=== PATIENT | female | born 1950 | race Caucasian/White ===

== ENCOUNTER → 2019-12-12 11:13 | Outpatient (CLI) | payer MEDICARE, SELFPAY ==
--- NOTE | ~2019-12-12 | MM_ITS ---
EXAMINATION: MM screening jak RT w mihir HISTORY: Screening right mammogram, history of left mastectomy TECHNIQUE: Craniocaudal and mediolateral oblique 3-D tomosynthesis images were obtained and synthetic 2-D images were generated. CAD analysis was submitted and interpreted. COMPARISON: 12/08/2018, 10/23/2017, 07/23/2013 BREAST PARENCHYMAL COMPOSITION: There are scattered areas of fibroglandular density. FINDINGS: Scattered benign-appearing calcifications are present. There is no evidence of suspicious m ass, calcification, or architectural distortion to suggest malignancy. There has been no suspicious i nterval change. IMPRESSION: 1. No mammographic evidence of malignancy. 2. Recommend routine screening mammography in one year. BI-RADS Category 2: Benign finding(s). Reviewed, dictated and finalized at location A. 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
== END ==
PROVIDERS: PCP Internal Medicine; Visit Provider Internal Medicine Hematology & Oncology
DX: Z12.31 Encounter for screening mammogram for malignant neoplasm of breast (principal)
CPT/HCPCS: 77063; 77067

== ENCOUNTER 2020-05-09 13:38 | Outpatient (CLI) | payer MEDICARE, SELFPAY ==
[2020-05-09 13:52] LABS: Basophils Absolute Auto 0.1 K/mm3 (0.0-0.1); Basophils Percent Auto 0.7 % (0.2-1.2); Eosinophils Absolute Auto 0.2 K/mm3 (0-0.3); Eosinophils Percent Auto 2.6 % (0-4.4); Hematocrit 35.2 % (37.0-47.0); Hemoglobin 11.7 g/dL (12.0-15.0); Immature Granulocyte Absolute 0.02 K/mm3 (0.00-0.031); Immature Granulocyte Percent A 0.3 % (0-0.5); Lymphocytes Absolute Auto 2.21 K/mm3 (0.9-3.2); Lymphocytes Percent Auto 29.8 % (18.3-44.2); Mean Corpuscular HGB Conc 33.2 g/dl (32-36); Mean Corpuscular Hemoglobin 30.7 pg (26-34); Mean Corpuscular Volume 92.4 fl (80-100); Mean Platelet Volume 9.2 fl (7.4-10.4); Monocytes Absolute Auto 0.7 K/mm3 (0.1-0.6); Monocytes Percent Auto 9.8 % (2.6-8.5); Neutrophils Absolute Auto 4.2 K/mm3 (1.3-6.7); Neutrophils Percent Auto 56.8 % (45.5-73.1); Platelet Count Result 225 k/mm3 (150-375); Red Blood Count 3.81 M/mm3 (4.2-5.4); Red Cell Distribution Width 13.2 % (11.5-14.5); White Blood Count 7.4 K/mm3 (4.5-10.0)
[2020-05-09 15:04] LABS: Cholesterol 217 mg/dL (0-200); HDL Direct 58 mg/dL; Triglycerides 265 mg/dL (<150)
[2020-05-09 15:07] LABS: Alanine Aminotransferase 16 U/L (4-35); Albumin Level 4.3 g/dL (3.5-5.1); Alkaline Phosphatase 70 U/L (38-126); Aspartate Amino Transferase 25 U/L (14-36); Bilirubin,Total 0.2 mg/dL (0.2-1.3); Blood Urea Nitrogen 18 mg/dL (7-17); Carbon Dioxide 28 mmol/L (22-30); Chloride 101 mmol/L (98-107); Estimated Glomerular Filt Rate > 60; Glucose 101 mg/dL (65-105); Sodium 137 mmol/L (137-145)
[2020-05-09 15:22] LABS: LDL Cholesterol Direct 121 mg/dL
[2020-05-09 16:10] LABS: Folic Acid > 20.0 ng/mL (2.76->20)
[2020-05-12 04:15] LABS: CA 27.29 13 U/mL (<38)
== END 2020-05-09 13:39 | disposition home or self-care (01) ==
LOC: ANHLAB 13:40
PROVIDERS: PCP Internal Medicine; Visit Provider Internal Medicine Hematology & Oncology
DX: E78.5 Hyperlipidemia, unspecified (principal); R53.83 Other fatigue; C50.412 Malignant neoplasm of upper-outer quadrant of left female breast; Z17.0 Estrogen receptor positive status [ER+]
CPT/HCPCS: 36415; 80053; 80061; 82607; 82746; 84443; 85025; 86300

== ENCOUNTER → 2021-02-22 11:01 | Outpatient (CLI) | payer MEDICARE, SELFPAY ==
--- NOTE | ~2021-02-22 | MM_ITS ---
EXAMINATION: MM screening jak RT w mihir HISTORY: Screening TECHNIQUE: Craniocaudal and mediolateral oblique 3-D tomosynthesis images were obtained and synthetic 2-D images were generated. CAD analysis was submitted and interpreted. COMPARISON: Comparison to multiple prior studies sequentially, with oldest reviewed study dated 10/09. BREAST PARENCHYMAL COMPOSITION: There are scattered areas of fibroglandular density. FINDINGS: There is no evidence of suspicious mass, calcification, or architectural distortion to sugg est malignancy in the right breast. There has been no suspicious interval change. IMPRESSION: 1. No mammographic evidence of malignancy. 2. Recommend routine screening mammography in one year. BI-RADS Category 1: Negative Reviewed, dictated and finalized at location A.
--- NOTE | ~2021-02-22 | DEXA_ITS ---
Bone Density Report Name: Salud Hanley Age: 70 Sex: Female Ethnicity: White Date of : 1950 Indication: osteopenia; monitoring treatment; height loss; prior fracture; cancer; postmenopausal Referring Provider: Samir Brito Study: Bone densitometry was performed. Exam Date: February 22, 2021 Accession number: [id number] Bone Density: Region BMD T-score Z-score Classification AP Spine (L1, L3) 1.065 0.5 2.7 Normal Femoral Neck (Left) 0.644 -1.8 0.1 Osteopenia Total Hip (Left) 0.937 0.0 1.6 Normal Femoral Neck (Right) 0.674 -1.6 0.4 Osteopenia Total Hip (Right) 0.855 -0.7 0.9 Normal Total Hip Mean 0.896 -0.4 1.3 Normal World Health Organization criteria for BMD impression classify patients as: Normal (T-score at or above -1.0), Osteopenia (T-score between -1.0 and -2.5), or Osteoporosis (T-score at or below -2.5). 10-year Fracture Risk: FRAX not reported because: Prior hip or vertebral fracture Treated for osteoporosis Previous Exams: Region Exam Age BMD T-score BMD Change BMD Change Date g/cm2 vs Baseline vs Previous AP Spine(L1, L3) 02/22/2021 70 1.065 0.5 0.227* 0.112* 10/23/2017 67 0.954 -0.5 0.116* -0.020 07/23/2016 66 0.973 -0.4 0.136* 0.136* 01/13/2006 55 0.838 -1.6 Total Hip(Left) 02/22/2021 70 0.937 0.0 0.028* 0.053* 10/23/2017 67 0.884 -0.5 -0.025 -0.011 07/23/2016 66 0.895 -0.4 -0.014 -0.014 01/13/2006 55 0.909 -0.3 Total Hip(Right) 02/22/2021 70 0.855 -0.7 0.012 0.065* 10/23/2017 67 0.790 -1.2 -0.053* -0.032* 07/23/2016 66 0.822 -1.0 -0.021 -0.021 01/13/2006 55 0.843 -0.8 *Denotes significance at 95% confidence level, LSC for AP Spine = 0.022 g/cm2, LSC for Total Hip = 0.027 g/cm2 Clinical Information Provided by Patient: Have had a previous hip or vertebral fracture Has had a low trauma fracture Is being treated for osteoporosis Has used the following medications: HRT (i.e. estrogen/hormone therapy), Prolia (i.e. denosumab), Vitamin D, Calcium, MTV Has the following medical conditions: Cancer Patient maximum height was 64.75 Menopause Age: 51 No regular weight bearing exercise Drinks caffeinated beverages Onset of menses at age 12 Number of children 2 Impression: The patient has low bone mass, based on the Lef
== END ==
PROVIDERS: PCP Internal Medicine; Visit Provider Internal Medicine Hematology & Oncology
DX: Z78.0 Asymptomatic menopausal state (principal); Z12.31 Encounter for screening mammogram for malignant neoplasm of breast; M85.852 Other specified disorders of bone density and structure, left thigh; M85.851 Other specified disorders of bone density and structure, right thigh
CPT/HCPCS: 77063; 77067; 77080

== ENCOUNTER → 2021-09-24 02:26 | Outpatient (CLI) | payer MEDICARE, SELFPAY ==
[2021-09-24 19:35] LABS: SARS-CoV-2 RNA PCR Negative
== END ==
PROVIDERS: PCP Internal Medicine; Visit Provider Internal Medicine
DX: R05.9 Cough, unspecified (principal); Z20.822 Contact with and (suspected) exposure to COVID-19
CPT/HCPCS: C9803; U0003; U0005

== ENCOUNTER → 2021-09-26 09:57 | Outpatient (CLI) | payer MEDICARE, SELFPAY ==
--- NOTE | ~2021-09-26 | XR_ITS ---
EXAMINATION: XR chest 2V EXAM DATE: 09/26/2021 10:21 INDICATION: R05.9 - Cough, unspecified. TECHNIQUE: Frontal and lateral projections of the chest obtained and reviewed. Comparison is made to prior examination from 09/01/2016. FINDINGS: There are left axillary surgical clips. Small amount of biapical postinfectious residua. S ome chronic hyperinflation. No confluent consolidation, pneumothorax or pleural effusion suspected. C ardiomediastinal silhouette is normal. Benign circumscribed density projecting over left humeral head unchanged. IMPRESSION: No acute cardiac pulmonary findings. Mild hyperinflation. Reviewed, dictated and finalized at location B. ING HAND
== END ==
PROVIDERS: PCP Internal Medicine; Visit Provider Physician Assistant
DX: R05.9 Cough, unspecified (principal); R91.8 Other nonspecific abnormal finding of lung field
CPT/HCPCS: 71046

== ENCOUNTER → 2021-11-21 09:43 | Outpatient (CLI) | payer MEDICARE, SELFPAY ==
[2021-11-21 20:40] LABS: SARS-CoV-2 RNA PCR Positive
== END ==
PROVIDERS: PCP Internal Medicine; Visit Provider Physician Assistant
DX: U07.1 COVID-19 (principal)
CPT/HCPCS: C9803; U0003; U0005

== ENCOUNTER → 2022-02-24 14:37 | Outpatient (CLI) | payer MEDICARE, SELFPAY ==
--- NOTE | ~2022-02-24 | MM_ITS ---
EXAMINATION: MM screening jak RT w mihir HISTORY: Screening mammogram TECHNIQUE: Craniocaudal and mediolateral oblique 3-D tomosynthesis images were obtained and synthetic 2-D images were generated. CAD analysis was submitted and interpreted. COMPARISON: , 12/12/2019, 12/08/2018 right screening mammogram examinations BREAST PARENCHYMAL COMPOSITION: The breasts are heterogeneously dense, which may obscure small masses . FINDINGS: History of left mastectomy in January 2017 for breast cancer. Scattered benign calcifications . There is no evidence of suspicious mass, calcification, or architectural distortion to suggest amber gnancy in either breast. There has been no suspicious interval change. IMPRESSION: 1. Status post left mastectomy for breast cancer. No mammographic evidence of malignancy. 2. Recommend routine screening mammography in one year. BI-RADS Category 2: Benign finding(s). Reviewed, dictated and finalized at location A. IMPRESSION: 1. Status post left mastectomy for breast cancer. No mammographic evidence of m alignancy. 2. Recommend routine screening mammography in one year. BI-RADS Category 2: Benign finding(s).
== END ==
PROVIDERS: PCP Internal Medicine; Visit Provider Internal Medicine Hematology & Oncology
DX: Z12.31 Encounter for screening mammogram for malignant neoplasm of breast (principal)
CPT/HCPCS: 77063; 77067

== ENCOUNTER 2022-05-23 10:53 | Outpatient (CLI) | payer MEDICARE, SELFPAY ==
[2022-05-23 14:07] LABS: Cholesterol 215 mg/dL (0-200); HDL Direct 48 mg/dL; Triglycerides 271 mg/dL (<150)
[2022-05-23 14:18] LABS: LDL Cholesterol Direct 97 mg/dL
[2022-05-23 15:27] LABS: Folic Acid > 20.0 ng/mL (2.76->20)
== END 2022-05-23 10:54 | disposition home or self-care (01) ==
LOC: ANHLAB 10:54
PROVIDERS: PCP Internal Medicine; Visit Provider Internal Medicine
DX: R73.9 Hyperglycemia, unspecified (principal); E78.5 Hyperlipidemia, unspecified; R53.83 Other fatigue
CPT/HCPCS: 36415; 80061; 82607; 82746; 84443

== ENCOUNTER 2022-06-28 10:35 | Emergency (ER) | payer MEDICARE, SELFPAY ==
[2022-06-28 10:46] VITALS: BP 154/99; PULSE 76; RESP 16; TEMP 36.5; O2SAT 95
--- NOTE | 2022-06-28 10:58 | ED.FEMALEGU ---
HPI - Female Genitourinary General Chief complaint: Urogenital-Female Stated complaint: uti Source: patient and RN notes reviewed Mode of arrival: ambulatory Limitations: no limitations History of Present Illness MD elicited complaint: UTI Related Data Home Medications Medication Instructions Recorded Confirmed [id number] acid 0.4 1 tablet PO DAILY 09/01/19 06/02/22 mg-lycopene 300 mcg-lutein 250 mcg tablet (Centrum Silver) calcium carbonate 600 mg-vitamin 1 cap PO DAILY 07/23/21 06/02/22 D3 12.5 mcg (500 unit) capsule (Calcium 600 with Vitamin D3) denosumab 60 mg/mL subcutaneous 60 mg subcut [id number] 07/23/21 06/02/22 syringe (Prolia) fexofenadine 30 mg tablet 60 mg PO Q12H 06/02/22 06/02/22 Allergies Allergy/AdvReac Type Severity Reaction Status Date / Time monosodium glutamate AdvReac Unknown HEADACHES Verified 06/02/22 11:37 Review of Systems Review of Systems: CONSTITUTIONAL: Denies malaise, chills, sweats, or fever. CARDIOVASCULAR: Denies chest pain, palpitations, or edema. RESPIRATORY: Denies cough or dyspnea. GASTROINTESTINAL: Denies abdominal pain, nausea, vomiting, diarrhea GENITOURINARY: Reports dysuria, frequency, urgency, suprapubic pressure. Denies flank pain or hematuria. SKIN: Denies rash or itching. MUSCULOSKELETAL: Denies back pain or myalgia. All systems reviewed & are unremarkable except as noted in HPI and below PMFSH Social History Social History Smoking packs per day: 0.5 Smoking cigarettes per day: 10.0 Years smoked: 30 Smoking pack-years: 15.00 Smoking status: Former smoker Tobacco type: cigarettes Second hand tobacco smoke exposure: No Smoking end date: 11/09/89 Alcohol intake: current Drinks per week: 6 Substance use: never Comments At time of signature, agree with nursing past medical, surgical, social and family history. There is no relevant family history pertinent to the presenting complaint Exam Narrative: GENERAL: Well-appearing, well-nourished, and in no acute distress. HEAD: Normocephalic. EYES: PERRLA, conjunctivae clear. NECK: Supple. No lymphadenopathy CHEST: Clear to auscultation. No respiratory distress. HEART: Regular rate and rhythm. ABDOMEN: Soft, nontender upon palpation, nondistended, normal active bowel sounds, no palpable or pulsatile masses, no guarding. No CVA tenderness SKIN: Warm, dry, no rash. NEURO: Alert and oriented x3. PSYCH: Normal mood and affect Course Course Emergency Course: Patient is aware of diagnosis, understands and agrees to treatment plan. Anticipatory guidance given. Patient agrees to follow-up as directed and is aware of reasons to seek care at the emergency department. Portions of this record may have been created with voice recognition software Level of Care: Express Care Visit Vital Signs Vital signs: Vital Signs Temperature 97.7 F 06/28/22 10:46 Pulse Rate 76 06/28/22 10:46 Respiratory Rate 16 06/28/22 10:46 Blood Pressure 154/99 H 06/28/22 10:46 Pulse Oximetry 95 06/28/22 10:46 Temperature 97.7 F 06/28/22 10:46 Pulse Rate 76 06/28/22 10:46 Respiratory Rate 16 06/28/22 10:46 Blood Pressure 154/99 H 06/28/22 10:46 Pulse Oximetry 95 06/28/22 10:46 Reviewed. MDM - Female Genitourinary MDM Narrative Medical decision making narrative: Exam findings and UA show no acute concerns or changes; patient is non-toxic appearing and is in no distress. Patient is appropriate for outpatient treatment and follow-up. Differential Diagnosis Differential diagnosis: Likely urinary tract infection and cystitis Lab Data Labs: Urine Glucose Negative Reference Range: Negative Urine Bilirubin Negative Reference Range: Negative Urine Ketone Negative
== END 2022-06-28 11:10 | disposition home or self-care (01) ==
PROVIDERS: Emergency Provider Nurse Practitioner; PCP Internal Medicine
DX: N39.0 Urinary tract infection, site not specified (principal); Z87.891 Personal history of nicotine dependence
CPT/HCPCS: 81003; 87077; 87086; 87186; 99213; G0463

== ENCOUNTER 2022-11-26 11:24 | Outpatient (CLI) | payer MEDICARE, SELFPAY ==
[2022-11-26 13:45] LABS: Cholesterol 205 mg/dL (0-200); HDL Direct 55 mg/dL; Triglycerides 160 mg/dL (<150)
[2022-11-26 13:46] LABS: Iron 32 ug/dL (37-170)
[2022-11-26 13:56] LABS: LDL Cholesterol Direct 96 mg/dL
[2022-11-26 13:59] LABS: Percent Iron Saturation 9 % (20-50)
[2022-11-26 14:16] LABS: Thyroid Stimulating Hormone 0.995 uIU/mL (0.465-4.680)
[2022-11-26 15:04] LABS: Folic Acid > 20.0 ng/mL (2.76->20)
== END 2022-11-26 11:25 | disposition home or self-care (01) ==
LOC: ANHLAB 11:25
PROVIDERS: PCP Internal Medicine; Visit Provider Internal Medicine
DX: R73.9 Hyperglycemia, unspecified (principal); E78.5 Hyperlipidemia, unspecified; D64.9 Anemia, unspecified
CPT/HCPCS: 36415; 80061; 82607; 82746; 83540; 83550; 84443

== ENCOUNTER → 2023-02-25 10:14 | Outpatient (CLI) | payer MEDICARE, SELFPAY ==
--- NOTE | ~2023-02-25 | MM_ITS ---
EXAMINATION: MM screening jak RT w mihir HISTORY: Screening right mammogram, history of left mastectomy TECHNIQUE: Craniocaudal and mediolateral oblique 3-D tomosynthesis images were obtained and synthetic 2-D images were generated. CAD analysis was submitted and interpreted. COMPARISON: 12/08/2018, 10/23/2017, 07/23/2016 BREAST PARENCHYMAL COMPOSITION: The breasts are heterogeneously dense, which may obscure small masses . FINDINGS: No suspicious mass, calcification, or architectural distortion are identified in either osiel ast to suggest malignancy. There has been no suspicious interval change. IMPRESSION: 1. No mammographic evidence of malignancy. 2. Recommend routine screening mammography in one year. BI-RADS Category 1: Negative Reviewed, dictated and finalized at location A.
--- NOTE | ~2023-02-25 | DEXA_ITS ---
Bone Density Report Name: JALEN LUEVANO Age: 72 Sex: Female Ethnicity: White Date of : 1950 Indication: monitoring treatment; height loss; prior fracture; postmenopausal Referring Provider: Samir Brito Study: Bone densitometry was performed. Exam Date: February 25, 2023 Accession number: [id number] Bone Density: Region BMD T-score Z-score Classification AP Spine (L1, L3) 1.106 0.8 3.2 Normal Femoral Neck (Left) 0.675 -1.6 0.5 Osteopenia Total Hip (Left) 0.938 0.0 1.7 Normal Femoral Neck (Right) 0.700 -1.3 0.7 Osteopenia Total Hip (Right) 0.870 -0.6 1.2 Normal Total Hip Mean 0.904 -0.3 1.5 Normal World Health Organization criteria for BMD impression classify patients as: Normal (T-score at or above -1.0), Osteopenia (T-score between -1.0 and -2.5), or Osteoporosis (T-score at or below -2.5). 10-year Fracture Risk: FRAX not reported because: Prior hip or vertebral fracture Treated for osteoporosis Previous Exams: Region Exam Age BMD T-score BMD Change BMD Change Date g/cm2 vs Baseline vs Previous AP Spine(L1, L3) 02/25/2023 72 1.106 0.8 0.269* 0.041* 02/22/2021 70 1.065 0.5 0.227* 0.112* 10/23/2017 67 0.954 -0.5 0.116* -0.020 07/23/2016 66 0.973 -0.4 0.136* 0.136* 01/13/2006 55 0.838 -1.6 Total Hip(Left) 02/25/2023 72 0.938 0.0 0.029* 0.001 02/22/2021 70 0.937 0.0 0.028* 0.053* 10/23/2017 67 0.884 -0.5 -0.025 -0.011 07/23/2016 66 0.895 -0.4 -0.014 -0.014 01/13/2006 55 0.909 -0.3 Total Hip(Right) 02/25/2023 72 0.870 -0.6 0.027 0.015 02/22/2021 70 0.855 -0.7 0.012 0.065* 10/23/2017 67 0.790 -1.2 -0.053* -0.032* 07/23/2016 66 0.822 -1.0 -0.021 -0.021 01/13/2006 55 0.843 -0.8 *Denotes significance at 95% confidence level, LSC for AP Spine = 0.022 g/cm2, LSC for Total Hip = 0.027 g/cm2 Clinical Information Provided by Patient: Have had a previous hip or vertebral fracture Has had a low trauma fracture Is being treated for osteoporosis Has used the following medications: Prolia (i.e. denosumab), Vitamin D, Calcium, MTV Patient maximum height was 64.75 Menopause Age: 51 Drinks caffeinated beverages Onset of menses at age 12 Number of children 2
== END ==
PROVIDERS: PCP Internal Medicine; Visit Provider Internal Medicine Hematology & Oncology
DX: Z12.31 Encounter for screening mammogram for malignant neoplasm of breast (principal); M81.0 Age-related osteoporosis without current pathological fracture; M85.852 Other specified disorders of bone density and structure, left thigh; M85.851 Other specified disorders of bone density and structure, right thigh
CPT/HCPCS: 77063; 77067; 77080

== ENCOUNTER 2023-04-01 11:06 | Outpatient (CLI) | payer MEDICARE, SELFPAY ==
[2023-04-01 11:30] LABS: Basophils Percent Auto 0.6 % (0.2-1.2); Eosinophils Absolute Auto 0.2 K/mm3 (0-0.3); Eosinophils Percent Auto 2.5 % (0-4.4); Hematocrit 36.7 % (37.0-47.0); Immature Granulocyte Absolute 0.02 K/mm3 (0.00-0.031); Immature Granulocyte Percent A 0.3 % (0-0.5); Lymphocytes Absolute Auto 1.84 K/mm3 (0.9-3.2); Lymphocytes Percent Auto 28.3 % (18.3-44.2); Mean Corpuscular HGB Conc 32.7 g/dl (32-36); Mean Corpuscular Hemoglobin 29.9 pg (26-34); Mean Corpuscular Volume 91.3 fl (80-100); Mean Platelet Volume 9.3 fl (7.4-10.4); Monocytes Absolute Auto 0.7 K/mm3 (0.1-0.6); Monocytes Percent Auto 11.1 % (2.6-8.5); Neutrophils Absolute Auto 3.7 K/mm3 (1.3-6.7); Neutrophils Percent Auto 57.2 % (45.5-73.1); Platelet Count Result 247 k/mm3 (150-375); Red Blood Count 4.02 M/mm3 (4.2-5.4); Red Cell Distribution Width 13.1 % (11.5-14.5); White Blood Count 6.5 K/mm3 (4.5-10.0)
[2023-04-01 18:12] LABS: Cholesterol 215 mg/dL (0-200); HDL Direct 53 mg/dL; Triglycerides 221 mg/dL (<150)
[2023-04-01 18:17] LABS: Alanine Aminotransferase 20 U/L (6-35); Albumin Level 4.2 g/dL (3.5-5.1); Alkaline Phosphatase 58 U/L (38-126); Anion Gap 7 mmol/L (8-16); Aspartate Amino Transferase 28 U/L (14-36); Bilirubin,Total 0.3 mg/dL (0.2-1.3); Blood Urea Nitrogen 22 mg/dL (7-17); Carbon Dioxide 31 mmol/L (22-30); Chloride 102 mmol/L (98-107); Estimated Glomerular Filt Rate > 60; Glucose 75 mg/dL (65-110); Potassium 4.6 mmol/L (3.4-5.0); Sodium 140 mmol/L (137-145)
[2023-04-01 18:24] LABS: LDL Cholesterol Direct 104 mg/dL
[2023-04-05 21:34] LABS: CA 15-3 8 U/mL (<32)
== END 2023-04-01 11:07 | disposition home or self-care (01) ==
LOC: ANHLAB 11:07
PROVIDERS: PCP Internal Medicine; Visit Provider Internal Medicine Hematology & Oncology
DX: E78.5 Hyperlipidemia, unspecified (principal); R73.9 Hyperglycemia, unspecified; D64.9 Anemia, unspecified; C50.412 Malignant neoplasm of upper-outer quadrant of left female breast; Z17.0 Estrogen receptor positive status [ER+]
CPT/HCPCS: 36415; 80053; 80061; 85025; 86300

== ENCOUNTER 2024-04-01 11:04 | Outpatient (CLI) | payer MEDICARE, SELFPAY ==
--- NOTE | ~2024-04-01 | MM_ITS ---
EXAMINATION: MM screening jak RT w mihir HISTORY: Screening mammogram TECHNIQUE: Craniocaudal and mediolateral oblique 3-D tomosynthesis images were obtained and synthetic 2-D images were generated. CAD analysis was submitted and interpreted. COMPARISON: 02/25/2023, 02/24/2022 right screening mammogram examinations BREAST PARENCHYMAL COMPOSITION: The breast is heterogeneously dense, which may obscure small masses. FINDINGS: There is no evidence of suspicious mass, calcification, or architectural distortion to sugg est malignancy in either breast. There has been no suspicious interval change. IMPRESSION: 1. No mammographic evidence of malignancy. 2. Recommend routine screening mammography in one year. BI-RADS Category 1: Negative Reviewed, dictated and finalized at location B.
== END 2024-04-01 11:05 ==
LOC: MICIMG 11:06
PROVIDERS: PCP Internal Medicine; Visit Provider Internal Medicine Hematology & Oncology
DX: Z12.31 Encounter for screening mammogram for malignant neoplasm of breast (principal)
CPT/HCPCS: 77063; 77067

== ENCOUNTER 2024-12-09 11:14 | Outpatient (CLI) | payer MEDICARE, SELFPAY ==
--- OUTSIDE RECORDS SUMMARY | 2024-12-09 11:16 | XMS_ITS | Clinical Summary ---
Author Organization [facility] Address [address] [place] [address] Care Team Providers Care Inspector Outside Production Name Role Phone Kalyan Knutson DO Primary Care Provider [phone] Allergies Active Allergy Reactions Criticality Noted Date Comments Monosodium Glutamate Diarrhea Low 08/26/2016 Medications lisinopril (PRINIVIL) 10 mg tablet Take 10 mg by mouth daily. Active fexofenadine (CHRISTEN) 60 mg tablet Take 60 mg by mouth 2 times daily. Active calcium carbonate + vitamin D (CALTRATE+D) 600 mg(1,500mg) -400 unit Tablet Take 1 Tablet by mouth daily. Active multivitamin (DAILY-SANDRA) tablet Take 1 Tablet by mouth daily. Active sour rios extract (TART RIOS EXTRACT ORAL) Take by mouth. Active Active Problems Problem Noted Date Diagnosed Date History of invasive ductal carcinoma of breast 0 05/15/2020 Osteopenia 05/15/2020 Resolved Problems Problem Noted Date Diagnosed Date Resolved Date Malignant neoplasm of breast (female) 08/26/2016 05/16/2020 Cancer Staging:Clinical stage from 08/26/2016:Stage IIB(T3, N0, M0) - Unsigned Encounters Date Type Department Care Team Description 12/01/2024 External Device Data ST[facility] ABSTRACTION Provider, Abstract 11/30/2024 External Device Data [facility] ABSTRACTION Provider, Abstract 11/29/2024 External Device Data [facility] ABSTRACTION Provider, Abstract 11/22/2024 External Device Data [facility] ABSTRACTION Provider, Abstract from Last 3 Months Social History Tobacco Use Types Packs/Day Years Used Date Smoking Tobacco: Former Cigarettes Q uit: 04/08/1992 Tobacco Cessation:Counseling Given: Not Answered Alcohol Use Standard Drinks/Week Comments Yes 8 (1 standard drink = 0.6 oz pur e alcohol) Comments No Sex and Gender Information Value Date Recorded Sex Assigned at Not on file Legal Sex Female 10:27 AM CDT Gender Identity Not on file Sexual Orientation Not on file Last Filed Vital Signs Vital Sign Reading Time Taken Comments Blood Pressure 124/78 06/15/2024 1:10 PM CDT Pulse 55 06/15/2024 1:10 PM CDT Temperature 37 ??C (98.6 ??F) 06/15/2024 1:10 PM CDT Respiratory Rate 12 06/15/2024 1:10 PM CDT Oxygen Saturation 96% 06/15/2024 1:10 PM CDT Inhaled Oxygen Concentration - - Weight 61.9 kg (136 lb 6.4 oz) 06/15/2024 1:10 P M CDT Height 160 cm (5' 3 ) 07/07/2022 2:58 PM CDT Body Mass Index 24.16 07/07/2022 2:58 PM CDT Plan of Treatment Upcoming Encounters Date Type Department Care Team (Late st Contact Info) Description 12/19/2024 11:30 AM GOLD LAYER Office Visit [facility] Oncology and Hematology - [place] [address] [place] [address] [facility] [address] [place] [address] Samir Brito MD [address] [place] [address] Health Maintenance Due Date Last Done Comments DTAP/TDAP/TD VACCINES (1 - Tdap) 1967 PNEUMOCOCCAL VACCINE 65+ YEA RS (1 of 1 - PCV) 1998 ZOSTER VACCINE (1 of 2) 1998 RSV VACCINE (60+ or ) (1 - 1-dose 75+ series) 2023 INFLUENZA VACCINE (#1) 2024 Medicare [place]vantage ([place]) Prev entative Visit/Annual Wellness Visit 11/09/2024 OSTEOPOROSIS SCREENING Completed , 10/28/2017, 07/23/2016 Procedures Procedure Name Priority Date/Time Associated Diagnosis Comments XR DEXA BONE DENSITY AXIAL 1 OR MORE SITES Routine 02/22/2021 Postmenopausal from Last 3 Months or Most Recently Relevant to Health Maintenance Results * XR DEXA BONE DENSITY AXIAL 1 OR MORE SITES (02/22/2021) Anatomical Region Laterality Modality Other Samir Brito MD DIAGNOSTIC IMAGING ORDERABLES F inal Result from Last 3 Months or Most Recently Relevant to Health Maintenance [place] [address] [place] [id number] Care Teams Inspector Outside Production Relationship Specialty Start Date End Date Kalyan Knutson DO [address] [facility] [address] [place] [address] PCP - General Internal Medicine 08/26/16
--- OUTSIDE RECORDS SUMMARY | 2024-12-09 11:16 | XMS_ITS | Patient Health Summary ---
Author Organization [facility] Address [address] [facility] [place] [address] Care Team Providers Care Lanolin Plant Operator Name Role Phone Kalyan Knutson DO Primary Care Provider [phone] Sandor Emmanuel MD Unavailable [phone] Note from [facility],non-owned Affiliates and Associated Physician Practices is amultiple site organization consisting of ambulatory clinics and hospital sitesin [place], [place], [place] and [place]. This disclosure is being madepursuant to the Care Everywhere program and may not contain all information available regarding this patient. Last updated 18.[facility] Allergies No known active allergies Medications * Be aware that medications may not be up to date on this document. Alwaysverify current medications with the patient. * lisinopril (PRINIVIL; ZESTRIL) 10 MG tablet Take 10 mg by mouth once daily * fexofenadine (CHRISTEN ALLERGY) 180 MG tablet Take 180 mg by mouth once daily * fluticasone propionate (FLONASE) 50 MCG/ACT nasal spray [place] 2 Sprays into each nostril once daily * triamcinolone (NASACORT ALLERGY 24HR) 55 MCG/ACT nasal inhaler [place] 1 [place] into each nostril once daily * diclofenac sodium EC (VOLTAREN) 75 MG tablet(Started 07/06/2015) Take 1 Tab by mouth 2 times daily 5 refills left Active Problems Problem Noted Date Diagnosed Date Hypertension Social History Tobacco Use Types Packs/Day Years Used Date Smoking Tobacco: Unknown Alcohol Use Standard Drinks/Week Comments Not Asked 0 (1 standard drink = 0.6 oz pur e alcohol) Sex and Gender Information Value Date Recorded Sex Assigned at Not on file Gender Identity Not on file Sexual Orientation Not on file Last Filed Vital Signs Vital Sign Reading Time Taken Comments Blood Pressure - - Pulse - - Temperature - - Respiratory Rate - - Oxygen Saturation - - Inhaled Oxygen Concentration - - Weight 68 kg (150 lb) 07/06/2015 10:25 AM CDT Height 162.6 cm (5' 4 ) 07/06/2015 10:25 AM CDT Body Mass Index 25.75 07/06/2015 10:25 AM CDT Procedures * XR KNEE BILAT 3VW(Performed 07/06/2015) Performed for Knee pain, bilateral Results * XR KNEE BILAT 3 VIEWS (07/06/2015 10:45 AM CDT) Anatomical Region Laterality Modality Lower Extremity Radiographic Saida ging Narrative 07/06/2015 11:52 AM CDT Yaquelin Aponte, RT(R) ? 07/06/2015 11:52 AM See progress notes for results Sandor Emmanuel MD DIAGNOSTIC IMAGING O [facility] Care Teams Lanolin Plant Operator Relationship Specialty Start Date End Date Kalyan Knutson DO [address] [place] [address] PCP - General Internal Medicine 07/06/15 [place] [address] [place] [address] Orthopedic Surgery 07/06/15
--- OUTSIDE RECORDS SUMMARY | 2024-12-09 11:16 | XMS_ITS | Clinical Summary ---
Author Organization [facility] Address [address] [facility] [place] [address] Care Team Providers Care Metal Bonding Assembler Name Role Phone Kalyan Knutson DO Primary Care Provider [phone] Sandor Emmanuel MD Unavailable [phone] Source Comments [facility],non-owned Affiliates and Associated Physician Practices is amultiple site organization consisting of ambulatory clinics and hospital sitesin [place], [place], [place] and [place]. This disclosure is being madepursuant to the Care Everywhere program and may not contain all information available regarding this patient. Last updated 18.[facility] Allergies No known active allergies Medications * Be aware that medications may not be up to date on this document. Alwaysverify current medications with the patient. Medication Sig Dispensed Refills Start Date End Date Status lisinopril (PRINIVIL; ZESTRIL) 10 MG tablet Take 10 mg by mouth once daily Active fexofenadine (CHRISTEN ALLERGY) 180 MG tablet Take 180 mg by mouth once daily Active fluticasone propionate (FLONASE) 50 MCG/ACT nasal spray [place] 2 Sprays into each nostril once daily Active triamcinolone (NASACORT ALLERGY 24HR) 55 MCG/ACT nasal inhaler [place] 1 [place] into each nostril once daily Active diclofenac sodium EC (VOLTAREN) 75 MG tablet Take 1 Tab by mouth 2 times daily 60 Tab 5 07/06/2015 Active Active Problems Problem Noted Date Diagnosed [...] Mass Index 25.75 07/06/2015 10:25 AM CDT Plan of Treatment Health Maintenance Due Date Last Done Comments BONE DENSITY TESTING 1950 HEPATITIS C SCREENING 03/23/1966 DTAP/TDAP/TD VACCINES (1 - Tdap) 1967 PNEUMOCOCCAL VACCINE 50+ (1 of 1 - PCV) 1998 ZOSTER VACCINE (1 of 2) 1998 Respiratory Syncytial Virus (RSV) Vaccine Pt: or over 60 yrs (1 - 1-dose 75+ series) 2023 COVID-19 VACCINE ( - 2023-2 5 season) 2024 INFLUENZA VACCINE (#1) 2024 DEPRESSION SCREENING 11/09/2024 MEDICARE AWV ? CALENDAR YEAR 2024 HEPATITIS B VACCINE Aged Out No longe r eligible based on patient's age to complete this topic HIB VACCINE Aged Out No longer eligi ble based on patient's age to complete this topic HPV VACCINE Aged Out No longer eligi ble based on patient's age to complete this topic MENINGOCOCCAL (Group B) VACCINE Aged Out No longer eligible based on patient's age to complete this topic MENINGOCOCCAL VACCINE Aged Out No aroldo anastasiia eligible based on patient's age to complete this topic Care Teams Metal Bonding Assembler Relationship Specialty Start Date End Date Kalyan Knutson DO [address] [place] [address] PCP - General Internal Medicine 07/06/15 [place] [address] [place] [id number] Orthopedic Surgery 07/06/15
--- OUTSIDE RECORDS SUMMARY | 2024-12-09 11:16 | XMS_ITS | Encounter Summary ---
Author Organization [facility] Address [address] [place] [address] Care Team Providers Care Manager Pacu Name Role Phone Kalyan Knutson DO Primary Care Provider [phone] Encounter Details Date Type Department Care Team (Late Contact Info) Description 01/13/2017 Chart Note [facility] Radiation Therapy [address] [place] [address] [place] [address] [place] [address] Social History Tobacco Use Types Packs/Day Years Used Date Smoking Tobacco: Former Cigarettes Q uit: 04/08/1992 Alcohol Use Standard Drinks/Week Comments Yes 8 (1 standard drink = 0.6 oz pur e alcohol) Comments No Sex and Gender Information Value Date Recorded Sex Assigned at Not on file Legal Sex Female 10:27 AM CDT Gender Identity Not on file Sexual Orientation Not on file documented as of this encounter Plan of Treatment Upcoming Encounters Date Type Department Care Team (Late Contact Info) Description 12/19/2024 11:30 AM ACUPRESSURE THERAPIST Office Visit [facility] Oncology and Hematology - [place] [address] [facility] [address] [place] [address] Samir Brito MD [address] [facility] [address] [place] [address] documented as of this encounter Visit Diagnoses Not on filedocumented in this encounter Care Teams Manager Pacu Relationship Specialty Start Date End Date Kalyan Knutson DO [address] [facility] [address] [place] [address] PCP - General Internal Medicine 08/26/16 documented as of this encounter
--- OUTSIDE RECORDS SUMMARY | 2024-12-09 11:16 | XMS_ITS | Referral Summary ---
Author Organization [facility] Address [address] [place] [address] Care Team Providers Care Internet Marketing Specialist Name Role Phone Kalyan Knutson DO Primary Care Provider [phone] Sandor Emmanuel MD Unavailable [phone] Source Comments [facility],non-owned Affiliates and Associated Physician Practices is amultiple site organization consisting of ambulatory clinics and hospital sitesin [place], [place] and [place]. This disclosure is being madepursuant to the Care Everywhere program and may not contain all information available regarding this patient. Last updated 18.[facility] Allergies No known active allergies Medications * [...] fluticasone propionate (FLONASE) 50 MCG/ACT nasal spray [place] 2 Sprays into each nostril once daily Active triamcinolone (NASACORT ALLERGY 24HR) 55 MCG/ACT nasal inhaler [place] 1 [place] into each nostril once daily Active diclofenac [...] 07/06/2015 10:25 AM CDT Plan of Treatment Not on file Care Teams Internet Marketing Specialist Relationship Specialty Start Date End Date Kalyan Knutson DO [address] [facility] [address] [place] [address] PCP - General Internal Medicine 07/06/15 [place] [address] [address] [place] [address] Orthopedic Surgery 07/06/15
--- OUTSIDE RECORDS SUMMARY | 2024-12-09 11:16 | XMS_ITS | Continuity of Care Document ---
Author Organization [facility] Address [address] [place] [address] [address] [place] [address] Phone Care Team Providers Care Men'S Leather Dress Belt Maker Name Role Phone Jarred Alvarado Unavailable Unavailable Procedures Procedure Date Eye Exam & Treatment Refraction Progressive Lens, Hi Index Anti-reflective Coating Frames Deluxe Tax - Medical Eye Exam & Treatment Refraction Eye Exam & Treatment Refraction Advance Directives Directive Yes / No Effective Date File Name No Information Encounters Encounter Description Practice Location Reason(s) For Visit Diagnoses Date Provider Providers Copied on Encounter [facility], [address] [place] [address] [facility], [place], [place], [id number], [place] tel:[phone] SEC [facility] No Information 0-201 0 Jenny Stern. [address] [facility] , [address], [place], [address], [place]. tel:[phone] [facility], [address] [place] [address] Executive [facility], [place], [place], [address], [place] tel:[phone] SEC [facility] No Information Oct-0 3-200 8 [facility] . [address] [place] [address], [address], [place], [place], [address], [place]. tel:[phone] Referring Provider: Jarred Pizarro [address] [facility] [address], [place], [address]. tel:[phone] aceves Provider: Kelley Horvath, [address] [place], [place], [facility]. tel:[phone] [facility], [address], [place], [place], [address], tel:[phone] SEC [facility] No Information Oct-2 7-200 8 Doi Edtd. [address] [facility] , [address], [place], [place], [facility], . tel:[phone] [facility], [address], [place], [place], [address], tel:[phone] [facility] No Information Apr-2 0-200 7 Doikeshia Stern. [address] [facility] , [address], [place], [address], . tel:[phone] Family History Family Member Type Diagnosis Age At Onset No Information Payers Payer name Insurance type Covered libertarian ID Authoriza tion(s) No Information Social History Type Description Quantity Date Captured Comments Sex Female Smoking Status No Information Chief Complaint And Reason For Visit No Information Reason For Referral Reason For Referral No Information History Of Present Illness Encounter Date Complaint History Of Prese nt Illness No Information Functional Status Date Functional Assessmen t No Information Instructions Date Instruction Additional Infor mation No Information Assessments Type Assessment Date No Information Patient Care Teams Name Effective Dates (start - stop) Status Members No Information
[2024-12-09 11:37] LABS: Basophils Absolute Auto 0.1 K/mm3 (0.0-0.1); Basophils Percent Auto 0.8 % (0.2-1.2); Eosinophils Absolute Auto 0.2 K/mm3 (0-0.3); Hematocrit 35.1 % (37.0-47.0); Hemoglobin 11.6 g/dL (12.0-15.0); Immature Granulocyte Absolute 0.01 K/mm3 (0.00-0.031); Immature Granulocyte Percent A 0.1 % (0-0.5); Lymphocytes Percent Auto 29.6 % (18.3-44.2); Mean Corpuscular Hemoglobin 29.4 pg (26-34); Mean Corpuscular Volume 89.1 fl (80-100); Mean Platelet Volume 8.7 fl (7.4-10.4); Monocytes Absolute Auto 0.7 K/mm3 (0.1-0.6); Monocytes Percent Auto 9.3 % (2.6-8.5); Neutrophils Absolute Auto 4.3 K/mm3 (1.3-6.7); Neutrophils Percent Auto 58.2 % (45.5-73.1); Platelet Count Result 245 k/mm3 (150-375); Red Blood Count 3.94 M/mm3 (4.2-5.4); Red Cell Distribution Width 13.6 % (11.5-14.5); White Blood Count 7.4 K/mm3 (4.5-10.0)
[2024-12-09 12:39] LABS: Cholesterol 219 mg/dL (0-200); HDL Direct 56 mg/dL; Triglycerides 234 mg/dL (<150)
[2024-12-09 12:40] LABS: Hemoglobin A1C 5.7 % (<5.7)
[2024-12-09 12:41] LABS: Alanine Aminotransferase 18 U/L (6-35); Albumin Level 4.2 g/dL (3.5-5.1); Alkaline Phosphatase 65 U/L (38-126); Anion Gap 11 mmol/L (4-12); Aspartate Amino Transferase 29 U/L (14-36); Bilirubin,Total 0.5 mg/dL (0.2-1.3); Blood Urea Nitrogen 26 mg/dL (7-17); Calcium 9.7 mg/dL (8.4-10.2); Carbon Dioxide 29 mmol/L (22-30); Chloride 99 mmol/L (98-107); Estimated Glomerular Filt Rate > 60; Glucose 95 mg/dL (65-110); Potassium 4.2 mmol/L (3.4-5.0); Sodium 139 mmol/L (137-145)
[2024-12-09 12:49] LABS: LDL Cholesterol Direct 105 mg/dL
[2024-12-11 02:53] LABS: CA 15-3 6 U/mL (<32)
== END 2024-12-09 11:15 | disposition home or self-care (01) ==
LOC: ANHLAB 11:15
PROVIDERS: PCP Internal Medicine; Visit Provider Internal Medicine Hematology & Oncology
DX: E78.5 Hyperlipidemia, unspecified (principal); R73.9 Hyperglycemia, unspecified; C50.412 Malignant neoplasm of upper-outer quadrant of left female breast; Z17.0 Estrogen receptor positive status [ER+]
CPT/HCPCS: 36415; 80053; 80061; 83036; 85025; 86300

== ENCOUNTER 2025-03-22 10:31 | Outpatient (CLI) | payer MEDICARE, SELFPAY ==
--- NOTE | ~2025-03-22 | XR_ITS ---
Supine and upright views of the abdomen Clinical history: Abdominal pain Findings: Bowel gas pattern is nonspecific. No evidence for obstruction or free air. No abnormal mass lesion or calcification is seen. Osseous structures are intact. Impression: No significant abnormality is seen. Reviewed, dictated and finalized at [facility]. Impression: No significant abnormality is seen.
== END 2025-03-22 10:32 | disposition home or self-care (01) ==
PROVIDERS: PCP Internal Medicine; Visit Provider Internal Medicine
DX: R10.9 Unspecified abdominal pain (principal)
CPT/HCPCS: 74018

== ENCOUNTER 2025-03-29 08:00 | Outpatient (CLI) | payer MEDICARE, SELFPAY ==
--- OUTSIDE RECORDS SUMMARY | 2025-03-29 08:45 | XMS_ITS | Encounter Summary ---
Author Organization [facility] Address [address] [place] [address] Care Team Providers Care Molding Room Supervisor Name Role Phone Ricky Nevarez DO Primary Care Provider [phone] Encounter Details Date Type Department Care Team (Late Contact Info) Description 01/13/2017 Chart Note [facility] Radiation Therapy [address] [place] [address] [place] [address] [place] [address] Social History Tobacco Use Types [...] Care Team (Late st Contact Info) Description 06/22/2025 11:00 AM CDT Office Visit [facility] Oncology and Hematology - Nicholas [address] [facility] [address] [place] [address] Samir Brito MD 2227 [facility] [address] [place] [address] documented as of this encounter Visit Diagnoses Not on filedocumented in this encounter Care Teams Molding Room Supervisor Relationship Specialty Start Date End Date Ricyk Nevarez DO 68[address] [facility] 162 [facility] [address] [place] [address] PCP - General Internal Medicine 12/19/24 documented as of this encounter
--- OUTSIDE RECORDS SUMMARY | 2025-03-29 08:45 | XMS_ITS | Clinical Summary ---
Author Organization [facility] Address [address] [facility] [address] Care Team Providers Care Agricultural Aircraft Pilot Name Role Phone Kalyan Knutson DO Primary Care Provider [phone] Sandor Emmanuel MD Unavailable Source Comments [facility],non-owned Affiliates and Associated Physician Practices is amultiple site organization consisting of ambulatory clinics and hospital sitesin [place], [place], [place] and [place]. This disclosure is being madepursuant to the Care Everywhere program and may not contain all information available regarding this patient. Last updated 18.[facility] Allergies No known active allergies Medications * Be aware that medications may not be up to date on this document. Alwaysverify current medications with the patient. lisinopril (PRINIVIL; ZESTRIL) 10 MG tablet Take 10 mg by mouth once daily Active fexofenadine (CHRISTEN ALLERGY) 180 MG tablet Take 180 mg by mouth once daily Active fluticasone propionate (FLONASE) 50 MCG/ACT nasal spray [place] 2 Sprays into each nostril once daily Active triamcinolone (NASACORT ALLERGY 24HR) 55 MCG/ACT nasal inhaler [place] 1 [place] into each nostril once daily Active diclofenac [...] = 0.6 oz pur e alcohol) Comments Unknown Sex and Gender Information Value Date Recorded Sex Assigned at Not on file Legal Sex Female 3:23 PM CDT Gender Identity Not on file Sexual [...] VACCINE ( - 2023-2 5 season) 2024 DEPRESSION SCREENING 11/09/2024 INFLUENZA VACCINE (Season Ended) 2025 HEPATITIS B VACCINE Aged Out No longe r eligible based on patient's age to complete this topic HIB VACCINE Aged Out No longer eligi ble based on patient's age to complete this topic HPV VACCINE Aged Out No longer eligi ble based on patient's age to complete this topic MENINGOCOCCAL (Group B) VACC INE SHARED DECISION-MAKING Aged Out No longer eligibl e based on patient's age to complete this topic MENINGOCOCCAL GROUPS A/C/Y/W VACCINE Aged Out No longer eligible b ased on patient's age to complete this topic Insurance [facility] MANAGED MEDICARE ADV Care Teams Agricultural Aircraft Pilot Relationship Specialty Start Date End Date Kalyan Knutson DO [address] [facility] [address] [place], [place] [id number] PCP - General Internal Medicine 07/06/15 [place] [address] [address] Orthopedic Surgery 07/06/15
--- OUTSIDE RECORDS SUMMARY | 2025-03-29 08:45 | XMS_ITS | Clinical Summary ---
Author Organization [facility] Address [address] [facility] [place] [address] Care Team Providers Care Privacy Attorney Name Role Phone Ricky Nevarez DO Primary Care Provider Allergies Active Allergy Reactions Criticality Noted Date Comments Monosodium Glutamate Diarrhea Low 08/26/2016 Medications lisinopril (PRINIVIL) 10 mg tablet Take 10 mg by mouth daily. Active fexofenadine (CHRISTEN) 60 mg tablet Take 60 mg by mouth 2 times daily. Active calcium carbonate + vitamin D (CALTRATE+D) 600 mg(1,500mg) -400 unit Tablet Take 1 Tablet by mouth daily. Active multivitamin (DAILY-SADNRA) tablet Take 1 Tablet by mouth daily. [...] Encounters Date Type Department Care Team Description 03/28/2025 External Device Data STL ABSTRACTION Provider, Abstract 03/14/2025 External Device Data STL ABSTRACTION Provider, Abstract 03/14/2025 External Device Data STL ABSTRACTION Provider, Abstract 03/14/2025 External Device Data STL ABSTRACTION Provider, Abstract 01/25/2025 External Device Data STL ABSTRACTION Provider, Abstract 01/14/2025 External Device Data STL ABSTRACTION Provider, Abstract 01/13/2025 External Device Data STL ABSTRACTION Provider, Abstract 01/10/2025 External Device Data STL ABSTRACTION Provider, Abstract [...] Sign Reading Time Taken Comments Blood Pressure 133/77 12/19/2024 11:26 AM ADMINISTRATOR Pulse 66 12/19/2024 11:23 AM ADMINISTRATOR Temperature 36.1 C (96.9 F) 12/19/2024 11:23 AM ADMINISTRATOR Respiratory Rate 16 12/19/2024 11:23 AM ADMINISTRATOR Oxygen Saturation 96% 12/19/2024 11:23 AM ADMINISTRATOR Inhaled Oxygen Concentration - - Weight 60.6 kg (133 lb 9.6 oz) 12/19/2024 11:23 AM ADMINISTRATOR Height 160 cm (5' 3 ) 07/07/2022 2:58 PM CDT Body Mass Index 23.67 07/07/2022 2:58 PM CDT Plan of Treatment Upcoming Encounters Date Type Department Care Team (Late st Contact Info) Description 06/22/2025 11:00 AM CDT Office Visit [facility] Oncology and Hematology - Nicholas [address] [email or web address] [address] [place] [address] Samir Brito MD [address] [facility] [address] [place] [address] Health Maintenance Due Date Last Done Comments DTAP/TDAP/TD VACCINES (1 - Tdap) 1967 PNEUMOCOCCAL VACCINE 50+ YEA RS (1 of 1 - PCV) 1998 ZOSTER VACCINE (1 of 2) 1998 RSV VACCINE (60+ or ) (1 - 1-dose 75+ series) 2023 INFLUENZA VACCINE (#1) 2024 OSTEOPOROSIS SCREENING 02/22/2026 , 10/28/2017, 07/23/2016 Procedures Procedure Name Priority [...] Most Recently Relevant to Health Maintenance Insurance Care Teams Privacy Attorney Relationship Specialty Start Date End Date Ricky Nevarez DO [address]12 [facility] [address] [place] [address] PCP - General Internal Medicine 12/19/24
--- OUTSIDE RECORDS SUMMARY | 2025-03-29 08:45 | XMS_ITS | Encounter Summary ---
Author Organization [facility] Address [address] [place] [address] Care Team Providers Care Vice President Of Compliance Name Role Phone Ricky Nevarez DO Primary Care Provider Encounter Details Date Type Department Care Team (Late st Contact Info) Description 03/28/2025 External Device Data STL ABSTRACTION Provider, Abstract NO ADDRESS ON FILE Social History Tobacco Use Types Packs/Day Years [...] Description 06/22/2025 11:00 AM CDT Office Visit [facility] Oncology and Hematology - Nicholas [address] [facility] [address] [place] [address] Samir Brito MD [address] [facility] [place] [address] [place] [address] documented as of this encounter Visit Diagnoses Not on filedocumented in this encounter Care Teams Vice President Of Compliance Relationship Specialty Start Date End Date Ricky Nevarez DO [address] [place] [address] PCP - General Internal Medicine 12/19/24 documented as of this encounter
--- OUTSIDE RECORDS SUMMARY | 2025-03-29 08:46 | XMS_ITS | Continuity of Care Document ---
Author Organization [facility] Address [address] [place] [address] [address] [place] [address] Phone Care Team Providers Care Dragline Oiler Name Role Phone Jarred Alvarado Unavailable Unavailable Procedures Procedure Date Eye Exam & Treatment Refraction Progressive Lens, Hi Index Anti-reflective Coating Frames Deluxe Tax - Medical Eye Exam & Treatment Refraction Eye Exam & Treatment Refraction Advance Directives Directive Yes / No Effective Date File Name No Information Encounters Encounter Description Practice Location Reason(s) For Visit Diagnoses Date Provider Providers Copied on Encounter [facility], [address] [place] [address] [facility], [place], [place], [address], [place] tel:[phone] SEC [facility] No Information 0-201 0 Jenny Stern. [address] [facility] , [address], [place], [address], [place]. tel:[phone] [facility], [address] [place] [address] [address], [place], [place], [address], [place] tel:[phone] SEC [facility] No Information Oct-0 3-200 8 [facility] . [address] [place] [address], [address], [place], [place], [address], [place]. tel:[phone] Referring Provider: Jarred Pizarro [address] [facility] [address], [place], [address]. tel:[phone] aceves Provider: Kelley Horvath, [address] [place], [place], [facility]. tel:[phone] [facility], [address], [place], [place], [address], tel:[phone] SEC [facility] No Information Oct-2 7-200 8 Doi Edtd. [address] [facility] , [address], [place], [place], [facility], . tel:[phone] [facility], [address], [place], [place], [address], tel:[phone] SEC [facility] No Information Apr-2 0-200 7 Doikeshia Stern. [address] [facility] , [address], [place], [place], [facility], . tel:[phone] Family History Family Member Type Diagnosis Age At Onset No Information Payers Payer name Insurance type Covered democrat ID Authoriza tion(s) No Information Social History [...]
== END 2025-03-29 08:01 | disposition home or self-care (01) ==
LOC: ANHLAB 08:01
PROVIDERS: PCP Internal Medicine; Visit Provider Internal Medicine
DX: R19.7 Diarrhea, unspecified (principal)
CPT/HCPCS: 87045; 87427; 87449

== ENCOUNTER 2025-04-05 11:01 | Outpatient (CLI) | payer MEDICARE, SELFPAY ==
--- OUTSIDE RECORDS SUMMARY | 2025-04-05 11:04 | XMS_ITS | Clinical Summary ---
Author Organization [facility] Address [address] [place] [address] Care Team Providers Care Flight Information Expediter Name Role Phone Kalyan Knutson DO Primary Care Provider [phone] Sandor Emmanuel MD Unavailable [phone] Source Comments [facility],non-owned Affiliates and Associated Physician Practices is amultiple site organization consisting of ambulatory clinics and hospital sitesin [place], [place], [place] and [place]. This disclosure is being madepursuant to the Care Everywhere program and may not contain all information available regarding this patient. Last updated 18.[facility] Allergies No known active allergies Medications * Be aware that medications may not be up to date on this document. Alwaysverify current medications with the patient. lisinopril (PRINIVIL; ZESTRIL) 10 MG tablet Take 10 mg by mouth once daily Active fexofenadine (CHRISTEN ALLERGY) 180 MG tablet Take 180 mg by mouth once daily Active fluticasone propionate (FLONASE) 50 MCG/ACT nasal spray [place] 2 Sprays into each nostril once daily Active triamcinolone (NASACORT ALLERGY 24HR) 55 MCG/ACT nasal inhaler [place] 1 [place] into each nostril once daily Active diclofenac [...] 10:25 AM CDT Height 162.6 cm (5' 4) 07/06/2015 10:25 AM CDT Body Mass Index [...] patient's age to complete this topic Insurance [facility] MANAGED MEDICARE ADV Care Teams Flight Information Expediter Relationship Specialty Start Date End Date Kalyan Knutson DO [address] [facility] [address] [place], [place] [id number] PCP - General Internal Medicine 07/06/15 [place] [address] [address] Orthopedic Surgery 07/06/15
--- OUTSIDE RECORDS SUMMARY | 2025-04-05 11:04 | XMS_ITS | Clinical Summary ---
Author Organization [facility] Address [address] [facility] [place] [address] Care Team Providers Care Waiter/Waitress Economy Class Name Role Phone Ricky Nevarez DO Primary [...] Encounters Date Type Department Care Team Description 03/30/2025 External Device Data STL ABSTRACTION Provider, Abstract 03/28/2025 External Device Data STL ABSTRACTION Provider, [...] Comments Blood Pressure 133/77 12/19/2024 11:26 AM SOLE SPLITTER Pulse 66 12/19/2024 11:23 AM SOLE SPLITTER Temperature 36.1 C (96.9 F) 12/19/2024 11:23 AM SOLE SPLITTER Respiratory Rate 16 12/19/2024 11:23 AM SOLE SPLITTER Oxygen Saturation 96% 12/19/2024 11:23 AM SOLE SPLITTER Inhaled Oxygen Concentration - - Weight 60.6 kg (133 lb 9.6 oz) 12/19/2024 11:23 AM SOLE SPLITTER Height 160 cm (5' 3) 07/07/2022 2:58 PM CDT Body Mass Index 23.67 07/07/2022 2:58 PM CDT Plan of Treatment Upcoming Encounters Date Type Department Care Team (Late st Contact Info) Description 06/22/2025 11:00 AM CDT Office Visit [facility] Oncology and Hematology - Nicholas [address] [facility] [address] [place] [address] Samir Brito MD [address] [facility] [address] [place] [address] Health Maintenance Due Date Last [...] Relevant to Health Maintenance Insurance Care Teams Waiter/Waitress Economy Class Relationship Specialty Start Date End Date Ricky Nevarez DO [address] [facility] [address] [place] [address] PCP - General Internal Medicine 12/19/24
--- OUTSIDE RECORDS SUMMARY | 2025-04-05 11:04 | XMS_ITS | Continuity of Care Document ---
Author Organization [facility] Address [address] [place] [address] [address] [place] [address] Phone Care Team Providers Care Snaker Name Role Phone Jarred Alvarado Unavailable Unavailable Procedures Procedure Date Eye Exam & Treatment Refraction Progressive Lens, Hi Index Anti-reflective Coating Frames Deluxe Tax - Medical Eye Exam & Treatment Refraction Eye Exam & Treatment Refraction Advance Directives Directive Yes / No Effective Date File Name No Information Encounters Encounter Description Practice Location Reason(s) For Visit Diagnoses Date Provider Providers Copied on Encounter [facility], [address] [place] [address] [address] [facility] [address], [place], [place], [address], [place] tel:[phone] SEC [facility] No Information 0-201 0 Jenny Stern. [address] [facility] , [address], [place], [address], [place]. tel:[phone] [facility], [address] [place] [address] [address], [place], [place], [address], [place] tel:[phone] SEC [facility] No Information Oct-0 3-200 8 [facility] . [address] [place] [address], [address], [place], [place], [address], [place]. tel:[phone] Referring Provider: Jarred Pizarro [address] [facility] [address], [place], [address]. tel:[phone] aceves Provider: Kelley Horvath, [address] [place], [place], [facility]. tel:[phone] [facility], [address], [place], [place], [address], tel:[phone] [facility] No Information Oct-2 7-200 8 Doi Edtd. [address] [facility] , [address], [place], [place], [facility], . tel:[phone] [facility], [address], [place], [place], [address], tel:[phone] SEC [facility] No Information Apr-2 0-200 7 Doikeshia Stern. [address] [facility] , [address], [place], [place], [facility], . tel:[phone] Family History Family Member Type Diagnosis Age At Onset No Information Payers Payer name Insurance type Covered alliance party ID Authoriza tion(s) No Information Social History [...]
--- OUTSIDE RECORDS SUMMARY | 2025-04-05 11:04 | XMS_ITS | Encounter Summary ---
Author Organization [facility] Address [address] [place] [address] Care Team Providers Care Gear Generator Set Up Operator Name Role Phone Ricky Nevarez DO Primary Care Provider [phone] Encounter Details Date Type Department Care Team (Late Contact Info) Description 01/13/2017 Chart Note Morales Ta [facility] Radiation Therapy [address] [place] [address] [place] [address] [place] [address] Social History Tobacco Use Types [...] Description 06/22/2025 11:00 AM CDT Office Visit [facility] Oncology and Hematology - Nicholas [address] [facility] [address] [place] [address] Samir Brito MD 2227 [facility] [address] [place] [address] documented as of this encounter Visit Diagnoses Not on filedocumented in this encounter Care Teams Gear Generator Set Up Operator Relationship Specialty Start Date End Date Ricky Nevarez DO 6812 [facility] 162 [facility] 204 [place] [address] PCP - General Internal Medicine 12/19/24 documented as of this encounter
== END 2025-04-05 11:02 | disposition home or self-care (01) ==
LOC: ANHAUDIO 11:02
PROVIDERS: PCP Internal Medicine; Visit Provider Otolaryngology
DX: H61.23 Impacted cerumen, bilateral (principal); J30.2 Other seasonal allergic rhinitis; H90.41 Sensorineural hearing loss, unilateral, right ear, with unrestricted hearing on the contralateral side; H90.72 Mixed conductive and sensorineural hearing loss, unilateral, left ear, with unrestricted hearing on the contralateral side
CPT/HCPCS: 92557; 92567

== ENCOUNTER 2025-04-12 14:38 | Outpatient (CLI) | payer MEDICARE, SELFPAY ==
--- OUTSIDE RECORDS SUMMARY | 2025-04-12 14:50 | XMS_ITS | Continuity of Care Document ---
Author Organization [facility] Address [address] [place] [address] [address] [place] [address] Phone Care Team Providers Care Pyrotechnic Assembler Name Role Phone Jarred Alvarado Unavailable Unavailable Procedures Procedure Date Eye Exam & Treatment Refraction Progressive Lens, Hi Index Anti-reflective Coating Frames Deluxe Tax - Medical Eye Exam & Treatment Refraction Eye Exam & Treatment Refraction Advance Directives Directive Yes / No Effective Date File Name No Information Encounters Encounter Description Practice Location Reason(s) For Visit Diagnoses Date Provider Providers Copied on Encounter [facility], [address] [place] [address] [facility] [address], [place], [place], [id number], [place] tel:[phone] SEC [facility] No Information 0-201 0 Jenny Stern. [address] [facility] , [address], [place], [address], [place]. tel:[phone] [facility], [address] [place] [address] [facility] [address], [place], [place], [address], [place] tel:[phone] SEC [facility] No Information Oct-0 3-200 8 [facility] . [address] [place] [address], [address], [place], [place], [address], [place]. tel:[phone] Referring Provider: Jarred Pizarro [address] [facility] [address], [place], [address]. tel:[phone] aceves Provider: Kelley Horvath, [address] [place], [place], [facility]. tel:[phone] [facility], [address], [place], [place], [id number], tel:[phone] SEC [facility] No Information Oct-2 7-200 8 Doi Edtd. [address] [facility] , [address], [place], [facility], . tel:[phone] [facility], [address], [place], [place], [address], tel:[phone] SEC [facility] No Information Apr-2 0-200 7 Doikeshia Stern. [address] [facility] , [address], [place], [facility], . tel:[phone] Family History Family Member Type Diagnosis Age At Onset No Information Payers Payer name Insurance type Covered constitution party ID Authoriza tion(s) No Information Social [...]
--- OUTSIDE RECORDS SUMMARY | 2025-04-12 14:50 | XMS_ITS | Clinical Summary ---
Author Organization [facility] Address [address] [facility] [place] [address] Care Team Providers Care Citrus Picker Name Role Phone Ricky Nevarez DO Primary Care Provider [phone] Allergies Active Allergy Reactions Criticality Noted Date [...] Comments Blood Pressure 133/77 12/19/2024 11:26 AM FEED MIXER HELPER Pulse 66 12/19/2024 11:23 AM FEED MIXER HELPER Temperature 36.1 C (96.9 F) 12/19/2024 11:23 AM FEED MIXER HELPER Respiratory Rate 16 12/19/2024 11:23 AM FEED MIXER HELPER Oxygen Saturation 96% 12/19/2024 11:23 AM FEED MIXER HELPER Inhaled Oxygen Concentration - - Weight 60.6 kg (133 lb 9.6 oz) 12/19/2024 11:23 AM FEED MIXER HELPER Height 160 cm (5' 3) 07/07/2022 2:58 PM CDT Body Mass Index 23.67 07/07/2022 2:58 PM CDT Plan of Treatment Upcoming Encounters Date Type Department Care Team (Late st Contact Info) Description 06/22/2025 11:00 AM CDT Office Visit [facility] Oncology and Hematology - Nicholas [address] [facility] [address] [place] [address] Samir Brito MD 2227 [facility] [address] [place] [address] Health Maintenance Due Date Last [...] Relevant to Health Maintenance Insurance Care Teams Citrus Picker Relationship Specialty Start Date End Date Ricky Nevarez DO 6812 [facility] [address] [place] [address] PCP - General Internal Medicine 12/19/24
--- OUTSIDE RECORDS SUMMARY | 2025-04-12 14:50 | XMS_ITS | Encounter Summary ---
Author Organization [facility] Address [address] [place] [address] Care Team Providers Care Resident Assistant Cna Name Role Phone Ricky Nevarez DO Primary Care Provider Encounter Details Date Type Department Care Team (Late Contact Info) Description 01/13/2017 Chart Note Morales Ta [facility] Radiation Therapy [address] [place] [address] [place] [address] [place] [address] Social History Tobacco Use Types [...] Description 06/22/2025 11:00 AM CDT Office Visit [facility] Oncology and Hematology - Nicholas [address] [facility] 200 [place] [address] Samir Brito MD 2227 [facility] [address] [place] [address] documented as of this encounter Visit Diagnoses Not on filedocumented in this encounter Care Teams Resident Assistant Cna Relationship Specialty Start Date End Date Ricky Nevarez DO 6812 [facility] 162 [facility] 204 [place] [address] PCP - General Internal Medicine 12/19/24 documented as of this encounter
--- OUTSIDE RECORDS SUMMARY | 2025-04-12 14:50 | XMS_ITS | Clinical Summary ---
Author Organization [facility] Address [address] [place] [address] Care Team Providers Care Electrical Line Splicer Name Role Phone Kalyan Knutson DO Primary Care Provider [phone] Sandor Emmanuel MD Unavailable [phone] [facility],non-owned Affiliates and Associated Physician Practices is amultiple site organization consisting of ambulatory clinics and hospital sitesin [place], [place], [place] and [place]. This disclosure is being madepursuant to the Care Everywhere program and may not contain all information available regarding this patient. Last updated 18.[facility] Allergies No known active allergies Medications * Be aware that medications may not be up to date on this document. Alwaysverify current medications with the patient. lisinopril (PRINIVIL; ZESTRIL) 10 MG tablet Take 10 mg by mouth once daily Active fexofenadine (CHRISTEN ALLERGY) 180 MG tablet Take 180 mg by mouth once daily Active fluticasone propionate (FLONASE) 50 MCG/ACT nasal spray Coden 2 Sprays into each nostril once daily Active triamcinolone (NASACORT ALLERGY 24HR) 55 MCG/ACT nasal inhaler Coden 1 Coden into each nostril once daily Active diclofenac [...] to complete this topic Insurance [facility] MANAGED MEDICARE ADV Care Teams Electrical Line Splicer Relationship Specialty Start Date End Date Kalyan Knutson DO 68[address] [facility] [address] [place], [place] [id number] PCP - General Internal Medicine 07/06/15 [place] [address] [place] [address] [address] Orthopedic Surgery 07/06/15
[2025-04-12 19:24] LABS: Basophils Absolute Auto 0.1 K/mm3 (0.0-0.1); Basophils Percent Auto 0.5 % (0.2-1.2); Eosinophils Absolute Auto 0.1 K/mm3 (0-0.3); Eosinophils Percent Auto 0.4 % (0-4.4); Hemoglobin 8.8 g/dL (12.0-15.0); Immature Granulocyte Percent A 0.7 % (0-0.5); Lymphocytes Absolute Auto 1.54 K/mm3 (0.9-3.2); Lymphocytes Percent Auto 10.8 % (18.3-44.2); Mean Corpuscular HGB Conc 30.3 g/dl (32-36); Mean Corpuscular Hemoglobin 26.7 pg (26-34); Mean Corpuscular Volume 88.1 fl (80-100); Neutrophils Absolute Auto 11.5 K/mm3 (1.3-6.7); Neutrophils Percent Auto 80.6 % (45.5-73.1); Platelet Count Result 381 k/mm3 (150-375); Red Blood Count 3.29 M/mm3 (4.2-5.4); Red Cell Distribution Width 14.6 % (11.5-14.5); White Blood Count 14.3 K/mm3 (4.5-10.0)
[2025-04-12 21:14] LABS: Alanine Aminotransferase 25 U/L (6-35); Albumin Level 3.6 g/dL (3.5-5.1); Alkaline Phosphatase 78 U/L (38-126); Anion Gap 8 mmol/L (4-12); Aspartate Amino Transferase 34 U/L (14-36); Bilirubin,Total 0.2 mg/dL (0.2-1.3); Blood Urea Nitrogen 18 mg/dL (7-17); Calcium 9.4 mg/dL (8.4-10.2); Carbon Dioxide 29 mmol/L (22-30); Chloride 100 mmol/L (98-107); Estimated Glomerular Filt Rate > 60; Glucose 121 mg/dL (65-110); Lipase 30 U/L (23-300); Potassium 3.8 mmol/L (3.4-5.0); Sodium 137 mmol/L (137-145); Total Protein 7.3 g/dL (6.3-8.2)
[2025-04-12 21:21] LABS: Free T4 Free Thyroxine 1.48 ng/dL (0.78-2.19)
[2025-04-12 21:32] LABS: CRP 12.6 mg/dL (<1.0)
[2025-04-12 21:44] LABS: Thyroid Stimulating Hormone 0.772 uIU/mL (0.465-4.680)
[2025-04-12 22:25] LABS: Hemoglobin A1C 5.5 % (<5.7)
[2025-04-13 11:33] LABS: Folic Acid > 20.0 ng/mL (2.76->20)
[2025-04-14 07:01] LABS: Iron 28 ug/dL (37-170); Percent Iron Saturation 13 % (20-50)
== END 2025-04-12 14:39 | disposition home or self-care (01) ==
LOC: ANHGOSHLAB 14:39
PROVIDERS: PCP Internal Medicine; Visit Provider Internal Medicine
DX: R10.9 Unspecified abdominal pain (principal); E03.9 Hypothyroidism, unspecified; I10 Essential (primary) hypertension; R73.9 Hyperglycemia, unspecified; R61 Generalized hyperhidrosis; R53.83 Other fatigue
CPT/HCPCS: 36415; 80053; 82607; 82728; 82746; 83036; 83540; 83550; 83690; 84439; 84443; 85025; 86140

== ENCOUNTER 2025-04-14 13:35 | Outpatient (CLI) | payer MEDICARE, SELFPAY ==
--- NOTE | ~2025-04-14 | CT_ITS ---
EXAMINATION: CT abdomen pelvis w con DATE: 04/14/2025 14:14 INDICATION: Abdominal pain TECHNIQUE: Computed tomography (CT) of the abdomen and pelvis was performed with 100 cc Omnipaque 350 intravenous contrast. The dose-length product was 340.30 mGy-cm. Automated exposure control and iter ative reconstruction technique were employed. COMPARISON: CT dated 02/29/2012 FINDINGS: Lung bases unremarkable. No significant pleural or pericardial effusion. Small hiatal herni a. Gallbladder is present. There is a small liver cyst. The spleen, pancreas, adrenal glands are unre markable. There are bilateral renal cysts. Gallbladder is present. Nonobstructive bowel gas pattern. There is thickening of the sigmoid colon with surrounding phlegmonous change and fluid, consistent wi th diverticulitis. There is a small abscess just superior to the uterus measuring 5.2 x 2.0 x 3.5 cm. There is atherosclerosis of the aorta without aneurysm. There is an L2 burst fracture which is age-i ndeterminate 02/29/2012. There is retropulsion into the spinal canal causing central canal stenosis. T here is severe spondylosis of the mid and lower lumbar spine. There is grade 1 spondylolisthesis at L 3-4 and L5-S1. IMPRESSION: 1. Acute diverticulitis with peridiverticular abscess measuring 5.2 x 2 x 3.5 cm. 2: Age-indeterminate L2 burst fracture with retropulsion and central canal stenosis. Reviewed, dictated and finalized at location A. IMPRESSION: 1. Acute diverticulitis with peridiverticular abscess measuring 5.2 x 2 x 3.5 c m. 2: Age-indeterminate L2 burst fracture with retropulsion and central canal sten osis.
[2025-04-14 13:55] LABS: Estimated Glomerular Filt Rate > 60
== END 2025-04-14 13:36 | disposition home or self-care (01) ==
LOC: MICIMG 13:36
PROVIDERS: PCP Internal Medicine; Visit Provider Internal Medicine
DX: K52.89 Other specified noninfective gastroenteritis and colitis (principal)
CPT/HCPCS: 74177; Q9967

== ENCOUNTER 2025-04-14 15:39 | Inpatient (IN) | payer MEDICARE, SELFPAY ==
--- NOTE | ~2025-04-14 | CT_ITS ---
EXAMINATION: CT abdomen pelvis wo con DATE: 04/17/2025 11:20 INDICATION: diverticulitis with abscess TECHNIQUE: Computed tomography (CT) of the abdomen and pelvis was performed without intravenous contr ast. Automated exposure control and iterative reconstruction technique were employed. The dose-length product was 268.68 mGy-cm. COMPARISON: 04/14/2025. FINDINGS: Lower thorax: Mitral calcification. Liver: Normal. Simple right lobe cyst. Biliary/Gallbladder: Gallbladder is normal. No bile duct dilation. Pancreas: No mass or duct dilation. Spleen: Normal. Adrenals:No mass. Kidneys: No suspicious mass, obstructing stone, or hydronephrosis. Bilateral simple renal cysts. GI tract: No small or large bowel dilation. Normal appendix. Mesentery/Peritoneum: No ascites, mass, or free air. Retroperitoneum: No mass. Pelvis: Extensive inflammatory stranding throughout the pelvis. Mostly empty urinary bladder. Normal- appearing uterus, displaced by the pelvic abscess. Likely normal bilateral ovaries. Large volume of c olonic fecal material. Extensive soft tissue thickening throughout the sigmoid. Redemonstration of th e perisigmoid abscess in the rectouterine space, increased in size, now measuring 7.1 x 4.7 x 2.9 cm, with stable superior extension along the left lateral pelvic sidewall. Soft Tissues: Small uncomplicated appearing fat-containing umbilical and bilateral inguinal hernias. Bones: No acute osseous finding. Stable burst fracture at L2. Stable grade 1 anterolisthesis at L3-4 . IMPRESSION: Severe sigmoid colitis, possibly secondary to diverticulitis. Enlarging adjacent perisigmoid abscess, now measuring up to 7.1 cm Reviewed, dictated and finalized at location K.
--- NOTE | ~2025-04-14 | CT_ITS ---
EXAMINATION: CT abdomen pelvis w con DATE: 04/20/2025 06:54 INDICATION: Pelvic abscess post drainage catheter placement TECHNIQUE: Computed tomography (CT) of the abdomen and pelvis was performed with 100 mL Omnipaque-350 intravenous contrast. Automated exposure control and iterative reconstruction technique were employe d. The dose-length product was 344.00 mGy-cm. COMPARISON: CT dated 04/27/2025 FINDINGS: Lung bases are clear. Heart size is normal. No pericardial or pleural effusion. Couple hepatic cysts the larger measuring 2.0 cm. Gallbladder, spleen, pancreas and bilateral adrenal glands are normal. T here are bilateral renal cysts the largest on the left measuring 5.2 cm. Bladder, anteverted uterus a nd bilateral adnexa are unremarkable. Sigmoid predominant diverticulosis with persistent wall thicken ing and inflammatory stranding along the sigmoid colon consistent with previous noted perforated dive rticulitis. The previously seen gas and feculent material containing abscess cavity situated between the sigmoid colon and the uterus is completely decompressed post interval placement of a right transg luteal percutaneous abscess drainage catheter with distal loop positioned within the collapsed absces s cavity. No bowel obstruction. No pathologically enlarged abdominal or pelvic lymphadenopathy. Sever e lumbar spondylosis and chronic L3 burst fracture with 60% central vertebral body height loss and 5 mm retropulsion contributing to mild central canal stenosis at this level. There is also grade 1 ante rolisthesis L3 on L4 and L5 on S1. IMPRESSION: 1. Sigmoid diverticulitis with interval right transgluteal percutaneous drainage catheter placement w ith decompression of the prior pelvic abscess cavity. Reviewed, dictated and finalized at location A. IMPRESSION: 1. Sigmoid diverticulitis with interval right transgluteal percutaneous drainag e catheter placement with decompression of the prior pelvic abscess cavity.
--- NOTE | ~2025-04-14 | CT_ITS ---
EXAMINATION: CT guide absc cath placement DATE: 04/18/2025 15:04 INDICATION: Diverticulitis with abscess TECHNIQUE: The procedure including the risks and benefits was discussed with the patient. Risks discu ssed included bleeding and infection. The patient understood the risks and benefits and agreed to pro ceed. The patient was confirmed to be receiving appropriate antibiotic coverage. The skin overlying the right buttock was prepped and draped in usual sterile fashion. Anesthetic was administered with 1% lidocaine subcutaneously. Utilizing CT guidance an 18-gauge trochar needle was inserted into the pelvic fluid collection via right transgluteal approach. The inner stylette was removed and a J-wire advanced into the fluid collection with position confirmed by CT. Needle was removed over the wire an d utilizing Seldinger technique the tract was serially dilated over the wire to 12Fr. A 12 Fr pigtail catheter was then placed and the loop formed and locked with position confirmed by CT. The catheter was stitched to the skin with suture. Antibiotic ointment and a sterile dressing were applied. The mA s was manually decreased to minimize radiation exposure. The dose-length product was 385.67 mGy-cm. FINDINGS: CT images demonstrate the catheter within the pelvic gas and fluid collection. 30 mL of opa que gray purulent appearing and foul-smelling fluid was aspirated for testing. IMPRESSION: 1. Successful CT-guided right transgluteal pelvic abscess drainage catheter placement. 2. 30 mL fluid was sent for aerobic and anaerobic cultures. 3. The catheter will be managed by Dr. Saha. Reviewed, dictated and finalized at location A. IMPRESSION: 1. Successful CT-guided right transgluteal pelvic abscess drainage catheter alvina cement. 2. 30 mL fluid was sent for aerobic and anaerobic cultures. 3. The catheter will be managed by Dr. Saha.
[2025-04-14 15:41] VITALS: BP 148/77; PULSE 84; RESP 16; TEMP 36.7; O2SAT 99
--- OUTSIDE RECORDS SUMMARY | 2025-04-14 15:41 | XMS_ITS | Encounter Summary ---
Author Organization [facility] Address [address] [place] [address] Care Team Providers Care Cutting Tool Sharpener Name Role Phone Ricky Nevarez DO Primary Care Provider Encounter Details Date Type Department Care Team (Late Contact Info) Description 01/13/2017 Chart Note Morales Ta [facility] Radiation Therapy [address] [place] [address] [place] [address] [place] [address] Social History Tobacco Use Types [...] Description 06/22/2025 11:00 AM CDT Office Visit [facility] Oncology and Hematology - Nicholas [address] [facility] 200 [place] [address] Samir Brito MD 2227 [facility] [address] [place] [address] documented as of this encounter Visit Diagnoses Not on filedocumented in this encounter Care Teams Cutting Tool Sharpener Relationship Specialty Start Date End Date Ricky Nevarez DO 6812 [facility] 162 [facility] 204 [place] [address] PCP - General Internal Medicine 12/19/24 documented as of this encounter
--- OUTSIDE RECORDS SUMMARY | 2025-04-14 15:41 | XMS_ITS | Clinical Summary ---
Author Organization [facility] Address [address] [facility] [place] [address] Care Team Providers Care Looping Machine Operator Name Role Phone Ricky Nevarez DO [...] Comments Blood Pressure 133/77 12/19/2024 11:26 AM RESEARCH AND INSIGHTS EXECUTIVE Pulse 66 12/19/2024 11:23 AM RESEARCH AND INSIGHTS EXECUTIVE Temperature 36.1 C (96.9 F) 12/19/2024 11:23 AM RESEARCH AND INSIGHTS EXECUTIVE Respiratory Rate 16 12/19/2024 11:23 AM RESEARCH AND INSIGHTS EXECUTIVE Oxygen Saturation 96% 12/19/2024 11:23 AM RESEARCH AND INSIGHTS EXECUTIVE Inhaled Oxygen Concentration - - Weight 60.6 kg (133 lb 9.6 oz) 12/19/2024 11:23 AM RESEARCH AND INSIGHTS EXECUTIVE Height 160 cm (5' 3) 07/07/2022 2:58 PM CDT Body Mass Index 23.67 07/07/2022 2:58 PM CDT Plan of Treatment Upcoming Encounters Date Type Department Care Team (Late st Contact Info) Description 06/22/2025 11:00 AM CDT Office Visit [facility] Oncology and Hematology - Nicohlas 2[address] [facility] 200 [place] [address] Samir Brito MD 2[address] [facility] [address] [place] [address] Health Maintenance Due Date Last [...] Relevant to Health Maintenance Insurance Care Teams Looping Machine Operator Relationship Specialty Start Date End Date Ricky Nevarez DO 6812 [facility] [address] [place] [address] PCP - General Internal Medicine 12/19/24
--- OUTSIDE RECORDS SUMMARY | 2025-04-14 15:41 | XMS_ITS | Continuity of Care Document ---
Author Organization [facility] Address [address] [place] [address] [address] [place] [address] Phone Care Team Providers Care Lead Carpenter Name Role Phone Jarred Alvarado Unavailable Unavailable Procedures Procedure Date Eye Exam & Treatment Refraction Progressive Lens, Hi Index Anti-reflective Coating Frames Deluxe Tax - Medical Eye Exam & Treatment Refraction Eye Exam & Treatment Refraction Advance Directives Directive Yes / No Effective Date File Name No Information Encounters Encounter Description Practice Location Reason(s) For Visit Diagnoses Date Provider Providers Copied on Encounter [facility], [address] [place] [address] [facility], [place], [place], [id number], [place] tel:[phone] SEC [facility] No Information 0-201 0 Jenny Stern. [address] [facility] , [address], [place], [address], [place]. tel:[phone] [facility], [address] [place] [address] [facility], [place], [place], [address], [place] tel:[phone] SEC [facility] No Information Oct-0 3-200 8 [facility] . [address] [place] [address], [address], [place], [place], [address], [place]. tel:[phone] Referring Provider: Jarred Pizarro [address] [facility] [address], [place], [address]. tel:[phone] aceves Provider: Kelley Horvath, [address] [place], [place], [facility]. tel:[phone] [facility], [address], [place], [place], [address], tel:[phone] [facility] No Information Oct-2 7-200 8 Doi Edtd. [address] [facility] , [address], [place], [place], [facility], . tel:[phone] [facility], [address], [place], [place], [address], tel:[phone] SEC [facility] No Information Apr-2 0-200 7 Doikeshia Stern. [address] [facility] , [address], [place], [place], [facility], . tel:[phone] Family History Family Member Type Diagnosis Age At Onset No Information Payers Payer name Insurance type Covered republican ID Authoriza tion(s) No Information Social History [...]
--- OUTSIDE RECORDS SUMMARY | 2025-04-14 15:41 | XMS_ITS | Clinical Summary ---
Author Organization [facility] Address [address] [facility] [place] [address] Care Team Providers Care Utility Sales Representative Name Role Phone Kalyan Knutson DO Primary Care Provider [phone] Sandor Emmanuel MD Unavailable [phone] Source Comments [facility],non-owned Affiliates and Associated Physician Practices is amultiple site organization consisting of ambulatory clinics and hospital sitesin [place], [place], [place] and [place]. This disclosure is being madepursuant to the Care Everywhere program and may not contain all information available regarding this patient. Last updated 18.[facility] Allergies No known active allergies Medications * Be aware that medications may not be up to date on this document. Alwaysverify current medications with the patient. lisinopril (PRINIVIL; ZESTRIL) 10 MG tablet Take 10 mg by mouth once daily Active fexofenadine (CHRISTEN ALLERGY) 180 MG tablet Take 180 mg by mouth once daily Active fluticasone propionate (FLONASE) 50 MCG/ACT nasal spray Banks 2 Sprays into each nostril once daily Active triamcinolone (NASACORT ALLERGY 24HR) 55 MCG/ACT nasal inhaler Banks 1 Banks into each nostril once daily Active diclofenac [...] patient's age to complete this topic Insurance [facility] MANAGED MEDICARE ADV Care Teams Utility Sales Representative Relationship Specialty Start Date End Date Kalyan Knutson DO [address] [facility] [facility] [address] [place], [place] [id number] PCP - General Internal Medicine 07/06/15 [place] [address] [address] Orthopedic Surgery 07/06/15
[2025-04-14 16:33] LABS: Basophils Absolute Auto 0.1 K/mm3 (0.0-0.1); Basophils Percent Auto 0.4 % (0.2-1.2); Eosinophils Percent Auto 0.2 % (0-4.4); Hematocrit 27.9 % (37.0-47.0); Hemoglobin 8.7 g/dL (12.0-15.0); Immature Granulocyte Absolute 0.07 K/mm3 (0.00-0.031); Immature Granulocyte Percent A 0.5 % (0-0.5); Lymphocytes Absolute Auto 1.89 K/mm3 (0.9-3.2); Lymphocytes Percent Auto 13.4 % (18.3-44.2); Mean Corpuscular HGB Conc 31.2 g/dl (32-36); Mean Corpuscular Volume 86.6 fl (80-100); Mean Platelet Volume 8.6 fl (7.4-10.4); Monocytes Absolute Auto 0.9 K/mm3 (0.1-0.6); Monocytes Percent Auto 6.7 % (2.6-8.5); Neutrophils Absolute Auto 11.1 K/mm3 (1.3-6.7); Neutrophils Percent Auto 78.8 % (45.5-73.1); Platelet Count Result 337 k/mm3 (150-375); Red Blood Count 3.22 M/mm3 (4.2-5.4); Red Cell Distribution Width 14.4 % (11.5-14.5); White Blood Count 14.1 K/mm3 (4.5-10.0)
[2025-04-14] MEDS: PIPERACILLN/TAZ 3.375GM/NS50ML 3.375 GM/50 ML BAG IVPB ×2 (16:38→23:46)
[2025-04-14 16:44] LABS: Alanine Aminotransferase 24 U/L (6-35); Albumin Level 3.6 g/dL (3.5-5.1); Alkaline Phosphatase 68 U/L (38-126); Anion Gap 9 mmol/L (4-12); Aspartate Amino Transferase 28 U/L (14-36); Bilirubin,Total 0.3 mg/dL (0.2-1.3); Blood Urea Nitrogen 18 mg/dL (7-17); Calcium 9.2 mg/dL (8.4-10.2); Carbon Dioxide 26 mmol/L (22-30); Chloride 102 mmol/L (98-107); Estimated CRCL calculation 46 ml/min; Estimated Glomerular Filt Rate > 60; Glucose 122 mg/dL (65-110); Lipase 25 U/L (23-300); Potassium 4.3 mmol/L (3.4-5.0); Sodium 137 mmol/L (137-145)
--- NOTE | 2025-04-14 16:47 | ED.ABDPAIN ---
HPI - Abdominal Pain General Chief Complaint: Abdominal Pain Stated Complaint: abd pain Time Seen by Provider: 04/14/25 16:05 History of Present Illness HPI narrative: Patient is a 75-year-old female who presents ER with abdominal pain. Referred here by her PCP. Had a outpatient CT today that shows large diverticular abscess. The patient has been having abdominal cramping and bloating for the last month. She has been on antispasmodics but symptoms are worsening. Outpatient labs couple days ago showed an elevated white blood cell count. CT today showed the abscess. She continues to have cramping. No diarrhea. No fevers or chills. Related Data Home Medications ?Medication ?Instructions ?Recorded ?Confirmed ?Last Taken ?Type aziircnu-slb-eowga acid 0.4 1 tablet PO DAILY 09/01/19 04/12/25 Unknown History mg-lycopene 300 mcg-lutein 250 mcg tablet (Centrum Silver) calcium 600 mg (as 1 cap PO DAILY 07/23/21 04/12/25 Unknown History carbonate)-vitamin D3 12.5 mcg (500 unit) capsule (Calcium with Vit D3) denosumab 60 mg/mL subcutaneous 60 mg subcut [id number] 07/23/21 04/12/25 Unknown History syringe (Prolia) fexofenadine 30 mg tablet 60 mg PO Q12H 09/12/24 04/12/25 Unknown History sour bond extract 1,000 mg mg PO 03/20/25 04/12/25 Unknown History capsule (Tart Bond Extract) Allergies Allergy/AdvReac Type Severity Reaction Status Date / Time monosodium glutamate AdvReac Unknown HEADACHES Verified 04/14/25 15:57 Review of Systems Review of Systems: All systems reviewed & are unremarkable except as noted in HPI and below Constitutional: Constitutional: Reports no additional constitutional complaints Cardiovascular: Cardiovascular: Reports no additional cardiovascular complaints Respiratory: Respiratory: Reports no additional respiratory complaints Gastrointestinal: Gastrointestinal: Reports no additional gastrointestinal complaints Genitourinary: Genitourinary: Reports no additional female genitourinary complaints [facility] Past Medical History Medical History (Updated 04/14/25 @ 18:37 by Blayne Rosenthal MD) BMI 24.0-24.9, adult Surgical History Surgical History Hx of mastectomy H/O cataract removal with insertion of prosthetic lens Family History Family History (Updated 03/22/25 @ 09:26 by JUSTINA Watson) Father , 47-Gun shot in a bar. No problems noted. Mother No problems noted. Social History Social History Social History: Caffeine- daily Smoking packs per day: 0.5 Smoking cigarettes per day: 10.0 Years smoked: 30 Smoking pack-years: 15.00 Smoking status: Former smoker Tobacco type: cigarettes Second hand tobacco smoke exposure: No Smoking end date: 11/09/91 Alcohol intake: current Drinks per week: 6 Substance use: never Substance use type: does not use Do You Feel Safe in your Home?: Yes Lack of Transportation: No Lack of Food: Never True Current Housing: I Have Housing Concerned About Future Housing: No Difficulty Paying Gas/Electric Bills: No Difficulty Paying for Meds: No Currently Unemployed: No Education: Trade/Vocational Certificate Difficulty w/ Childcare or Family Care: No Living arrangements: alone Occupation/Education: retired 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 HEAD: Normocephalic, atraumatic. ENT: Mucous membranes moist. CHEST: Clear to auscultation. No respiratory distress. HEART: Regular rate and rhythm. Normal peripheral pulses. ABDOMEN: Soft, tender palpation bilateral lower, nondistended, normal active bowel sounds. EXTREMITIES: Normal range of motion. No edema. SKIN: Warm, dry, no rash. NEURO: Alert and oriented x3. PSYCH: Normal mood and affect. Course Course Emergency Course: Morphine for pain. Zosyn ordered for antibiotic coverage. General surgery consulted. Admit to hospitalist service. Vital Signs Vital signs: Vital Signs Temperature 98.0 F 04/14/25 15:41 Pulse Rate 84 04/14/25 15:41 Respiratory Rate 16 04/14/25 15:41 Blood Pressure 148/77 H 04/14/25 15:41 Pulse Oximetry 99 04/14/25 15:41 Oxygen Delivery Room Air 04/14/25 15:41 Temperature 98.0 F 04/14/25 15:41 Pulse Rate 84 04/14/25 15:41 Respiratory Rate 16 04/14/25 15:41 Blood Pressure 148/77 H 04/14/25 15:41 Pulse Oximetry 99 04/14/25 15:41 Oxygen Delivery Room Air 04/14/25 15:41 MDM - Abdominal Pain Lab Data 04/14/25 16:26 04/14/25 16:26 Labs: Lab Results 04/14/25 Range/Units 16:26 WBC 14.1 H (4.5-10.0) K/mm3 RBC 3.22 L (4.2-5.4) M/mm3 Hgb 8.7 L (12.0-15.0) g/dL Hct 27.9 L (37.0-47.0) % MCV 86.6 (80-100) fl MCH 27.0 (26-34) pg MCHC 31.2 L (32-36) g/dl RDW 14.4 (11.5-14.5) % Plt Count 337 (150-375) k/mm3 MPV 8.6 (7.4-10.4) fl Immature Gran % (Auto) 0.5 (0-0.5) % Neut % (Auto) 78.8 H (45.5-73.1) % Lymph % (Auto) 13.4 L (18.3-44.2) % Wells % (Auto) 6.7 (2.6-8.5) % Eos % (Auto) 0.2 (0-4.4) % Baso % (Auto) 0.4 (0.2-1.2) % Lymph # (Auto) 1.89 (0.9-3.2) K/mm3 Wells # (Auto) 0.9 H (0.1-0.6) K/mm3 Eos # (Auto) 0.0 (0-0.3) K/mm3 Baso # (Auto) 0.1 (0.0-0.1) K/mm3 Abs Immat Gran (auto) 0.07 H (0.00-0.031) K/mm3 Absolute Neuts (auto) 11.1 H (1.3-6.7) K/mm3 Absolute Nucleated RBC 0.000 (0.0-0.012) K/mm3 Nucleated RBC % 0.0 (0.0-0.2) % Sodium 137 (137-145) mmol/L Potassium 4.3 (3.4-5.0) mmol/L Chloride 102 (98-107) mmol/L Carbon Dioxide 26 (22-30) mmol/L Anion Gap 9 (4-12) mmol/L BUN 18 H (7-17) mg/dL Creatinine 0.74 (0.7-1.0) mg/dL Estim Creat Clear Calc 46 ml/min Estimated GFR > 60 (59 - ) Glucose 122 H (65-110) mg/dL Lactic Acid 1.0 (0.7-2.0) mmol/L Calcium 9.2 (8.4-10.2) mg/dL Total Bilirubin 0.3 (0.2-1.3) mg/dL AST 28 (14-36) U/L ALT 24 (6-35) U/L Alkaline Phosphatase 68 (38-126) U/L Total Protein 7.0 (6.3-8.2) g/dL Albumin 3.6 (3.5-5.1) g/dL Lipase 25 (23-300) U/L Discharge Plan Discharge Clinical Impression: Diverticulitis of intestine with abscess Patient Disposition: Still a Patient Condition: Stable Patient Language: Luxembourger Prescriptions: No Action Centrum Silver 0.4-300-250 mg-mcg-mcg Tablet 1 tablet PO DAILY fexofenadine 30 mg tablet 60 mg PO Q12H calcium carbonate-vitamin D3 [Calcium 600 with Vitamin D3] 600 mg(1,500mg) -500 unit capsule 1 cap PO DAILY Prolia 60 mg/mL syringe 60 mg subcut [id number] Tart Bond Extract 1,000 mg capsule PO dicyclomine 20 mg tablet 20 mg PO TID Qty: 60 1RF lisinopril 10 mg tablet 10 mg PO DAILY Qty: 90 3RF Follow-up/Referrals: Ricky Nevarez DO [Primary Care Provider] -
--- OUTSIDE RECORDS SUMMARY | 2025-04-14 17:18 | XMS_ITS | Encounter Summary ---
Author Organization [facility] Address [address] [place] [address] Care Team Providers Care Blade Bender Furnace Tender Name Role Phone Ricky Nevarez DO Primary Care Provider Encounter Details Date Type Department Care Team (Late Contact Info) Description 01/13/2017 Chart Note Morales Ta [facility] Radiation Therapy [address] [place] [address] [place] [address] [place] [address] Social History Tobacco Use Types [...] Description 06/22/2025 11:00 AM CDT Office Visit [facility] Oncology and Hematology - Nicholas [address] [facility] 200 [place] [address] Samir Brito MD 2[address] [facility] [address] [place] [address] documented as of this encounter Visit Diagnoses Not on filedocumented in this encounter Care Teams Blade Bender Furnace Tender Relationship Specialty Start Date End Date Ricky Nevarez DO 6812 [facility] 162 [facility] 204 [place] [address] PCP - General Internal Medicine 12/19/24 documented as of this encounter
--- OUTSIDE RECORDS SUMMARY | 2025-04-14 17:18 | XMS_ITS | Clinical Summary ---
Author Organization [facility] Address [address] [facility] [place] [address] Care Team Providers Care Glue Spreader Name Role Phone Ricky Nevarez DO Primary Care Provider [phone] Allergies Active Allergy Reactions Criticality Noted Date [...] Comments Blood Pressure 133/77 12/19/2024 11:26 AM FURNACE FILLER Pulse 66 12/19/2024 11:23 AM FURNACE FILLER Temperature 36.1 C (96.9 F) 12/19/2024 11:23 AM FURNACE FILLER Respiratory Rate 16 12/19/2024 11:23 AM FURNACE FILLER Oxygen Saturation 96% 12/19/2024 11:23 AM FURNACE FILLER Inhaled Oxygen Concentration - - Weight 60.6 kg (133 lb 9.6 oz) 12/19/2024 11:23 AM FURNACE FILLER Height 160 cm (5' 3) 07/07/2022 2:58 PM CDT Body Mass Index 23.67 07/07/2022 2:58 PM CDT Plan of Treatment Upcoming Encounters Date Type Department Care Team (Late st Contact Info) Description 06/22/2025 11:00 AM CDT Office Visit [facility] - [place] [address] [facility] [address] [place] [address] Samir Brito MD [address] [facility] [address] [place] [address] Health Maintenance Due Date Last [...] Relevant to Health Maintenance Insurance Care Teams Glue Spreader Relationship Specialty Start Date End Date Ricky Nevarez DO [address] [facility] [address] [place] [address] PCP - General Internal Medicine 12/19/24
--- OUTSIDE RECORDS SUMMARY | 2025-04-14 17:18 | XMS_ITS | Clinical Summary ---
Author Organization [facility] Address [address] [place] [address] Care Team Providers Care Kindergarten Teacher Name Role Phone Kalyan Knutson DO Primary Care Provider [phone] Sandor Emmanuel MD Unavailable [phone] Source Comments [facility],non-owned Affiliates and Associated Physician Practices is amultiple site organization consisting of ambulatory clinics and hospital sitesin [place], [place], [place] and [place]. This disclosure is being madepursuant to the Care Everywhere program and may not contain all information available regarding this patient. Last updated 18.[facility] Allergies No known active allergies Medications * Be aware that medications may not be up to date on this document. Alwaysverify current medications with the patient. lisinopril (PRINIVIL; ZESTRIL) 10 MG tablet Take 10 mg by mouth once daily Active fexofenadine (CHRISTEN ALLERGY) 180 MG tablet Take 180 mg by mouth once daily Active fluticasone propionate (FLONASE) 50 MCG/ACT nasal spray [place] 2 Sprays into each nostril once daily Active triamcinolone (NASACORT ALLERGY 24HR) 55 MCG/ACT nasal inhaler [place] 1 [place] into each nostril once daily Active diclofenac [...] patient's age to complete this topic Insurance [facility] MANAGED MEDICARE ADV Care Teams Kindergarten Teacher Relationship Specialty Start Date End Date Kalyan Knutson DO [address] [facility] [address] [place], [place] [id number] PCP - General Internal Medicine 07/06/15 [place] [id number] [address] Orthopedic Surgery 07/06/15
--- OUTSIDE RECORDS SUMMARY | 2025-04-14 17:19 | XMS_ITS | Continuity of Care Document ---
Author Organization [facility] Address [address] [place] [address] [address] [place] [address] Phone Care Team Providers Care Sustainable Development Policy Analyst Name Role Phone Jarred Alvarado Unavailable Unavailable Procedures Procedure Date Eye Exam & Treatment Refraction Progressive Lens, Hi Index Anti-reflective Coating Frames Deluxe Tax - Medical Eye Exam & Treatment Refraction Eye Exam & Treatment Refraction Advance Directives Directive Yes / No Effective Date File Name No Information Encounters Encounter Description Practice Location Reason(s) For Visit Diagnoses Date Provider Providers Copied on Encounter [facility], [address] [place] [address] [facility] [address], [place], [place], [id number], [place] tel:[phone] [facility] No Information 0-201 0 Jenny Stern. [address] [facility] [facility] , [address], [place], [address], [place]. tel:[phone] [facility], [address] [place] [address] [facility] [address], [place], [place], [id number], [place] tel:[phone] [facility] No Information Oct-0 3-200 8 [facility] . [address] [place] [address], [address], [place], [place], [id number], [place]. tel:[phone] Referring Provider: Jarred Pizarro [address], [place], [address]. tel:[phone] aceves Provider: Kelley Horvath, [address] [place], [place], [facility]. tel:[phone] [facility], [address], [place], [place], [id number], tel:[phone] [facility] No Information Oct-2 7-200 8 Doi [employer]td. [address] [facility] , [address], [place], [place], [facility], . tel:[phone] [facility], [address], [place], [place], [id number], tel:[phone] [facility] No Information Apr-2 0-200 7 Doikeshia Stern. [address] [facility] , [address], [place], [place], [facility], . tel:[phone] Family History Family Member Type Diagnosis Age [...]
[2025-04-14 18:25] VITALS: BP 142/77; PULSE 76; RESP 20; TEMP 36.8; O2SAT 100
--- NOTE | 2025-04-14 19:29 | ADMGEN ---
This patient, Salud Hanley, was admitted to 2 Medical Room 241-. Patient/family oriented to hospital policies and general routines including ID bracelet, bed and alarms, visiting hours, pain management, procedures, bathroom and other care routines, personal items, smoking policy, room service/diet, and visiting hours. Information on how to activate the Rapid Response Team has been discussed. Patient/Family are encouraged to report perceived risks to care and to ask questions if they do not understand what they are told or what they should do.
[2025-04-14 19:30] VITALS: BMI 22.6
[2025-04-14 19:48] VITALS: BP 127/71; PULSE 108; RESP 16; TEMP 37.1; O2SAT 96
--- NOTE | 2025-04-14 20:06 | P.HP_ITS ---
H&P: HPI History of Present Illness Date/Time: 04/14/25 20:06 Chief Complaint: Lower abdominal pain for a couple months Narrative: Pleasant, loquacious 75-year-old female with a past medical history of osteoporosis, essential hypertension, prior appendectomy who presented to the ER he he a her vehicle to be evaluated for diverticulitis with abscess. The patient reports that she has been having lower abdominal pain for the last couple of months. As time was 1 on the abdominal pain has become more persistent and is worse soon after eating. Is accompanied by multiple times a getting up at night to have a bowel movement only to have small amounts of stool past that her slimy. She denies any obvious hematochezia or melena. She reports that she has had to have so many small bowel movements in to strain to have a bowel movement that she is now developed an external hemorrhoid. 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 She reports that she has not had any fevers when she has checked her temperature with a temporal scanning thermometer. She denies any associated nausea or vomiting. She has been having decreased appetite. She went to her primary care provider and had a x-ray done on the 22 of March which demonstrated no acute process. She had outpatient labs performed on April 12 which demonstrated leukocytosis with a white count of 14.3 and hemoglobin of 8.8 down from her baseline of 11.6. Her electrolyte panel is normal except for a BUN of 18 which appeared to be her baseline. Outpatient CT of the abdomen pelvis with contrast was obtained on the which demonstrated acute diverticulitis with peridiverticular abscess measuring 5.2 x 2 x 3.5 cm and the patient was referred to the ER for further evaluation and treatment. The patient reports that her mouth is chronically dry. She reports her biggest complaint at this time is that she cannot drink anything since she is NPO. Patient does report that she has been having increased dyspnea on exertion for the last 2 or 3 months as well. She denies any palpitations or chest pain. She denies any orthopnea or lower extremity swelling. She does have a known history of reported iron deficiency anemia but states that she never got iron infusions because she was told that this would make her cancer treatment more difficult. She has not received chemotherapy since 2017 for her breast cancer. She denies any hematuria, hematochezia or melena. She denies any petechiae or unusual bruising. She does follow with Dr. Lam from Oncology for breast cancer with her last office visit being in December 2024. Review of Systems 2 Review of Systems: 12 systems were reviewed with pertinent positives and negatives per HPI. Except as documented in the HPI, all other systems were reviewed and are negative. 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 2 ER [place] positive HER2 negative Mixed hearing loss, bilateral Chronic seasonal allergic rhinitis Osteopenia Started on Prolia November 2019 Hyperlipidemia Hypertension Surgical History Surgical History (Updated 04/15/25 @ 03:53 by Yesy Dial DO) Status post cataract extraction of both eyes with insertion of intraocular lens Status post tympanoplasty Left ear with residual hearing loss History of removal of Port-a-Cath Placed 08/2016 removed 09/2017 History of tonsillectomy and adenoidectomy History of appendectomy History of lumpectomy of left breast (01/2017) Hx of mastectomy (02/2017) February 2017 H/O cataract removal with insertion of prosthetic lens Family History Family History Father , 47-Gun shot in a bar. No problems noted. Mother No problems noted. Social History Social History (Updated 04/15/25 @ 03:52 by Yesy Dial DO) Social History: She lives in her own home. She was for 34 years but has been for 11 years. She has a significant other but they do not live together they have been dating for 10 years. She is a former smoker. She used to smoke a pack of cigarettes per day but quit smoking in the . She drinks a 3-5 glasses of wine a week. She denies illicit substance use. Her and her raised 2 daughters. She has a small dog at home. Code status: Full code Surrogate decision maker: Saniya Yost (daughter) Smoking packs per day: 1 Smoking cigarettes per day: 20.0 Years smoked: 33 Smoking pack-years: 33.00 Smoking status: Former smoker Tobacco type: cigarettes Second hand tobacco smoke exposure: No Smoking end date: 11/09/91 Alcohol intake: current Drinks per week: 6 Substance use: current Substance use type: does not use Do You Feel Safe in your Home?: Yes Lack of Transportation: No Lack of Food: Never True Current Housing: I Have Housing Concerned About Future Housing: No Difficulty Paying Gas/Electric Bills: No Difficulty Paying for Meds: No Currently Unemployed: No Education: Associate Degree Difficulty w/ Childcare or Family Care: No Living arrangements: alone Occupation/Education: retired Additional occupation/education comments: [employer] Gender identity (if verbalized by the patient): Female Spiritual care concerns: No Meds Home Medications and Allergies Home Medications ?Medication ?Instructions ?Recorded ?Confirmed ?Type rmdbrazw-qie-jrfbu acid 0.4 1 tablet PO DAILY 09/01/19 04/14/25 History mg-lycopene 300 mcg-lutein 250 mcg tablet (Centrum Silver) calcium 600 mg (as 1 cap PO DAILY 07/23/21 04/14/25 History carbonate)-vitamin D3 12.5 mcg (500 unit) capsule (Calcium with Vit D3) denosumab 60 mg/mL subcutaneous 60 mg subcut [id number] 07/23/21 04/14/25 History syringe (Prolia) fexofenadine 30 mg tablet 60 mg PO Q12H 09/12/24 04/14/25 History lisinopril 10 mg tablet 10 mg PO DAILY #90 tabs 02/20/25 04/14/25 Rx sour bond extract 1,000 mg 1 mg PO DAILY 03/20/25 04/14/25 History capsule (Tart Bond Extract) Allergies Allergy/AdvReac Type Severity Reaction Status Date / Time monosodium glutamate AdvReac Unknown HEADACHES Verified 04/14/25 15:57 Vital Signs Vital Signs - 24 hr 04/14/25 15:41 04/14/25 18:25 04/14/25 19:48 Temperature 98.0 F 98.3 F 98.7 F Pulse Rate 84 76 108 H Respiratory Rate 16 20 16 Blood Pressure 148/77 H 142/77 H 127/71 Pulse Oximetry 99 100 96 Oxygen Delivery Room Air Exam 2 Narrative: Weight 58 kg BMI 22.7 Const: Other: No acute distress, well-developed well-nourished, appears younger than stated age HENMT: Other: Mucous membranes are dry, no oral pharyngeal erythema, head is normocephalic atraumatic Eyes: Other: Positive conjunctival pallor, no scleral icterus, lens implants noted bilaterally Neck: Other: No JVD, no lymphadenopathy Resp: Other: Clear to auscultation bilaterally, no increased work of breathing Cardio: Other: Regular rate, regular rhythm, 2+ bilateral radial and pedal pulses, no murmur GI: Other: Soft, nondistended, normoactive bowel sounds, tenderness in bilateral lower quadrants Skin: Other: Positive pallor, non jaundice Neuro: Other: Alert oriented, speech is clear, no facial asymmetry, at least moderate hearing loss bilaterally, no localizing neurologic deficits noted during the course of conversation Extrem: Other: No clubbing, cyanosis or edema, moves all extremities equally Psych: Other: Pleasant, loquacious, cooperative, appropriate mood and affect, intact judgment and insight H&P: Results Labs Labs: Laboratory Tests 04/14/25 16:26 04/14/25 16:26 04/14/25 16:26 WBC 14.1 H RBC 3.22 L Hgb 8.7 L Hct 27.9 L MCV 86.6 MCH 27.0 MCHC 31.2 L RDW 14.4 Plt Count 337 MPV 8.6 Immature Gran % (Auto) 0.5 Neut % (Auto) 78.8 H Lymph % (Auto) 13.4 L [place] % (Auto) 6.7 Eos % (Auto) 0.2 Baso % (Auto) 0.4 Lymph # (Auto) 1.89 [place] # (Auto) 0.9 H Eos # (Auto) 0.0 Baso # (Auto) 0.1 Abs Immat Gran (auto) 0.07 H Absolute Neuts (auto) 11.1 H Absolute Nucleated RBC 0.000 Nucleated RBC % 0.0 Sodium 137 Potassium 4.3 Chloride 102 Carbon Dioxide 26 Anion Gap 9 BUN 18 H Creatinine 0.74 Estim Creat Clear Calc 46 Estimated GFR > 60 Glucose 122 H Lactic Acid 1.0 Calcium 9.2 Total Bilirubin 0.3 AST 28 ALT 24 Alkaline Phosphatase 68 Total Protein 7.0 Albumin 3.6 Lipase 25 EXAMINATION: CT abdomen pelvis w con DATE: 04/14/2025 14:14 INDICATION: Abdominal pain TECHNIQUE: Computed tomography (CT) of the abdomen and pelvis was performed with 100 cc Omnipaque 350 intravenous contrast. The dose-length product was 340.30 mGy-cm. Automated exposure control and iterative reconstruction technique were employed. COMPARISON: CT dated 02/29/2012 FINDINGS: Lung bases unremarkable. No significant pleural or pericardial effusion. Small hiatal hernia. Gallbladder is present. There is a small liver cyst. The spleen, pancreas, adrenal glands are unremarkable. There are bilateral renal cysts. Gallbladder is present. Nonobstructive bowel gas pattern. There is thickening of the sigmoid colon with surrounding phlegmonous change and fluid, consistent with diverticulitis. There is a small abscess just superior to the uterus measuring 5.2 x 2.0 x 3.5 cm. There is atherosclerosis of the aorta without aneurysm. There is an L2 burst fracture which is age-indeterminate 02/29/2012. There is retropulsion into the spinal canal causing central canal stenosis. There is severe spondylosis of the mid and lower lumbar spine. There is grade 1 spondylolisthesis at L3-4 and L5-S1. IMPRESSION: 1. Acute diverticulitis with peridiverticular abscess measuring 5.2 x 2 x 3.5 cm. 2: Age-indeterminate L2 burst fracture with retropulsion and central canal stenosis. Assessment and Plan Assessment and plan (1) Diverticulitis of intestine with abscess: Qualifiers: Diverticulitis site: large intestine Diverticulitis bleeding: without bleeding Qualified Code(s): K57.20 - Diverticulitis of large intestine with perforation and abscess without bleeding Code(s): K57.80 - Diverticulitis of intestine, part unspecified, with perforation and abscess without bleeding Status: Acute (2) Acute on chronic anemia: Code(s): D64.9 - Anemia, unspecified Status: Acute (3) SIRS (systemic inflammatory response syndrome): Code(s): R65.10 - Systemic inflammatory response syndrome (SIRS) of non-infectious origin without acute organ dysfunction Status: Acute Plan Patient presents with outpatient CT demonstrating diverticulitis with abscess. General surgery has been consulted. Patient is NPO and placed on empiric antibiotic therapy with Zosyn. Will initiate IV fluids with 1 L fluid bolus given mild tachycardia and will add maintenance fluids at 100 mL an hour of normal saline. Blood cultures have been obtained and are pending. Patient did have 1 episode of tachycardia but no persistent tachycardia to suggest overt sepsis. Will repeat CBC and electrolyte panel in a.m.. Patient has acute on chronic anemia with baseline hemoglobin in November of around 11. Repeat hemoglobin on the was down to 8.8 but is stable today at 8.7. Iron studies and B12 Voss lower checked in the ER. Pattern seems most consistent with anemia of chronic disease. Will defer further management treatment to the patient's oncologist as outpatient. Will repeat CBC in a.m.. Patient has been admitted as observation status. Quality VTE Prophylaxis VTE prophylaxis: mechanical ordered (SCDs) Hospitalist [facility] Advance Care Plan I have confirmed that the patient's Advanced Care Plan is present, code status is documented, or surrogate decision maker is listed in patient medical record.: Yes Medication Reconciliation I have utilized all available resources to obtain, update and review the patients current medications (includes all prescriptions, OTC, herbals, cannabis, and nutritional supplements).: Yes
[2025-04-14] MEDS: SODIUM CHLORIDE 0.9% IV 1,000 ML 999 ML IV CONT (20:40)
[2025-04-14 22:03] LABS: Iron 26 ug/dL (37-170)
[2025-04-14 22:05] VITALS: O2SAT 96
[2025-04-14 22:12] LABS: Percent Iron Saturation 12 % (20-50)
[2025-04-14] MEDS: SODIUM CHLORIDE 0.9% IV 1,000 ML 100 ML IV CONT (22:22)
[2025-04-15 04:37] LABS: Basophils Percent Auto 0.4 % (0.2-1.2); Eosinophils Absolute Auto 0.1 K/mm3 (0-0.3); Eosinophils Percent Auto 1.1 % (0-4.4); Hematocrit 25.1 % (37.0-47.0); Hemoglobin 7.7 g/dL (12.0-15.0); Immature Granulocyte Absolute 0.03 K/mm3 (0.00-0.031); Immature Granulocyte Percent A 0.4 % (0-0.5); Lymphocytes Absolute Auto 1.65 K/mm3 (0.9-3.2); Mean Corpuscular HGB Conc 30.7 g/dl (32-36); Mean Corpuscular Hemoglobin 26.8 pg (26-34); Mean Corpuscular Volume 87.5 fl (80-100); Mean Platelet Volume 8.4 fl (7.4-10.4); Monocytes Absolute Auto 0.8 K/mm3 (0.1-0.6); Monocytes Percent Auto 11.1 % (2.6-8.5); Neutrophils Absolute Auto 4.9 K/mm3 (1.3-6.7); Platelet Count Result 289 k/mm3 (150-375); Red Blood Count 2.87 M/mm3 (4.2-5.4); Red Cell Distribution Width 14.6 % (11.5-14.5); White Blood Count 7.5 K/mm3 (4.5-10.0)
[2025-04-15 05:17] LABS: Anion Gap 9 mmol/L (4-12); Blood Urea Nitrogen 12 mg/dL (7-17); Calcium 7.9 mg/dL (8.4-10.2); Carbon Dioxide 22 mmol/L (22-30); Chloride 106 mmol/L (98-107); Estimated CRCL calculation 64 ml/min; Estimated Glomerular Filt Rate > 60; Glucose 96 mg/dL (65-110); Potassium 3.3 mmol/L (3.4-5.0); Sodium 137 mmol/L (137-145)
[2025-04-15 05:20] VITALS: BP 144/63; PULSE 78; RESP 16; TEMP 36.9; O2SAT 97
[2025-04-15] MEDS: PIPERACILLN/TAZ 3.375GM/NS50ML 3.375 GM/50 ML BAG IVPB ×3 (06:02→18:14)
--- NOTE | 2025-04-15 07:40 | P.PNIM_ITS ---
Progress Note: A&P Assessment and Plan (1) Diverticulitis of intestine with abscess: Qualifiers: Diverticulitis bleeding: without bleeding Diverticulitis site: large intestine Qualified Code(s): K57.20 - Diverticulitis of large intestine with perforation and abscess without bleeding Code(s): K57.80 - Diverticulitis of intestine, part unspecified, with perforation and abscess without bleeding Status: Acute Assessment and Plan: Continue IV Zosyn No surgical intervention Following surgery recommendation Advance diet as tolerated (2) Acute on chronic anemia: Code(s): D64.9 - Anemia, unspecified Status: Acute Assessment and Plan: Order anemia panel Ordered FOBT Chronic anemia Outpatient management (3) SIRS (systemic inflammatory response syndrome): Code(s): R65.10 - Systemic inflammatory response syndrome (SIRS) of non-infectious origin without acute organ dysfunction Status: Acute Subjective Date/time seen: 04/15/25 07:40 Interval history: Interval history: Patient is admitted in the setting of acute diverticulitis with abscess. Surgery is consulted. Patient is currently on IV Zosyn.Surgery e valuated the patient and started clears and advanced to low-fiber diet as tolerated. Review of Systems Review of Systems: 12 systems were reviewed with pertinent positives and negatives per HPI. Except as documented in the HPI, all other systems were reviewed and are negative. Exam Narrative: Weight 58 kg BMI 22.7 Const: Other: No acute distress, well-developed well-nourished, appears younger than stated age HENMT: Other: Mucous membranes are dry, no oral pharyngeal erythema, head is normocephalic atraumatic Eyes: Other: Positive conjunctival pallor, no scleral icterus, lens implants noted bilaterally Neck: Other: No JVD, no lymphadenopathy Resp: Other: Clear to auscultation bilaterally, no increased work of breathing Cardio: Other: Regular rate, regular rhythm, 2+ bilateral radial and pedal pulses, no murmur GI: Other: Soft, nondistended, normoactive bowel sounds, tenderness in bilateral lower quadrants Skin: Other: Positive pallor, non jaundice Neuro: Other: Alert oriented, speech is clear, no facial asymmetry, at least moderate hearing loss bilaterally, no localizing neurologic deficits noted during the course of conversation Extrem: Other: No clubbing, cyanosis or edema, moves all extremities equally Psych: Other: Pleasant, loquacious, cooperative, appropriate mood and affect, intact judgment and insight Objective Data Vital Signs Vital Signs: Vital Signs - 24 hr 04/14/25 15:41 04/14/25 18:25 04/14/25 19:48 Temperature 98.0 F 98.3 F 98.7 F Pulse Rate 84 76 108 H Respiratory Rate 16 20 16 Blood Pressure 148/77 H 142/77 H 127/71 Pulse Oximetry 99 100 96 Oxygen Delivery Room Air Fraction of Inspired Oxygen 04/14/25 22:05 04/15/25 05:20 Temperature 98.4 F Pulse Rate 78 Respiratory Rate 16 Blood Pressure 144/63 H Pulse Oximetry 96 97 Oxygen Delivery Room Air Fraction of Inspired Oxygen 21 Intake/Output Intake/Output: Intake & Output 04/12/25 04/13/25 04/14/25 04/15/25 23:59 23:59 23:59 23:59 Intake Total 1050 50 Output Total 400 Balance 1050 -350 Meds/Results Medications: Active Medications Generic Name Dose Route Start Last Admin Trade Name Freq PRN Reason Stop Dose Admin Acetaminophen 650 mg 04/14/25 17:47 Acetaminophen 325 Mg Tablet PO Q4H PRN Mild Pain (1-3) or Fever Hydrocodone Bitart/Acetaminophen 1 tab 04/14/25 17:47 Hydrocodone/Acetaminophen (*Crx) 5-325 Mg Tablet PO Q4H PRN Pain Rated 4-6 Bisacodyl 5 mg 04/14/25 20:04 Bisacodyl 5 Mg Tablet Ec PO QAM PRN Constipation Calcium Carbonate 200 mg 04/14/25 20:04 Calcium Carbonate (Tums) 500 Mg (200 Mg Elemental) PO Q6H PRN Indigestion Calcium Carbonate 500 mg 04/15/25 09:00 Calcium/Vitamin D 500 Mg/5 Mcg (200 I.U.) Tablet PO QAM BRINDA Piperacillin/Tazobactam/Dextrose 3.375 gm in 50 mls @ 100 mls/hr 04/15/25 00:00 04/15/25 06:02 Zosyn 3.375 Gm/Ns 50 Ml IVPB 100 mls/hr Q6H BRINDA Administration Sodium Chloride 1,000 mls @ 100 mls/hr 04/14/25 20:00 04/14/25 22:22 Normal Saline Iv IV CONT 100 mls/hr .Q10H BRINDA Administration Lisinopril 10 mg 04/15/25 09:00 Lisinopril 10 Mg Tablet PO DAILY [facility] Loratadine 10 mg 04/15/25 09:00 Loratadine 10 Mg Tablet PO QAM [facility] Morphine Sulfate 4 mg 04/14/25 20:01 Morphine Sulfate (*Crx) 4 Mg/Ml Inj IV PUSH Q4H PRN Pain Rated 7-10 Multivitamins/Minerals 1 tab 04/15/25 09:00 Multivitamins /C Lutein (Centrum Silver) Tablet *Bkc PO DAILY [facility] Ondansetron HCl 4 mg 04/14/25 17:47 Ondansetron Inj 4 Mg/2 Ml Vial IV PUSH Q4H PRN Nausea Labs Labs: Laboratory Results - last 24 hr 04/14/25 04/15/25 16:26 04:32 WBC 14.1 H 7.5 RBC 3.22 L 2.87 L Hgb 8.7 L 7.7 L Hct 27.9 L 25.1 L MCV 86.6 87.5 MCH 27.0 26.8 MCHC 31.2 L 30.7 L RDW 14.4 14.6 H Plt Count 337 289 MPV 8.6 8.4 Immature Gran % (Auto) 0.5 0.4 Neut % (Auto) 78.8 H 65.0 Lymph % (Auto) 13.4 L 22.0 [place] % (Auto) 6.7 11.1 H Eos % (Auto) 0.2 1.1 Baso % (Auto) 0.4 0.4 Lymph # (Auto) 1.89 1.65 [place] # (Auto) 0.9 H 0.8 H Eos # (Auto) 0.0 0.1 Baso # (Auto) 0.1 0.0 Abs Immat Gran (auto) 0.07 H 0.03 Absolute Neuts (auto) 11.1 H 4.9 Absolute Nucleated RBC 0.000 0.000 Nucleated RBC % 0.0 0.0 Sodium 137 137 Potassium 4.3 3.3 L Chloride 102 106 Carbon Dioxide 26 22 Anion Gap 9 9 BUN 18 H 12 D Creatinine 0.74 0.51 L Estim Creat Clear Calc 46 64 Estimated GFR > 60 > 60 Glucose 122 H 96 Lactic Acid 1.0 Calcium 9.2 7.9 L Iron 26 L TIBC 217 L % Saturation 12 L Ferritin 187.00 Total Bilirubin 0.3 AST 28 ALT 24 Alkaline Phosphatase 68 Total Protein 7.0 Albumin 3.6 Lipase 25 Vitamin B12 767.0 Quality VTE Prophylaxis VTE prophylaxis: mechanical ordered (SCDs) Hospitalist MIPS Advance Care Plan I have confirmed that the patient's Advanced Care Plan is present, code status is documented, or surrogate decision maker is listed in patient medical record.: Yes Medication Reconciliation I have utilized all available resources to obtain, update and review the patients current medications (includes all prescriptions, OTC, herbals, c annabis, and nutritional supplements).: Yes
[2025-04-15] MEDS: CALCIUM GLUC 1,000 MG/NS 50 ML 1,000 MG/50 ML BAG 100 MG IVPB (08:11)
[2025-04-15] MEDS: POTASSIUM CHLORIDE INJ 40 MEQ in SODIUM CHLORIDE 0.9% IV 500 ML 130 MEQ IVPB (09:20)
--- NOTE | 2025-04-15 11:12 | P.CONGS_ITS ---
Assessment and Plan Assessment and plan (1) Diverticulitis of intestine with abscess: Qualifiers: Diverticulitis bleeding: without bleeding Diverticulitis site: large intestine Qualified Code(s): K57.20 - Diverticulitis of large intestine with perforation and abscess without bleeding Code(s): K57.80 - Diverticulitis of intestine, part unspecified, with perforation and abscess without bleeding Status: Acute Assessment and Plan: Exam largely benign, continue IV antibiotics, unlikely to need drainage of small abscess in light of benign exam, will start clears and advanced to low-fiber diet as tolerated History of Present Illness Consult details Consult date: 04/15/25 Reason for consult: abdominal pain Requesting physician: Ricky Nevarez DO Narrative: The patient is a 75-year-old female presenting to the emergency department complaining of suprapubic, left lower quadrant abdominal pain. The patient reports that this has been progressively worsening over the last 6 weeks. The patient reports that she has had generalized malaise, poor appetite, poor energy levels. She reports some subjective fevers and chills at home. The patient had a CT scan yesterday that was significant for diverticulitis with abscess. Reports similar episode about 15 years ago, although it only lasted 24-48 hours. 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 ER [place] positive HER2 negative Mixed hearing loss, bilateral Chronic seasonal allergic rhinitis Osteopenia Started on Prolia November 2019 Hyperlipidemia Hypertension Surgical History Surgical History Status post cataract extraction of both eyes with insertion of intraocular lens Status post tympanoplasty Left ear with residual hearing loss History of removal of Port-a-Cath Placed 08/2016 removed 09/2017 History of tonsillectomy and adenoidectomy History of appendectomy History of lumpectomy of left breast (01/2017) Hx of mastectomy (02/2017) February 2017 H/O cataract removal with insertion of prosthetic lens Family History Family History Father , 47-Gun shot in a bar. No problems noted. Mother No problems noted. Social History Social History Social History: She lives in her own home. She was for 34 years but has been for 11 years. She has a significant other but they do not live together they have been dating for 10 years. She is a former smoker. She used to smoke a pack of cigarettes per day but quit smoking in the . She drinks a 3-5 glasses of wine a week. She denies illicit substance use. Her and her raised 2 daughters. She has a small dog at home. Code status: Full code Surrogate decision maker: Saniya Yost (daughter) Smoking packs per day: 1 Smoking cigarettes per day: 20.0 Years smoked: 33 Smoking pack-years: 33.00 Smoking status: Former smoker Tobacco type: cigarettes Second hand tobacco smoke exposure: No Smoking end date: 11/09/91 Alcohol intake: current Drinks per week: 6 Substance use: current Substance use type: does not use Do You Feel Safe in your Home?: Yes Lack of Transportation: No Lack of Food: Never True Current Housing: I Have Housing Concerned About Future Housing: No Difficulty Paying Gas/Electric Bills: No Difficulty Paying for Meds: No Currently Unemployed: No Education: Associate Degree Difficulty w/ Childcare or Family Care: No Living arrangements: alone Occupation/Education: retired Additional occupation/education comments: [employer]-real [employer] Gender identity (if verbalized by the patient): Female Spiritual care concerns: No Meds Home Medications and Allergies Home Medications ?Medication ?Instructions ?Recorded ?Confirmed ?Type [id number] acid 0.4 1 tablet PO DAILY 09/01/19 04/14/25 History mg-lycopene 300 mcg-lutein 250 mcg tablet (Centrum Silver) calcium 600 mg (as 1 cap PO DAILY 07/23/21 04/14/25 History carbonate)-vitamin D3 12.5 mcg (500 unit) capsule (Calcium with Vit D3) denosumab 60 mg/mL subcutaneous 60 mg subcut [id number] 07/23/21 04/14/25 History syringe (Prolia) fexofenadine 30 mg tablet 60 mg PO Q12H 09/12/24 04/14/25 History lisinopril 10 mg tablet 10 mg PO DAILY #90 tabs 02/20/25 04/14/25 Rx sour bond extract 1,000 mg 1 mg PO DAILY 03/20/25 04/14/25 History capsule (Tart Bond Extract) Allergies Allergy/AdvReac Type Severity Reaction Status Date / Time monosodium glutamate AdvReac Unknown HEADACHES Verified 04/14/25 15:57 Vital Signs Vital Signs - 24 hr 04/14/25 15:41 04/14/25 18:25 04/14/25 19:48 Temperature 36.7 C 36.8 C 37.1 C Pulse Rate 84 76 108 H Respiratory Rate 16 20 16 Blood Pressure 148/77 H 142/77 H 127/71 Pulse Oximetry 99 100 96 Oxygen Delivery Room Air Fraction of Inspired Oxygen 04/14/25 22:05 04/15/25 05:20 04/15/25 07:55 Temperature 36.9 C Pulse Rate 78 Respiratory Rate 16 Blood Pressure 144/63 H Pulse Oximetry 96 97 Oxygen Delivery Room Air Room Air Fraction of Inspired Oxygen 21 Exam 2 Const: General: cooperative, comfortable and no acute distress HENMT: Head: normal to inspection, normocephalic and atraumatic Eyes: General: appearance normal, both eyes and all related structures Neck: Neck: normal visual inspection, full ROM and no lymphadenopathy Resp: Auscultation: clear to auscultation bilaterally Cardio: Rate: regular rate Rhythm: regular rhythm GI: Inspection: normal to inspection and non-distended GI Palp: Yes abdominal tenderness, Yes Soft to palpation, No Guarding due to palpation present (GI) and No Rigid due to palpation Skin: General skin exam: normal color and no rashes or lesions noted Neuro: General: patient oriented x3 and CN's II-XI intact bilaterally Extrem: General: normal to inspection and full ROM Results Labs 04/15/25 04:32 04/15/25 04:32 Labs: Abnormal lab results 04/14/25 04/15/25 Range/Units 16:26 04:32 WBC 14.1 H (4.5-10.0) K/mm3 RBC 3.22 L 2.87 L (4.2-5.4) M/mm3 Hgb 8.7 L 7.7 L (12.0-15.0) g/dL Hct 27.9 L 25.1 L (37.0-47.0) % MCHC 31.2 L 30.7 L (32-36) g/dl RDW 14.6 H (11.5-14.5) % Neut % (Auto) 78.8 H (45.5-73.1) % Lymph % (Auto) 13.4 L (18.3-44.2) % [place] % (Auto) 11.1 H (2.6-8.5) % [place] # (Auto) 0.9 H 0.8 H (0.1-0.6) K/mm3 Abs Immat Gran (auto) 0.07 H (0.00-0.031) K/mm3 Absolute Neuts (auto) 11.1 H (1.3-6.7) K/mm3 Potassium 3.3 L (3.4-5.0) mmol/L BUN 18 H (7-17) mg/dL Creatinine 0.51 L (0.7-1.0) mg/dL Glucose 122 H (65-110) mg/dL Calcium 7.9 L (8.4-10.2) mg/dL Iron 26 L (37-170) ug/dL TIBC 217 L (261-462) ug/dL % Saturation 12 L (20-50) % Diabetes panel 04/14/25 04/15/25 Range/Units 16:26 04:32 Sodium 137 137 (137-145) mmol/L Potassium 4.3 3.3 L (3.4-5.0) mmol/L Chloride 102 106 (98-107) mmol/L Carbon Dioxide 26 22 (22-30) mmol/L BUN 18 H 12 D (7-17) mg/dL Creatinine 0.74 0.51 L (0.7-1.0) mg/dL Glucose 122 H 96 (65-110) mg/dL Calcium 9.2 7.9 L (8.4-10.2) mg/dL AST 28 (14-36) U/L ALT 24 (6-35) U/L Alkaline Phosphatase 68 (38-126) U/L Total Protein 7.0 (6.3-8.2) g/dL Albumin 3.6 (3.5-5.1) g/dL Calcium panel 04/14/25 04/15/25 Range/Units 16:26 04:32 Calcium 9.2 7.9 L (8.4-10.2) mg/dL Albumin 3.6 (3.5-5.1) g/dL Pituitary panel 04/14/25 04/15/25 Range/Units 16:26 04:32 Sodium 137 137 (137-145) mmol/L Potassium 4.3 3.3 L (3.4-5.0) mmol/L Chloride 102 106 (98-107) mmol/L Carbon Dioxide 26 22 (22-30) mmol/L BUN 18 H 12 D (7-17) mg/dL Creatinine 0.74 0.51 L (0.7-1.0) mg/dL Glucose 122 H 96 (65-110) mg/dL Calcium 9.2 7.9 L (8.4-10.2) mg/dL Adrenal panel 04/14/25 04/15/25 Range/Units 16:26 04:32 Sodium 137 137 (137-145) mmol/L Potassium 4.3 3.3 L (3.4-5.0) mmol/L Chloride 102 106 (98-107) mmol/L Carbon Dioxide 26 22 (22-30) mmol/L BUN 18 H 12 D (7-17) mg/dL Creatinine 0.74 0.51 L (0.7-1.0) mg/dL Glucose 122 H 96 (65-110) mg/dL Calcium 9.2 7.9 L (8.4-10.2) mg/dL Total Bilirubin 0.3 (0.2-1.3) mg/dL AST 28 (14-36) U/L ALT 24 (6-35) U/L Alkaline Phosphatase 68 (38-126) U/L Total Protein 7.0 (6.3-8.2) g/dL Albumin 3.6 (3.5-5.1) g/dL All other labs normal. Imaging Abdomen CT scan report/results: report reviewed and image reviewed
[2025-04-15] MEDS: POTASSIUM CHLORIDE 20 MEQ ER TABLET 40 MEQ PO (12:56)
[2025-04-15] MEDS: CALCIUM/VITAMIN D 500 MG/5 MCG (200 I.U.) TABLET PO (12:56)
[2025-04-15] MEDS: lisinopriL 10 MG TABLET PO (12:56)
[2025-04-15] MEDS: MULTIVITAMINS /C LUTEIN (CENTRUM SILVER) TABLET *BKC 1 TAB PO (12:56)
[2025-04-15 14:45] VITALS: BP 136/64; PULSE 73; RESP 16; TEMP 37; O2SAT 99
[2025-04-15 17:13] LABS: IFOB Positive Control Positive; Immunochemical Fecal Occult Bl Positive (N)
[2025-04-15 20:58] VITALS: BP 141/75; PULSE 76; RESP 18; TEMP 36.5; O2SAT 100
[2025-04-16] MEDS: PIPERACILLN/TAZ 3.375GM/NS50ML 3.375 GM/50 ML BAG IVPB ×5 (00:11→23:22)
[2025-04-16] MEDS: HYDROcodone/acetaminophen (*CRX) 5-325 MG TABLET 1 TAB PO (04:10)
[2025-04-16 04:37] VITALS: BP 143/74; PULSE 66; RESP 16; TEMP 36.6; O2SAT 98
[2025-04-16 05:01] LABS: Immature Reticulocyte Fraction 18.8 % (3.0-15.9); Reticulocyte Hemoglobin Conten 28.5 pg (28.2-36.6); Reticulocyte Percent 1.82 % (0.7-4.3); Reticulocytes Absolute 0.06 10^6/uL (0.02-0.10)
[2025-04-16 05:02] LABS: Hematocrit 27.2 % (37.0-47.0); Hemoglobin 8.2 g/dL (12.0-15.0); Mean Corpuscular HGB Conc 30.1 g/dl (32-36); Mean Corpuscular Hemoglobin 26.5 pg (26-34); Mean Corpuscular Volume 87.7 fl (80-100); Mean Platelet Volume 9.7 fl (7.4-10.4); Platelet Count Result 286 k/mm3 (150-375); Red Cell Distribution Width 14.5 % (11.5-14.5); White Blood Count 6.8 K/mm3 (4.5-10.0)
[2025-04-16 05:17] LABS: Bilirubin Direct 0.1 mg/dL (0-0.3); Lactate Dehydrogenase 178 U/L (120-246)
[2025-04-16 05:19] LABS: Alanine Aminotransferase 22 U/L (6-35); Albumin Level 3.4 g/dL (3.5-5.1); Alkaline Phosphatase 65 U/L (38-126); Anion Gap 7 mmol/L (4-12); Aspartate Amino Transferase 31 U/L (14-36); Bilirubin,Total 0.3 mg/dL (0.2-1.3); Blood Urea Nitrogen 8 mg/dL (7-17); Calcium 8.3 mg/dL (8.4-10.2); Carbon Dioxide 24 mmol/L (22-30); Chloride 106 mmol/L (98-107); Estimated CRCL calculation 62 ml/min; Estimated Glomerular Filt Rate > 60; Glucose 106 mg/dL (65-110); Potassium 3.6 mmol/L (3.4-5.0); Sodium 137 mmol/L (137-145); Total Protein 6.7 g/dL (6.3-8.2)
[2025-04-16 05:25] LABS: Transferrin 122 mg/dL (206-381)
[2025-04-16 05:58] LABS: Iron 30 ug/dL (37-170)
[2025-04-16 06:07] LABS: Percent Iron Saturation 15 % (20-50)
[2025-04-16 06:36] LABS: Folic Acid > 20.0 ng/mL (2.76->20)
[2025-04-16] MEDS: LORATADINE 10 MG TABLET PO (09:10)
[2025-04-16] MEDS: MULTIVITAMINS /C LUTEIN (CENTRUM SILVER) TABLET *BKC 1 TAB PO (09:10)
[2025-04-16] MEDS: CALCIUM/VITAMIN D 500 MG/5 MCG (200 I.U.) TABLET PO (09:10)
[2025-04-16] MEDS: lisinopriL 10 MG TABLET PO (09:11)
[2025-04-16] MEDS: IRON SUCROSE COMPLEX 200 MG, IRON SUCROSE COMPLEX 100 MG in SODIUM CHLORIDE 0.9% IV 250 ML 176.67 MG IVPB (09:12)
--- NOTE | 2025-04-16 12:10 | PM.PNGS ---
Progress Note: A&P Assessment and Plan (1) Diverticulitis of intestine with abscess: Qualifiers: Diverticulitis bleeding: without bleeding Diverticulitis site: large intestine Qualified Code(s): K57.20 - Diverticulitis of large intestine with perforation and abscess without bleeding Code(s): K57.80 - Diverticulitis of intestine, part unspecified, with perforation and abscess without bleeding Status: Acute Assessment and Plan: exam benign today, WBC normal, cont serial exams/labs, if worsening will repeat CT, cont abx, cont low fiber diet Subjective Subjective Date/Time Seen: 04/16/25 12:10 Interval history: feels ok, but had severe recurrent pain overnight, merna diet Review of Systems Review of Systems: All systems reviewed & are unremarkable except as noted in HPI and below Exam Const: General: cooperative, comfortable and no acute distress Resp: Auscultation: clear to auscultation bilaterally Cardio: Rate: regular rate Rhythm: regular rhythm GI: Inspection: normal to inspection and non-distended GI Palp: Yes abdominal tenderness and Yes Soft to palpation Objective Data Vital Signs Vital Signs: Vital Signs - 24 hr 04/15/25 14:45 04/15/25 20:00 04/15/25 20:58 Temperature 37.0 C 36.5 C Pulse Rate 73 76 Respiratory Rate 16 18 Blood Pressure 136/64 141/75 H Pulse Oximetry 99 100 Oxygen Delivery Room Air 04/16/25 04:37 04/16/25 08:10 Temperature 36.6 C Pulse Rate 66 Respiratory Rate 16 Blood Pressure 143/74 H Pulse Oximetry 98 Oxygen Delivery Room Air Intake/Output Intake/Output: Intake & Output 04/13/25 04/14/25 04/15/25 04/16/25 23:59 23:59 23:59 23:59 Intake Total 1050 1372.5 1265 Output Total 600 1000 Balance 1050 772.5 265 Meds/Results Medications: Active Medications Generic Name Dose Route Start Last Admin Trade Name Freq PRN Reason Stop Dose Admin Acetaminophen 650 mg 04/14/25 17:47 Acetaminophen 325 Mg Tablet PO Q4H PRN Mild Pain (1-3) or Fever Hydrocodone Bitart/Acetaminophen 1 tab 04/14/25 17:47 04/16/25 04:10 Hydrocodone/Acetaminophen (*Crx) 5-325 Mg Tablet PO 1 tab Q4H PRN Administration Pain Rated 4-6 Bisacodyl 5 mg 04/14/25 20:04 Bisacodyl 5 Mg Tablet Ec PO QAM PRN Constipation Calcium Carbonate 200 mg 04/14/25 20:04 Calcium Carbonate (Tums) 500 Mg (200 Mg Elemental) PO Q6H PRN Indigestion Calcium Carbonate 500 mg 04/15/25 09:00 04/16/25 09:10 Calcium/Vitamin D 500 Mg/5 Mcg (200 I.U.) Tablet PO 500 mg QAM BRINDA Administration Piperacillin/Tazobactam/Dextrose 3.375 gm in 50 mls @ 100 mls/hr 04/15/25 00:00 04/16/25 05:17 Zosyn 3.375 Gm/Ns 50 Ml IVPB 100 mls/hr Q6H BRINDA Administration Lisinopril 10 mg 04/15/25 09:00 04/16/25 09:11 Lisinopril 10 Mg Tablet PO 10 mg DAILY BRINDA Administration Loratadine 10 mg 04/15/25 09:00 04/16/25 09:10 Loratadine 10 Mg Tablet PO 10 mg QAM BRINDA Administration Morphine Sulfate 4 mg 04/14/25 20:01 Morphine Sulfate (*Crx) 4 Mg/Ml Inj IV PUSH Q4H PRN Pain Rated 7-10 Multivitamins/Minerals 1 tab 04/15/25 09:00 04/16/25 09:10 Multivitamins /C Lutein (Centrum Silver) Tablet *Bkc PO 1 tab DAILY BRINDA Administration Ondansetron HCl 4 mg 04/14/25 17:47 Ondansetron Inj 4 Mg/2 Ml Vial IV PUSH Q4H PRN Nausea Labs Labs: Laboratory Results - last 24 hr 04/15/25 04/16/25 17:01 04:27 WBC 6.8 RBC 3.10 L Hgb 8.2 L Hct 27.2 L MCV 87.7 MCH 26.5 MCHC 30.1 L RDW 14.5 Plt Count 286 MPV 9.7 Absolute Retic 0.06 Percent Retic 1.82 Immature Retic Fraction 18.8 H Retic Hgb Content 28.5 Sodium 137 Potassium 3.6 Chloride 106 Carbon Dioxide 24 Anion Gap 7 BUN 8 Creatinine 0.53 L Estim Creat Clear Calc 62 Estimated GFR > 60 Glucose 106 Calcium 8.3 L Iron 30 L TIBC 202 L % Saturation 15 L Transferrin 122 L Ferritin 208.00 Total Bilirubin 0.3 Direct Bilirubin 0.1 AST 31 ALT 22 Alkaline Phosphatase 65 Lactate Dehydrogenase 178 Total Protein 6.7 Albumin 3.4 L Vitamin B12 767.0 Folate > 20.0 H Stl Occult Blood (IFOB) Positive H JEISON, IgG Interpret Negative JEISON, Poly Interpret Negative JEISON, Complement Interp Negative
[2025-04-16 15:13] VITALS: BP 136/59; PULSE 78; RESP 16; TEMP 37.1; O2SAT 98
--- NOTE | 2025-04-16 16:20 | PM.IMPN ---
Progress Note: A&P Assessment and Plan (1) Diverticulitis of intestine with abscess: Qualifiers: Diverticulitis bleeding: without bleeding Diverticulitis site: large intestine Qualified Code(s): K57.20 - Diverticulitis of large intestine with perforation and abscess without bleeding Code(s): K57.80 - Diverticulitis of intestine, part unspecified, with perforation and abscess without bleeding Status: Acute Assessment and Plan: Continue IV Zosyn No surgical intervention Following surgery recommendation Advance diet as tolerated (2) Acute on chronic anemia: Code(s): D64.9 - Anemia, unspecified Status: Acute Assessment and Plan: Order Venofer Reviewed anemia panel Positive FOBT Chronic anemia Outpatient management (3) SIRS (systemic inflammatory response syndrome): Code(s): R65.10 - Systemic inflammatory response syndrome (SIRS) of non-infectious origin without acute organ dysfunction Status: Acute Subjective Date/time seen: 04/16/25 16:20 Interval history: Patient still continues to have pain Review of Systems Review of Systems: 12 systems were reviewed with pertinent positives and negatives per HPI. Except as documented in the HPI, all other systems were reviewed and are negative. Exam Narrative: Weight 58 kg BMI 22.7 Const: Other: No acute distress, well-developed well-nourished, appears younger than stated age HENMT: Other: Mucous membranes are dry, no oral pharyngeal erythema, head is normocephalic atraumatic Eyes: Other: Positive conjunctival pallor, no scleral icterus, lens implants noted bilaterally Neck: Other: No JVD, no lymphadenopathy Resp: Other: Clear to auscultation bilaterally, no increased work of breathing Cardio: Other: Regular rate, regular rhythm, 2+ bilateral radial and pedal pulses, no murmur GI: Other: Soft, nondistended, normoactive bowel sounds, tenderness in bilateral lower quadrants Skin: Other: Positive pallor, non jaundice Neuro: Other: Alert oriented, speech is clear, no facial asymmetry, at least moderate hearing loss bilaterally, no localizing neurologic deficits noted during the course of conversation Extrem: Other: No clubbing, cyanosis or edema, moves all extremities equally Psych: Other: Pleasant, loquacious, cooperative, appropriate mood and affect, intact judgment and insight Objective Data Vital Signs Vital Signs: Vital Signs - 24 hr 04/15/25 20:00 04/15/25 20:58 04/16/25 04:37 Temperature 97.7 F 97.8 F Pulse Rate 76 66 Respiratory Rate 18 16 Blood Pressure 141/75 H 143/74 H Pulse Oximetry 100 98 Oxygen Delivery Room Air 04/16/25 08:10 04/16/25 15:13 Temperature 98.8 F Pulse Rate 78 Respiratory Rate 16 Blood Pressure 136/59 L Pulse Oximetry 98 Oxygen Delivery Room Air Intake/Output Intake/Output: Intake & Output 04/13/25 04/14/25 04/15/25 04/16/25 23:59 23:59 23:59 23:59 Intake Total 1050 1372.5 1485 Output Total 600 1000 Balance 1050 772.5 485 Meds/Results Medications: Active Medications Generic Name Dose Route Start Last Admin Trade Name Freq PRN Reason Stop Dose Admin Acetaminophen 650 mg 04/14/25 17:47 Acetaminophen 325 Mg Tablet PO Q4H PRN Mild Pain (1-3) or Fever Hydrocodone Bitart/Acetaminophen 1 tab 04/14/25 17:47 04/16/25 04:10 Hydrocodone/Acetaminophen (*Crx) 5-325 Mg Tablet PO 1 tab Q4H PRN Administration Pain Rated 4-6 Bisacodyl 5 mg 04/14/25 20:04 Bisacodyl 5 Mg Tablet Ec PO QAM PRN Constipation Calcium Carbonate 200 mg 04/14/25 20:04 Calcium Carbonate (Tums) 500 Mg (200 Mg Elemental) PO Q6H PRN Indigestion Calcium Carbonate 500 mg 04/15/25 09:00 04/16/25 09:10 Calcium/Vitamin D 500 Mg/5 Mcg (200 I.U.) Tablet PO 500 mg QAM BRINDA Administration Piperacillin/Tazobactam/Dextrose 3.375 gm in 50 mls @ 100 mls/hr 04/15/25 00:00 04/16/25 13:08 Zosyn 3.375 Gm/Ns 50 Ml IVPB Infused Q6H BRINDA Infusion Lisinopril 10 mg 04/15/25 09:00 04/16/25 09:11 Lisinopril 10 Mg Tablet PO 10 mg DAILY BRINDA Administration Loratadine 10 mg 04/15/25 09:00 04/16/25 09:10 Loratadine 10 Mg Tablet PO 10 mg QAM BRINDA Administration Morphine Sulfate 4 mg 04/14/25 20:01 Morphine Sulfate (*Crx) 4 Mg/Ml Inj IV PUSH Q4H PRN Pain Rated 7-10 Multivitamins/Minerals 1 tab 04/15/25 09:00 04/16/25 09:10 Multivitamins /C Lutein (Centrum Silver) Tablet *Bkc PO 1 tab DAILY BRINDA Administration Ondansetron HCl 4 mg 04/14/25 17:47 Ondansetron Inj 4 Mg/2 Ml Vial IV PUSH Q4H PRN Nausea Labs Labs: Laboratory Results - last 24 hr 04/15/25 04/16/25 17:01 04:27 WBC 6.8 RBC 3.10 L Hgb 8.2 L Hct 27.2 L MCV 87.7 MCH 26.5 MCHC 30.1 L RDW 14.5 Plt Count 286 MPV 9.7 Absolute Retic 0.06 Percent Retic 1.82 Immature Retic Fraction 18.8 H Retic Hgb Content 28.5 Sodium 137 Potassium 3.6 Chloride 106 Carbon Dioxide 24 Anion Gap 7 BUN 8 Creatinine 0.53 L Estim Creat Clear Calc 62 Estimated GFR > 60 Glucose 106 Calcium 8.3 L Iron 30 L TIBC 202 L % Saturation 15 L Transferrin 122 L Ferritin 208.00 Total Bilirubin 0.3 Direct Bilirubin 0.1 AST 31 ALT 22 Alkaline Phosphatase 65 Lactate Dehydrogenase 178 Total Protein 6.7 Albumin 3.4 L Vitamin B12 767.0 Folate > 20.0 H Stl Occult Blood (IFOB) Positive H JEISON, IgG Interpret Negative JEISON, Poly Interpret TNP JEISON, Complement Interp Negative Quality VTE Prophylaxis VTE prophylaxis: mechanical ordered (SCDs) Hospitalist MIPS Advance Care Plan I have confirmed that the patient's Advanced Care Plan is present, code status is documented, or surrogate decision maker is listed in patient medical record.: Yes Medication Reconciliation I have utilized all available resources to obtain, update and review the patients current medications (includes all prescriptions, OTC, herbals, cannabis, and nutritional supplements).: Yes
[2025-04-16] MEDS: CALCIUM CARBONATE (TUMS) 500 MG (200 MG ELEMENTAL) PO (18:03)
[2025-04-16 19:48] VITALS: BP 149/74; PULSE 69; RESP 17; TEMP 36.7; O2SAT 98
[2025-04-17] MEDS: HYDROcodone/acetaminophen (*CRX) 5-325 MG TABLET 1 TAB PO (03:14)
[2025-04-17 04:45] VITALS: BP 134/72; PULSE 71; RESP 18; TEMP 36.9; O2SAT 99
[2025-04-17] MEDS: PIPERACILLN/TAZ 3.375GM/NS50ML 3.375 GM/50 ML BAG IVPB ×4 (05:33→23:10)
[2025-04-17] MEDS: CALCIUM/VITAMIN D 500 MG/5 MCG (200 I.U.) TABLET PO (08:20)
[2025-04-17] MEDS: MULTIVITAMINS /C LUTEIN (CENTRUM SILVER) TABLET *BKC 1 TAB PO (08:20)
[2025-04-17] MEDS: lisinopriL 10 MG TABLET PO (08:20)
[2025-04-17] MEDS: LORATADINE 10 MG TABLET PO (08:20)
[2025-04-17 09:07] LABS: Hematocrit 31.3 % (37.0-47.0); Hemoglobin 8.9 g/dL (12.0-15.0); Mean Corpuscular HGB Conc 28.4 g/dl (32-36); Mean Corpuscular Hemoglobin 26.1 pg (26-34); Mean Corpuscular Volume 91.8 fl (80-100); Mean Platelet Volume 9.1 fl (7.4-10.4); Platelet Count Result 293 k/mm3 (150-375); Red Blood Count 3.41 M/mm3 (4.2-5.4); Red Cell Distribution Width 14.5 % (11.5-14.5); White Blood Count 12.7 K/mm3 (4.5-10.0)
--- NOTE | 2025-04-17 09:39 | PM.IMPN ---
Progress Note: A&P Assessment and Plan (1) Diverticulitis of intestine with abscess: Qualifiers: Diverticulitis bleeding: without bleeding Diverticulitis site: large intestine Qualified Code(s): K57.20 - Diverticulitis of large intestine with perforation and abscess without bleeding Code(s): K57.80 - Diverticulitis of intestine, part unspecified, with perforation and abscess without bleeding Status: Acute Assessment and Plan: Continue IV Zosyn Repeat CT scan and possible drainage by IR Following surgery recommendation Advance diet as tolerated (2) Acute on chronic anemia: Code(s): D64.9 - Anemia, unspecified Status: Acute Assessment and Plan: Order Venofer Reviewed anemia panel Positive FOBT Chronic anemia Outpatient management (3) SIRS (systemic inflammatory response syndrome): Code(s): R65.10 - Systemic inflammatory response syndrome (SIRS) of non-infectious origin without acute organ dysfunction Status: Acute Subjective Date/time seen: 04/17/25 09:39 Interval history: Still have pain. Patient has leukocytosis. Underwent repeat CT scan and possible drainage by IR Review of Systems Review of Systems: 12 systems were reviewed with pertinent positives and negatives per HPI. Except as documented in the HPI, all other systems were reviewed and are negative. Exam Narrative: Weight 58 kg BMI 22.7 Const: Other: No acute distress, well-developed well-nourished, appears younger than stated age HENMT: Other: Mucous membranes are dry, no oral pharyngeal erythema, head is normocephalic atraumatic Eyes: Other: Positive conjunctival pallor, no scleral icterus, lens implants noted bilaterally Neck: Other: No JVD, no lymphadenopathy Resp: Other: Clear to auscultation bilaterally, no increased work of breathing Cardio: Other: Regular rate, regular rhythm, 2+ bilateral radial and pedal pulses, no murmur GI: Other: Soft, nondistended, normoactive bowel sounds, tenderness in bilateral lower quadrants Skin: Other: Positive pallor, non jaundice Neuro: Other: Alert oriented, speech is clear, no facial asymmetry, at least moderate hearing loss bilaterally, no localizing neurologic deficits noted during the course of conversation Extrem: Other: No clubbing, cyanosis or edema, moves all extremities equally Psych: Other: Pleasant, loquacious, cooperative, appropriate mood and affect, intact judgment and insight Objective Data Vital Signs Vital Signs: Vital Signs - 24 hr 04/16/25 15:13 04/16/25 19:48 04/16/25 20:00 Temperature 98.8 F 98.1 F Pulse Rate 78 69 Respiratory Rate 16 17 Blood Pressure 136/59 L 149/74 H Pulse Oximetry 98 98 Oxygen Delivery Room Air 04/17/25 04:45 04/17/25 08:24 Temperature 98.4 F Pulse Rate 71 Respiratory Rate 18 Blood Pressure 134/72 Pulse Oximetry 99 Oxygen Delivery Room Air Intake/Output Intake/Output: Intake & Output 04/14/25 04/15/25 04/16/25 04/17/25 23:59 23:59 23:59 23:59 Intake Total 1050 1372.5 2660 840 Output Total 600 1000 Balance 1050 772.5 1660 840 Meds/Results Medications: Active Medications Generic Name Dose Route Start Last Admin Trade Name Freq PRN Reason Stop Dose Admin Acetaminophen 650 mg 04/14/25 17:47 Acetaminophen 325 Mg Tablet PO Q4H PRN Mild Pain (1-3) or Fever Hydrocodone Bitart/Acetaminophen 1 tab 04/14/25 17:47 04/17/25 03:14 Hydrocodone/Acetaminophen (*Crx) 5-325 Mg Tablet PO 1 tab Q4H PRN Administration Pain Rated 4-6 Bisacodyl 5 mg 04/14/25 20:04 Bisacodyl 5 Mg Tablet Ec PO QAM PRN Constipation Calcium Carbonate 200 mg 04/14/25 20:04 04/16/25 18:03 Calcium Carbonate (Tums) 500 Mg (200 Mg Elemental) PO 200 mg Q6H PRN Administration Indigestion Calcium Carbonate 500 mg 04/15/25 09:00 04/17/25 08:20 Calcium/Vitamin D 500 Mg/5 Mcg (200 I.U.) Tablet PO 500 mg QAM BRINDA Administration Piperacillin/Tazobactam/Dextrose 3.375 gm in 50 mls @ 100 mls/hr 04/15/25 00:00 04/17/25 06:10 Zosyn 3.375 Gm/Ns 50 Ml IVPB Infused Q6H BRINDA Infusion Lisinopril 10 mg 04/15/25 09:00 04/17/25 08:20 Lisinopril 10 Mg Tablet PO 10 mg DAILY BRINDA Administration Loratadine 10 mg 04/15/25 09:00 04/17/25 08:20 Loratadine 10 Mg Tablet PO 10 mg QAM BRINDA Administration Morphine Sulfate 4 mg 04/14/25 20:01 Morphine Sulfate (*Crx) 4 Mg/Ml Inj IV PUSH Q4H PRN Pain Rated 7-10 Multivitamins/Minerals 1 tab 04/15/25 09:00 04/17/25 08:20 Multivitamins /C Lutein (Centrum Silver) Tablet *Bkc PO 1 tab DAILY BRINDA Administration Ondansetron HCl 4 mg 04/14/25 17:47 Ondansetron Inj 4 Mg/2 Ml Vial IV PUSH Q4H PRN Nausea Labs Labs: Laboratory Results - last 24 hr 04/16/25 04/17/25 04:27 08:53 WBC 12.7 H RBC 3.41 L Hgb 8.9 L Hct 31.3 L MCV 91.8 MCH 26.1 MCHC 28.4 L RDW 14.5 Plt Count 293 MPV 9.1 JEISON, Poly Interpret TNP Quality VTE Prophylaxis VTE prophylaxis: mechanical ordered (SCDs) Hospitalist MIPS Advance Care Plan I have confirmed that the patient's Advanced Care Plan is present, code status is documented, or surrogate decision maker is listed in patient medical record.: Yes Medication Reconciliation I have utilized all available resources to obtain, update and review the patients current medications (includes all prescriptions, OTC, herbals, cannabis, and nutritional supplements).: Yes
[2025-04-17 09:43] LABS: Alanine Aminotransferase 26 U/L (6-35); Albumin Level 3.4 g/dL (3.5-5.1); Alkaline Phosphatase 73 U/L (38-126); Anion Gap 12 mmol/L (4-12); Aspartate Amino Transferase 36 U/L (14-36); Bilirubin,Total 0.4 mg/dL (0.2-1.3); Blood Urea Nitrogen 6 mg/dL (7-17); Calcium 8.4 mg/dL (8.4-10.2); Carbon Dioxide 19 mmol/L (22-30); Chloride 104 mmol/L (98-107); Estimated CRCL calculation 65 ml/min; Estimated Glomerular Filt Rate > 60; Glucose 134 mg/dL (65-110); Potassium 3.6 mmol/L (3.4-5.0); Sodium 135 mmol/L (137-145); Total Protein 7.2 g/dL (6.3-8.2)
--- NOTE | 2025-04-17 10:52 | PM.PNGS ---
Progress Note: A&P Assessment and Plan (1) Diverticulitis of intestine with abscess: Qualifiers: Diverticulitis bleeding: without bleeding Diverticulitis site: large intestine Qualified Code(s): K57.20 - Diverticulitis of large intestine with perforation and abscess without bleeding Code(s): K57.80 - Diverticulitis of intestine, part unspecified, with perforation and abscess without bleeding Status: Acute Assessment and Plan: WBC sl increased, still c intermittent pain, chills, will repeat CT to further evaluate, may need perc drain, cont abx Subjective Subjective Date/Time Seen: 04/17/25 10:52 Interval history: still c intermittent lower abd pain, chills Review of Systems Review of Systems: All systems reviewed & are unremarkable except as noted in HPI and below Exam Const: General: cooperative, comfortable and no acute distress Resp: Auscultation: clear to auscultation bilaterally Cardio: Rate: regular rate Rhythm: regular rhythm GI: Inspection: normal to inspection and non-distended GI Palp: Yes abdominal tenderness, Yes Soft to palpation, No Guarding due to palpation present (GI) and No Rigid due to palpation Objective Data Vital Signs Vital Signs: Vital Signs - 24 hr 04/16/25 15:13 04/16/25 19:48 04/16/25 20:00 Temperature 37.1 C 36.7 C Pulse Rate 78 69 Respiratory Rate 16 17 Blood Pressure 136/59 L 149/74 H Pulse Oximetry 98 98 Oxygen Delivery Room Air 04/17/25 04:45 04/17/25 08:24 Temperature 36.9 C Pulse Rate 71 Respiratory Rate 18 Blood Pressure 134/72 Pulse Oximetry 99 Oxygen Delivery Room Air Intake/Output Intake/Output: Intake & Output 04/14/25 04/15/25 04/16/25 04/17/25 23:59 23:59 23:59 23:59 Intake Total 1050 1372.5 2660 840 Output Total 600 1000 Balance 1050 772.5 1660 840 Meds/Results Medications: Active Medications Generic Name Dose Route Start Last Admin Trade Name Freq PRN Reason Stop Dose Admin Acetaminophen 650 mg 04/14/25 17:47 Acetaminophen 325 Mg Tablet PO Q4H PRN Mild Pain (1-3) or Fever Hydrocodone Bitart/Acetaminophen 1 tab 04/14/25 17:47 04/17/25 03:14 Hydrocodone/Acetaminophen (*Crx) 5-325 Mg Tablet PO 1 tab Q4H PRN Administration Pain Rated 4-6 Bisacodyl 5 mg 04/14/25 20:04 Bisacodyl 5 Mg Tablet Ec PO QAM PRN Constipation Calcium Carbonate 200 mg 04/14/25 20:04 04/16/25 18:03 Calcium Carbonate (Tums) 500 Mg (200 Mg Elemental) PO 200 mg Q6H PRN Administration Indigestion Calcium Carbonate 500 mg 04/15/25 09:00 04/17/25 08:20 Calcium/Vitamin D 500 Mg/5 Mcg (200 I.U.) Tablet PO 500 mg QAM BRINDA Administration Piperacillin/Tazobactam/Dextrose 3.375 gm in 50 mls @ 100 mls/hr 04/15/25 00:00 04/17/25 06:10 Zosyn 3.375 Gm/Ns 50 Ml IVPB Infused Q6H BRINDA Infusion Lisinopril 10 mg 04/15/25 09:00 04/17/25 08:20 Lisinopril 10 Mg Tablet PO 10 mg DAILY BRINDA Administration Loratadine 10 mg 04/15/25 09:00 04/17/25 08:20 Loratadine 10 Mg Tablet PO 10 mg QAM BRINDA Administration Morphine Sulfate 4 mg 04/14/25 20:01 Morphine Sulfate (*Crx) 4 Mg/Ml Inj IV PUSH Q4H PRN Pain Rated 7-10 Multivitamins/Minerals 1 tab 04/15/25 09:00 04/17/25 08:20 Multivitamins /C Lutein (Centrum Silver) Tablet *Bkc PO 1 tab DAILY BRINDA Administration Ondansetron HCl 4 mg 04/14/25 17:47 Ondansetron Inj 4 Mg/2 Ml Vial IV PUSH Q4H PRN Nausea Labs Labs: Laboratory Results - last 24 hr 04/16/25 04/17/25 04:27 08:53 WBC 12.7 H RBC 3.41 L Hgb 8.9 L Hct 31.3 L MCV 91.8 MCH 26.1 MCHC 28.4 L RDW 14.5 Plt Count 293 MPV 9.1 Sodium 135 L Potassium 3.6 Chloride 104 Carbon Dioxide 19 L Anion Gap 12 BUN 6 L Creatinine 0.50 L Estim Creat Clear Calc 65 Estimated GFR > 60 Glucose 134 H Calcium 8.4 Total Bilirubin 0.4 AST 36 ALT 26 Alkaline Phosphatase 73 Total Protein 7.2 Albumin 3.4 L JEISON, Poly Interpret TNP
[2025-04-17 14:00] VITALS: BP 166/79; PULSE 81; RESP 14; TEMP 36.4; O2SAT 98
[2025-04-17 16:09] LABS: Haptoglobin 471 mg/dL (43-212)
[2025-04-17 19:39] VITALS: BP 136/67; PULSE 73; RESP 17; TEMP 36.7; O2SAT 97
[2025-04-18] VITALS (14 sets, daily range): BP systolic 148–163; BP diastolic 68–81; PULSE 80–86; RESP 14–23; TEMP 36.3–36.7; O2SAT 96–100
[2025-04-18] MEDS: HYDROcodone/acetaminophen (*CRX) 5-325 MG TABLET 1 TAB PO (03:23)
[2025-04-18] MEDS: PIPERACILLN/TAZ 3.375GM/NS50ML 3.375 GM/50 ML BAG IVPB ×3 (05:14→19:48)
[2025-04-18 05:21] LABS: Hematocrit 25.4 % (37.0-47.0); Hemoglobin 8.1 g/dL (12.0-15.0); Mean Corpuscular HGB Conc 31.9 g/dl (32-36); Mean Corpuscular Hemoglobin 27.2 pg (26-34); Mean Corpuscular Volume 85.2 fl (80-100); Platelet Count Result 315 k/mm3 (150-375); Red Blood Count 2.98 M/mm3 (4.2-5.4); Red Cell Distribution Width 14.5 % (11.5-14.5); White Blood Count 9.1 K/mm3 (4.5-10.0)
[2025-04-18 05:36] LABS: Alanine Aminotransferase 20 U/L (6-35); Albumin Level 3.1 g/dL (3.5-5.1); Alkaline Phosphatase 67 U/L (38-126); Anion Gap 6 mmol/L (4-12); Aspartate Amino Transferase 25 U/L (14-36); Bilirubin,Total 0.2 mg/dL (0.2-1.3); Blood Urea Nitrogen 7 mg/dL (7-17); Calcium 8.2 mg/dL (8.4-10.2); Carbon Dioxide 28 mmol/L (22-30); Chloride 103 mmol/L (98-107); Estimated CRCL calculation 65 ml/min; Estimated Glomerular Filt Rate > 60; Glucose 98 mg/dL (65-110); Potassium 3.1 mmol/L (3.4-5.0); Sodium 137 mmol/L (137-145); Total Protein 6.3 g/dL (6.3-8.2)
[2025-04-18] MEDS: CALCIUM/VITAMIN D 500 MG/5 MCG (200 I.U.) TABLET PO (08:23)
[2025-04-18] MEDS: MULTIVITAMINS /C LUTEIN (CENTRUM SILVER) TABLET *BKC 1 TAB PO (08:23)
[2025-04-18] MEDS: LORATADINE 10 MG TABLET PO (08:23)
[2025-04-18] MEDS: lisinopriL 10 MG TABLET PO (08:23)
[2025-04-18 09:25] LABS: INR 1.2; Prothrombin Time 15.3 Seconds (11.1-14.7)
[2025-04-18 09:26] LABS: Partial Thromboplastin Time 32.1 Seconds (22.3-36.8)
[2025-04-18] MEDS: IRON SUCROSE COMPLEX 400 MG, IRON SUCROSE COMPLEX 100 MG in SODIUM CHLORIDE 0.9% IV 250 ML 78.57 MG IVPB (11:50)
[2025-04-18] MEDS: POTASSIUM CHLORIDE 20 MEQ PACKET (FOR LIQUID) 40 MEQ PO (11:50)
--- NOTE | 2025-04-18 11:50 | P.PNIM_ITS ---
Progress Note: A&P Assessment and Plan (1) Diverticulitis of intestine with abscess: Qualifiers: Diverticulitis bleeding: without bleeding Diverticulitis site: large intestine Qualified Code(s): K57.20 - Diverticulitis of large intestine with perforation and abscess without bleeding Code(s): K57.80 - Diverticulitis of intestine, part unspecified, with perforation and abscess without bleeding Status: Acute Assessment and Plan: Continue IV Zosyn Repeat CT scan showed 7.1cm abscess For abscess drainage Advance after procedure (2) Acute on chronic anemia: Code(s): D64.9 - Anemia, unspecified Status: Acute Assessment and Plan: Venofer 500/1000mg Reviewed anemia panel Positive FOBT Chronic anemia Outpatient management (3) SIRS (systemic inflammatory response syndrome): Code(s): R65.10 - Systemic inflammatory response syndrome (SIRS) of non-infectious origin without acute organ dysfunction Status: Acute Plan DVT prophylaxis on Lovenox Subjective Date/time seen: 04/18/25 11:50 Interval history: comfortable at bedside adn awaiting abscess drainage today Review of Systems Review of Systems: 12 systems were reviewed with pertinent positives and negatives per HPI. Except as documented in the HPI, all other systems were reviewed and are negative. Exam Narrative: Weight 58 kg BMI 22.7 Const: Other: No acute distress, well-developed well-nourished, appears younger than stated age HENMT: Other: Mucous membranes are dry, no oral pharyngeal erythema, head is normocephalic atraumatic Eyes: Other: Positive conjunctival pallor, no scleral icterus, lens implants noted bilaterally Neck: Other: No JVD, no lymphadenopathy Resp: Other: Clear to auscultation bilaterally, no increased work of breathing Cardio: Other: Regular rate, regular rhythm, 2+ bilateral radial and pedal pulses, no murmur GI: Other: Soft, nondistended, normoactive bowel sounds, tenderness in bilateral lower q uadrants Skin: Other: Positive pallor, non jaundice Neuro: Other: Alert oriented, speech is clear, no facial asymmetry, at least moderate hearing loss bilaterally, no localizing neurologic deficits noted during the course of conversation Extrem: Other: No clubbing, cyanosis or edema, moves all extremities equally Psych: Other: Pleasant, loquacious, cooperative, appropriate mood and affect, intact judgment and insight Objective Data Vital Signs Vital Signs: Vital Signs - 24 hr 04/17/25 14:00 04/17/25 19:39 04/17/25 20:00 Temperature 97.6 F 98.0 F Pulse Rate 81 73 Respiratory Rate 14 17 Blood Pressure 166/79 H 136/67 Pulse Oximetry 98 97 Oxygen Delivery Room Air 04/18/25 04:57 04/18/25 08:25 Temperature 97.4 F L Pulse Rate 80 Respiratory Rate 17 Blood Pressure 159/70 H Pulse Oximetry 96 Oxygen Delivery Room Air Intake/Output Intake/Output: Intake & Output 04/15/25 04/16/25 04/17/25 04/18/25 23:59 23:59 23:59 23:59 Intake Total 1372.5 2660 2330 Output Total 600 1000 Balance 772.5 1660 2330 Meds/Results Medications: Active Medications Generic Name Dose Route Start Last Admin Trade Name Freq PRN Reason Stop Dose Admin Acetaminophen 650 mg 04/14/25 17:47 Acetaminophen 325 Mg Tablet PO Q4H PRN Mild Pain (1-3) or Fever Hydrocodone Bitart/Acetaminophen 1 tab 04/14/25 17:47 04/18/25 03:23 Hydrocodone/Acetaminophen (*Crx) 5-325 Mg Tablet PO 1 tab Q4H PRN Administration Pain Rated 4-6 Bisacodyl 5 mg 04/14/25 20:04 Bisacodyl 5 Mg Tablet Ec PO QAM PRN Constipation Calcium Carbonate 200 mg 04/14/25 20:04 04/16/25 18:03 Calcium Carbonate (Tums) 500 Mg (200 Mg Elemental) PO 200 mg Q6H PRN Administration Indigestion Calcium Carbonate 500 mg 04/15/25 09:00 04/18/25 08:23 Calcium/Vitamin D 500 Mg/5 Mcg (200 I.U.) Tablet PO 500 mg QAM BRINDA Administration Piperacillin/Tazobactam/Dextrose 3.375 gm in 50 mls @ 100 mls/hr 04/15/25 00:00 04/18/25 05:14 Zosyn 3.375 Gm/Ns 50 Ml IVPB 100 mls/hr Q6H BRINDA Administration Iron Sucrose 400 mg/ Iron 275 mls @ 78.571 mls/hr 04/18/25 10:00 Sucrose 100 mg/ Sodium IVPB 04/18/25 13:29 Chloride ONCE ONE Lisinopril 10 mg 04/15/25 09:00 04/18/25 08:23 Lisinopril 10 Mg Tablet PO 10 mg DAILY BRINDA Administration Loratadine 10 mg 04/15/25 09:00 04/18/25 08:23 Loratadine 10 Mg Tablet PO 10 mg QAM BIRNDA Administration Morphine Sulfate 4 mg 04/14/25 20:01 Morphine Sulfate (*Crx) 4 Mg/Ml Inj IV PUSH Q4H PRN Pain Rated 7-10 Multivitamins/Minerals 1 tab 04/15/25 09:00 04/18/25 08:23 Multivitamins /C Lutein (Centrum Silver) Tablet *Bkc PO 1 tab DAILY BRINDA Administration Ondansetron HCl 4 mg 04/14/25 17:47 Ondansetron Inj 4 Mg/2 Ml Vial IV PUSH Q4H PRN Nausea Phenyleph/Shark Oil/Min Oil/Petrol 1 applic 04/17/25 10:56 Phenyleph/Mineral Oil/Petrolat Ointment 57 Gm RECTAL QID PRN Hemorrhoids Radiology Results: ITS Impressions Abdomen/Pelvis CT 04/17/25 16:44 IMPRESSION: Severe sigmoid colitis, possibly secondary to diverticulitis. Enlarging adjacent perisigmoid abscess, now measuring up to 7.1 cm Labs Labs: Laboratory Results - last 24 hr 04/16/25 04/18/25 04/18/25 04:27 04:28 08:58 WBC 9.1 RBC 2.98 L Hgb 8.1 L Hct 25.4 L MCV 85.2 D MCH 27.2 MCHC 31.9 L RDW 14.5 Plt Count 315 MPV 9.0 Haptoglobin 471 H PT 15.3 H INR 1.2 APTT 32.1 Sodium 137 Potassium 3.1 L Chloride 103 Carbon Dioxide 28 Anion Gap 6 BUN 7 Creatinine 0.50 L Estim Creat Clear Calc 65 Estimated GFR > 60 Glucose 98 Calcium 8.2 L Total Bilirubin 0.2 AST 25 ALT 20 Alkaline Phosphatase 67 Total Protein 6.3 Albumin 3.1 L Quality VTE Prophylaxis VTE prophylaxis: mechanical ordered (SCDs)
--- NOTE | 2025-04-18 11:54 | PM.PNGS ---
Progress Note: A&P Assessment and Plan (1) Diverticulitis of intestine with abscess: Qualifiers: Diverticulitis bleeding: without bleeding Diverticulitis site: large intestine Qualified Code(s): K57.20 - Diverticulitis of large intestine with perforation and abscess without bleeding Code(s): K57.80 - Diverticulitis of intestine, part unspecified, with perforation and abscess without bleeding Status: Acute Assessment and Plan: Repeat CT demonstrates enlarging adjacent perisigmoid abscess, now measuring up to 7.1 cm. WBC now stable at 9.1. Less pain today. Spoke with radiology who agrees to place percutaneous drain tomorrow. Patient ok to have low fiber diet today. NPO at midnight. Continue IV Zosyn. Subjective Subjective Date/Time Seen: 04/18/25 11:54 Interval history: Patient is doing well today. No acute events overnight. Afebrile. WBC downtrending at 9.1. Pain is decreased. Small loose BM this morning. No nausea or vomiting. CT significant for severe sigmoid colitis, possibly secondary to diverticulitis. Enlarging adjacent perisigmoid abscess, now measuring 7.1 x 4.7 x 2.9 cm. Exam GI: Inspection: normal to inspection and non-distended GI Palp: Yes Soft to palpation and Yes Tenderness to palpation present (GI) (tenderness to LLQ and mid lower abdomen) Auscultation: normal bowel sounds Objective Data Vital Signs Vital Signs: Vital Signs - 24 hr 04/17/25 14:00 04/17/25 19:39 04/17/25 20:00 Temperature 97.6 F 98.0 F Pulse Rate 81 73 Respiratory Rate 14 17 Blood Pressure 166/79 H 136/67 Pulse Oximetry 98 97 Oxygen Delivery Room Air 04/18/25 04:57 04/18/25 08:25 Temperature 97.4 F L Pulse Rate 80 Respiratory Rate 17 Blood Pressure 159/70 H Pulse Oximetry 96 Oxygen Delivery Room Air Intake/Output Intake/Output: Intake & Output 04/15/25 04/16/25 04/17/25 04/18/25 23:59 23:59 23:59 23:59 Intake Total 1372.5 2660 2330 50 Output Total 600 1000 Balance 772.5 1660 2330 50 Meds/Results Medications: Active Medications Generic Name Dose Route Start Last Admin Trade Name Freq PRN Reason Stop Dose Admin Acetaminophen 650 mg 04/14/25 17:47 Acetaminophen 325 Mg Tablet PO Q4H PRN Mild Pain (1-3) or Fever Hydrocodone Bitart/Acetaminophen 1 tab 04/14/25 17:47 04/18/25 03:23 Hydrocodone/Acetaminophen (*Crx) 5-325 Mg Tablet PO 1 tab Q4H PRN Administration Pain Rated 4-6 Bisacodyl 5 mg 04/14/25 20:04 Bisacodyl 5 Mg Tablet Ec PO QAM PRN Constipation Calcium Carbonate 200 mg 04/14/25 20:04 04/16/25 18:03 Calcium Carbonate (Tums) 500 Mg (200 Mg Elemental) PO 200 mg Q6H PRN Administration Indigestion Calcium Carbonate 500 mg 04/15/25 09:00 04/18/25 08:23 Calcium/Vitamin D 500 Mg/5 Mcg (200 I.U.) Tablet PO 500 mg QAM BRINDA Administration Piperacillin/Tazobactam/Dextrose 3.375 gm in 50 mls @ 100 mls/hr 04/15/25 00:00 04/18/25 11:50 Zosyn 3.375 Gm/Ns 50 Ml IVPB 100 mls/hr Q6H BRINDA Administration Iron Sucrose 400 mg/ Iron 275 mls @ 78.571 mls/hr 04/18/25 10:00 04/18/25 11:50 Sucrose 100 mg/ Sodium IVPB 04/18/25 13:29 78.57 mls/hr Chloride ONCE ONE Administration Lisinopril 10 mg 04/15/25 09:00 04/18/25 08:23 Lisinopril 10 Mg Tablet PO 10 mg DAILY BRINDA Administration Loratadine 10 mg 04/15/25 09:00 04/18/25 08:23 Loratadine 10 Mg Tablet PO 10 mg QAM BRINDA Administration Morphine Sulfate 4 mg 04/14/25 20:01 Morphine Sulfate (*Crx) 4 Mg/Ml Inj IV PUSH Q4H PRN Pain Rated 7-10 Multivitamins/Minerals 1 tab 04/15/25 09:00 04/18/25 08:23 Multivitamins /C Lutein (Centrum Silver) Tablet *Bkc PO 1 tab DAILY BRINDA Administration Ondansetron HCl 4 mg 04/14/25 17:47 Ondansetron Inj 4 Mg/2 Ml Vial IV PUSH Q4H PRN Nausea Phenyleph/Shark Oil/Min Oil/Petrol 1 applic 04/17/25 10:56 Phenyleph/Mineral Oil/Petrolat Ointment 57 Gm RECTAL QID PRN Hemorrhoids Radiology Results: ITS Impressions Abdomen/Pelvis CT 04/17/25 16:44 IMPRESSION: Severe sigmoid colitis, possibly secondary to diverticulitis. Enlarging adjacent perisigmoid abscess, now measuring up to 7.1 cm Labs Labs: Laboratory Results - last 24 hr 04/16/25 04/18/25 04/18/25 04:27 04:28 08:58 WBC 9.1 RBC 2.98 L Hgb 8.1 L Hct 25.4 L MCV 85.2 D MCH 27.2 MCHC 31.9 L RDW 14.5 Plt Count 315 MPV 9.0 Haptoglobin 471 H PT 15.3 H INR 1.2 APTT 32.1 Sodium 137 Potassium 3.1 L Chloride 103 Carbon Dioxide 28 Anion Gap 6 BUN 7 Creatinine 0.50 L Estim Creat Clear Calc 65 Estimated GFR > 60 Glucose 98 Calcium 8.2 L Total Bilirubin 0.2 AST 25 ALT 20 Alkaline Phosphatase 67 Total Protein 6.3 Albumin 3.1 L
--- NOTE | 2025-04-18 13:58 | PC.NURSE ---
Patient off floor to radiology via stretcher. No patient complaints at this time.
[2025-04-18] MEDS: SODIUM CHLORIDE 0.9% IV 500 ML 30 ML (14:05)
[2025-04-18] MEDS: MIDAZOLAM HCL (*CRX) 2 MG/2 ML VIAL 1 MG IV PUSH (14:08)
[2025-04-18] MEDS: fentaNYL CITRATE INJ (*CRX) 100 MCG/2 ML VIAL 50 MCG IV PUSH (14:18)
--- NOTE | 2025-04-18 15:20 | PC.NURSE ---
Patient returned to floor via stretcher. Perc drain to R buttock. No patient complaints at this time.
--- NOTE | 2025-04-18 15:56 | PC.NURSE ---
Patient returned to floor via stretcher. Perc drain R buttock. No complaints at this time.
--- NOTE | 2025-04-18 16:06 | WPDMODSED ---
Moderate Sedation Note-Pt Data Patient Data Diagnosis: pelvic abscess Present Complaint: lower abdominal pain with pelvic abscess Procedure to be performed/Plan: CT guided pelvic abscess drain placement. Allergies Allergy/AdvReac Type Severity Reaction Status Date / Time monosodium glutamate AdvReac Unknown HEADACHES Verified 04/14/25 15:57 Home Medications ?Medication ?Instructions ?Recorded ?Confirmed ?Type [id number] acid 0.4 1 tablet PO DAILY 09/01/19 04/14/25 History mg-lycopene 300 mcg-lutein 250 mcg tablet (Centrum Silver) calcium 600 mg (as 1 cap PO DAILY 07/23/21 04/14/25 History carbonate)-vitamin D3 12.5 mcg (500 unit) capsule (Calcium with Vit D3) denosumab 60 mg/mL subcutaneous 60 mg subcut [id number] 07/23/21 04/14/25 History syringe (Prolia) fexofenadine 30 mg tablet 60 mg PO Q12H 09/12/24 04/14/25 History lisinopril 10 mg tablet 10 mg PO DAILY #90 tabs 02/20/25 04/14/25 Rx sour bond extract 1,000 mg 1 mg PO DAILY 03/20/25 04/14/25 History capsule (Tart Bond Extract) Current Medications: Active Medications Acetaminophen (Acetaminophen 325 Mg Tablet) 650 mg PO Q4H PRN PRN Reason: Mild Pain (1-3) or Fever Hydrocodone Bitart/Acetaminophen (Hydrocodone/Acetaminophen (*Crx) 5-325 Mg Tablet) 1 tab PO Q4H PRN PRN Reason: Pain Rated 4-6 Last Admin: 04/18/25 03:23 Dose: 1 tab Bisacodyl (Bisacodyl 5 Mg Tablet Ec) 5 mg PO QAM PRN PRN Reason: Constipation Calcium Carbonate (Calcium Carbonate (Tums) 500 Mg (200 Mg Elemental)) 200 mg PO Q6H PRN PRN Reason: Indigestion Last Admin: 04/16/25 18:03 Dose: 200 mg Calcium Carbonate (Calcium/Vitamin D 500 Mg/5 Mcg (200 I.U.) Tablet) 500 mg PO QAM BRINDA Last Admin: 04/18/25 08:23 Dose: 500 mg Enoxaparin Sodium (Enoxaparin 40 Mg/0.4 Ml Syringe) 40 mg SUB-Q DAILY BRINDA Piperacillin/Tazobactam/Dextrose (Zosyn 3.375 Gm/Ns 50 Ml) 3.375 gm in 50 mls @ 100 mls/hr IVPB Q6H [facility] Last Admin: 04/18/25 11:50 Dose: 100 mls/hr Lisinopril (Lisinopril 10 Mg Tablet) 10 mg PO DAILY [facility] Last Admin: 04/18/25 08:23 Dose: 10 mg Loratadine (Loratadine 10 Mg Tablet) 10 mg PO QAM [facility] Last Admin: 04/18/25 08:23 Dose: 10 mg Morphine Sulfate (Morphine Sulfate (*Crx) 4 Mg/Ml Inj) 4 mg IV PUSH Q4H PRN PRN Reason: Pain Rated 7-10 Multivitamins/Minerals (Multivitamins /C Lutein (Centrum Silver) Tablet *Bkc) 1 tab PO DAILY [facility] Last Admin: 04/18/25 08:23 Dose: 1 tab Ondansetron HCl (Ondansetron Inj 4 Mg/2 Ml Vial) 4 mg IV PUSH Q4H PRN PRN Reason: Nausea Phenyleph/Shark Oil/Min Oil/Petrol (Phenyleph/Mineral Oil/Petrolat Ointment 57 Gm) 1 applic RECTAL QID PRN PRN Reason: Hemorrhoids Sedation/Anesthesia: No previous sedation/anesthesia problems (including family history). 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 ER [place] positive HER2 negative Mixed hearing loss, bilateral Chronic seasonal allergic rhinitis Osteopenia Started on Prolia November 2019 Hyperlipidemia Hypertension Surgical History Surgical History Status post cataract extraction of both eyes with insertion of intraocular lens Status post tympanoplasty Left ear with residual hearing loss History of removal of Port-a-Cath Placed 08/2016 removed 09/2017 History of tonsillectomy and adenoidectomy History of appendectomy History of lumpectomy of left breast (01/2017) Hx of mastectomy (02/2017) February 2017 H/O cataract removal with insertion of prosthetic lens Family History Family History Father , 47-Gun shot in a bar. No problems noted. Mother No problems noted. Social History Social History Social History: She lives in her own home. She was for 34 years but has been for 11 years. She has a significant other but they do not live together they have been dating for 10 years. She is a former smoker. She used to smoke a pack of cigarettes per day but quit smoking in the . She drinks a 3-5 glasses of wine a week. She denies illicit substance use. Her and her raised 2 daughters. She has a small dog at home. Code status: Full code Surrogate decision maker: Saniya Yost (daughter) Smoking packs per day: 1 Smoking cigarettes per day: 20.0 Years smoked: 33 Smoking pack-years: 33.00 Smoking status: Former smoker Tobacco type: cigarettes Second hand tobacco smoke exposure: No Smoking end date: 11/09/91 Alcohol intake: current Drinks per week: 6 Substance use: current Substance use type: does not use Do You Feel Safe in your Home?: Yes Lack of Transportation: No Lack of Food: Never True Current Housing: I Have Housing Concerned About Future Housing: No Difficulty Paying Gas/Electric Bills: No Difficulty Paying for Meds: No Currently Unemployed: No Education: Associate Degree Difficulty w/ Childcare or Family Care: No Living arrangements: alone Occupation/Education: retired 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 Gender identity (if verbalized by the patient): Female Spiritual care concerns: No Mod Sed Physical Exam Physical Exam Pre Procedural Exam: Normal: Appearance, Throat, Lungs, Heart Rate and Heart Rhythm and Variation: Abdomen (lower abdomen TTP) Hours since solid foods: 24 Hours since liquid intake: 6 Mallampati Classification: class III Internal Medicine - PN: Obj Da Vital Signs Vital Signs: Vital Signs - 24 hr 04/17/25 19:39 04/17/25 20:00 04/18/25 04:57 Temperature 98.0 F 97.4 F L Pulse Rate 73 80 Respiratory Rate 17 17 Blood Pressure 136/67 159/70 H Pulse Oximetry 97 96 Oxygen Delivery Room Air Oxygen Flow Rate 04/18/25 08:25 04/18/25 14:05 04/18/25 14:10 Temperature Pulse Rate 86 84 Respiratory Rate 20 22 H Blood Pressure 158/68 H 156/71 H Pulse Oximetry 100 100 Oxygen Delivery Room Air Nasal Cannula Nasal Cannula Oxygen Flow Rate 2 2 04/18/25 14:15 04/18/25 14:20 04/18/25 14:25 Temperature Pulse Rate 82 84 85 Respiratory Rate 21 H 22 H 23 H Blood Pressure 155/71 H 151/72 H 151/69 H Pulse Oximetry 100 100 100 Oxygen Delivery Nasal Cannula Nasal Cannula Nasal Cannula Oxygen Flow Rate 2 2 2 04/18/25 14:30 04/18/25 14:35 04/18/25 14:40 Temperature Pulse Rate 85 83 84 Respiratory Rate 23 H 23 H 23 H Blood Pressure 149/72 H 162/68 H 156/74 H Pulse Oximetry 100 100 99 Oxygen Delivery Nasal Cannula Nasal Cannula Nasal Cannula Oxygen Flow Rate 2 2 2 04/18/25 14:45 04/18/25 14:50 04/18/25 14:55 Temperature Pulse Rate 82 86 84 Respiratory Rate 22 H 22 H 22 H Blood Pressure 161/74 H 148/74 H 149/70 H Pulse Oximetry 100 100 100 Oxygen Delivery Nasal Cannula Nasal Cannula Nasal Cannula Oxygen Flow Rate 2 2 2 04/18/25 16:05 Temperature Pulse Rate 81 Respiratory Rate 14 Blood Pressure 163/80 H Pulse Oximetry 97 Oxygen Delivery Oxygen Flow Rate Intake/Output Intake/Output: Intake & Output 04/15/25 04/16/25 04/17/25 04/18/25 23:59 23:59 23:59 23:59 Intake Total 1372.5 2660 2330 150 Output Total 600 1000 Balance 772.5 1660 2330 150 Meds/Results Medications: Active Medications Generic Name Dose Route Start Last Admin Trade Name Freq PRN Reason Stop Dose Admin Acetaminophen 650 mg 04/14/25 17:47 Acetaminophen 325 Mg Tablet PO Q4H PRN Mild Pain (1-3) or Fever Hydrocodone Bitart/Acetaminophen 1 tab 04/14/25 17:47 04/18/25 03:23 Hydrocodone/Acetaminophen (*Crx) 5-325 Mg Tablet PO 1 tab Q4H PRN Administration Pain Rated 4-6 Bisacodyl 5 mg 04/14/25 20:04 Bisacodyl 5 Mg Tablet Ec PO QAM PRN Constipation Calcium Carbonate 200 mg 04/14/25 20:04 04/16/25 18:03 Calcium Carbonate (Tums) 500 Mg (200 Mg Elemental) PO 200 mg Q6H PRN Administration Indigestion Calcium Carbonate 500 mg 04/15/25 09:00 04/18/25 08:23 Calcium/Vitamin D 500 Mg/5 Mcg (200 I.U.) Tablet PO 500 mg QAM BRINDA Administration Enoxaparin Sodium 40 mg 04/19/25 09:00 Enoxaparin 40 Mg/0.4 Ml Syringe SUB-Q DAILY BRINDA Piperacillin/Tazobactam/Dextrose 3.375 gm in 50 mls @ 100 mls/hr 04/15/25 00:00 04/18/25 11:50 Zosyn 3.375 Gm/Ns 50 Ml IVPB 100 mls/hr Q6H BRINDA Administration Lisinopril 10 mg 04/15/25 09:00 04/18/25 08:23 Lisinopril 10 Mg Tablet PO 10 mg DAILY BRINDA Administration Loratadine 10 mg 04/15/25 09:00 04/18/25 08:23 Loratadine 10 Mg Tablet PO 10 mg QAM BRINDA Administration Morphine Sulfate 4 mg 04/14/25 20:01 Morphine Sulfate (*Crx) 4 Mg/Ml Inj IV PUSH Q4H PRN Pain Rated 7-10 Multivitamins/Minerals 1 tab 04/15/25 09:00 04/18/25 08:23 Multivitamins /C Lutein (Centrum Silver) Tablet *Bkc PO 1 tab DAILY BRINDA Administration Ondansetron HCl 4 mg 04/14/25 17:47 Ondansetron Inj 4 Mg/2 Ml Vial IV PUSH Q4H PRN Nausea Phenyleph/Shark Oil/Min Oil/Petrol 1 applic 04/17/25 10:56 Phenyleph/Mineral Oil/Petrolat Ointment 57 Gm RECTAL QID PRN Hemorrhoids Radiology Results: ITS Impressions Abdomen/Pelvis CT 04/17/25 16:44 IMPRESSION: Severe sigmoid colitis, possibly secondary to diverticulitis. Enlarging adjacent perisigmoid abscess, now measuring up to 7.1 cm Labs 04/18/25 04:28 04/18/25 04:28 Labs: Laboratory Results - last 24 hr 04/16/25 04/18/25 04/18/25 04:27 04:28 08:58 WBC 9.1 RBC 2.98 L Hgb 8.1 L Hct 25.4 L MCV 85.2 D MCH 27.2 MCHC 31.9 L RDW 14.5 Plt Count 315 MPV 9.0 Haptoglobin 471 H PT 15.3 H INR 1.2 APTT 32.1 Sodium 137 Potassium 3.1 L Chloride 103 Carbon Dioxide 28 Anion Gap 6 BUN 7 Creatinine 0.50 L Estim Creat Clear Calc 65 Estimated GFR > 60 Glucose 98 Calcium 8.2 L Total Bilirubin 0.2 AST 25 ALT 20 Alkaline Phosphatase 67 Total Protein 6.3 Albumin 3.1 L ASA Classification/Sedation ASA Classification/Sedation ASA Class: III Emergent: No Risks: Risks, benefits and alternatives explained and patient/family accepted plan for sedation. Patient re-evaluated immediately prior to sedation.
[2025-04-19] MEDS: PIPERACILLN/TAZ 3.375GM/NS50ML 3.375 GM/50 ML BAG IVPB ×4 (00:38→17:33)
[2025-04-19 04:29] LABS: Basophils Percent Auto 0.5 % (0.2-1.2); Eosinophils Absolute Auto 0.1 K/mm3 (0-0.3); Eosinophils Percent Auto 1.5 % (0-4.4); Hematocrit 24.3 % (37.0-47.0); Hemoglobin 7.6 g/dL (12.0-15.0); Immature Granulocyte Absolute 0.05 K/mm3 (0.00-0.031); Immature Granulocyte Percent A 0.8 % (0-0.5); Lymphocytes Percent Auto 26.1 % (18.3-44.2); Mean Corpuscular HGB Conc 31.3 g/dl (32-36); Mean Corpuscular Hemoglobin 26.7 pg (26-34); Mean Corpuscular Volume 85.3 fl (80-100); Mean Platelet Volume 8.2 fl (7.4-10.4); Monocytes Absolute Auto 0.7 K/mm3 (0.1-0.6); Monocytes Percent Auto 12.1 % (2.6-8.5); Neutrophils Absolute Auto 3.6 K/mm3 (1.3-6.7); Platelet Count Result 282 k/mm3 (150-375); Red Blood Count 2.85 M/mm3 (4.2-5.4); Red Cell Distribution Width 14.6 % (11.5-14.5); White Blood Count 6.1 K/mm3 (4.5-10.0)
[2025-04-19 04:54] LABS: Alanine Aminotransferase 18 U/L (6-35); Albumin Level 2.9 g/dL (3.5-5.1); Alkaline Phosphatase 64 U/L (38-126); Anion Gap 7 mmol/L (4-12); Aspartate Amino Transferase 27 U/L (14-36); Bilirubin,Total 0.3 mg/dL (0.2-1.3); Blood Urea Nitrogen 10 mg/dL (7-17); Calcium 8.2 mg/dL (8.4-10.2); Carbon Dioxide 26 mmol/L (22-30); Chloride 104 mmol/L (98-107); Estimated CRCL calculation 61 ml/min; Estimated Glomerular Filt Rate > 60; Glucose 94 mg/dL (65-110); Lactic Acid Reflex 0.5 mmol/L (0.7-2.0); Magnesium 1.8 mg/dL (1.6-2.3); Potassium 3.3 mmol/L (3.4-5.0); Sodium 137 mmol/L (137-145); Total Protein 6.1 g/dL (6.3-8.2)
[2025-04-19 05:54] VITALS: BP 155/68; PULSE 73; RESP 18; TEMP 36.8; O2SAT 97
[2025-04-19 07:46] LABS: IFOB Positive Control Positive; Immunochemical Fecal Occult Bl Positive (N)
[2025-04-19] MEDS: POTASSIUM CHLORIDE 20 MEQ ER TABLET 40 MEQ PO (08:30)
[2025-04-19] MEDS: lisinopriL 10 MG TABLET PO (08:30)
[2025-04-19] MEDS: MULTIVITAMINS /C LUTEIN (CENTRUM SILVER) TABLET *BKC 1 TAB PO (08:30)
[2025-04-19] MEDS: CALCIUM/VITAMIN D 500 MG/5 MCG (200 I.U.) TABLET PO (08:30)
[2025-04-19] MEDS: LORATADINE 10 MG TABLET PO (08:30)
--- NOTE | 2025-04-19 09:06 | PM.PNGS ---
Progress Note: A&P Assessment and Plan (1) Diverticulitis of intestine with abscess: Qualifiers: Diverticulitis bleeding: without bleeding Diverticulitis site: large intestine Qualified Code(s): K57.20 - Diverticulitis of large intestine with perforation and abscess without bleeding Code(s): K57.80 - Diverticulitis of intestine, part unspecified, with perforation and abscess without bleeding Status: Acute Assessment and Plan: S/p perc drain on 04/18/2025. Cultures pending. Abdominal pain and tenderness continues to improve. WBC count normal. Continue IV antibiotics Monitor percutaneous drain Plan I have discussed the patient's case and plan of care with Dr. Saha. Subjective Subjective Date/Time Seen: 04/19/25 09:06 Patient reports: no new complaints, feels better, voiding w/o difficulty, flatus, bowel movement and afebrile Interval history: Still having some mild left lower quadrant pain, but much better. Pain Controlled with hydrocodone, which she received earlier this morning. WBC count normal. She had 2 large bowel movements this morning. Denies any visible blood in her stool. Tolerating a low-fiber diet without issues. Exam Const: General: comfortable and no acute distress GI: Inspection: non-distended GI Palp: Yes Soft to palpation, Yes Tenderness to palpation present (GI) (Very mild LLQ tenderness), No Guarding due to palpation present (GI) and No Rebound tenderness present Auscultation: normal bowel sounds Other: Perc drain with dark brown output Objective Data Vital Signs Vital Signs: Vital Signs - 24 hr 04/18/25 14:05 04/18/25 14:10 04/18/25 14:15 Temperature Pulse Rate 86 84 82 Respiratory Rate 20 22 H 21 H Blood Pressure 158/68 H 156/71 H 155/71 H Pulse Oximetry 100 100 100 Oxygen Delivery Nasal Cannula Nasal Cannula Nasal Cannula Oxygen Flow Rate 2 2 2 04/18/25 14:20 04/18/25 14:25 04/18/25 14:30 Temperature Pulse Rate 84 85 85 Respiratory Rate 22 H 23 H 23 H Blood Pressure 151/72 H 151/69 H 149/72 H Pulse Oximetry 100 100 100 Oxygen Delivery Nasal Cannula Nasal Cannula Nasal Cannula Oxygen Flow Rate 2 2 2 04/18/25 14:35 04/18/25 14:40 04/18/25 14:45 Temperature Pulse Rate 83 84 82 Respiratory Rate 23 H 23 H 22 H Blood Pressure 162/68 H 156/74 H 161/74 H Pulse Oximetry 100 99 100 Oxygen Delivery Nasal Cannula Nasal Cannula Nasal Cannula Oxygen Flow Rate 2 2 2 04/18/25 14:50 04/18/25 14:55 04/18/25 16:05 Temperature Pulse Rate 86 84 81 Respiratory Rate 22 H 22 H 14 Blood Pressure 148/74 H 149/70 H 163/80 H Pulse Oximetry 100 100 97 Oxygen Delivery Nasal Cannula Nasal Cannula Oxygen Flow Rate 2 2 04/18/25 19:45 04/18/25 20:00 04/19/25 05:54 Temperature 98.1 F 98.3 F Pulse Rate 81 73 Respiratory Rate 16 18 Blood Pressure 163/81 H 155/68 H Pulse Oximetry 100 97 Oxygen Delivery Room Air Oxygen Flow Rate 04/19/25 08:30 Temperature Pulse Rate Respiratory Rate Blood Pressure Pulse Oximetry Oxygen Delivery Room Air Oxygen Flow Rate Intake/Output Intake/Output: Intake & Output 04/16/25 04/17/25 04/18/25 04/19/25 23:59 23:59 23:59 23:59 Intake Total 2660 2330 1315 730 Output Total 1000 30 Balance 1660 2330 1315 700 Meds/Results Medications: Active Medications Generic Name Dose Route Start Last Admin Trade Name Freq PRN Reason Stop Dose Admin Acetaminophen 650 mg 04/14/25 17:47 Acetaminophen 325 Mg Tablet PO Q4H PRN Mild Pain (1-3) or Fever Hydrocodone Bitart/Acetaminophen 1 tab 04/14/25 17:47 04/18/25 03:23 Hydrocodone/Acetaminophen (*Crx) 5-325 Mg Tablet PO 1 tab Q4H PRN Administration Pain Rated 4-6 Bisacodyl 5 mg 04/14/25 20:04 Bisacodyl 5 Mg Tablet Ec PO QAM PRN Constipation Calcium Carbonate 200 mg 04/14/25 20:04 04/16/25 18:03 Calcium Carbonate (Tums) 500 Mg (200 Mg Elemental) PO 200 mg Q6H PRN Administration Indigestion Calcium Carbonate 500 mg 04/15/25 09:00 04/19/25 08:30 Calcium/Vitamin D 500 Mg/5 Mcg (200 I.U.) Tablet PO 500 mg QAM BRINDA Administration Enoxaparin Sodium 40 mg 04/19/25 09:00 04/19/25 08:24 Enoxaparin 40 Mg/0.4 Ml Syringe SUB-Q Not Given DAILY BRINDA Piperacillin/Tazobactam/Dextrose 3.375 gm in 50 mls @ 100 mls/hr 04/15/25 00:00 04/19/25 05:01 Zosyn 3.375 Gm/Ns 50 Ml IVPB 100 mls/hr Q6H BRINDA Administration Iron Sucrose 200 mg/ Sodium 110 mls @ 220 mls/hr 04/19/25 08:55 Chloride IVPB 04/19/25 09:24 ONCE ONE Lisinopril 10 mg 04/15/25 09:00 04/19/25 08:30 Lisinopril 10 Mg Tablet PO 10 mg DAILY BRINDA Administration Loratadine 10 mg 04/15/25 09:00 04/19/25 08:30 Loratadine 10 Mg Tablet PO 10 mg QAM BRINDA Administration Morphine Sulfate 4 mg 04/14/25 20:01 Morphine Sulfate (*Crx) 4 Mg/Ml Inj IV PUSH Q4H PRN Pain Rated 7-10 Multivitamins/Minerals 1 tab 04/15/25 09:00 04/19/25 08:30 Multivitamins /C Lutein (Centrum Silver) Tablet *Bkc PO 1 tab DAILY BRINDA Administration Ondansetron HCl 4 mg 04/14/25 17:47 Ondansetron Inj 4 Mg/2 Ml Vial IV PUSH Q4H PRN Nausea Phenyleph/Shark Oil/Min Oil/Petrol 1 applic 04/17/25 10:56 Phenyleph/Mineral Oil/Petrolat Ointment 57 Gm RECTAL QID PRN Hemorrhoids Radiology Results: ITS Impressions Abdomen/Pelvis CT 04/17/25 16:44 IMPRESSION: Severe sigmoid colitis, possibly secondary to diverticulitis. Enlarging adjacent perisigmoid abscess, now measuring up to 7.[address] 04/18/25 16:04 IMPRESSION: 1. Successful CT-guided right transgluteal pelvic abscess drainage catheter placement. 2. 30 mL fluid was sent for aerobic and anaerobic cultures. 3. The catheter will be managed by Dr. Saha. Labs Labs: Laboratory Results - last 24 hr 04/18/25 04/19/25 04/19/25 08:58 04:24 07:34 WBC 6.1 RBC 2.85 L Hgb 7.6 L Hct 24.3 L MCV 85.3 MCH 26.7 MCHC 31.3 L RDW 14.6 H Plt Count 282 MPV 8.2 Immature Gran % (Auto) 0.8 H Neut % (Auto) 59.0 Lymph % (Auto) 26.1 [place] % (Auto) 12.1 H Eos % (Auto) 1.5 Baso % (Auto) 0.5 Lymph # (Auto) 1.60 [place] # (Auto) 0.7 H Eos # (Auto) 0.1 Baso # (Auto) 0.0 Abs Immat Gran (auto) 0.05 H Absolute Neuts (auto) 3.6 Absolute Nucleated RBC 0.000 Nucleated RBC % 0.0 PT 15.3 H INR 1.2 APTT 32.1 Sodium 137 Potassium 3.3 L Chloride 104 Carbon Dioxide 26 Anion Gap 7 BUN 10 Creatinine 0.54 L Estim Creat Clear Calc 61 Estimated GFR > 60 Glucose 94 Lactic Acid 0.5 L Calcium 8.2 L Magnesium 1.8 Total Bilirubin 0.3 AST 27 ALT 18 Alkaline Phosphatase 64 Total Protein 6.1 L Albumin 2.9 L Stl Occult Blood (IFOB) Positive H
[2025-04-19] MEDS: IRON SUCROSE COMPLEX 200 MG in SODIUM CHLORIDE 0.9% IV 100 ML 220 MG IVPB (09:42)
[2025-04-19 11:54] LABS: Soluble Transferrin Receptor 1.16 mg/L (0.76-1.76)
--- NOTE | 2025-04-19 11:58 | PM.IMPN ---
Progress Note: A&P Assessment and Plan (1) Diverticulitis of intestine with abscess: Qualifiers: Diverticulitis bleeding: without bleeding Diverticulitis site: large intestine Qualified Code(s): K57.20 - Diverticulitis of large intestine with perforation and abscess without bleeding Code(s): K57.80 - Diverticulitis of intestine, part unspecified, with perforation and abscess without bleeding Status: Acute Assessment and Plan: Continue IV Zosyn Repeat CT scan showed 7.1cm abscess Drainin place draining blackish fluid Patient noted she is not comfortable going with drainage and wants to be here until drain is removed Surgery following (2) Acute on chronic anemia: Code(s): D64.9 - Anemia, unspecified Status: Acute Assessment and Plan: Venofer 1000/1000mg Reviewed anemia panel Positive FOBT likely from diverticulitis Chronic anemia Outpatient management (3) SIRS (systemic inflammatory response syndrome): Code(s): R65.10 - Systemic inflammatory response syndrome (SIRS) of non-infectious origin without acute organ dysfunction Status: Acute Plan DVT prophylaxis on Lovenox Subjective Date/time seen: 04/19/25 11:58 Interval history: comfortable at bedside S/p abscess drainage placement Review of Systems Review of Systems: 12 systems were reviewed with pertinent positives and negatives per HPI. Except as documented in the HPI, all other systems were reviewed and are negative. Exam Narrative: Weight 58 kg BMI 22.7 Const: Other: No acute distress, well-developed well-nourished, appears younger than stated age HENMT: Other: Mucous membranes are dry, no oral pharyngeal erythema, head is normocephalic atraumatic Eyes: Other: Positive conjunctival pallor, no scleral icterus, lens implants noted bilaterally Neck: Other: No JVD, no lymphadenopathy Resp: Other: Clear to auscultation bilaterally, no increased work of breathing Cardio: Other: Regular rate, regular rhythm, 2+ bilateral radial and pedal pulses, no murmur GI: Other: Soft, nondistended, normoactive bowel sounds, tenderness in bilateral lower quadrants Skin: Other: Positive pallor, non jaundice Neuro: Other: Alert oriented, speech is clear, no facial asymmetry, at least moderate hearing loss bilaterally, no localizing neurologic deficits noted during the course of conversation Extrem: Other: No clubbing, cyanosis or edema, moves all extremities equally Psych: Other: Pleasant, loquacious, cooperative, appropriate mood and affect, intact judgment and insight Objective Data Vital Signs Vital Signs: Vital Signs - 24 hr 04/18/25 14:05 04/18/25 14:10 04/18/25 14:15 Temperature Pulse Rate 86 84 82 Respiratory Rate 20 22 H 21 H Blood Pressure 158/68 H 156/71 H 155/71 H Pulse Oximetry 100 100 100 Oxygen Delivery Nasal Cannula Nasal Cannula Nasal Cannula Oxygen Flow Rate 2 2 2 04/18/25 14:20 04/18/25 14:25 04/18/25 14:30 Temperature Pulse Rate 84 85 85 Respiratory Rate 22 H 23 H 23 H Blood Pressure 151/72 H 151/69 H 149/72 H Pulse Oximetry 100 100 100 Oxygen Delivery Nasal Cannula Nasal Cannula Nasal Cannula Oxygen Flow Rate 2 2 2 04/18/25 14:35 04/18/25 14:40 04/18/25 14:45 Temperature Pulse Rate 83 84 82 Respiratory Rate 23 H 23 H 22 H Blood Pressure 162/68 H 156/74 H 161/74 H Pulse Oximetry 100 99 100 Oxygen Delivery Nasal Cannula Nasal Cannula Nasal Cannula Oxygen Flow Rate 2 2 2 04/18/25 14:50 04/18/25 14:55 04/18/25 16:05 Temperature Pulse Rate 86 84 81 Respiratory Rate 22 H 22 H 14 Blood Pressure 148/74 H 149/70 H 163/80 H Pulse Oximetry 100 100 97 Oxygen Delivery Nasal Cannula Nasal Cannula Oxygen Flow Rate 2 2 04/18/25 19:45 04/18/25 20:00 04/19/25 05:54 Temperature 98.1 F 98.3 F Pulse Rate 81 73 Respiratory Rate 16 18 Blood Pressure 163/81 H 155/68 H Pulse Oximetry 100 97 Oxygen Delivery Room Air Oxygen Flow Rate 04/19/25 08:30 Temperature Pulse Rate Respiratory Rate Blood Pressure Pulse Oximetry Oxygen Delivery Room Air Oxygen Flow Rate Intake/Output Intake/Output: Intake & Output 04/16/25 04/17/25 04/18/25 04/19/25 23:59 23:59 23:59 23:59 Intake Total 2660 2330 1315 1940 Output Total 1000 30 Balance 1660 2330 1315 1910 Meds/Results Medications: Active Medications Generic Name Dose Route Start Last Admin Trade Name Freq PRN Reason Stop Dose Admin Acetaminophen 650 mg 04/14/25 17:47 Acetaminophen 325 Mg Tablet PO Q4H PRN Mild Pain (1-3) or Fever Hydrocodone Bitart/Acetaminophen 1 tab 04/14/25 17:47 04/18/25 03:23 Hydrocodone/Acetaminophen (*Crx) 5-325 Mg Tablet PO 1 tab Q4H PRN Administration Pain Rated 4-6 Bisacodyl 5 mg 04/14/25 20:04 Bisacodyl 5 Mg Tablet Ec PO QAM PRN Constipation Calcium Carbonate 200 mg 04/14/25 20:04 04/16/25 18:03 Calcium Carbonate (Tums) 500 Mg (200 Mg Elemental) PO 200 mg Q6H PRN Administration Indigestion Calcium Carbonate 500 mg 04/15/25 09:00 04/19/25 08:30 Calcium/Vitamin D 500 Mg/5 Mcg (200 I.U.) Tablet PO 500 mg QAM BRINDA Administration Enoxaparin Sodium 40 mg 04/19/25 09:00 04/19/25 08:24 Enoxaparin 40 Mg/0.4 Ml Syringe SUB-Q Not Given DAILY BRINDA Piperacillin/Tazobactam/Dextrose 3.375 gm in 50 mls @ 100 mls/hr 04/15/25 00:00 04/19/25 05:01 Zosyn 3.375 Gm/Ns 50 Ml IVPB 100 mls/hr Q6H BRINDA Administration Lisinopril 10 mg 04/15/25 09:00 04/19/25 08:30 Lisinopril 10 Mg Tablet PO 10 mg DAILY BRINDA Administration Loratadine 10 mg 04/15/25 09:00 04/19/25 08:30 Loratadine 10 Mg Tablet PO 10 mg QAM BRINDA Administration Morphine Sulfate 4 mg 04/14/25 20:01 Morphine Sulfate (*Crx) 4 Mg/Ml Inj IV PUSH Q4H PRN Pain Rated 7-10 Multivitamins/Minerals 1 tab 04/15/25 09:00 04/19/25 08:30 Multivitamins /C Lutein (Centrum Silver) Tablet *Bkc PO 1 tab DAILY BRINDA Administration Ondansetron HCl 4 mg 04/14/25 17:47 Ondansetron Inj 4 Mg/2 Ml Vial IV PUSH Q4H PRN Nausea Phenyleph/Shark Oil/Min Oil/Petrol 1 applic 04/17/25 10:56 Phenyleph/Mineral Oil/Petrolat Ointment 57 Gm RECTAL QID PRN Hemorrhoids Radiology Results: ITS Impressions Abdomen/Pelvis CT 04/17/25 16:44 IMPRESSION: Severe sigmoid colitis, possibly secondary to diverticulitis. Enlarging adjacent perisigmoid abscess, now measuring up to 7.[address] 04/18/25 16:04 IMPRESSION: 1. Successful CT-guided right transgluteal pelvic abscess drainage catheter placement. 2. 30 mL fluid was sent for aerobic and anaerobic cultures. 3. The catheter will be managed by Dr. Saha. Labs Labs: Laboratory Results - last 24 hr 04/16/25 04/19/25 04/19/25 04:27 04:24 07:34 WBC 6.1 RBC 2.85 L Hgb 7.6 L Hct 24.3 L MCV 85.3 MCH 26.7 MCHC 31.3 L RDW 14.6 H Plt Count 282 MPV 8.2 Immature Gran % (Auto) 0.8 H Neut % (Auto) 59.0 Lymph % (Auto) 26.1 [place] % (Auto) 12.1 H Eos % (Auto) 1.5 Baso % (Auto) 0.5 Lymph # (Auto) 1.60 [place] # (Auto) 0.7 H Eos # (Auto) 0.1 Baso # (Auto) 0.0 Abs Immat Gran (auto) 0.05 H Absolute Neuts (auto) 3.6 Absolute Nucleated RBC 0.000 Nucleated RBC % 0.0 Sodium 137 Potassium 3.3 L Chloride 104 Carbon Dioxide 26 Anion Gap 7 BUN 10 Creatinine 0.54 L Estim Creat Clear Calc 61 Estimated GFR > 60 Glucose 94 Lactic Acid 0.5 L Calcium 8.2 L Magnesium 1.8 Kelly Transferrin Receptr 1.16 Total Bilirubin 0.3 AST 27 ALT 18 Alkaline Phosphatase 64 Total Protein 6.1 L Albumin 2.9 L Stl Occult Blood (IFOB) Positive H Quality VTE Prophylaxis VTE prophylaxis: mechanical ordered (SCDs)
[2025-04-19 13:56] VITALS: BP 174/81; PULSE 76; RESP 14; TEMP 36.6; O2SAT 99
[2025-04-19 16:02] LABS: Protein, Total 6.3 g/dL (6.1-8.1)
[2025-04-19 19:39] VITALS: PULSE 70; RESP 20; O2SAT 96
[2025-04-19 21:15] VITALS: BP 150/71; PULSE 76; RESP 18; TEMP 36.8; O2SAT 100
[2025-04-20] MEDS: PIPERACILLN/TAZ 3.375GM/NS50ML 3.375 GM/50 ML BAG IVPB ×5 (00:09→23:27)
[2025-04-20 05:41] VITALS: BP 161/78; PULSE 67; RESP 16; TEMP 36.8; O2SAT 98
[2025-04-20 06:01] LABS: Basophils Absolute Auto 0.1 K/mm3 (0.0-0.1); Basophils Percent Auto 0.8 % (0.2-1.2); Eosinophils Absolute Auto 0.1 K/mm3 (0-0.3); Hematocrit 26.6 % (37.0-47.0); Hemoglobin 8.2 g/dL (12.0-15.0); Immature Granulocyte Absolute 0.06 K/mm3 (0.00-0.031); Immature Granulocyte Percent A 0.9 % (0-0.5); Lymphocytes Absolute Auto 1.95 K/mm3 (0.9-3.2); Lymphocytes Percent Auto 29.5 % (18.3-44.2); Mean Corpuscular HGB Conc 30.8 g/dl (32-36); Mean Corpuscular Volume 87.5 fl (80-100); Mean Platelet Volume 8.9 fl (7.4-10.4); Monocytes Absolute Auto 0.8 K/mm3 (0.1-0.6); Monocytes Percent Auto 11.9 % (2.6-8.5); Neutrophils Absolute Auto 3.6 K/mm3 (1.3-6.7); Neutrophils Percent Auto 54.9 % (45.5-73.1); Platelet Count Result 349 k/mm3 (150-375); Red Blood Count 3.04 M/mm3 (4.2-5.4); White Blood Count 6.6 K/mm3 (4.5-10.0)
[2025-04-20 06:05] LABS: Alanine Aminotransferase 19 U/L (6-35); Albumin Level 3.2 g/dL (3.5-5.1); Alkaline Phosphatase 68 U/L (38-126); Anion Gap 6 mmol/L (4-12); Aspartate Amino Transferase 27 U/L (14-36); Bilirubin,Total 0.2 mg/dL (0.2-1.3); Blood Urea Nitrogen 6 mg/dL (7-17); Calcium 8.5 mg/dL (8.4-10.2); Carbon Dioxide 28 mmol/L (22-30); Chloride 104 mmol/L (98-107); Estimated CRCL calculation 61 ml/min; Estimated Glomerular Filt Rate > 60; Glucose 95 mg/dL (65-110); Magnesium 1.9 mg/dL (1.6-2.3); Potassium 3.4 mmol/L (3.4-5.0); Sodium 138 mmol/L (137-145); Total Protein 6.6 g/dL (6.3-8.2)
[2025-04-20] MEDS: lisinopriL 10 MG TABLET PO (08:14)
[2025-04-20] MEDS: LORATADINE 10 MG TABLET PO (08:14)
[2025-04-20] MEDS: MULTIVITAMINS /C LUTEIN (CENTRUM SILVER) TABLET *BKC 1 TAB PO (08:14)
[2025-04-20] MEDS: CALCIUM/VITAMIN D 500 MG/5 MCG (200 I.U.) TABLET PO (08:14)
--- NOTE | 2025-04-20 08:41 | P.PNGS_ITS ---
Progress Note: A&P Assessment and Plan (1) Diverticulitis of intestine with abscess: Qualifiers: Diverticulitis bleeding: without bleeding Diverticulitis site: large intestine Qualified Code(s): K57.20 - Diverticulitis of large intestine with perforation and abscess without bleeding Code(s): K57.80 - Diverticulitis of intestine, part unspecified, with perforation and abscess without bleeding Status: Acute Assessment and Plan: * S/p perc drain on 04/18/2025. Awaiting final cx results. * Continue IV antibiotics * Continue to monitor percutaneous drain Plan I have discussed the patient's case and plan of care with Dr. Saha. Subjective Subjective Date/Time Seen: 04/20/25 08:41 Patient reports: no new complaints, feels better, tolerating a regular diet, flatus, bowel movement (x4 small BMs yesterday, did have to strain some) and afebrile Interval history: No acute changes overnight. NO abdominal pain, nausea, or vomiting. Tolerating low fiber diet. Tolerating activity. Perc drain with 60 cc out in the past 24 hours. Drain output looks dark brown this morning. Exam Const: General: comfortable and no acute distress Orientation/consciousness: patient oriented x3 GI: Inspection: non-distended GI Palp: Yes Soft to palpation, Yes Tenderness to palpation present (GI) (minimal LLQ tenderness, improving), No Guarding due to palpation present (GI) and No Rebound tenderness present Auscultation: normal bowel sounds Other: Transgluteal perc drain with dark brown output Objective Data Vital Signs Vital Signs: Vital Signs - 24 hr 04/19/25 13:56 04/19/25 19:39 04/19/25 20:00 Temperature 97.9 F Pulse Rate 76 70 Respiratory Rate 14 20 Blood Pressure 174/81 H Pulse Oximetry 99 96 Oxygen Delivery Room Air Room Air Fraction of Inspired Oxygen 21 04/19/25 21:15 04/20/25 05:41 04/20/25 08:20 Temperature 98.2 F 98.3 F Pulse Rate 76 67 Respiratory Rate 18 16 Blood Pressure 150/71 H 161/78 H Pulse Oximetry 100 98 Oxygen Delivery Room Air Fraction of Inspired Oxygen Intake/Output Intake/Output: Intake & Output 04/17/25 04/18/25 04/19/25 04/20/25 23:59 23:59 23:59 23:59 Intake Total 2330 1315 4220 780 Output Total 60 Balance 2330 1315 4160 780 Meds/Results Medications: Active Medications Generic Name Dose Route Start Last Admin Trade Name Freq PRN Reason Stop Dose Admin Acetaminophen 650 mg 04/14/25 17:47 Acetaminophen 325 Mg Tablet PO Q4H PRN Mild Pain (1-3) or Fever Hydrocodone Bitart/Acetaminophen 1 tab 04/14/25 17:47 04/18/25 03:23 Hydrocodone/Acetaminophen (*Crx) 5-325 Mg Tablet PO 1 tab Q4H PRN Administration Pain Rated 4-6 Bisacodyl 5 mg 04/14/25 20:04 Bisacodyl 5 Mg Tablet Ec PO QAM PRN Constipation Calcium Carbonate 200 mg 04/14/25 20:04 04/16/25 18:03 Calcium Carbonate (Tums) 500 Mg (200 Mg Elemental) PO 200 mg Q6H PRN Administration Indigestion Calcium Carbonate 500 mg 04/15/25 09:00 04/20/25 08:14 Calcium/Vitamin D 500 Mg/5 Mcg (200 I.U.) Tablet PO 500 mg QAM BRINDA Administration Enoxaparin Sodium 40 mg 04/19/25 09:00 04/20/25 08:11 Enoxaparin 40 Mg/0.4 Ml Syringe SUB-Q Not Given DAILY [facility] Piperacillin/Tazobactam/Dextrose 3.375 gm in 50 mls @ 100 mls/hr 04/15/25 00:00 04/20/25 07:00 Zosyn 3.375 Gm/Ns 50 Ml IVPB Infused Q6H BRINDA Infusion Lisinopril 10 mg 04/15/25 09:00 04/20/25 08:14 Lisinopril 10 Mg Tablet PO 10 mg DAILY BRINDA Administration Loratadine 10 mg 04/15/25 09:00 04/20/25 08:14 Loratadine 10 Mg Tablet PO 10 mg QAM BRINDA Administration Morphine Sulfate 4 mg 04/14/25 20:01 Morphine Sulfate (*Crx) 4 Mg/Ml Inj IV PUSH Q4H PRN Pain Rated 7-10 Multivitamins/Minerals 1 tab 04/15/25 09:00 04/20/25 08:14 Multivitamins /C Lutein (Centrum Silver) Tablet *Bkc PO 1 tab DAILY BRINDA Administration Ondansetron HCl 4 mg 04/14/25 17:47 Ondansetron Inj 4 Mg/2 Ml Vial IV PUSH Q4H PRN Nausea Phenyleph/Shark Oil/Min Oil/Petrol 1 applic 04/17/25 10:56 Phenyleph/Mineral Oil/Petrolat Ointment 57 Gm RECTAL QID PRN Hemorrhoids Polyethylene Glycol 17 gm 04/20/25 09:00 Polyethylene Glycol 3350 17 Gm Powd.Pack PO QAM [facility] Radiology Results: ITS Impressions Catheter Placement CT 04/18/25 16:04 IMPRESSION: 1. Successful CT-guided right transgluteal pelvic abscess drainage catheter placement. 2. 30 mL fluid was sent for aerobic and anaerobic cultures. 3. The catheter will be managed by Dr. Saha. Abdomen/Pelvis CT 04/20/25 08:30 IMPRESSION: 1. Sigmoid diverticulitis with interval right transgluteal percutaneous drainage catheter placement with decompression of the prior pelvic abscess cavity. Labs Labs: Laboratory Results - last 24 hr 04/16/25 04/20/25 04:27 05:00 WBC 6.6 RBC 3.04 L Hgb 8.2 L Hct 26.6 L MCV 87.5 MCH 27.0 MCHC 30.8 L RDW 15.0 H Plt Count 349 MPV 8.9 Immature Gran % (Auto) 0.9 H Neut % (Auto) 54.9 Lymph % (Auto) 29.5 [place] % (Auto) 11.9 H Eos % (Auto) 2.0 Baso % (Auto) 0.8 Lymph # (Auto) 1.95 [place] # (Auto) 0.8 H Eos # (Auto) 0.1 Baso # (Auto) 0.1 Abs Immat Gran (auto) 0.06 H Absolute Neuts (auto) 3.6 Absolute Nucleated RBC 0.000 Nucleated RBC % 0.0 Sodium 138 Potassium 3.4 Chloride 104 Carbon Dioxide 28 Anion Gap 6 BUN 6 L Creatinine 0.54 L Estim Creat Clear Calc 61 Estimated GFR > 60 Glucose 95 Calcium 8.5 Magnesium 1.9 Kelly Transferrin Receptr 1.16 Total Bilirubin 0.2 AST 27 ALT 19 Alkaline Phosphatase 68 Total Protein 6.3 6.6 Albumin 3.2 L
[2025-04-20] MEDS: polyethylene glycoL 3350 17 GM POWD.PACK PO (09:17)
[2025-04-20] MEDS: POTASSIUM CHLORIDE 20 MEQ ER TABLET 40 MEQ PO (09:17)
--- NOTE | 2025-04-20 11:11 | PM.IMPN ---
Progress Note: A&P Assessment and Plan (1) Diverticulitis of intestine with abscess: Qualifiers: Diverticulitis bleeding: without bleeding Diverticulitis site: large intestine Qualified Code(s): K57.20 - Diverticulitis of large intestine with perforation and abscess without bleeding Code(s): K57.80 - Diverticulitis of intestine, part unspecified, with perforation and abscess without bleeding Status: Acute Assessment and Plan: Continue IV Zosyn Repeat CT scan showed 7.1cm abscess Draining place draining blackish fluid CT AP this morning showed abscess decompression Patient noted she is not comfortable going with drainage and wants to be here until drain is removed Surgery following (2) Acute on chronic anemia: Code(s): D64.9 - Anemia, unspecified Status: Acute Assessment and Plan: Venofer 1000/1000mg Reviewed anemia panel Positive FOBT likely from diverticulitis Chronic anemia Outpatient management (3) SIRS (systemic inflammatory response syndrome): Code(s): R65.10 - Systemic inflammatory response syndrome (SIRS) of non-infectious origin without acute organ dysfunction Status: Acute Plan DVT prophylaxis on Lovenox Awaiting drain removal for discharge Subjective Date/time seen: 04/20/25 11:11 Interval history: Comfortable at bedside S/p abscess drainage placement Repeat CT AP showed decompression of abscess Review of Systems Review of Systems: 12 systems were reviewed with pertinent positives and negatives per HPI. Except as documented in the HPI, all other systems were reviewed and are negative. Exam Narrative: Weight 58 kg BMI 22.7 Const: Other: No acute distress, well-developed well-nourished, appears younger than stated age HENMT: Other: Mucous membranes are dry, no oral pharyngeal erythema, head is normocephalic atraumatic Eyes: Other: Positive conjunctival pallor, no scleral icterus, lens implants noted bilaterally Neck: Other: No JVD, no lymphadenopathy Resp: Other: Clear to auscultation bilaterally, no increased work of breathing Cardio: Other: Regular rate, regular rhythm, 2+ bilateral radial and pedal pulses, no murmur GI: Other: Soft, nondistended, normoactive bowel sounds, tenderness in bilateral lower quadrants Skin: Other: Positive pallor, non jaundice Neuro: Other: Alert oriented, speech is clear, no facial asymmetry, at least moderate hearing loss bilaterally, no localizing neurologic deficits noted during the course of conversation Extrem: Other: No clubbing, cyanosis or edema, moves all extremities equally Psych: Other: Pleasant, loquacious, cooperative, appropriate mood and affect, intact judgment and insight Objective Data Vital Signs Vital Signs: Vital Signs - 24 hr 04/19/25 13:56 04/19/25 19:39 04/19/25 20:00 Temperature 97.9 F Pulse Rate 76 70 Respiratory Rate 14 20 Blood Pressure 174/81 H Pulse Oximetry 99 96 Oxygen Delivery Room Air Room Air Fraction of Inspired Oxygen 21 04/19/25 21:15 04/20/25 05:41 04/20/25 08:20 Temperature 98.2 F 98.3 F Pulse Rate 76 67 Respiratory Rate 18 16 Blood Pressure 150/71 H 161/78 H Pulse Oximetry 100 98 Oxygen Delivery Room Air Fraction of Inspired Oxygen Intake/Output Intake/Output: Intake & Output 04/17/25 04/18/25 04/19/25 04/20/25 23:59 23:59 23:59 23:59 Intake Total 2330 1315 4220 780 Output Total 60 Balance 2330 1315 4160 780 Meds/Results Medications: Active Medications Generic Name Dose Route Start Last Admin Trade Name Freq PRN Reason Stop Dose Admin Acetaminophen 650 mg 04/14/25 17:47 Acetaminophen 325 Mg Tablet PO Q4H PRN Mild Pain (1-3) or Fever Hydrocodone Bitart/Acetaminophen 1 tab 04/14/25 17:47 04/18/25 03:23 Hydrocodone/Acetaminophen (*Crx) 5-325 Mg Tablet PO 1 tab Q4H PRN Administration Pain Rated 4-6 Bisacodyl 5 mg 04/14/25 20:04 Bisacodyl 5 Mg Tablet Ec PO QAM PRN Constipation Calcium Carbonate 200 mg 04/14/25 20:04 04/16/25 18:03 Calcium Carbonate (Tums) 500 Mg (200 Mg Elemental) PO 200 mg Q6H PRN Administration Indigestion Calcium Carbonate 500 mg 04/15/25 09:00 04/20/25 08:14 Calcium/Vitamin D 500 Mg/5 Mcg (200 I.U.) Tablet PO 500 mg QAM BRINDA Administration Enoxaparin Sodium 40 mg 04/19/25 09:00 04/20/25 08:11 Enoxaparin 40 Mg/0.4 Ml Syringe SUB-Q Not Given DAILY BRINDA Piperacillin/Tazobactam/Dextrose 3.375 gm in 50 mls @ 100 mls/hr 04/15/25 00:00 04/20/25 07:00 Zosyn 3.375 Gm/Ns 50 Ml IVPB Infused Q6H BRINDA Infusion Lisinopril 10 mg 04/15/25 09:00 04/20/25 08:14 Lisinopril 10 Mg Tablet PO 10 mg DAILY BRINDA Administration Loratadine 10 mg 04/15/25 09:00 04/20/25 08:14 Loratadine 10 Mg Tablet PO 10 mg QAM BRINDA Administration Morphine Sulfate 4 mg 04/14/25 20:01 Morphine Sulfate (*Crx) 4 Mg/Ml Inj IV PUSH Q4H PRN Pain Rated 7-10 Multivitamins/Minerals 1 tab 04/15/25 09:00 04/20/25 08:14 Multivitamins /C Lutein (Centrum Silver) Tablet *Bkc PO 1 tab DAILY BRINDA Administration Ondansetron HCl 4 mg 04/14/25 17:47 Ondansetron Inj 4 Mg/2 Ml Vial IV PUSH Q4H PRN Nausea Phenyleph/Shark Oil/Min Oil/Petrol 1 applic 04/17/25 10:56 Phenyleph/Mineral Oil/Petrolat Ointment 57 Gm RECTAL QID PRN Hemorrhoids Polyethylene Glycol 17 gm 04/20/25 09:00 04/20/25 09:17 Polyethylene Glycol 3350 17 Gm Powd.Pack PO 17 gm QAM BRINDA Administration Radiology Results: ITS Impressions Catheter Placement CT 04/18/25 16:04 IMPRESSION: 1. Successful CT-guided right transgluteal pelvic abscess drainage catheter placement. 2. 30 mL fluid was sent for aerobic and anaerobic cultures. 3. The catheter will be managed by Dr. Saha. Abdomen/Pelvis CT 04/20/25 08:30 IMPRESSION: 1. Sigmoid diverticulitis with interval right transgluteal percutaneous drainage catheter placement with decompression of the prior pelvic abscess cavity. Labs Labs: Laboratory Results - last 24 hr 04/16/25 04/20/25 04:27 05:00 WBC 6.6 RBC 3.04 L Hgb 8.2 L Hct 26.6 L MCV 87.5 MCH 27.0 MCHC 30.8 L RDW 15.0 H Plt Count 349 MPV 8.9 Immature Gran % (Auto) 0.9 H Neut % (Auto) 54.9 Lymph % (Auto) 29.5 [place] % (Auto) 11.9 H Eos % (Auto) 2.0 Baso % (Auto) 0.8 Lymph # (Auto) 1.95 [place] # (Auto) 0.8 H Eos # (Auto) 0.1 Baso # (Auto) 0.1 Abs Immat Gran (auto) 0.06 H Absolute Neuts (auto) 3.6 Absolute Nucleated RBC 0.000 Nucleated RBC % 0.0 Sodium 138 Potassium 3.4 Chloride 104 Carbon Dioxide 28 Anion Gap 6 BUN 6 L Creatinine 0.54 L Estim Creat Clear Calc 61 Estimated GFR > 60 Glucose 95 Calcium 8.5 Magnesium 1.9 Kelly Transferrin Receptr 1.16 Total Bilirubin 0.2 AST 27 ALT 19 Alkaline Phosphatase 68 Total Protein 6.3 6.6 Albumin 3.2 L Quality VTE Prophylaxis VTE prophylaxis: mechanical ordered (SCDs)
[2025-04-20 13:59] VITALS: BP 133/69; PULSE 76; RESP 18; TEMP 36.8; O2SAT 98
[2025-04-20 20:05] VITALS: BP 166/77; PULSE 87; RESP 16; TEMP 37.2; O2SAT 99
[2025-04-20] MEDS: DICLOFENAC SOD 75 MG TABLET.EC PO (20:45)
[2025-04-21 04:55] VITALS: BP 166/78; PULSE 67; RESP 16; TEMP 36.3; O2SAT 98
[2025-04-21] MEDS: PIPERACILLN/TAZ 3.375GM/NS50ML 3.375 GM/50 ML BAG IVPB ×2 (06:41→11:27)
[2025-04-21 08:03] VITALS: PULSE 67; RESP 16; O2SAT 98
[2025-04-21] MEDS: lisinopriL 10 MG TABLET PO (08:03)
[2025-04-21] MEDS: CALCIUM/VITAMIN D 500 MG/5 MCG (200 I.U.) TABLET PO (08:03)
[2025-04-21] MEDS: MULTIVITAMINS /C LUTEIN (CENTRUM SILVER) TABLET *BKC 1 TAB PO (08:03)
[2025-04-21] MEDS: LORATADINE 10 MG TABLET PO (08:03)
[2025-04-21 08:39] LABS: Hematocrit 29.5 % (37.0-47.0); Mean Corpuscular HGB Conc 30.5 g/dl (32-36); Mean Corpuscular Hemoglobin 26.9 pg (26-34); Mean Corpuscular Volume 88.3 fl (80-100); Mean Platelet Volume 8.7 fl (7.4-10.4); Platelet Count Result 372 k/mm3 (150-375); Red Blood Count 3.34 M/mm3 (4.2-5.4); Red Cell Distribution Width 15.3 % (11.5-14.5); White Blood Count 7.9 K/mm3 (4.5-10.0)
[2025-04-21 08:57] LABS: Anion Gap 10 mmol/L (4-12); Blood Urea Nitrogen 8 mg/dL (7-17); Calcium 8.6 mg/dL (8.4-10.2); Carbon Dioxide 25 mmol/L (22-30); Chloride 105 mmol/L (98-107); Estimated CRCL calculation 58 ml/min; Estimated Glomerular Filt Rate > 60; Glucose 123 mg/dL (65-110); Potassium 3.7 mmol/L (3.4-5.0); Sodium 140 mmol/L (137-145)
--- NOTE | 2025-04-21 10:35 | P.PNGS_ITS ---
Progress Note: A&P Assessment and Plan (1) Diverticulitis of intestine with abscess: Qualifiers: Diverticulitis bleeding: without bleeding Diverticulitis site: large intestine Qualified Code(s): K57.20 - Diverticulitis of large intestine with perforation and abscess without bleeding Code(s): K57.80 - Diverticulitis of intestine, part unspecified, with perforation and abscess without bleeding Status: Acute Assessment and Plan: * S/p perc drain on 04/18/2025. Cx preliminary for bacteroides fragilis. Final: E. coli and streptococcus intermedius. * Continue IV antibiotics .Switch to oral with discharge. * Drain removed at bedside. Continue to monitor for any signs of infection including edema,erythema, and abnormal drainage. OK for discharge from surgical standpoint with oral antibiotics and f/u with Dr. Saha in outpatient clinic in 2 weeks. Plan I have discussed the patient's case and plan of care with Dr. Saha. Subjective Subjective Date/Time Seen: 04/21/25 10:35 Interval history: Patient is doing well today and in good spirits. Vital signs stable overnight. WBC normal. However, percutaneous drain broke at the port. Ostomy bag was placed over site to collect drainage. Minimal brown thick liquid in bag resembling feculence. Patient reports having normal bowel movements. No abdominal pain today. Drain removed. Exam GI: Inspection: normal to inspection and non-distended GI Palp: Yes Soft to palpation, No Tenderness to palpation present (GI) and No Guarding due to palpation present (GI) Other: Transgluteal perc drain with brown thick output resembling feculence with feculent odor. Drain removed today and incision site is clean and dry with minimal surrounding redness. No purulent drainage noted. Objective Data Vital Signs Vital Signs: Vital Signs - 24 hr 04/20/25 13:59 04/20/25 20:05 04/21/25 04:55 Temperature 98.3 F 98.9 F 97.3 F L Pulse Rate 76 87 67 Respiratory Rate 18 16 16 Blood Pressure 133/69 166/77 H 166/78 H Pulse Oximetry 98 99 98 Oxygen Delivery Fraction of Inspired Oxygen 04/21/25 08:03 Temperature Pulse Rate 67 Respiratory Rate 16 Blood Pressure Pulse Oximetry 98 Oxygen Delivery Room Air Fraction of Inspired Oxygen 21 Intake/Output Intake/Output: Intake & Output 04/18/25 04/19/25 04/20/25 04/21/25 23:59 23:59 23:59 23:59 Intake Total 1315 4220 1370 818.3 Output Total 60 Balance 1315 4160 1370 818.3 Meds/Results Medications: Active Medications Generic Name Dose Route Start Last Admin Trade Name Freq PRN Reason Stop Dose Admin Acetaminophen 650 mg 04/14/25 17:47 Acetaminophen 325 Mg Tablet PO Q4H PRN Mild Pain (1-3) or Fever Bisacodyl 5 mg 04/14/25 20:04 Bisacodyl 5 Mg Tablet Ec PO QAM PRN Constipation Calcium Carbonate 200 mg 04/14/25 20:04 04/16/25 18:03 Calcium Carbonate (Tums) 500 Mg (200 Mg Elemental) PO 200 mg Q6H PRN Administration Indigestion Calcium Carbonate 500 mg 04/15/25 09:00 04/21/25 08:03 Calcium/Vitamin D 500 Mg/5 Mcg (200 I.U.) Tablet PO 500 mg QAM BRINDA Administration Diclofenac Sodium 75 mg 04/20/25 18:10 04/20/25 20:45 Diclofenac Sod 75 Mg Tablet.Ec PO 75 mg BIDWM PRN Administration Pain Rated 4-6 Enoxaparin Sodium 40 mg 04/19/25 09:00 04/21/25 08:05 Enoxaparin 40 Mg/0.4 Ml Syringe SUB-Q Not Given DAILY BRINDA Piperacillin/Tazobactam/Dextrose 3.375 gm in 50 mls @ 100 mls/hr 04/15/25 00:00 04/21/25 07:04 Zosyn 3.375 Gm/Ns 50 Ml IVPB 100 mls/hr Q6H BRINDA Infusion Lisinopril 10 mg 04/15/25 09:00 04/21/25 08:03 Lisinopril 10 Mg Tablet PO 10 mg DAILY BRINDA Administration Loratadine 10 mg 04/15/25 09:00 04/21/25 08:03 Loratadine 10 Mg Tablet PO 10 mg QAM BRINDA Administration Morphine Sulfate 4 mg 04/14/25 20:01 Morphine Sulfate (*Crx) 4 Mg/Ml Inj IV PUSH Q4H PRN Pain Rated 7-10 Multivitamins/Minerals 1 tab 04/15/25 09:00 04/21/25 08:03 Multivitamins /C Lutein (Centrum Silver) Tablet *Bkc PO 1 tab DAILY [facility] Administration Ondansetron HCl 4 mg 04/14/25 17:47 Ondansetron Inj 4 Mg/2 Ml Vial IV PUSH Q4H PRN Nausea Phenyleph/Shark Oil/Min Oil/Petrol 1 applic 04/17/25 10:56 Phenyleph/Mineral Oil/Petrolat Ointment 57 Gm RECTAL QID PRN Hemorrhoids Polyethylene Glycol 17 gm 04/20/25 09:00 04/21/25 08:05 Polyethylene Glycol 3350 17 Gm Powd.Pack PO Not Given QAM [facility] Radiology Results: ITS Impressions Catheter Placement CT 04/18/25 16:04 IMPRESSION: 1. Successful CT-guided right transgluteal pelvic abscess drainage catheter placement. 2. 30 mL fluid was sent for aerobic and anaerobic cultures. 3. The catheter will be managed by Dr. Saha. Abdomen/Pelvis CT 04/20/25 08:30 IMPRESSION: 1. Sigmoid diverticulitis with interval right transgluteal percutaneous drainage catheter placement with decompression of the prior pelvic abscess cavity. Labs Labs: Laboratory Results - last 24 hr 04/21/25 08:24 WBC 7.9 RBC 3.34 L Hgb 9.0 L Hct 29.5 L MCV 88.3 MCH 26.9 MCHC 30.5 L RDW 15.3 H Plt Count 372 MPV 8.7 Sodium 140 Potassium 3.7 Chloride 105 Carbon Dioxide 25 Anion Gap 10 BUN 8 Creatinine 0.57 L Estim Creat Clear Calc 58 Estimated GFR > 60 Glucose 123 H Calcium 8.6
--- NOTE | 2025-04-21 10:40 | PCNWS ---
Weekly nutritional screen. Patient is tolerating current diet with adequate intake. No weight loss reported. No nutritional needs at this time.
[2025-04-21 13:04] LABS: Albumin 2.8 g/dL (3.8-4.8); Alpha 1 Globulin 0.6 g/dL (0.2-0.3); Alpha 2 Globulin 1.1 g/dL (0.5-0.9); Beta 1 Globulin 0.4 g/dL (0.4-0.6)
[2025-04-21 14:00] VITALS: BP 174/80; PULSE 73; RESP 20; TEMP 36.8; O2SAT 100
--- NOTE | 2025-04-21 14:04 | PM.IMPN ---
Progress Note: A&P Assessment and Plan (1) Diverticulitis of intestine with abscess: Qualifiers: Diverticulitis bleeding: without bleeding Diverticulitis site: large intestine Qualified Code(s): K57.20 - Diverticulitis of large intestine with perforation and abscess without bleeding Code(s): K57.80 - Diverticulitis of intestine, part unspecified, with perforation and abscess without bleeding Status: Acute Assessment and Plan: Continue IV Zosyn Repeat CT scan showed 7.1cm abscess Draining place draining blackish fluid CT AP this morning showed abscess decompression Patient noted she is not comfortable going with drainage and wants to be here until drain is removed Surgery following (2) Acute on chronic anemia: Code(s): D64.9 - Anemia, unspecified Status: Acute Assessment and Plan: Venofer 1000/1000mg Reviewed anemia panel Positive FOBT likely from diverticulitis Chronic anemia Outpatient management (3) SIRS (systemic inflammatory response syndrome): Code(s): R65.10 - Systemic inflammatory response syndrome (SIRS) of non-infectious origin without acute organ dysfunction Status: Acute Plan DVT prophylaxis on Lovenox Awaiting drain removal for discharge Subjective Date/time seen: 04/21/25 14:04 Review of Systems Review of Systems: 12 systems were reviewed with pertinent positives and negatives per HPI. Except as documented in the HPI, all other systems were reviewed and are negative. Exam Narrative: Weight 58 kg BMI 22.7 Const: Other: No acute distress, well-developed well-nourished, appears younger than stated age HENMT: Other: Mucous membranes are dry, no oral pharyngeal erythema, head is normocephalic atraumatic Eyes: Other: Positive conjunctival pallor, no scleral icterus, lens implants noted bilaterally Neck: Other: No JVD, no lymphadenopathy Resp: Other: Clear to auscultation bilaterally, no increased work of breathing Cardio: Other: Regular rate, regular rhythm, 2+ bilateral radial and pedal pulses, no murmur GI: Other: Soft, nondistended, normoactive bowel sounds, tenderness in bilateral lower quadrants Skin: Other: Positive pallor, non jaundice Neuro: Other: Alert oriented, speech is clear, no facial asymmetry, at least moderate hearing loss bilaterally, no localizing neurologic deficits noted during the course of conversation Extrem: Other: No clubbing, cyanosis or edema, moves all extremities equally Psych: Other: Pleasant, loquacious, cooperative, appropriate mood and affect, intact judgment and insight Objective Data Vital Signs Vital Signs: Vital Signs - 24 hr 04/20/25 20:05 04/21/25 04:55 04/21/25 08:03 Temperature 98.9 F 97.3 F L Pulse Rate 87 67 67 Respiratory Rate 16 16 16 Blood Pressure 166/77 H 166/78 H Pulse Oximetry 99 98 98 Oxygen Delivery Room Air Fraction of Inspired Oxygen 21 Intake/Output Intake/Output: Intake & Output 04/18/25 04/19/25 04/20/25 04/21/25 23:59 23:59 23:59 23:59 Intake Total 1315 4220 1370 1430.0 Output Total 60 Balance 1315 4160 1370 1430.0 Meds/Results Medications: Active Medications Generic Name Dose Route Start Last Admin Trade Name Freq PRN Reason Stop Dose Admin Acetaminophen 650 mg 04/14/25 17:47 Acetaminophen 325 Mg Tablet PO Q4H PRN Mild Pain (1-3) or Fever Bisacodyl 5 mg 04/14/25 20:04 Bisacodyl 5 Mg Tablet Ec PO QAM PRN Constipation Calcium Carbonate 200 mg 04/14/25 20:04 04/16/25 18:03 Calcium Carbonate (Tums) 500 Mg (200 Mg Elemental) PO 200 mg Q6H PRN Administration Indigestion Calcium Carbonate 500 mg 04/15/25 09:00 04/21/25 08:03 Calcium/Vitamin D 500 Mg/5 Mcg (200 I.U.) Tablet PO 500 mg QAM BRINDA Administration Diclofenac Sodium 75 mg 04/20/25 18:10 04/20/25 20:45 Diclofenac Sod 75 Mg Tablet.Ec PO 75 mg BIDWM PRN Administration Pain Rated 4-6 Enoxaparin Sodium 40 mg 04/19/25 09:00 04/21/25 08:05 Enoxaparin 40 Mg/0.4 Ml Syringe SUB-Q Not Given DAILY BRINDA Piperacillin/Tazobactam/Dextrose 3.375 gm in 50 mls @ 100 mls/hr 04/15/25 00:00 04/21/25 11:57 Zosyn 3.375 Gm/Ns 50 Ml IVPB Infused Q6H BRINDA Infusion Lisinopril 10 mg 04/15/25 09:00 04/21/25 08:03 Lisinopril 10 Mg Tablet PO 10 mg DAILY BRINDA Administration Loratadine 10 mg 04/15/25 09:00 04/21/25 08:03 Loratadine 10 Mg Tablet PO 10 mg QAM [facility] Administration Morphine Sulfate 4 mg 04/14/25 20:01 Morphine Sulfate (*Crx) 4 Mg/Ml Inj IV PUSH Q4H PRN Pain Rated 7-10 Multivitamins/Minerals 1 tab 04/15/25 09:00 04/21/25 08:03 Multivitamins /C Lutein (Centrum Silver) Tablet *Bkc PO 1 tab DAILY [facility] Administration Ondansetron HCl 4 mg 04/14/25 17:47 Ondansetron Inj 4 Mg/2 Ml Vial IV PUSH Q4H PRN Nausea Phenyleph/Shark Oil/Min Oil/Petrol 1 applic 04/17/25 10:56 Phenyleph/Mineral Oil/Petrolat Ointment 57 Gm RECTAL QID PRN Hemorrhoids Polyethylene Glycol 17 gm 04/20/25 09:00 04/21/25 08:05 Polyethylene Glycol 3350 17 Gm Powd.Pack PO Not Given QAM [facility] Radiology Results: ITS Impressions Catheter Placement CT 04/18/25 16:04 IMPRESSION: 1. Successful CT-guided right transgluteal pelvic abscess drainage catheter placement. 2. 30 mL fluid was sent for aerobic and anaerobic cultures. 3. The catheter will be managed by Dr. Saha. Abdomen/Pelvis CT 04/20/25 08:30 IMPRESSION: 1. Sigmoid diverticulitis with interval right transgluteal percutaneous drainage catheter placement with decompression of the prior pelvic abscess cavity. Labs Labs: Laboratory Results - last 24 hr 04/16/25 04/21/25 04:27 08:24 WBC 7.9 RBC 3.34 L Hgb 9.0 L Hct 29.5 L MCV 88.3 MCH 26.9 MCHC 30.5 L RDW 15.3 H Plt Count 372 MPV 8.7 Sodium 140 Potassium 3.7 Chloride 105 Carbon Dioxide 25 Anion Gap 10 BUN 8 Creatinine 0.57 L Estim Creat Clear Calc 58 Estimated GFR > 60 Glucose 123 H Calcium 8.6 Albumin 2.8 L Jttyo-4-Qoxbyfjxm 0.6 H Kcrjd-9-Fxogwpkdx 1.1 H Mlia-4-Dmqrpgab 0.4 Zkkk-9-Fpubfxbj 0.4 Gamma Globulins 1.0 PEP Interpretation See note Quality VTE Prophylaxis VTE prophylaxis: mechanical ordered (SCDs)
--- NOTE | 2025-04-21 17:29 | P.DS_ITS ---
DS: Admitting Diagnosis Discharge Date 04/21/2025 Admitting Diagnosis Abdominal pain DS: Discharge Diagnosis Discharge Diagnosis (1) Diverticulitis of intestine with abscess: Qualifiers: Diverticulitis bleeding: without bleeding Diverticulitis site: large intestine Qualified Code(s): K57.20 - Diverticulitis of large intestine with perforation and abscess without bleeding Code(s): K57.80 - Diverticulitis of intestine, part unspecified, with perforation and abscess without bleeding Status: Acute Assessment and Plan: Discontinue Zosyn Started on Augmentin Drainage removed Repeat CT scan showed 7.1cm abscess Draining place draining blackish fluid CT AP this morning showed abscess decompression Patient noted she is not comfortable going with drainage and wants to be here until drain is removed Surgery following (2) Acute on chronic anemia: Code(s): D64.9 - Anemia, unspecified Status: Acute Assessment and Plan: Venofer 1000/1000mg Reviewed anemia panel Positive FOBT likely from diverticulitis Chronic anemia Outpatient management (3) SIRS (systemic inflammatory response syndrome): Code(s): R65.10 - Systemic inflammatory response syndrome (SIRS) of non-infectious origin without acute organ dysfunction Status: Acute Plan DVT prophylaxis on Lovenox Awaiting drain removal for discharge DS: Summary Hospital Course Hospital Course: 75-year-old female with a past medical history of osteoporosis, essential hypertension, prior appendectomy who presented to the ER he he a her vehicle to be evaluated for diverticulitis with abscess. The patient reports that she has been having lower abdominal pain for the last couple of months. As time was 1 on the abdominal pain has become more persistent and is worse soon after eating. Is accompanied by multiple times a getting up at night to have a bowel movement only to have small amounts of stool past that her slimy. She denies any obvious hematochezia or melena. She reports that she has had to have so many small bowel movements in to strain to have a bowel movement that she is now developed an external hemorrhoid. She reports that she has been having chills every evening and she has been waking up saturated in sweat in the fitness consultant hours. She reports that she has not had any fevers when she has checked her temperature with a temporal scanning thermometer. She denies any associated nausea or vomiting. She has been having decreased appetite. She went to her primary care provider and had a x-ray done on the 22 of March which demonstrated no acute process. She had outpatient labs performed on April 12 which demonstrated leukocytosis with a white count of 14.3 and hemoglobin of 8.8 down from her baseline of 11.6. Her electrolyte panel is normal except for a BUN of 18 which appeared to be her baseline. Outpatient CT of the abdomen pelvis with contrast was obtained on the which demonstrated acute diverticulitis with peridiverticular abscess measuring 5.2 x 2 x 3.5 cm and the patient was referred to the ER for further evaluation and treatment. The patient reports that her mouth is chronically dry. She reports her biggest complaint at this time is that she cannot drink anything since she is NPO. Patient does report that she has been having increased dyspnea on exertion for the last 2 or 3 months as well. She denies any palpitations or chest pain. She denies any orthopnea or lower extremity swelling. She does have a known history of reported iron deficiency anemia but states that she never got iron infusions because she was told that this would make her cancer treatment more difficult. She has not received chemotherapy since 2016 for her breast cancer. She denies any hematuria, hematochezia or melena. She denies any petechiae or unusual brui sing. She does follow with Dr. Lam from Oncology for breast cancer with her last office visit being in December 2024. Surgery was consulted and initially advised to medically manage and later advi sed to place drainage due to increased WBC and pain. Patient underwent drainage placement on 04/18/2025 by IR. As per nursing patient had some issues with drainage. Today I assumed the care back and drainage was removed by surgery. Culture of the abscess resulted and patient will be discharged with Augmentin for 7 days. Patient is very adamant and wants to leave today. On the day of discharge, the patient was seen and examined. Vital signs were stable. Physical exam were stable and labs were reviewed at length. Discharge instructions, medications, and follow-up appointments were discussed with the patient at length and all day questions were answered. ER warnings were given. Status at Discharge Cognitive/behavioral status at discharge: Stable Time Spent with Patient Time attestation: Total time spent providing and/or coordinating discharge services: 45 minutes Exam Narrative: Weight 58 kg BMI 22.7 Const: Other: No acute distress, well-developed well-nourished, appears younger than stated age HENMT: Other: Mucous membranes are dry, no oral pharyngeal erythema, head is normocephalic atraumatic Eyes: Other: Positive conjunctival pallor, no scleral icterus, lens implants noted bilaterally Neck: Other: No JVD, no lymphadenopathy Resp: Other: Clear to auscultation bilaterally, no increased work of breathing Cardio: Other: Regular rate, regular rhythm, 2+ bilateral radial and pedal pulses, no murmur GI: Other: Soft, nondistended, normoactive bowel sounds, tenderness in bilateral lower quadrants Skin: Other: Positive pallor, non jaundice Neuro: Other: Alert oriented, speech is clear, no facial asymmetry, at least moderate hearing loss bilaterally, no localizing neurologic deficits noted during the course of conversation Extrem: Other: No clubbing, cyanosis or edema, moves all extremities equally Psych: Other: Pleasant, loquacious, cooperative, appropriate mood and affect, intact judgment and insight DS: Data Data Completed and Pending Labs on day of discharge: Labs from last 24 hours 04/21/25 04/16/25 08:24 04:27 WBC 7.9 RBC 3.34 L Hgb 9.0 L Hct 29.5 L MCV 88.3 MCH 26.9 MCHC 30.5 L RDW 15.3 H Plt Count 372 MPV 8.7 Sodium 140 Potassium 3.7 Chloride 105 Carbon Dioxide 25 Anion Gap 10 BUN 8 Creatinine 0.57 L Estim Creat Clear Calc 58 Estimated GFR > 60 Glucose 123 H Calcium 8.6 Albumin 2.8 L Drapn-5-Qfhnxkzdl 0.6 H Hfank-5-Dxfopykzv 1.1 H Hirg-2-Fggotgbr 0.4 Yjes-5-Mkyotizf 0.4 Gamma Globulins 1.0 PEP Interpretation See note Preliminary micro results at discharge 04/18/25 14:49 Anaerobic Culture - Preliminary Abscess Bacteroides fragilis Additional Comments Additional comments: ITS Impressions Abdomen/Pelvis CT 04/17/25 16:44 IMPRESSION: Severe sigmoid colitis, possibly secondary to diverticulitis. Enlarging adjacent perisigmoid abscess, now measuring up to 7.[address] 04/18/25 16:04 IMPRESSION: 1. Successful CT-guided right transgluteal pelvic abscess drainage catheter placement. 2. 30 mL fluid was sent for aerobic and anaerobic cultures. 3. The catheter will be managed by Dr. Saha. Abdomen/Pelvis CT 04/20/25 08:30 IMPRESSION: 1. Sigmoid diverticulitis with interval right transgluteal percutaneous drainage catheter placement with decompression of the prior pelvic abscess cavity. Discharge Plan Discharge Attending physician on discharge: Jairo Babin Consulting providers: Stormy Saha Discharging Clinician: Jairo Babin Anticipated Discharge Date/Time: 04/21/25 17:34 Patient Disposition: Home Activity: as tolerated Diet: as tolerated and low fiber Discharge Instructions: Needs to follow-up closely with surgery. Check blood pressure 1 to 2 times a day. Record and bring into your doctor for review. Call your doctor if your blood pressure is greater than 180/110 or less than 90/45. Walk with cane or other assist device. Take precautions to avoid falls. Rise slowly from a lying or sitting position. Pause before standing or walking. Contact your doctor or call 911 and come to the Emergency Room if you have any type of trauma, lightheadedness with standing or other worrisome symptoms. Avoid NSAIDs (ibuprofen, naproxen, Aleve). Tylenol is safe to take. Follow-up with your primary care provider in 1-2 weeks. Please call for appointment. Follow-up with Cardiology in 2-4 weeks. Please call for an appointment. Thank you for using [facility] for your health care needs. Patient Instructions: Antibiotic Form, Low Fiber Diet (DC) Patient Language: Bengali Stand Alone Forms: General Discharge Information Follow-up/Referrals: Stormy Saha MD [Physician] - Call for Appointment (F/u with Dr. Saha in 2 weeks.) Discharge Medications: New amoxicillin-pot clavulanate 875-125 mg tablet 1 tablet PO Q12H Qty: 14 0RF Continued Centrum Silver 0.4-300-250 mg-mcg-mcg Tablet 1 tablet PO DAILY fexofenadine 30 mg tablet 60 mg PO Q12H calcium carbonate-vitamin D3 [Calcium 600 with Vitamin D3] 600 mg(1,500mg) - 500 unit capsule 1 cap PO DAILY Prolia 60 mg/mL syringe 60 mg subcut [id number] Tart Bond Extract 1,000 mg capsule 1 mg PO DAILY lisinopril 10 mg tablet 10 mg PO DAILY Qty: 90 3RF Date of admission: 04/16/25 17:38 Primary Care Provider: Ricky Nevarez Admitting Provider: Jairo Babin Attending physician on admission: Jairo Babin Condition: Stable
== END 2025-04-21 18:11 | disposition home or self-care (01) | DRG 392 ==
LOC: ANHED 18:37 → ANH2MED 19:02
PROVIDERS: Internal Medicine; Radiology Diagnostic Radiology; Admitting Provider General Practice; Emergency Provider Emergency Medicine; PCP Internal Medicine; Visit Provider General Practice
PROC: 0W9J30Z Drainage of Pelvic Cavity with Drainage Device, Percutaneous Approach (ICD-10-PCS; CPT 75989; principal; 2025-04-18 14:00)
DX: K57.20 Diverticulitis of large intestine with perforation and abscess without bleeding (principal); R65.10 Systemic inflammatory response syndrome (SIRS) of non-infectious origin without acute organ dysfunction; I10 Essential (primary) hypertension; D50.9 Iron deficiency anemia, unspecified; E78.5 Hyperlipidemia, unspecified; M85.80 Other specified disorders of bone density and structure, unspecified site; M81.0 Age-related osteoporosis without current pathological fracture; H90.6 Mixed conductive and sensorineural hearing loss, bilateral; Z87.891 Personal history of nicotine dependence; Z85.3 Personal history of malignant neoplasm of breast
CPT/HCPCS: 11740; 36415; 74176; 74177; 75989; 80048; 80053; 82248; 82274; 82607; 82728; 82746; 83010; 83540; 83550; 83605; 83615; 83690; 83735; 84155; 84165; 84238; 84466; 85025; 85027; 85046; 85610; 85730; 86880; 87040; 87070; 87075; 87186; 87205; 96361; 96365; 96367; 96375; 96376; 99285; A9270; C1729; C1769; G0378; J0612; J1756; J2250; J2543; J3010; J3480; J7030; J7040; J7050; Q9967

== ENCOUNTER 2025-04-25 15:25 | Outpatient (CLI) | payer MEDICARE, SELFPAY ==
--- NOTE | ~2025-04-25 | CT_ITS ---
EXAMINATION: CT abdomen pelvis w con DATE: 04/25/2025 16:05 INDICATION: Diverticulitis with perforation TECHNIQUE: Computed tomography (CT) of the abdomen and pelvis was performed with 100 mL Omnipaque-350 intravenous contrast. Automated exposure control and iterative reconstruction technique were employe d. The dose-length product was 288.73 mGy-cm. COMPARISON: 04/20/2025 FINDINGS: Lung bases are clear. Heart size is normal. No pericardial or pleural effusion. 1.9 cm cyst at the ca udate lobe of the liver. Gallbladder, spleen, pancreas and bilateral adrenal glands are normal. There are bilateral renal cysts the largest on the left measuring 5.0 cm. Moderate to large amount of stoo l throughout the colon. No dilated bowel to suggest obstruction. There is prominent edematous wall th ickening along the sigmoid colon consistent with previous noted perforated diverticulitis. The prior pelvic abscess drain has been removed. There is a large amount of feculent appearing material within a recurrent 7.0 x 4.2 cm abscess cavity situated between the uterus and the sigmoid colon. There is a second component of the cavity measuring 8.5 cm in length and 2.0 x 1.5 cm in maximal orthogonal dim ensions positioned posterior to the sigmoid colon and anterior to the left external iliac vessels whi ch communicates with the large more anterior collection by a small tract extending inferior to the si gmoid colon. Bladder is normal. There is trace amount of nonloculated fluid and some stranding in the deep pelvis. No pathologically enlarged abdominal or pelvic lymphadenopathy. Severe lumbar spondylos is with chronic L2 burst fracture. IMPRESSION: 1. Sigmoid diverticulitis with feculent material within a recurrent abscess cavity post interval stacy freddy of the drainage catheter. Reviewed, dictated and finalized at location B. IMPRESSION: 1. Sigmoid diverticulitis with feculent material within a recurrent abscess cav ity post interval removal of the drainage catheter.
--- OUTSIDE RECORDS SUMMARY | 2025-04-25 16:25 | XMS_ITS | Clinical Summary ---
Author Organization [facility] Address [address] [place] [address] Care Team Providers Care Marketing Strategy Lead Name Role Phone Kalyan Knutson DO Primary Care Provider [phone] Sandor Emmanuel MD Unavailable [phone] Source Comments [facility],non-owned Affiliates and Associated Physician Practices is amultiple site organization consisting of ambulatory clinics and hospital sitesin [place], [place], [place] and [place]. This disclosure is being madepursuant to the Care Everywhere program and may not contain all information available regarding this patient. Last updated 18.[facility] Allergies No known active [...] fluticasone propionate (FLONASE) 50 MCG/ACT nasal spray Dodson 2 Sprays into each nostril once daily Active triamcinolone (NASACORT ALLERGY 24HR) 55 MCG/ACT nasal inhaler Dodson 1 Dodson into each nostril once daily Active diclofenac [...] patient's age to complete this topic Insurance [facility] MANAGED MEDICARE ADV Care Teams Marketing Strategy Lead Relationship Specialty Start Date End Date Kalyan Knutson DO [address] [place], [place] [id number] PCP - General Internal Medicine 07/06/15 [place] [id number] [address] Orthopedic Surgery 07/06/15
--- OUTSIDE RECORDS SUMMARY | 2025-04-25 16:25 | XMS_ITS | Continuity of Care Document ---
Author Organization [facility] Address [address] [place] [address] [address] [place] [address] Phone Care Team Providers Care Education And Training Coordinator Name Role Phone Jarred Alvarado Unavailable Unavailable Procedures Procedure Date Eye Exam & Treatment Refraction Progressive Lens, Hi Index Anti-reflective Coating Frames Deluxe Tax - Medical Eye Exam & Treatment Refraction Eye Exam & Treatment Refraction Advance Directives Directive Yes / No Effective Date File Name No Information Encounters Encounter Description Practice Location Reason(s) For Visit Diagnoses Date Provider Providers Copied on Encounter [facility], [address] [place] [address] [facility] [address], [place], [place], [id number], [place] tel:[phone] [facility] No Information 0-201 0 Jenny Stern. [address] [facility] , [address], [place], [address], [place]. tel:[phone] [facility], [address] [place] [address] [facility] [address], [place], [place], [id number], [place] tel:[phone] [facility] No Information Oct-0 3-200 8 [facility] . [address] [place] [address], [address], [place], [place], [id number], [place]. tel:[phone] Referring Provider: Jarred Pizarro [address], [place], [address]. tel:[phone] aceves Provider: Kelley Horvath, [address] [place], [place], [facility]. tel:[phone] [facility], [address], [place], [place], [id number], tel:[phone] SEC [facility] No Information Oct-2 7-200 8 Doi Edtd. [address] [facility] , [address], [place], [place], [facility], . tel:[phone] [facility], [address] [address], [place], [place], [id number], tel:[phone] [facility] No Information Apr-2 0-200 7 Doikeshia Stern. [address] [facility] , [address], [place], [address], . tel:[phone] Family History Family Member Type Diagnosis Age [...]
--- OUTSIDE RECORDS SUMMARY | 2025-04-25 16:25 | XMS_ITS | Encounter Summary ---
Author Organization [facility] Address [address] [place] [address] Care Team Providers Care Cord Tire Builder Name Role Phone Ricky Nevarez DO Primary Care Provider Encounter Details Date Type Department Care Team (Late Contact Info) Description 01/13/2017 Chart Note [facility] Radiation Therapy [address] [place] [address] [place] [address] [place] [address] Social History Tobacco Use Types [...] Description 06/22/2025 11:00 AM CDT Office Visit [facility] Oncology and Hematology - [address] [facility] [address] [place] [address] Samir Brito MD [address] [facility] [address] [place] [address] documented as of this encounter Visit Diagnoses Not on filedocumented in this encounter Care Teams Cord Tire Builder Relationship Specialty Start Date End Date Ricky Nevarez DO [address] [facility] [address] [facility] [address] [place] [address] PCP - General Internal Medicine 12/19/24 documented as of this encounter
--- OUTSIDE RECORDS SUMMARY | 2025-04-25 16:25 | XMS_ITS | Clinical Summary ---
Author Organization [facility] Address [address] [facility] [place] [address] Care Team Providers Care Print Cutter Name Role Phone Ricky Nevarez DO Primary Care Provider [phone] Allergies Active Allergy Reactions Criticality Noted Date [...] Comments Blood Pressure 133/77 12/19/2024 11:26 AM MUCK BOSS Pulse 66 12/19/2024 11:23 AM MUCK BOSS Temperature 36.1 C (96.9 F) 12/19/2024 11:23 AM MUCK BOSS Respiratory Rate 16 12/19/2024 11:23 AM MUCK BOSS Oxygen Saturation 96% 12/19/2024 11:23 AM MUCK BOSS Inhaled Oxygen Concentration - - Weight 60.6 kg (133 lb 9.6 oz) 12/19/2024 11:23 AM MUCK BOSS Height 160 cm (5' 3) 07/07/2022 2:58 PM CDT Body Mass Index 23.67 07/07/2022 2:58 PM CDT Plan of Treatment Upcoming Encounters Date Type Department Care Team (Late st Contact Info) Description 06/22/2025 11:00 AM CDT Office Visit [facility] Oncology and Hematology - [place] [address] [facility] [address] [place] [address] Samir Brito MD [address] [facility] [address] [place] [address] Health Maintenance Due Date Last [...] Most Recently Relevant to Health Maintenance Insurance [facility] [id number] Care Teams Print Cutter Relationship Specialty Start Date End Date Ricky Nevarez DO [address] [facility] [address] [place] [address] PCP - General Internal Medicine 12/19/24
== END 2025-04-25 15:26 | disposition home or self-care (01) ==
PROVIDERS: PCP Internal Medicine; Visit Provider Surgery
DX: K57.20 Diverticulitis of large intestine with perforation and abscess without bleeding (principal)
CPT/HCPCS: 74177; Q9967

== ENCOUNTER 2025-04-26 12:23 | Inpatient (IN) | payer MEDICARE, SELFPAY ==
[2025-04-26 12:26] VITALS: BMI 22.2
--- OUTSIDE RECORDS SUMMARY | 2025-04-26 13:50 | XMS_ITS | Encounter Summary ---
Author Organization [facility] Address [address] [place] [address] Care Team Providers Care Admission Nurse Name Role Phone Ricky Nevarez DO Primary Care Provider Encounter Details Date Type Department Care Team (Late Contact Info) Description 01/13/2017 Chart Note [facility] Radiation Therapy [address] [place] [address] [place] [address] [place] [address] Social History Tobacco Use Types [...] 11:00 AM CDT Office Visit [facility] Oncology and Hematology - [place] [address] [facility] [address] [place] [address] Samir Brito MD [address] [facility] [address] [place] [address] documented as of this encounter Visit Diagnoses Not on filedocumented in this encounter Care Teams Admission Nurse Relationship Specialty Start Date End Date Ricky Nevarez DO [address] [facility] 162 [facility] [address] [place] [address] PCP - General Internal Medicine 12/19/24 documented as of this encounter
--- OUTSIDE RECORDS SUMMARY | 2025-04-26 13:50 | XMS_ITS | Encounter Summary ---
Author Organization [facility] Address [address] [place] [address] Care Team Providers Care Contract Associate Manager Name Role Phone Ricky Nevarez DO Primary Care Provider Encounter Details Date Type Department Care Team (Late st Contact Info) Description 04/25/2025 External Device Data STL ABSTRACTION Provider, Abstract [...] Description 06/22/2025 11:00 AM CDT Office Visit [facility] Oncology and Hematology - [place] [address] [facility] [address] [place] [address] Samir Brito MD [address] [facility] [address] [place] [address] documented as of this encounter Visit Diagnoses Not on filedocumented in this encounter Care Teams Contract Associate Manager Relationship Specialty Start Date End Date Ricky Nevarez DO [address] [place] [address] PCP - General Internal Medicine 12/19/24 documented as of this encounter
--- OUTSIDE RECORDS SUMMARY | 2025-04-26 13:50 | XMS_ITS | Clinical Summary ---
Author Organization [facility] Address [address] [facility] [place] [place] [address] Care Team Providers Care Sample Checker Name Role Phone Ricky Nevarez DO Primary Care Provider [phone] Allergies Active Allergy Reactions Criticality Noted Date [...] Encounters Date Type Department Care Team Description 04/25/2025 External Device Data STL ABSTRACTION Provider, Abstract 03/30/2025 External Device Data STL ABSTRACTION Provider, [...] Comments Blood Pressure 133/77 12/19/2024 11:26 AM CARTON FORMING MACHINE ADJUSTER Pulse 66 12/19/2024 11:23 AM CARTON FORMING MACHINE ADJUSTER Temperature 36.1 C (96.9 F) 12/19/2024 11:23 AM CARTON FORMING MACHINE ADJUSTER Respiratory Rate 16 12/19/2024 11:23 AM CARTON FORMING MACHINE ADJUSTER Oxygen Saturation 96% 12/19/2024 11:23 AM CARTON FORMING MACHINE ADJUSTER Inhaled Oxygen Concentration - - Weight 60.6 kg (133 lb 9.6 oz) 12/19/2024 11:23 AM CARTON FORMING MACHINE ADJUSTER Height 160 cm (5' 3) 07/07/2022 2:58 PM CDT Body Mass Index 23.67 07/07/2022 2:58 PM CDT Plan of Treatment Upcoming Encounters Date Type Department Care Team (Late st Contact Info) Description 06/22/2025 11:00 AM CDT Office Visit [facility] Oncology and Hematology - [place] [address] [facility] [address] [place] [address] Samir Brito MD [address] [facility] [address] [place] [address] Health Maintenance Due Date Last Done Comments DTAP/TDAP/TD VACCINES (1 - Tdap) 1967 PNEUMOCOCCAL VACCINE 50+ YEA RS (1 of 1 - PCV) 1998 ZOSTER VACCINE (1 of 2) 1998 RSV VACCINE (60+ or ) (1 - 1-dose 75+ series) 2023 INFLUENZA VACCINE (#1) 2024 OSTEOPOROSIS SCREENING 02/22/2026 1, 10/28/2017, 07/23/2016 Procedures Procedure Name Priority Date/Time [...] Most Recently Relevant to Health Maintenance Insurance [facility] [id number] Care Teams Sample Checker Relationship Specialty Start Date End Date Ricky Nevarez DO [address] [facility] [address] [place] [address] PCP - General Internal Medicine 12/19/24
--- OUTSIDE RECORDS SUMMARY | 2025-04-26 13:50 | XMS_ITS | Clinical Summary ---
Author Organization [facility] Address [address] [place] [address] Care Team Providers Care Coat Examiner Name Role Phone Kalyan Knutson DO Primary Care Provider [phone] Sadnor Emmanuel MD Unavailable [phone] Source Comments [facility],non-owned Affiliates and Associated Physician Practices is amultiple site organization consisting of ambulatory clinics and hospital sitesin [place], [place], [place] and [place]. This disclosure is being madepursuant [...] fluticasone propionate (FLONASE) 50 MCG/ACT nasal spray [place] 2 Sprays into each nostril once daily Active triamcinolone (NASACORT ALLERGY 24HR) 55 MCG/ACT nasal inhaler [place] 1 [place] into each nostril once daily Active diclofenac [...] patient's age to complete this topic Insurance [facility] MANAGED MEDICARE ADV Care Teams Coat Examiner Relationship Specialty Start Date End Date Kalyan Knutson DO [address] [facility] [address] [place], [place] [id number] PCP - General Internal Medicine 07/06/15 [place] [address] [address] Orthopedic Surgery 07/06/15
[2025-04-26] MEDS: PIPERACILLN/TAZ 3.375GM/NS50ML 3.375 GM/50 ML BAG IVPB ×2 (13:57→17:32)
[2025-04-26] MEDS: SODIUM CHLORIDE 0.9% IV 1,000 ML 100 ML IV CONT (13:57)
[2025-04-26 14:00] VITALS: BP 145/78; PULSE 87; RESP 20; TEMP 36.1; O2SAT 97
--- NOTE | 2025-04-26 15:11 | P.HP_ITS ---
H&P: HPI History of Present Illness Date/Time: 04/26/25 15:11 Chief Complaint: Recurrent diverticular abscess Narrative: This is a 75 yo female who is known to our service from a recent hospitalization from 04/14/25-04/21/25 for diverticulitis with abscess. She was treated with percutaneous drainage and IV antibiotics. Repeat CT scan abdomen/pelvis showed resolution of the abscess, and her percutaneous drain was removed. She was discharged home on oral antibiotics, which she has been taking as prescribed. She had a follow-up outpatient CT scan yesterday that showed sigmoid diverticulitis with feculent material within a recurrent abscess cavity post drain removal. She was seen in the office by Dr. Saha today as an outpatient. She has had increasing abdominal pain, poor appetite, and diarrhea. She reports abdominal cramping with eating. She was directly admitted from our office in the setting of recurrent diverticular abscess. 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 hearing loss, bilateral Chronic seasonal allergic rhinitis Osteopenia Started on Prolia November 2019 Hyperlipidemia Hypertension Surgical History Surgical History Status post cataract extraction of both eyes with insertion of intraocular lens Status post tympanoplasty Left ear with residual hearing loss History of removal of Port-a-Cath Placed 08/2016 removed 09/2017 History of tonsillectomy and adenoidectomy History of appendectomy History of lumpectomy of left breast (01/2017) Hx of mastectomy (02/2017) February 2017 H/O cataract removal with insertion of prosthetic lens Family History Family History Father , 47-Gun shot in a bar. No problems noted. Mother No problems noted. Social History Social History Social History: She lives in her own home. She was for 34 years but has been for 11 years. She has a significant other but they do not live together they have been dating for 10 years. She is a former smoker. She used to smoke a pack of cigarettes per day but quit smoking in the . She drinks a 3-5 glasses of wine a week. She denies illicit substance use. Her and her raised 2 daughters. She has a small dog at home. Code status: Full code Surrogate decision maker: Saniya Yost (daughter) Smoking packs per day: 1 Smoking cigarettes per day: 20.0 Years smoked: 33 Smoking pack-years: 33.00 Smoking status: Former smoker Tobacco type: cigarettes Second hand tobacco smoke exposure: No Smoking end date: 03/09/92 Alcohol intake: current Drinks per week: 6 Substance use: current Substance use type: does not use Do You Feel Safe in your Home?: Yes Lack of Transportation: No Lack of Food: Never True Current Housing: I Have Housing Concerned About Future Housing: No Difficulty Paying Gas/Electric Bills: No Difficulty Paying for Meds: No Currently Unemployed: No Education: Associate Degree Difficulty w/ Childcare or Family Care: No Living arrangements: alone Occupation/Education: retired Additional occupation/education comments: [employer]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 Gender identity (if verbalized by the patient): Female Spiritual care concerns: No Meds Home Medications and Allergies Home Medications ?Medication ?Instructions ?Recorded ?Confirmed ?Type djhqoiqk-pey-vhctm acid 0.4 1 tablet PO DAILY 09/01/19 04/26/25 History mg-lycopene 300 mcg-lutein 250 mcg tablet (Centrum Silver) calcium 600 mg (as 1 cap PO DAILY 07/23/21 04/26/25 History carbonate)-vitamin D3 12.5 mcg (500 unit) capsule (Calcium with Vit D3) lisinopril 10 mg tablet 10 mg PO DAILY #90 tabs 02/20/25 04/26/25 Rx sour bond extract 1,000 mg 1 mg PO DAILY 03/20/25 04/26/25 History capsule (Tart Bond Extract) amoxicillin 875 mg-potassium 1 tablet PO Q12H #14 tabs 04/21/25 04/26/25 Rx clavulanate 125 mg tablet denosumab 60 mg/mL subcutaneous 60 mg subcut [id number] 06/18/25 06/18/25 History syringe (Prolia) Allergies Allergy/AdvReac Type Severity Reaction Status Date / Time monosodium glutamate AdvReac Unknown HEADACHES Verified 04/26/25 10:43 Exam Const: General: comfortable and no acute distress Nutritional Appearance: average body habitus Orientation/consciousness: patient oriented x3 HENMT: Head: normocephalic and atraumatic Ears: hearing grossly normal bilaterally Eyes: General: appearance normal, both eyes and all related structures Pupils: Equal, round and reactive pupils present Neck: Neck: normal visual inspection and full ROM Resp: Effort & Inspection: no respiratory distress Auscultation: clear to auscultation bilaterally Cardio: Rate: regular rate Rhythm: regular rhythm Peripheral pulses: Per ipheral pulses 2+ throughout GI: Inspection: distended GI Palp: Yes Soft to palpation, Yes Tenderness to palpation present (GI) (across the lower abdomen), No Guarding due to palpation present (GI) and No Rebound tenderness present Auscultation: normal bowel sounds Other: right gluteal are with induration and an opening with purulent drainage Skin: General skin exam: normal color Neuro: General: moves all extremities and no focal motor deficits Speech: normal speech Motor exam (neuro): 5/5 motor strength present throughout Extrem: General: normal to inspection and no edema Psych: Mental Status: mental status grossly normal Attitude: cooperative Insight: Good insight present (Psych) Judgement: Good judgement present (Psych) Assessment and Plan Assessment and plan (1) Diverticulitis of intestine with perforation and abscess: Qualifiers: Diverticulitis bleeding: unspecified bleeding status Diverticulitis site: unspecified part of intestinal tract Qualified Code(s): K57.80 - Diverticulitis of intestine, part unspecified, with perforation and abscess without bleeding Code(s): K57.80 - Diverticulitis of intestine, part unspecified, with perforation and abscess without bleeding Status: Acute Assessment and Plan: * Patient recently admitted for diverticulitis with abscess that was treated with IV antibiotics and percutaneous drainage. She had an outpatient CT yesterday showing a recurrent abscess with feculent material within the abscess cavity and she has been admitted in this setting. Will order routine labs, blood cultures, and start broad-spectrum IV antibiotics. Patient discussed treatment options in detail with Dr. Saha in the office today, which included attempting percutaneous drainage with IV antibiotics again vs proceeding with surgical intervention. Regardless, the patient will likely need a colon resection and will continue to have recurrent abscesses without surgery, but she wishes to try conservative measures first to try and reduce her risks for requiring an ostomy. I spoke with Radiology regarding percutaneous drainage, and IR capabilities are limited due to scheduling. This would likely not be able to be performed for another 2 days. I discussed this with Dr. Saha and will attempt to transfer the patient to another facility where IR is available, as well as a surgical service. (2) Anemia: Code(s): D64.9 - Anemia, unspecified Status: Acute Assessment and Plan: * Labs ordered, will follow (3) Hypertension: Qualifiers: Hypertension type: primary hypertension Qualified Code(s): I10 - Essential (primary) hypertension Code(s): I10 - Essential (primary) hypertension Status: Acute (4) Hyperlipidemia: Code(s): E78.5 - Hyperlipidemia, unspecified Status: Acute Plan I have discussed the patient's case and plan of care with Dr. Saha.
[2025-04-26 15:51] LABS: Hematocrit 25.9 % (37.0-47.0); Hemoglobin 8.2 g/dL (12.0-15.0); Mean Corpuscular HGB Conc 31.7 g/dl (32-36); Mean Corpuscular Volume 85.2 fl (80-100); Mean Platelet Volume 8.8 fl (7.4-10.4); Platelet Count Result 347 k/mm3 (150-375); Red Blood Count 3.04 M/mm3 (4.2-5.4); Red Cell Distribution Width 16.8 % (11.5-14.5)
[2025-04-26 16:01] LABS: Anion Gap 9 mmol/L (4-12); Blood Urea Nitrogen 14 mg/dL (7-17); Calcium 8.7 mg/dL (8.4-10.2); Carbon Dioxide 24 mmol/L (22-30); Chloride 103 mmol/L (98-107); Estimated CRCL calculation 66 ml/min; Estimated Glomerular Filt Rate > 60; Glucose 97 mg/dL (65-110); Sodium 136 mmol/L (137-145)
[2025-04-26 16:03] LABS: INR 1.1; Prothrombin Time 14.8 Seconds (11.1-14.7)
[2025-04-26 16:04] LABS: Partial Thromboplastin Time 32.3 Seconds (22.3-36.8)
[2025-04-26 20:07] VITALS: BP 165/79; PULSE 78; RESP 20; TEMP 36.4; O2SAT 98
[2025-04-26] MEDS: FAMOTIDINE 20 MG/2 ML VIAL IV PUSH (20:26)
[2025-04-26] MEDS: IBUPROFEN IV 800 MG/200 ML 800 MG/200 ML BAG 400 MG IVPB (23:32)
[2025-04-27] MEDS: PIPERACILLN/TAZ 3.375GM/NS50ML 3.375 GM/50 ML BAG IVPB ×4 (00:02→17:38)
[2025-04-27] MEDS: SODIUM CHLORIDE 0.9% IV 1,000 ML 100 ML IV CONT ×2 (00:07→19:36)
[2025-04-27 04:54] VITALS: BP 155/77; PULSE 71; RESP 20; TEMP 36.6; O2SAT 99
[2025-04-27 05:31] LABS: Basophils Percent Auto 0.7 % (0.2-1.2); Eosinophils Absolute Auto 0.1 K/mm3 (0-0.3); Eosinophils Percent Auto 1.6 % (0-4.4); Hematocrit 26.4 % (37.0-47.0); Hemoglobin 8.1 g/dL (12.0-15.0); Immature Granulocyte Absolute 0.05 K/mm3 (0.00-0.031); Immature Granulocyte Percent A 0.8 % (0-0.5); Lymphocytes Absolute Auto 2.06 K/mm3 (0.9-3.2); Lymphocytes Percent Auto 33.5 % (18.3-44.2); Mean Corpuscular HGB Conc 30.7 g/dl (32-36); Mean Platelet Volume 9.2 fl (7.4-10.4); Monocytes Absolute Auto 0.9 K/mm3 (0.1-0.6); Monocytes Percent Auto 14.6 % (2.6-8.5); Neutrophils Percent Auto 48.8 % (45.5-73.1); Platelet Count Result 366 k/mm3 (150-375); White Blood Count 6.2 K/mm3 (4.5-10.0)
[2025-04-27 05:53] LABS: Anion Gap 8 mmol/L (4-12); Blood Urea Nitrogen 9 mg/dL (7-17); Calcium 8.1 mg/dL (8.4-10.2); Carbon Dioxide 25 mmol/L (22-30); Chloride 107 mmol/L (98-107); Estimated CRCL calculation 65 ml/min; Estimated Glomerular Filt Rate > 60; Glucose 93 mg/dL (65-110); Potassium 2.8 mmol/L (3.4-5.0); Sodium 140 mmol/L (137-145)
[2025-04-27] MEDS: POTASSIUM CHLORIDE INJ 40 MEQ in SODIUM CHLORIDE 0.9% IV 500 ML 130 MEQ IVPB (07:03)
[2025-04-27] MEDS: POTASSIUM CHLORIDE 20 MEQ ER TABLET 40 MEQ PO (07:03)
[2025-04-27] MEDS: FAMOTIDINE 20 MG/2 ML VIAL IV PUSH ×2 (08:44→20:15)
[2025-04-27] MEDS: MAGNESIUM SULF 2 GM/WATER 50ML 2 GM/50 ML BAG IVPB (11:07)
--- NOTE | 2025-04-27 13:25 | PM.PNGS ---
Progress Note: A&P Assessment and Plan (1) Diverticulitis of intestine with perforation and abscess: Qualifiers: Diverticulitis site: unspecified part of intestinal tract Diverticulitis bleeding: unspecified bleeding status Qualified Code(s): K57.80 - Diverticulitis of intestine, part unspecified, with perforation and abscess without bleeding Code(s): K57.80 - Diverticulitis of intestine, part unspecified, with perforation and abscess without bleeding Status: Acute Assessment and Plan: Continue IV Zosyn, accepted to [facility] for IR, awaiting bed placement (2) Anemia: Code(s): D64.9 - Anemia, unspecified Status: Acute Assessment and Plan: Stable, continue to follow with labs (3) Hypertension: Qualifiers: Hypertension type: primary hypertension Qualified Code(s): I10 - Essential (primary) hypertension Code(s): I10 - Essential (primary) hypertension Status: Acute Assessment and Plan: Home medication resumed. (4) Hyperlipidemia: Code(s): E78.5 - Hyperlipidemia, unspecified Status: Acute Plan I have discussed the patient's case and plan of care with Dr. Saha. Subjective Subjective Date/Time Seen: 04/27/25 13:25 Patient reports: no new complaints Interval history: Still having lower abdominal pain, unchanged and controlled with the IV Ibuprofen. No issues with tolerating liquids. Bowels are moving. Exam Const: General: comfortable and no acute distress GI: Inspection: distended GI Palp: Yes Soft to palpation, Yes Tenderness to palpation present (GI) (lower abdomen), No Guarding due to palpation present (GI) and No Rebound tenderness present Auscultation: normal bowel sounds Objective Data Vital Signs Vital Signs: Vital Signs - 24 hr 04/26/25 14:00 04/26/25 16:09 04/26/25 20:07 Temperature 97.0 F L 97.5 F L Pulse Rate 87 78 Respiratory Rate 20 20 Blood Pressure 145/78 H 165/79 H Pulse Oximetry 97 98 Oxygen Delivery Room Air 04/27/25 04:54 04/27/25 08:00 Temperature 97.9 F Pulse Rate 71 Respiratory Rate 20 Blood Pressure 155/77 H Pulse Oximetry 99 Oxygen Delivery Room Air Intake/Output Intake/Output: Intake & Output 04/24/25 04/25/25 04/26/25 04/27/25 23:59 23:59 23:59 23:59 Intake Total 1820 860 Balance 1820 860 Meds/Results Medications: Active Medications Generic Name Dose Route Start Last Admin Trade Name Freq PRN Reason Stop Dose Admin Acetaminophen 650 mg 04/26/25 12:39 Acetaminophen 325 Mg Tablet PO Q4H PRN Mild Pain (1-3) or Fever Amoxicillin/Clavulanate Potassium 1 tablet 04/27/25 13:20 Amoxicillin/Clavulanate K 875-125 Mg Tab PO Q12H BRINDA Famotidine 20 mg 04/26/25 21:00 04/27/25 08:44 Famotidine 20 Mg/2 Ml Vial IV PUSH 20 mg Q12HR BRINDA Administration Sodium Chloride 1,000 mls @ 100 mls/hr 04/26/25 12:40 04/27/25 00:07 Normal Saline Iv IV CONT 100 mls/hr .Q10H BRINDA Administration Ibuprofen 800 mg in 200 mls @ 400 mls/hr 04/26/25 12:44 04/27/25 00:02 Caldolor 800 Mg/200 Ml IVPB Infused Q6H PRN Infusion Pain Rated 4-6 Piperacillin/Tazobactam/Dextrose 3.375 gm in 50 mls @ 100 mls/hr 04/26/25 12:45 04/27/25 12:55 Zosyn 3.375 Gm/Ns 50 Ml IVPB 100 mls/hr Q6HR BRINDA Administration Lisinopril 10 mg 04/28/25 09:00 Lisinopril 10 Mg Tablet PO DAILY [facility] Morphine Sulfate 2 mg 04/26/25 12:39 Morphine Sulfate (*Crx) 2 Mg/Ml Inj IV PUSH Q2H PRN Pain Rated 7-10 Non-Formulary Medication 1 cap 04/28/25 09:00 Calcium Carbonate-Vitamin D3 [Calcium 600 With Vitamin D3] PO 05/28/25 08:59 DAILY [facility] Non-Formulary Medication 60 mg 04/27/25 13:30 Denosumab [Prolia] SUB-Q 05/27/25 13:29 [id number] [facility] Ondansetron HCl 4 mg 04/26/25 12:39 Ondansetron Inj 4 Mg/2 Ml Vial IV PUSH Q6H PRN Nausea And Vomiting Labs Labs: Laboratory Results - last 24 hr 04/26/25 04/27/25 15:46 04:42 WBC 8.0 6.2 RBC 3.04 L 3.00 L Hgb 8.2 L 8.1 L Hct 25.9 L 26.4 L MCV 85.2 88.0 MCH 27.0 27.0 MCHC 31.7 L 30.7 L RDW 16.8 H 17.0 H Plt Count 347 366 MPV 8.8 9.2 Immature Gran % (Auto) 0.8 H Neut % (Auto) 48.8 Lymph % (Auto) 33.5 [place] % (Auto) 14.6 H Eos % (Auto) 1.6 Baso % (Auto) 0.7 Lymph # (Auto) 2.06 [place] # (Auto) 0.9 H Eos # (Auto) 0.1 Baso # (Auto) 0.0 Abs Immat Gran (auto) 0.05 H Absolute Neuts (auto) 3.0 Absolute Nucleated RBC 0.000 Nucleated RBC % 0.0 PT 14.8 H INR 1.1 APTT 32.3 Sodium 136 L 140 Potassium 3.0 L 2.8 L* Chloride 103 107 Carbon Dioxide 24 25 Anion Gap 9 8 BUN 14 D 9 D Creatinine 0.49 L 0.50 L Estim Creat Clear Calc 66 65 Estimated GFR > 60 > 60 Glucose 97 93 Calcium 8.7 8.1 L
[2025-04-27] MEDS: lisinopriL 10 MG TABLET PO (13:50)
[2025-04-27] MEDS: CALCIUM/VITAMIN D 500 MG/5 MCG (200 I.U.) TABLET PO (13:50)
[2025-04-27 14:00] VITALS: BP 151/72; PULSE 78; RESP 20; TEMP 36.9; O2SAT 100
[2025-04-27 19:44] VITALS: BP 145/71; PULSE 80; RESP 17; TEMP 36.9; O2SAT 100
[2025-04-27 23:44] VITALS: BP 161/67; PULSE 80; RESP 17; TEMP 36.6; O2SAT 100
--- NOTE | 2025-05-01 08:50 | P.TS_ITS ---
Transfer Discharge Sum: Prov Provider Date of admission: 04/26/25 13:24 Primary care physician: Ricky Nevarez DO Admitting clinician: Stormy Saha MD Attending physician on discharge: Stormy Saha Discharging clinician: Stormy Saha Anticipated date of transfer: 04/27/25 Receiving physician/facility: [facility] DS: Admitting Diagnosis Discharge Date 04/27/25 Admitting Diagnosis perforated diverticulitis with recurrent abscess DS: Discharge Diagnosis Discharge Diagnosis (1) Diverticulitis of intestine with perforation and abscess: Qualifiers: Diverticulitis site: unspecified part of intestinal tract Diverticulitis bleeding: unspecified bleeding status Qualified Code(s): K57.80 - Diverticulitis of intestine, part unspecified, with perforation and abscess without bleeding Code(s): K57.80 - Diverticulitis of intestine, part unspecified, with perforation and abscess without bleeding Status: Acute Assessment and Plan: set up to transfer to tertiary care for facility with plans for IR drainage, colorectal consultation Transfer Discharge Sum: Med Medications Active and Home Medications: Home Medications offcvwaz-fja-ipejv acid 0.4 mg-lycopene 300 mcg-lutein 250 mcg tablet (Centrum Silver) 1 tablet PO DAILY 09/01/19 [History Confirmed 04/26/25] calcium 600 mg (as carbonate)-vitamin D3 12.5 mcg (500 unit) capsule (Calcium with Vit D3) 1 cap PO DAILY 07/23/21 [History Confirmed 04/26/25] lisinopril 10 mg tablet 10 mg PO DAILY #90 tabs 02/20/25 [Rx Confirmed 04/26/25] sour bond extract 1,000 mg capsule (Tart Bond Extract) 1 mg PO DAILY 03/20/25 [History Confirmed 04/26/25] amoxicillin 875 mg-potassium clavulanate 125 mg tablet 1 tablet PO Q12H #14 tabs 04/21/25 [Rx Confirmed 04/26/25] denosumab 60 mg/mL subcutaneous syringe (Prolia) 60 mg subcut [id number] 04/26/25 [History Confirmed 04/26/25] Transfer Discharge Sum: Hosp Hospital Course Hospital course: Salud Hanley is a 75 year old female that presented to my office with a recurrent diverticular abscess secondary to complicated diverticulitis. The patient was directly admitted to the surgical service and started on IV antibiotics. It was felt that the patient would need replacement of a percutaneous drain. Unfortunately, IR was unavailable to place this drain. I did offer the patient surgical intervention with washout and possible Martita's procedure, which the patient was very hesitant about. Given this, the decision was made to transfer to a tertiary care facility for IR drainage and colorectal consultation. Of note, the patient did feel better once started on IV antibiotics. Time Spent with Patient Time attestation: Total time spent providing and/or coordinating transfer services: 60 minutes Total time spent: Greater than 30 minutes Exam Const: General: cooperative, no acute distress, ill appearing and uncomfortable HENMT: Head: normal to inspection, normocephalic and atraumatic Eyes: General: appearance normal, both eyes and all related structures Neck: Neck: normal visual inspection, full ROM and no lymphadenopathy Resp: Auscultation: clear to auscultation bilaterally Cardio: Rate: regular rate Rhythm: regular rhythm GI: Inspection: normal to inspection and distended GI Palp: Yes abdominal tenderness, Yes Soft to palpation, Yes Tenderness to palpation present (GI), No Guarding due to palpation present (GI) and No Rigid due to palpation Skin: General skin exam: normal color and no rashes or lesions noted Neuro: General: patient oriented x3 and CN's II-XI intact bilaterally Extrem: General: normal to inspection and full ROM DS: Data Data Completed and Pending Labs on day of discharge: Preliminary micro results at discharge 04/26/25 15:33 Blood Culture - Preliminary Blood 04/26/25 15:46 Blood Culture - Preliminary Blood Imaging My impression: Perforated diverticulitis with recurrent abscess contained
== END 2025-04-27 23:50 | disposition short-term general hospital (02) | DRG 392 ==
PROVIDERS: Admitting Provider Surgery; PCP Internal Medicine; Visit Provider Surgery
DX: K57.20 Diverticulitis of large intestine with perforation and abscess without bleeding (principal); I10 Essential (primary) hypertension; D64.9 Anemia, unspecified; E78.5 Hyperlipidemia, unspecified; H90.6 Mixed conductive and sensorineural hearing loss, bilateral; M85.80 Other specified disorders of bone density and structure, unspecified site; Z85.3 Personal history of malignant neoplasm of breast; Z87.891 Personal history of nicotine dependence
CPT/HCPCS: 36415; 74177; 80048; 85025; 85027; 85610; 85730; 87040; A9270; G0378; J1741; J2543; J3475; J3480; J7030; J7040; Q9967

== ENCOUNTER 2025-05-15 15:12 | Outpatient (CLI) | payer MEDICARE, SELFPAY ==
--- NOTE | ~2025-05-15 | MM_ITS ---
EXAMINATION: MM screening jak RT w mihir HISTORY: Screening. Status post left mastectomy for cancer. TECHNIQUE: Craniocaudal and mediolateral oblique 3-D tomosynthesis images were obtained and synthetic 2-D images were generated. CAD analysis was submitted and interpreted. COMPARISON: Comparison to multiple prior studies sequentially, with oldest reviewed study dated 12/08. BREAST PARENCHYMAL COMPOSITION: Dense: The breasts are heterogeneously dense, which may obscure small masses FINDINGS: Stable benign-appearing calcifications. There is no evidence of suspicious mass, calcificat ion, or architectural distortion to suggest malignancy in the right breast. There has been no suspici ous interval change. IMPRESSION: 1. No mammographic evidence of malignancy. 2. Recommend routine screening mammography in one year. BI-RADS Category 2: Benign finding(s). Reviewed, dictated and finalized at location A.
--- OUTSIDE RECORDS SUMMARY | 2025-05-15 15:17 | XMS_ITS | Clinical Summary ---
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 Name Role Phone Ricky Nevarez DO Primary Care Provider [phone] Allergies Active Allergy Reactions Criticality Noted Date Comments Monosodium Glutamate Diarrhea,Headache Low 04/28/20 25 Medications lisinopriL (PRINIVIL,ZESTR IL) 10 mg tablet Take 1 tablet (10 mg total) by mouth daily Active acetaminophen 500 mg capsule Take 2 capsules (1,000 mg total) by mouth every 6 (six) hours as needed for pain 5 Active ciprofloxacin (CIPRO) 500 mg tabletIndicatio ns:Abdominal/Pe lvic Infection Take 1 tablet (500 mg total) by mouth 2 (two) times a day for 21 doses 21 tablet 5 05/12/20 25 metroNIDAZOLE (FLAGYL) 500 mg tabletIndicatio ns:Abdominal/Pe lvic Infection Take 1 tablet (500 mg total) by mouth 3 (three) times a day for 32 doses 32 tablet 5 05/12/20 25 Active Problems Problem Noted Date Diagnosed Date Colonic diverticular abscess 04/28/2025 Encounters Date Type Department Care Team Description 05/08/2025 Telephone [facility] Surgery [address] [place] [address] Medical Office Building [address] [place] [address] Mis Steen RN 05/01/2025 Orders Only [facility] [address] [address] [place] [address] Andres Oliver MD Colonic diverticular abscess (Primary Dx) 04/28/2025 12:30 AM CDT - 05/01/2025 6:29 PM CDT Hospital Encounter [facility] [address] [place] [id number] Jacey Arroyo MD Silviera, Matthew Leon, MD Gluteal abscess (Primary Dx) Discharge Disposition: Discharge to home or self care from Last 3 Months Social History Tobacco Use Types Packs/Day Years Used Date Smoking Tobacco: Former Cigarettes Q uit: 04/08/1992 Smokeless Tobacco: Never Tobacco Cessation:Counseling Given: Not Answered Personal Safety Answer Date Recorded Have you ever been in or are you currently in a harmful physical or emotional relationship or is someone making you feel afraid or unsafe? 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 Gender Identity Not on file Sexual Orientation Not on file Obstetrics History Last Filed Vital Signs Vital Sign Reading Time Taken Comments Blood Pressure 134/78 05/01/2025 11:47 AM CDT Pulse 78 05/01/2025 11:47 AM CDT Temperature 36.5 C (97.7 F) 05/01/2025 11:47 AM CDT Respiratory Rate 18 05/01/2025 11:47 AM CDT Oxygen Saturation 99% 05/01/2025 11:47 AM CDT Inhaled Oxygen Concentration - - Weight 57.8 kg (127 lb 6.8 oz) 04/28/2025 12:55 AM CDT Height 160 cm (5' 3) 04/28/2025 12:55 AM CDT Body Mass Index 22.57 04/28/2025 12:55 AM CDT Plan of Treatment Health Maintenance Due Date Last Done Comments Depression Screening 1950 Hepatitis C Screening 1950 DTaP/Tdap/Td Vaccine (1 - Tdap) 1959 Hepatitis B Screening 1966 Pneumococcal vaccine 65+ (1 of 1 - PCV) 1998 Zoster Vaccine (1 of 2) 1998 Well Visit 65+ 2013 Osteoporosis Screening-Bone Density Scan 02/22/2023 02/22/2021, 02/22/2021, 10/28/2017 Influenza Vaccine (#1) 2025 Fall Risk Assessment 05/01/2026 05/01/2025 Procedures Procedure Name Priority Date/Time Associated Diagnosis Comments INCISION AND DRAINAGE Routine 05/01/2025 3:20 PM CDT Gluteal abscess EGFR Routine 04/30/2025 11:15 PM CDT PHOSPHORUS Routine 04/30/2025 11:15 PM CDT MAGNESIUM Routine 04/30/2025 11:15 PM CDT BASIC METABOLIC PANEL Routine 04/30/2025 11:15 PM CDT CBC WITHOUT DIFFERENTIAL Routine 04/30/2025 11:15 PM CDT CBC WITHOUT DIFFERENTIAL Routine 04/29/2025 9:35 PM CDT EGFR Routine 04/29/2025 9:34 PM CDT PHOSPHORUS Routine 04/29/2025 9:34 PM CDT MAGNESIUM Routine 04/29/2025 9:34 PM CDT BASIC METABOLIC PANEL Routine 04/29/2025 9:34 PM CDT EGFR Timed 04/28/2025 10:18 PM CDT BASIC METABOLIC PANEL Timed 04/28/2025 10:18 PM CDT CBC WITHOUT DIFFERENTIAL Timed 04/28/2025 10:18 PM CDT B CHECK SAMPLE STAT 04/28/2025 2:33 AM CDT EGFR STAT 04/28/2025 1:39 AM CDT DIFFERENTIAL AUTO STAT 04/28/2025 1:3 9 AM CDT PHOSPHORUS STAT 04/28/2025 1:39 AM CDT MAGNESIUM STAT 04/28/2025 1:39 AM CDT TYPE AND SCREEN STAT 04/28/2025 1:39 AM CDT APTT STAT 04/28/2025 1:39 AM CDT PROTIME-INR STAT 04/28/2025 1:39 AM CDT BASIC METABOLIC PANEL STAT 04/28/2025 1:39 AM CDT CBC WITH AUTO DIFFERENTIAL STAT 04/28/2025 1:[address] BODY OUTSIDE CONSULT Routine 04/28/2025 1:21 AM CDT from Last 3 Months Results * Incision and Drainage (05/01/2025 3:20 PM CDT) Narrative Joesph Fraire MD - 05/01/2025 3:20 PM CDT Joesph Fraire MD 05/01/2025 3:22 PM Incision and Drainage Date/Time: 05/01/2025 3:20 PM Performed by: Joesph Fraire MD Authorized by: Joesph Fraire MD [place] Protocol: RN Notified of Procedure: yes Informed consent: Risks, benefits, alternatives discussed and patient/guest relations representative/guardian agrees and accepts Patient's stated name/ matches armband: Yes Allergies confirmed: yes Supplies, devices and special equipment are available: yes Site/side marked: yes Anesthesia (see MAR for exact dosage) Anesthesia method: Local infiltration Local anesthetic: Lidocaine 2% Patient sedated: No Preparation: Patient was prepped using appropriate disinfectant and draped using sterile technique as needed Type: Abscess Location: right gluteal region. Scalpel size: 11 Needle gauge: 22 Incision type: Single straight Incision depth: Dermal Length (cm): 2 Complexity: Simple Drainage: Purulent Drainage amount: Moderate Wound treatment: Wound left open Packing material: None Patient tolerance: Patient tolerated the procedure well with no immediate complications Post Procedure Debrief: All guidewires, needles, sponges or other items are accounted for: yes Any special post procedure monitoring, testing or other considerations: n/a All specimens identified, labeled and matched to patient identification: n/a Responsible constitution party for transporting specimen(s) to lab determined: n/a us Joesph Fraire MD IN CLINIC/BEDSIDE ORDERABLES Fin al Result * eGFR (04/30/2025 11:15 PM CDT) eGFR >90 >=60 mL/min/1. 73 m2 Comment: Interpretive Data Reference Interval Normal >/= 90 mL/min/1.73m2 Mildly decreased* 60 - 89 mL/min/1.73m2 Mildly to moderately decreased 45 - 59 mL/min/1.73m2 Moderately to severely decreased 30 - 44 mL/min/1.73m2 Severely decreased 15 - 29 mL/min/1.73m2 Kidney Failure < 15 mL/min/1.73m2 *Relative to young adult level Estimated glomerular filtration rate is determined by the 2020 CKD-EPI equation recommended by the National Kidney Foundation (A Unifying Approach to GFR Estimation: Recommendations of the NKF-ASK Task Force on Reassessing the Inclusion of Race in Diagnosing Kidney Disease, JASN 2020). The CKD-EPI equation should not be used for patients with unstable renal function and has not been validated in children and those over 70. Current interpretive data was last reviewed 2021. Blood 04/30/2025 11:1 5 PM CDT 05/01/2025 12:22 AM CDT us Andres Oliver MD LAB BLOOD ORDERABLES Fi nal Result [facility] [place] [address] * (ABNORMAL) CBC without differential (04/30/2025 11:15 PM CDT) WBC 8.11 3.80 - 9.90 K/cumm Hgb 8.7(L) 11.9 - 15.5 g/dL [facility] Hct 27.2(L) 35.6 - 45.5 % [facility] Plt 420(H) 150 - 400 K/cumm [facility] MPV 8.8(L) 9.1 - 12.3 fL [facility] RBC 3.25(L) 3.90 - 5.20 M/cumm [facility] MCV 83.7 81.3 - 96.4 fL [facility] MCH 26.8(L) 27.1 - 33.3 pg [facility] MCHC 32.0(L) 32.3 - 35.7 g/dL [facility] RDW CV 16.7(H) 11.1 - 14.9 % [facility] RDW SD 50.4(H) 35.7 - 48.1 fL [facility] NRBC abs 0.00 0.00 - 0.01 K/cumm [facility] Blood 04/30/2025 11:1 5 PM CDT 05/01/2025 12:22 AM CDT Andres Oliver MD LAB BLOOD ORDERABLES Fi nal Result Performing Organization Address [facility] Co de Phone Number [facility] Department [email or web address] [place] [address] * Phosphorus (04/30/2025 11:15 PM CDT) Pathologist [facility] Phosphorus, pl 2.5 2.3 - 4.5 mg/dL Blood 04/30/2025 11:1 5 PM CDT 05/01/2025 12:22 AM CDT Andres Oliver MD LAB BLOOD ORDERABLES Fi nal Result Performing Organization Address City/[facility] Co de Phone Number [facility] Department [place] [address] * Magnesium (04/30/2025 11:15 PM CDT) Pathologist [facility] Magnesium 2.1 1.4 - 2.5 mg/dL Blood 04/30/2025 11:1 5 PM CDT 05/01/2025 12:22 AM CDT Andres Oliver MD LAB BLOOD ORDERABLES Fi nal Result [facility] One [facility] Department [place] [address] * (ABNORMAL) Basic metabolic panel (04/30/2025 11:15 PM CDT) [facility] Sodium 140 135 - 145 mmol/L Potassium, pl 3.6 3.3 - 4.9 mmol/L [facility] Chloride 104 97 - 110 mmol/L [facility] CO2 28 22 - 32 mmol/L [facility] Anion gap 8 2 - 15 mmol/L [facility] BUN 7 6 - 25 mg/dL [facility] Creatinine 0.44(L) 0.60 - 1.10 mg/dL [facility] Glucose 109 70 - 199 mg/dL [facility] Comment: Interpretive Data Fasting glucose >/= 126 mg/dl is diagnostic for diabetes. Fasting is defined as no caloric intake for at least 8 hours. Fasting glucose between 100 mg/dl to 125 mg/dl is diagnostic of prediabetes. In a patient with classic symptoms of hyperglycemia or hyperglycemic crisis, a random glucose >/= 200 mg/dl is diagnostic for diabetes. In the absence of unequivocal hyperglycemia, results should be confirmed by repeat testing. The classification and Diagnosis of Diabetes Diabetes Care 2021; 46: S19-S40. Current interpretive data was last revised 2022. Calcium 8.0(L) 8.5 - 10.3 mg/dL [facility] Blood 04/30/2025 11:1 5 PM CDT 05/01/2025 12:22 AM CDT Andres Oliver MD LAB BLOOD ORDERABLES Fi nal Result Performing Organization Address [facility] Co de Phone Number [facility] [email or web address] [place] [address] * (ABNORMAL) CBC without differential (04/29/2025 9:35 PM CDT) [facility] WBC 6.25 3.80 - 9.90 K/cumm Hgb 8.3(L) 11.9 - 15.5 g/dL [facility] Hct 25.7(L) 35.6 - 45.5 % [facility] Plt 349 150 - 400 K/cumm [facility] MPV 8.7(L) 9.1 - 12.3 fL [facility] RBC 3.06(L) 3.90 - 5.20 M/cumm [facility] MCV 84.0 81.3 - 96.4 fL [facility] MCH 27.1 27.1 - 33.3 pg [facility] MCHC 32.3 32.3 - 35.7 g/dL [facility] RDW CV 16.9(H) 11.1 - 14.9 % [facility] RDW SD 50.7(H) 35.7 - 48.1 fL [facility] NRBC abs 0.00 0.00 - 0.01 K/cumm [facility] Blood 04/29/2025 9:35 PM CDT 04/29/2025 10:03 PM CDT Andres Oliver MD LAB BLOOD ORDERABLES Fi nal Result Performing Organization Address City/[facility]/ZIP Co de Phone Number [facility] One [facility] Department [email or web address] [address] * eGFR (04/29/2025 9:34 PM CDT) [facility] eGFR >90 >=60 mL/min/1. 73 m2 Comment: Interpretive Data Reference Interval Normal >/= 90 mL/min/1.73m2 Mildly decreased* 60 - 89 mL/min/1.73m2 Mildly to moderately decreased 45 - 59 mL/min/1.73m2 Moderately to severely decreased 30 - 44 mL/min/1.73m2 Severely decreased 15 - 29 mL/min/1.73m2 Kidney Failure < 15 mL/min/1.73m2 *Relative to young adult level Estimated glomerular filtration rate is determined by the 2020 CKD-EPI equation recommended by the National Kidney Foundation (A Unifying Approach to GFR Estimation: Recommendations of the NKF-ASK Task Force on Reassessing the Inclusion of Race in Diagnosing Kidney Disease, JASN 2020). The CKD-EPI equation should not be used for patients with unstable renal function and has not been validated in children and those over 70. Current interpretive data was last reviewed 2021. Blood 04/29/2025 9:34 PM CDT 04/29/2025 10:03 PM CDT Andres Oliver MD LAB BLOOD ORDERABLES Fi nal Result Performing Organization Address City/[facility]/ZIP Co de Phone Number [facility] Department [place] [address] * Phosphorus (04/29/2025 9:34 PM CDT) Phosphorus, pl 2.6 2.3 - 4.5 mg/dL Blood 04/29/2025 9:34 PM CDT 04/29/2025 10:03 PM CDT Andres Oliver MD LAB BLOOD ORDERABLES Fi nal Result [facility] Department [place] [address] * Magnesium (04/29/2025 9:34 PM CDT) Magnesium 1.6 1.4 - 2.5 mg/dL Blood 04/29/2025 9:34 PM CDT 04/29/2025 10:03 PM CDT Andres Oliver MD LAB BLOOD ORDERABLES Fi nal Result [facility] Department [place] [address] * (ABNORMAL) Basic metabolic panel (04/29/2025 9:34 PM CDT) Pathologist [facility] Sodium 139 135 - 145 mmol/L Potassium, pl 3.1(L) 3.3 - 4.9 mmol/L [facility] Chloride 104 97 - 110 mmol/L [facility] CO2 28 22 - 32 mmol/L [facility] Anion gap 7 2 - 15 mmol/L [facility] BUN 5(L) 6 - 25 mg/dL [facility] Creatinine 0.41(L) 0.60 - 1.10 mg/dL [facility] Glucose 122 70 - 199 mg/dL [facility] Comment: Interpretive Data Fasting glucose >/= 126 mg/dl is diagnostic for diabetes. Fasting is defined as no caloric intake for at least 8 hours. Fasting glucose between 100 mg/dl to 125 mg/dl is diagnostic of prediabetes. In a patient with classic symptoms of hyperglycemia or hyperglycemic crisis, a random glucose >/= 200 mg/dl is diagnostic for diabetes. In the absence of unequivocal hyperglycemia, results should be confirmed by repeat testing. The classification and Diagnosis of Diabetes Diabetes Care 202; 46: S19-S40. Current interpretive data was last revised 2022. Calcium 8.2(L) 8.5 - 10.3 mg/dL [facility] Blood 04/29/2025 9:34 PM CDT 04/29/2025 10:03 PM CDT Andres Oliver MD LAB BLOOD ORDERABLES Fi nal Result [facility] One [facility] Department [place] [address] * eGFR (04/28/2025 10:18 PM CDT) Pathologist [facility] eGFR >90 >=60 mL/min/1. 73 m2 Comment: Interpretive Data Reference Interval Normal >/= 90 mL/min/1.73m2 Mildly decreased* 60 - 89 mL/min/1.73m2 Mildly to moderately decreased 45 - 59 mL/min/1.73m2 Moderately to severely decreased 30 - 44 mL/min/1.73m2 Severely decreased 15 - 29 mL/min/1.73m2 Kidney Failure < 15 mL/min/1.73m2 *Relative to young adult level Estimated glomerular filtration rate is determined by the 2020 CKD-EPI equation recommended by the National Kidney Foundation (A Unifying Approach to GFR Estimation: Recommendations of the NKF-ASK Task Force on Reassessing the Inclusion of Race in Diagnosing Kidney Disease, JASN 2020). The CKD-EPI equation should not be used for patients with unstable renal function and has not been validated in children and those over 70. Current interpretive data was last reviewed 2021. Blood 04/28/2025 10:1 8 PM CDT 04/28/2025 11:17 PM CDT Lisa Humphreys NP LAB BLOOD ORDERABLES Lexis l Result [facility] One [facility] Department [place] [address] * (ABNORMAL) CBC without differential (04/28/2025 10:18 PM CDT) WBC 6.30 3.80 - 9.90 K/cumm Hgb 8.7(L) 11.9 - 15.5 g/dL [facility] Hct 26.6(L) 35.6 - 45.5 % [facility] Plt 378 150 - 400 K/cumm [facility] MPV 8.9(L) 9.1 - 12.3 fL [facility] RBC 3.20(L) 3.90 - 5.20 M/cumm [facility] MCV 83.1 81.3 - 96.4 fL [facility] MCH 27.2 27.1 - 33.3 pg [facility] MCHC 32.7 32.3 - 35.7 g/dL [facility] RDW CV 16.6(H) 11.1 - 14.9 % [facility] RDW SD 49.1(H) 35.7 - 48.1 fL [facility] NRBC abs 0.00 0.00 - 0.01 K/cumm [facility] Blood 04/28/2025 10:1 8 PM CDT 04/28/2025 10:53 PM CDT Lisa Humphreys NP LAB BLOOD ORDERABLES Lexis l Result [facility] One [facility] Department [place] [address] * (ABNORMAL) Basic metabolic panel (04/28/2025 10:18 PM CDT) Sodium 140 135 - 145 mmol/L Potassium, pl 3.0(L) 3.3 - 4.9 mmol/L [facility] Chloride 104 97 - 110 mmol/L [facility] CO2 28 22 - 32 mmol/L [facility] Anion gap 8 2 - 15 mmol/L [facility] BUN 3(L) 6 - 25 mg/dL [facility] Creatinine 0.39(L) 0.60 - 1.10 mg/dL [facility] Glucose 99 70 - 199 mg/dL [facility] Comment: Interpretive Data Fasting glucose >/= 126 mg/dl is diagnostic for diabetes. Fasting is defined as no caloric intake for at least 8 hours. Fasting glucose between 100 mg/dl to 125 mg/dl is diagnostic of prediabetes. In a patient with classic symptoms of hyperglycemia or hyperglycemic crisis, a random glucose >/= 200 mg/dl is diagnostic for diabetes. In the absence of unequivocal hyperglycemia, results should be confirmed by repeat testing. The classification and Diagnosis of Diabetes Diabetes Care 202; 46: S19-S40. Current interpretive data was last revised 2022. Calcium 8.1(L) 8.5 - 10.3 mg/dL [facility] Blood 04/28/2025 10:1 8 PM CDT 04/28/2025 11:17 PM CDT us Lisa Humphreys NP LAB BLOOD ORDERABLES Lexis l Result Performing Organization Address City/[facility]/ZIP Co de Phone Number [facility] Department [place] [address] * Check Sample (04/28/2025 2:33 AM CDT) ABO Rh O Negative [facility] OTHER 04/28/2025 2:33 AM CDT 04/28/2025 3:18 AM CDT Jacey Arroyo MD LAB BLOOD ORDERABLES Final R esult Performing Organization Address [facility] Co de Phone Number [phone] [place] [address] [facility] * eGFR (04/28/2025 1:39 AM CDT) eGFR >90 >=60 mL/min/1. 73 m2 Comment: Interpretive Data Reference Interval Normal >/= 90 mL/min/1.73m2 Mildly decreased* 60 - 89 mL/min/1.73m2 Mildly to moderately decreased 45 - 59 mL/min/1.73m2 Moderately to severely decreased 30 - 44 mL/min/1.73m2 Severely decreased 15 - 29 mL/min/1.73m2 Kidney Failure < 15 mL/min/1.73m2 *Relative to young adult level Estimated glomerular filtration rate is determined by the 2020 CKD-EPI equation recommended by the National Kidney Foundation (A Unifying Approach to GFR Estimation: Recommendations of the NKF-ASK Task Force on Reassessing the Inclusion of Race in Diagnosing Kidney Disease, JASN 2020). The CKD-EPI equation should not be used for patients with unstable renal function and has not been validated in children and those over 70. Current interpretive data was last reviewed 2021. Blood 04/28/2025 1:39 AM CDT 04/28/2025 2:11 AM CDT us Krishna Cast MD LAB BLOOD ORDERABLES Final Result [facility] One [facility] Department [place] [address] * (ABNORMAL) Differential, auto (04/28/2025 1:39 AM CDT) Neutrophil abs 3.64 1.50 - 6.50 K/cumm Imm gran abs 0.06 0.00 - 0.10 K/cumm [facility] Lymphocyte abs 2.17 0.80 - 3.30 K/cumm [facility] Monocyte abs 1.18(H) 0.20 - 0.80 K/cumm [facility] Eosinophil abs 0.10 0.00 - 0.50 K/cumm [facility] Basophil abs 0.04 0.00 - 0.10 K[facility]cumm [facility] Neutrophil pct 50.6 % [facility] Comment: Interpretive Data Percent cell count reference ranges are not reported, since discordance with absolute values may lead to misinterpretation of CBC data. Current Interpretive Data was last revised on 2018. Imm gran pct 0.8 % [facility] Comment: Interpretive Data Percent cell count reference ranges are not reported, since discordance with absolute values may lead to misinterpretation of CBC data. Current Interpretive Data was last revised on 2018. Lymphocyte pct 30.2 % [facility] Comment: Interpretive Data Percent cell count reference ranges are not reported, since discordance with absolute values may lead to misinterpretation of CBC data. Current Interpretive Data was last revised on 2018. Monocyte pct 16.4 % [facility] Comment: Interpretive Data Percent cell count reference ranges are not reported, since discordance with absolute values may lead to misinterpretation of CBC data. Current Interpretive Data was last revised on 2018. Eosinophil pct 1.4 % [facility] Comment: Interpretive Data Percent cell count reference ranges are not reported, since discordance with absolute values may lead to misinterpretation of CBC data. Current Interpretive Data was last revised on 2018. Basophil pct 0.6 % [facility] Comment: Interpretive Data Percent cell count reference ranges are not reported, since discordance with absolute values may lead to misinterpretation of CBC data. Current Interpretive Data was last revised on 2018. Blood 04/28/2025 1:39 AM CDT 04/28/2025 2:11 AM CDT Krishna Cast MD LAB BLOOD ORDERABLES Final Result Performing Organization Address [facility] Co de Phone Number [phone] [email or web address] [place] [address] * (ABNORMAL) CBC with auto differential (04/28/2025 1:39 AM CDT) WBC 7.19 3.80 - 9.90 K/cumm Hgb 8.5(L) 11.9 - 15.5 g/dL [facility] Hct 27.6(L) 35.6 - 45.5 % [facility] Plt 376 150 - 400 K/cumm [facility] MPV 8.9(L) 9.1 - 12.3 fL [facility] RBC 3.20(L) 3.90 - 5.20 M/cumm [facility] MCV 86.3 81.3 - 96.4 fL [facility] MCH 26.6(L) 27.1 - 33.3 pg [facility] MCHC 30.8(L) 32.3 - 35.7 g/dL [facility] RDW CV 16.7(H) 11.1 - 14.9 % [facility] RDW SD 51.3(H) 35.7 - 48.1 fL [facility] NRBC abs 0.00 0.00 - 0.01 K/cumm [facility] Blood 04/28/2025 1:39 AM CDT 04/28/2025 2:11 AM CDT Krishna Cast MD LAB BLOOD ORDERABLES Final Result Performing Organization Address City/[facility]/ZIP Co de Phone Number [facility] Department [email or web address] [address] * aPTT (04/28/2025 1:39 AM CDT) aPTT 31 28 - 38 sec Comment: Interpretive Data Heparin therapeutic range: 66.0 - 100.0 seconds. Range based on correlation with therapeutic heparin activity range of 0.3 - 0.7 Units/mL. Current interpretive data was last revised on 2023. Blood 04/28/2025 1:39 AM CDT 04/28/2025 2:13 AM CDT Krishna Cast MD LAB BLOOD ORDERABLES Final Result Performing Organization Address [facility] Co de Phone Number [facility] [email or web address] [address] * Protime-INR (04/28/2025 1:39 AM CDT) Pathologist [facility] PT 12.8 9.7 - 13.0 sec INR 1.18 0.90 - 1.20 [facility] Comment: Interpretive data Oral anticoagulant therapeutic ranges: Venous thromboembolism prophylaxis or treatment: 2.0-3.0 CARDIOLOGY Standard range: 2.0-3.0 High-intensity range: 2.5-3.5 Refer to indication-specific guidelines for appropriate target ranges for prosthetic heart valve replacement. Current interpretive data was last revised on 2019. Blood 04/28/2025 1:39 AM CDT 04/28/2025 2:13 AM CDT Krishna Cast MD LAB BLOOD ORDERABLES Final Result Performing Organization Address City/[facility] Co de Phone Number [facility] [email or web address] [address] * Type and screen (04/28/2025 1:39 AM CDT) ABO Rh O Negative Nikhil, indirect Negative [facility] Blood 04/28/2025 1:39 AM CDT 04/28/2025 2:11 AM CDT Narrative [facility] - 04/28/2025 2:58 AM CDT Has the patient had Daratumumab or Isatuximab in the past 6 months?->Unknown Krishna Cast MD LAB BLOOD BANK TEST O RDERABLES Final Result Performing Organization Address City/[facility] Co de Phone Number [facility] [email or web address] [address] * (ABNORMAL) Phosphorus (04/28/2025 1:39 AM CDT) Pathologist [facility] Phosphorus, pl 1.8(L) 2.3 - 4.5 mg/dL Blood 04/28/2025 1:39 AM CDT 04/28/2025 2:11 AM CDT Krishna Cast MD LAB BLOOD ORDERABLES Final Result Performing Organization Address [facility] Co de Phone Number [facility] [email or web address] [address] * Magnesium (04/28/2025 1:39 AM CDT) Pathologist [facility] Magnesium 2.0 1.4 - 2.5 mg/dL Blood 04/28/2025 1:39 AM CDT 04/28/2025 2:11 AM CDT Krishna Cast MD LAB BLOOD ORDERABLES Final Result Performing Organization Address City/[facility] [place] [address] * (ABNORMAL) Basic metabolic panel (04/28/2025 1:39 AM CDT) Sodium 139 135 - 145 mmol/L Potassium, pl 3.5 3.3 - 4.9 mmol/L [facility] Chloride 105 97 - 110 mmol/L [facility] CO2 25 22 - 32 mmol/L [facility] Anion gap 9 2 - 15 mmol/L [facility] BUN 7 6 - 25 mg/dL [facility] Creatinine 0.43(L) 0.60 - 1.10 mg/dL [facility] Glucose 100 70 - 199 mg/dL [facility] Comment: Interpretive Data Fasting glucose >/= 126 mg/dl is diagnostic for diabetes. Fasting is defined as no caloric intake for at least 8 hours. Fasting glucose between 100 mg/dl to 125 mg/dl is diagnostic of prediabetes. In a patient with classic symptoms of hyperglycemia or hyperglycemic crisis, a random glucose >/= 200 mg/dl is diagnostic for diabetes. In the absence of unequivocal hyperglycemia, results should be confirmed by repeat testing. The classification and Diagnosis of Diabetes Diabetes Care 2021; 46: S19-S40. Current interpretive data was last revised 2022. Calcium 8.2(L) 8.5 - 10.3 mg/dL [facility] Blood 04/28/2025 1:39 AM CDT 04/28/2025 2:11 AM CDT us Krishna Cast MD LAB BLOOD ORDERABLES Final Result [facility] [place] [address] * CT Body Outside Consult (04/28/2025 1:21 AM CDT) Anatomical Region Laterality Modality Body N/A Computed Tomogra phy 04/28/2025 7:45 AM CDT Impressions 04/28/2025 7:45 AM CDT 1. 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 No evidence of gross free intraperitoneal fluid or pneumoperitoneum. 2. Minimal intrahepatic biliary duct dilation without definite obstructing stone or mass which is nonspecific. An MRCP could be considered for further evaluation. 3. Minimally complex large left renal cyst with thin septation (Bosniak II cyst). The findings, conclusions and recommendations within this report do not replace the initial findings, conclusions and recommendations made at the facility where the study was performed based upon the imaging and clinical condition at that time. Comparison with the prior report and clinical history is necessary. The provided images may or may not represent the [place] source data set and thus may contain changes that may lower the accuracy of this second-opinion interpretation. Electronically signed by: Ramana Becker M.D. Narrative 04/28/2025 7:45 AM CDT EXAMINATION: RADIOLOGY CONSULTATION ON OUTSIDE IMAGING STUDY STUDY INITIALLY PERFORMED: 04/25/2025 at [facility]. TYPE OF STUDY: Multiple CT images of the abdomen and pelvis with contrast are provided at the time of this interpretation. CONTRAST ROUTE: Contrast was administered via the intravenous route. The protocol was adequate to address the clinical question. The outside final report was not available at the time of this second opinion interpretation. TYPE OF CONSULTATION: Consult on outside imaging study with images submitted through Outside Image Sharing Service DATE OF CONSULTATION: 04/28/2025 7:30 AM HISTORY: Concern for diverticular abscess. COMPARISON: None available. FINDINGS: Within the lower chest, there is no consolidation, pleural effusion, pneumothorax within the [id number]. The imaged heart is normal in size without pericardial effusion within the knmas-zx-qggy. There is minimal intrahepatic biliary duct dilation without definite obstructing stone or mass which is nonspecific. A liver cyst and additional too small to characterize hypoattenuating liver lesions are noted. The spleen, pancreas, and adrenal glands are normal. Bilateral renal cysts are present, including a large minimally complex septated left renal cyst. There is no hydronephrosis. There is extensive thickening and fat stranding of the sigmoid colon with a large abscess cavity located in the posterior right pelvis. There is an apparent fistula tract extending from the cavity towards the right posterior pelvic wall (seen for example at table position -371.3). In addition, fluid is seen within the endometrial canal and gas is seen within the vaginal cuff concerning for a colovaginal fistula. No gross free intraperineal fluid or pneumoperitoneum is seen. There is no evidence of bowel obstruction. The abdominal aorta is normal in caliber with moderate atherosclerotic calcification. No pathologically enlarged intra-abdominal or intrapelvic lymph nodes are identified. There is an age indeterminate moderate compression deformity of L2. Mild grade 1 anterolisthesis of L5 on S1 is noted. Procedure Note Ramana Becker MD PhD - 04/28/2025 EXAMINATION: RADIOLOGY CONSULTATION ON OUTSIDE IMAGING STUDY STUDY INITIALLY PERFORMED: 04/25/2025 at [facility]. TYPE OF STUDY: Multiple CT images of the abdomen and pelvis with contrast are provided at the time of this interpretation. CONTRAST ROUTE: Contrast was administered via the intravenous route. The protocol was adequate to address the clinical question. The outside final report was not available at the time of this second opinion interpretation. TYPE OF CONSULTATION: Consult on outside imaging study with images submitted through Outside Image Sharing Service DATE OF CONSULTATION: 04/28/2025 7:30 AM HISTORY: Concern for diverticular abscess. COMPARISON: None available. FINDINGS: Within the lower chest, there is no consolidation, pleural effusion, pneumothorax within the qgxit-fy-[id number]. The imaged heart is normal in size without pericardial effusion within the uqxet-sg-lxty. There is minimal intrahepatic biliary duct dilation without definite obstructing stone or mass which is nonspecific. A liver cyst and additional too small to characterize hypoattenuating liver lesions are noted. The spleen, pancreas, and adrenal glands are normal. Bilateral renal cysts are present, including a large minimally complex septated left renal cyst. There is no hydronephrosis. There is extensive thickening and fat stranding of the sigmoid colon with a large abscess cavity located in the posterior right pelvis. There is an apparent fistula tract extending from the cavity towards the right posterior pelvic wall (seen for example at table position -371.3). In addition, fluid is seen within the endometrial canal and gas is seen within the vaginal cuff concerning for a colovaginal fistula. No gross free intraperineal fluid or pneumoperitoneum is seen. There is no evidence of bowel obstruction. The abdominal aorta is normal in caliber with moderate atherosclerotic calcification. No pathologically enlarged intra-abdominal or intrapelvic lymph nodes are identified. There is an age indeterminate moderate compression deformity of L2. Mild grade 1 anterolisthesis of L5 on S1 is noted. IMPRESSION: 1. 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 No evidence of gross free intraperitoneal fluid or pneumoperitoneum. 2. Minimal intrahepatic biliary duct dilation without definite obstructing stone or mass which is nonspecific. An MRCP could be considered for further evaluation. 3. Minimally complex large left renal cyst with thin septation (Bosniak II cyst). The findings, conclusions and recommendations within this report do not replace the initial findings, conclusions and recommendations made at the facility where the study was performed based upon the imaging and clinical condition at that time. Comparison with the prior report and clinical history is necessary. The provided images may or may not represent the [place] source data set and thus may contain changes that may lower the accuracy of this second-opinion interpretation. Electronically signed by: Ramana Becker M.D. Jacey Arroyo MD IMG CT PROCEDURES Final Resu lt from Last 3 Months Insurance [employer] MEDICARE [employer]AGE [facility] MEDICARE Address: [place] [id number] [employer] MED[employer] ADVANTAGE [facility] MEDICARE Address: [address] [address] Advance Directives For more information, please contact: [phone] * Full Code (Latest Code Status on File) Date Activated Date Inactivated Comments 04/28/2025 12:57 AM 05/01/2025 10:29 PM Care Teams Basketball Player Relationship Specialty Start Date End Date Ricky Nevarez DO [address] [facility] [address] [place] [address] PCP - General Internal Medicine 04/28/25
--- OUTSIDE RECORDS SUMMARY | 2025-05-15 15:17 | XMS_ITS | Encounter Summary ---
Author Organization [facility] Address [address] [place] [address] Care Team Providers Care Plug Assembler Name Role Phone Rciky Nevarez DO Primary Care Provider [phone] Encounter Details Date Type Department Care Team (Late Contact Info) Description 01/13/2017 Chart Note [facility] Radiation Therapy [address] [place] [address] [place] [address] [place] [address] Social History Tobacco Use Types [...] Description 06/22/2025 11:00 AM CDT Office Visit [facility] Oncology and Hematology - [place] [address] [facility] [address] [place] [address] Samir Brito MD [address] [facility] [address] [place] [address] documented as of this encounter Visit Diagnoses Not on filedocumented in this encounter Care Teams Plug Assembler Relationship Specialty Start Date End Date Ricky Nevarez DO [address] [facility] [address] [facility] [address] [place] [address] PCP - General Internal Medicine 12/19/24 documented as of this encounter
--- OUTSIDE RECORDS SUMMARY | 2025-05-15 15:17 | XMS_ITS | Clinical Summary ---
Author Organization [facility] Address [address] [facility] [place] [address] Care Team Providers Care Manager Alliance Name Role Phone Ricky Nevarez DO Primary [...] Comments Blood Pressure 133/77 12/19/2024 11:26 AM DIRECTOR OF VIDEO ANALYTICS Pulse 66 12/19/2024 11:23 AM DIRECTOR OF VIDEO ANALYTICS Temperature 36.1 C (96.9 F) 12/19/2024 11:23 AM DIRECTOR OF VIDEO ANALYTICS Respiratory Rate 16 12/19/2024 11:23 AM DIRECTOR OF VIDEO ANALYTICS Oxygen Saturation 96% 12/19/2024 11:23 AM DIRECTOR OF VIDEO ANALYTICS Inhaled Oxygen Concentration - - Weight 60.6 kg (133 lb 9.6 oz) 12/19/2024 11:23 AM DIRECTOR OF VIDEO ANALYTICS Height 160 cm (5' 3) 07/07/2022 2:58 PM CDT Body Mass Index 23.67 07/07/2022 2:58 PM CDT Plan of Treatment Upcoming Encounters Date Type Department Care Team (Late st Contact Info) Description 06/22/2025 11:00 AM CDT Office Visit [facility] Oncology and Hematology - [place] [address] [facility] [address] [place] [address] Samir Brito MD [address] [facility] [address] [place] [address] Health Maintenance Due Date Last Done Comments DTAP/TDAP/TD VACCINES (1 - Tdap) 1967 PNEUMOCOCCAL VACCINE 50+ YEA RS (1 of 1 - PCV) 1998 ZOSTER VACCINE (1 of 2) 1998 RSV VACCINE (60+ or ) (1 - 1-dose 75+ series) 2023 INFLUENZA VACCINE (#1) 2025 OSTEOPOROSIS SCREENING 02/22/2026 , 10/28/2017, 07/23/2016 Procedures [...] Most Recently Relevant to Health Maintenance Insurance [facility] [id number] Care Teams Manager Alliance Relationship Specialty Start Date End Date Ricky Nevarez DO [address] [facility] [address] [place] [address] PCP - General Internal Medicine 12/19/24
--- OUTSIDE RECORDS SUMMARY | 2025-05-15 15:17 | XMS_ITS | Continuity of Care Document ---
Author Organization [facility] Address [address] [place] [address] [address] [place] [address] Phone Care Team Providers Care Melter Supervisor Oxygen Furnace Name Role Phone Jarred Alvarado Unavailable Unavailable Procedures Procedure Date Eye Exam & Treatment Refraction Progressive Lens, Hi Index Anti-reflective Coating Frames Deluxe Tax - Medical Eye Exam & Treatment Refraction Eye Exam & Treatment Refraction Advance Directives Directive Yes / No Effective Date File Name No Information Encounters Encounter Description Practice Location Reason(s) For Visit Diagnoses Date Provider Providers Copied on Encounter [facility], [address] [place] [address] [facility], [place], [place], [id number], [place] tel:[phone] [facility] No Information 0-201 0 Jenny Stern. [address] [facility] [facility] , [address], [place], [address], [place]. tel:[phone] [facility], [address] [place] [address] [facility] [address], [place], [place], [id number], [place] tel:[phone] [facility] No Information Oct-0 3-200 8 [facility] . [address] [place] [address], [address], [place], [place], [id number], [place]. tel:[phone] Referring Provider: Jarred Pizarro [address], [place], [address]. tel:[phone] aceves Provider: Kelley Horvath, [address] [place], [place], [facility]. tel:[phone] [facility], [address], [place], [place], [id number], tel:[phone] [address] [facility] No Information Oct-2 7-200 8 [employer] [address]. [address] [facility] , [address], [place], [place], [facility], . tel:[phone] [facility], [address], [place], [place], [id number], tel:[phone] [facility] No Information Apr-2 0-200 7 Doikeshia Stern. [address] [facility] , [address], [place], [place], [facility], . tel:[phone] Family History Family Member Type Diagnosis Age [...]
--- OUTSIDE RECORDS SUMMARY | 2025-05-15 15:17 | XMS_ITS | Referral Summary ---
Author Organization [facility] Address [address] [place] [address] Care Team Providers Care Manager Event Name Role Phone Ricky Nevarez DO Primary Care Provider [phone] Encounters Date Type Department Care Team Description 05/08/2025 Telephone [facility] Surgery [address] [place] [address] Office [address] [place] [phone] Mis Steen RN 05/01/2025 Orders Only [facility] Surgery [address] [place] [address] Office [address] [place] [phone] Andres Oliver MD Colonic diverticular abscess (Primary Dx) 04/28/2025 12:30 AM CDT - 05/01/2025 6:29 PM CDT Hospital Encounter [facility] [address] [place] [address] Jacey Arroyo MD Silviera, Matthew Leon, MD Gluteal abscess (Primary Dx) Discharge Disposition: Discharge to home or self care from Last 3 Months Allergies Active Allergy Reactions Criticality Noted Date [...] Date Diagnosed Date Colonic diverticular abscess 04/28/2025 Social History Tobacco Use Types Packs/Day Years [...] on file Legal Sex Female 4:16 AM [employer]EL [employer] Gender Identity Not on file Sexual Orientation [...] 04/28/2025 12:55 AM CDT Plan of Treatment Not on file Procedures Procedure Name Priority Date/Time Associated Diagnosis [...] Fraire MD Authorized by: Joesph Fraire MD Austin Protocol: RN Notified of Procedure: yes Informed consent: Risks, benefits, alternatives discussed and patient/in store marketing representative/guardian agrees and accepts Patient's stated name/ [...] and matched to patient identification: n/a Responsible green party for transporting specimen(s) to lab determined: n/a Joesph Fraire MD IN CLINIC/BEDSIDE ORDERABLES Fin al Result * eGFR (04/30/2025 11:15 PM CDT) [facility] eGFR >90 >=60 mL/min/1. 73 m2 [...] us Andres Oliver MD LAB BLOOD ORDERABLES nal Result [facility] One [facility] Department [place] [address] * (ABNORMAL) CBC without differential (04/30/2025 11:15 PM CDT) [facility] WBC 8.11 3.80 - 9.90 K/cumm Hgb 8.7(L) 11.9 - 15.5 g/dL [facility] Hct 27.2(L) 35.6 - 45.5 % [facility] Plt 420(H) 150 - 400 K/cumm [facility] MPV 8.8(L) 9.1 - 12.3 fL [facility] RBC 3.25(L) 3.90 - 5.20 M/cumm [facility] MCV 83.7 81.3 - 96.4 fL [facility] MCH 26.8(L) 27.1 - 33.3 pg [facility] MCHC 32.0(L) 32.3 - 35.7 g/dL [facility] RDW CV 16.7(H) 11.1 - 14.9 % [facility] RDW SD 50.4(H) 35.7 - 48.1 fL [facility] NRBC abs 0.00 0.00 - 0.01 K/cumm [facility] Blood 04/30/2025 11:1 5 PM CDT 05/01/2025 12:22 AM CDT Andres Oliver MD LAB BLOOD ORDERABLES Fi nal Result Performing Organization Address City/[facility] Co de Phone Number [facility] Department [place] [address] * Phosphorus (04/30/2025 11:15 PM CDT) Phosphorus, pl 2.5 2.3 - 4.5 mg/dL Blood 04/30/2025 11:1 5 PM CDT 05/01/2025 12:22 AM CDT Result [facility] Andres Oliver MD LAB BLOOD ORDERABLES Fi nal Result Performing Organization Address City/[facility] Co de Phone Number [facility] Department [place] [address] * Magnesium (04/30/2025 11:15 PM CDT) Magnesium 2.1 1.4 - 2.5 mg/dL Blood 04/30/2025 11:1 5 PM CDT 05/01/2025 12:22 AM CDT Result [facility] Andres Oliver MD LAB BLOOD ORDERABLES Fi nal Result Performing Organization Address City/[facility] Co de Phone Number [facility] Department [place] [address] * (ABNORMAL) Basic metabolic panel (04/30/2025 11:15 PM CDT) [facility] Sodium 140 135 - 145 mmol/L Potassium, pl 3.6 3.3 - 4.9 mmol/L [facility] Chloride 104 97 - 110 mmol/L [facility] CO2 28 22 - 32 mmol/L [facility] Anion gap 8 2 - 15 mmol/L [facility] BUN 7 6 - 25 mg/dL [facility] Creatinine 0.44(L) 0.60 - 1.10 mg/dL [facility] Glucose 109 70 - 199 mg/dL [facility] Comment: Interpretive Data Fasting glucose >/= 126 [...] 2022. Calcium 8.0(L) 8.5 - 10.3 mg/dL [facility] Blood 04/30/2025 11:1 5 PM CDT 05/01/2025 12:22 AM CDT us Andres Oliver MD LAB BLOOD ORDERABLES Fi nal Result [facility] One [facility] Department [place] [address] * (ABNORMAL) CBC without differential (04/29/2025 9:35 PM CDT) [facility] WBC 6.25 3.80 - 9.90 K/cumm Hgb 8.3(L) 11.9 - 15.5 g/dL [facility] Hct 25.7(L) 35.6 - 45.5 % [facility] Plt 349 150 - 400 K/cumm [facility] MPV 8.7(L) 9.1 - 12.3 fL [facility] RBC 3.06(L) 3.90 - 5.20 M/cumm [facility] MCV 84.0 81.3 - 96.4 fL [facility] MCH 27.1 27.1 - 33.3 pg [facility] MCHC 32.3 32.3 - 35.7 g/dL [facility] RDW CV 16.9(H) 11.1 - 14.9 % [facility] RDW SD 50.7(H) 35.7 - 48.1 fL [facility] NRBC abs 0.00 0.00 - 0.01 K/cumm [facility] Blood 04/29/2025 9:35 PM CDT 04/29/2025 10:03 PM CDT Andres Oliver MD LAB BLOOD ORDERABLES nal Result [facility] One [facility] Department [place] [address] * eGFR (04/29/2025 9:34 PM CDT) eGFR >90 >=60 mL/min/1. 73 [...] of Race in Diagnosing Kidney Disease, JASN 202). The CKD-EPI equation should not be used for patients with unstable renal function and has not been validated in children and those over 70. Current interpretive data was last reviewed 2021. Blood 04/29/2025 9:34 PM CDT 04/29/2025 10:03 PM CDT Andres Oliver MD LAB BLOOD ORDERABLES Fi nal Result Performing Organization Address [facility] Co de Phone Number [facility] [place] [address] * Phosphorus (04/29/2025 9:34 PM CDT) [facility] Phosphorus, pl 2.6 2.3 - 4.5 mg/dL Blood 04/29/2025 9:34 PM CDT 04/29/2025 10:03 PM CDT Andres Oliver MD LAB BLOOD ORDERABLES Fi nal Result Performing Organization Address [facility] Co de Phone Number [facility] [place] [address] * Magnesium (04/29/2025 9:34 PM CDT) [facility] Magnesium 1.6 1.4 - 2.5 mg/dL Blood 04/29/2025 9:34 PM CDT 04/29/2025 10:03 PM CDT Andres Oliver MD LAB BLOOD ORDERABLES Fi nal Result Performing Organization Address [facility] Co de Phone Number [facility] [place] [address] * (ABNORMAL) Basic metabolic panel (04/29/2025 9:34 PM CDT) [facility] Sodium 139 135 - 145 mmol/L Potassium, pl 3.1(L) 3.3 - 4.9 mmol/L [facility] Chloride 104 97 - 110 mmol/L [facility] CO2 28 22 - 32 mmol/L [facility] Anion gap 7 2 - 15 mmol/L [facility] BUN 5(L) 6 - 25 mg/dL [facility] Creatinine 0.41(L) 0.60 - 1.10 mg/dL [facility] Glucose 122 70 - 199 mg/dL [facility] Comment: Interpretive Data Fasting glucose >/= 126 [...] 2022. Calcium 8.2(L) 8.5 - 10.3 mg/dL [facility] Blood 04/29/2025 9:34 PM CDT 04/29/2025 10:03 PM CDT us Andres Oliver MD LAB BLOOD ORDERABLES Fi nal Result [facility] One [facility] Department [place] [address] * eGFR (04/28/2025 10:18 PM CDT) eGFR >90 >=60 mL/min/1. 73 [...] Inclusion of Race in Diagnosing Kidney Disease, ELVIESN 2020). The CKD-EPI equation should not be used for patients with unstable renal function and has not been validated in children and those over 70. Current interpretive data was last reviewed 2021. Blood 04/28/2025 10:1 8 PM CDT 04/28/2025 11:17 PM CDT Lisa Humphreys [employer] LAB BLOOD ORDERABLES Lexis l Result Performing Organization Address City/[facility]/ZIP Co de Phone Number [facility] Department [place] [address] * (ABNORMAL) CBC without differential (04/28/2025 10:18 PM CDT) WBC 6.30 3.80 - 9.90 K/cumm Hgb 8.7(L) 11.9 - 15.5 g/dL [facility] Hct 26.6(L) 35.6 - 45.5 % [facility] Plt 378 150 - 400 K/cumm [facility] MPV 8.9(L) 9.1 - 12.3 fL [facility] RBC 3.20(L) 3.90 - 5.20 M/cumm [facility] MCV 83.1 81.3 - 96.4 fL [facility] MCH 27.2 27.1 - 33.3 pg [facility] MCHC 32.7 32.3 - 35.7 g/dL [facility] RDW CV 16.6(H) 11.1 - 14.9 % [facility] RDW SD 49.1(H) 35.7 - 48.1 fL [facility] NRBC abs 0.00 0.00 - 0.01 K/cumm [facility] Blood 04/28/2025 10:1 8 PM CDT 04/28/2025 10:53 PM CDT Lisa Humphreys [employer] LAB BLOOD ORDERABLES Lexis l Result Performing Organization Address City/[facility]/ZIP Co de Phone Number [facility] Department [place] [address] * (ABNORMAL) Basic metabolic panel (04/28/2025 10:18 PM CDT) Pathologist [facility] Sodium 140 135 - 145 mmol/L Potassium, pl 3.0(L) 3.3 - 4.9 mmol/L [facility] Chloride 104 97 - 110 mmol/L [facility] CO2 28 22 - 32 mmol/L [facility] Anion gap 8 2 - 15 mmol/L [facility] BUN 3(L) 6 - 25 mg/dL [facility] Creatinine 0.39(L) 0.60 - 1.10 mg/dL [facility] Glucose 99 70 - 199 mg/dL [facility] Comment: Interpretive Data Fasting glucose >/= 126 [...] 2022. Calcium 8.1(L) 8.5 - 10.3 mg/dL [facility] Blood 04/28/2025 10:1 8 PM CDT 04/28/2025 11:17 PM CDT Lisa Humphreys NP LAB BLOOD ORDERABLES Lexis l Result [facility] Department [place] [address] * Check Sample (04/28/2025 2:33 AM CDT) Pathologist [facility] ABO Rh O Negative [facility] HCLL OTHER 04/28/2025 2:33 AM CDT 04/28/2025 3:18 AM CDT us Jacey Arroyo MD LAB BLOOD ORDERABLES Final R esult Performing Organization Address City/[facility] Co de Phone Number [facility] Department [place] [address] [facility] * eGFR (04/28/2025 1:39 AM CDT) Pathologist [facility] eGFR >90 >=60 mL/min/1. 73 m2 Comment: [...] Cast MD LAB BLOOD ORDERABLES Final Result [facility] One [facility] Department [place] [address] * (ABNORMAL) Differential, auto (04/28/2025 1:39 AM CDT) Pathologist [facility] Neutrophil abs 3.64 1.50 - 6.50 K/cumm Imm gran abs 0.06 0.00 - 0.10 K/cumm [facility] Lymphocyte abs 2.17 0.80 - 3.30 K/cumm [facility] Monocyte abs 1.18(H) 0.20 - 0.80 K/cumm [facility] Eosinophil abs 0.10 0.00 - 0.50 K/cumm [facility] Basophil abs 0.04 0.00 - 0.10 K/cumm [facility] Neutrophil pct 50.6 % [facility] Comment: Interpretive Data Percent cell count reference ranges are not reported, since discordance with absolute values may lead to misinterpretation of CBC data. Current Interpretive Data was last revised on 2018. Imm gran pct 0.8 % [facility] Comment: Interpretive Data Percent cell count reference ranges are not reported, since discordance with absolute values may lead to misinterpretation of CBC data. Current Interpretive Data was last revised on 2018. Lymphocyte pct 30.2 % [facility] Comment: Interpretive Data Percent cell count reference ranges are not reported, since discordance with absolute values may lead to misinterpretation of CBC data. Current Interpretive Data was last revised on 2018. Monocyte pct 16.4 % [facility] Comment: Interpretive Data Percent cell count reference ranges are not reported, since discordance with absolute values may lead to misinterpretation of CBC data. Current Interpretive Data was last revised on 2018. Eosinophil pct 1.4 % [facility] Comment: Interpretive Data Percent cell count reference ranges are not reported, since discordance with absolute values may lead to misinterpretation of CBC data. Current Interpretive Data was last revised on 2018. Basophil pct 0.6 % [facility] Comment: Interpretive Data Percent cell count reference ranges are not reported, since discordance with absolute values may lead to misinterpretation of CBC data. Current Interpretive Data was last revised on 2018. Blood 04/28/2025 1:39 AM CDT 04/28/2025 2:11 AM CDT us Krishna Cast MD LAB BLOOD ORDERABLES Final Result [facility] One [facility] Department [place] [address] * (ABNORMAL) CBC with auto differential (04/28/2025 1:39 AM CDT) [facility] WBC 7.19 3.80 - 9.90 K/cumm Hgb 8.5(L) 11.9 - 15.5 g/dL [facility] Hct 27.6(L) 35.6 - 45.5 % [facility] Plt 376 150 - 400 K/cumm [facility] MPV 8.9(L) 9.1 - 12.3 fL [facility] RBC 3.20(L) 3.90 - 5.20 M/cumm [facility] MCV 86.3 81.3 - 96.4 fL [facility] MCH 26.6(L) 27.1 - 33.3 pg [facility] MCHC 30.8(L) 32.3 - 35.7 g/dL [facility] RDW CV 16.7(H) 11.1 - 14.9 % [facility] RDW SD 51.3(H) 35.7 - 48.1 fL [facility] NRBC abs 0.00 0.00 - 0.01 K/cumm [facility] Blood 04/28/2025 1:39 AM CDT 04/28/2025 2:11 AM CDT Krishna Cast MD LAB BLOOD ORDERABLES Final Result [facility] One [facility] [place] [address] * aPTT (04/28/2025 1:39 AM CDT) Pathologist [facility] aPTT 31 28 - 38 sec Comment: Interpretive Data Heparin therapeutic range: 66.0 - 100.0 seconds. Range based on correlation with therapeutic heparin activity range of 0.3 - 0.7 Units/mL. Current interpretive data was last revised on 2023. Blood 04/28/2025 1:39 AM CDT 04/28/2025 2:13 AM CDT Krishna Cast MD LAB BLOOD ORDERABLES Final Result Performing Organization Address [facility] Co de Phone Number [facility] [place] [address] * Protime-INR (04/28/2025 1:39 AM CDT) PT 12.8 9.7 - 13.0 sec INR 1.18 0.90 - 1.20 [facility] Comment: Interpretive data Oral anticoagulant therapeutic ranges: Venous thromboembolism prophylaxis or treatment: 2.0-3.0 CARDIOLOGY Standard range: 2.0-3.0 High-intensity range: 2.5-3.5 Refer to indication-specific guidelines for appropriate target ranges for prosthetic heart valve replacement. Current interpretive data was last revised on 2019. Blood 04/28/2025 1:39 AM CDT 04/28/2025 2:13 AM CDT Krishna Cast MD LAB BLOOD ORDERABLES Final Result Performing Organization Address [facility] [place] [address] * Type and screen (04/28/2025 1:39 AM CDT) ABO Rh O Negative Nikhil, indirect Negative [facility] Blood 04/28/2025 1:39 AM CDT 04/28/2025 2:11 AM CDT Narrative [facility] - 04/28/2025 2:58 AM CDT Has the patient had Daratumumab or Isatuximab in the past 6 months?->Unknown Krishna Cast MD LAB BLOOD BANK TEST O RDERABLES Final Result Performing Organization Address [facility] Co de Phone Number [facility] [place] [address] * (ABNORMAL) Phosphorus (04/28/2025 1:39 AM CDT) [facility] Phosphorus, pl 1.8(L) 2.3 - 4.5 mg/dL Blood 04/28/2025 1:39 AM CDT 04/28/2025 2:11 AM CDT Krishna Cast MD LAB BLOOD ORDERABLES Final Result Performing Organization Address City/[facility] Co de Phone Number [facility] [place] [address] * Magnesium (04/28/2025 1:39 AM CDT) [facility] Magnesium 2.0 1.4 - 2.5 mg/dL Blood 04/28/2025 1:39 AM CDT 04/28/2025 2:11 AM CDT Krishna Cast MD LAB BLOOD ORDERABLES Final Result Performing Organization Address [facility] de Phone Number [facility] [place] [address] * (ABNORMAL) Basic metabolic panel (04/28/2025 1:39 AM CDT) [facility] Sodium 139 135 - 145 mmol/L Potassium, pl 3.5 3.3 - 4.9 mmol/L [facility] Chloride 105 97 - 110 mmol/L [facility] CO2 25 22 - 32 mmol/L [facility] Anion gap 9 2 - 15 mmol/L [facility] BUN 7 6 - 25 mg/dL [facility] Creatinine 0.43(L) 0.60 - 1.10 mg/dL [facility] Glucose 100 70 - 199 mg/dL [facility] Comment: Interpretive Data Fasting glucose >/= 126 [...] 2022. Calcium 8.2(L) 8.5 - 10.3 mg/dL [facility] Blood 04/28/2025 1:39 AM CDT 04/28/2025 2:11 AM CDT us Krishna Cast MD LAB BLOOD ORDERABLES Final Result [facility] [place] [address] * CT Body Outside Consult (04/28/2025 1:21 [...] images may or may not represent the umkumiut source data set and thus may contain changes that may lower the accuracy of this second-opinion interpretation. Electronically signed by: Ramana Becker M.D. Narrative 04/28/2025 7:45 AM CDT EXAMINATION: RADIOLOGY CONSULTATION ON OUTSIDE IMAGING STUDY STUDY INITIALLY PERFORMED: 04/25/2025 at [facility]. TYPE OF STUDY: Multiple CT [...] no consolidation, pleural effusion, pneumothorax within the [id number]. The imaged heart is normal in size without pericardial effusion within the [id number]. There is minimal intrahepatic biliary duct dilation [...] IMAGING STUDY STUDY INITIALLY PERFORMED: 04/25/2025 at [facility]. TYPE OF STUDY: Multiple CT [...] no consolidation, pleural effusion, pneumothorax within the [id number]. The imaged heart is normal in size without pericardial effusion within the [id number]. There is minimal intrahepatic biliary duct dilation [...] images may or may not represent the umkumiut source data set and thus may contain changes that may lower the accuracy of this second-opinion interpretation. Electronically signed by: Ramana Becker M.D. Jacey Arroyo MD IMG CT PROCEDURES Final Resu lt from Last 3 Months Insurance [facility] Address: [address] [address] [employer] MEDICARE ADVANTAGE [facility] Address: [place] [phone] Advance Directives For more information, please contact: [phone] * Full Code (Latest Code Status on File) Date Activated Date Inactivated Comments 04/28/2025 12:57 AM 05/01/2025 10:29 PM Care Teams Manager Event Relationship Specialty Start Date End Date Ricky Nevarez DO [address] [place] [address] PCP - General Internal Medicine 04/28/25
--- OUTSIDE RECORDS SUMMARY | 2025-05-15 15:17 | XMS_ITS | Clinical Summary ---
Author Organization [facility] Address [address] [place] [address] Care Team Providers Care Loading Inspector Name Role Phone Kalyan Knutson DO Primary Care Provider [phone] Sandor Emmanuel MD Unavailable [phone] Source Comments [facility],non-owned Affiliates and Associated Physician Practices is amultiple site organization consisting of ambulatory clinics and hospital sitesin [place], [place], [place] and [place]. This disclosure is being madepursuant to the [...] fluticasone propionate (FLONASE) 50 MCG/ACT nasal spray [place] 2 Sprays into each nostril once daily Active triamcinolone (NASACORT ALLERGY 24HR) 55 MCG/ACT nasal inhaler [place] 1 [place] into each nostril once daily Active diclofenac [...] patient's age to complete this topic Insurance [facility] MANAGED MEDICARE ADV Care Teams Loading Inspector Relationship Specialty Start Date End Date Kalyan Knutson DO [address] [place], [place] [id number] PCP - General Internal Medicine 07/06/15 [place] [id number] [address] Orthopedic Surgery 07/06/15
== END 2025-05-15 15:13 | disposition home or self-care (01) ==
LOC: ANHIMG 15:13
PROVIDERS: PCP Internal Medicine; Visit Provider Internal Medicine Hematology & Oncology
DX: Z12.31 Encounter for screening mammogram for malignant neoplasm of breast (principal)
CPT/HCPCS: 77063; 77067

== ENCOUNTER 2025-05-17 11:05 | Outpatient (CLI) | payer MEDICARE, SELFPAY ==
--- NOTE | ~2025-05-17 | DEXA_ITS ---
Bone Density Report Name: JALEN LUEVANO Age: 75 Sex: Female Ethnicity: White Date of : 1950 Indication: monitoring treatment; height loss; cancer; Referring Provider: MARICEL GARCIA Study: Bone densitometry was performed. Exam Date: May 17, 2025 Accession number: [id number] Bone Density: Region BMD T-score Z-score Classification AP Spine(L1-L4) 1.216 1.5 4.1 Normal Femoral Neck (Left) 0.682 -1.5 0.7 Osteopenia Total Hip (Left) 0.920 -0.2 1.7 Normal Femoral Neck (Right) 0.751 -0.9 1.3 Normal Total Hip (Right) 0.864 -0.6 1.3 Normal Total Hip Mean 0.892 -0.4 1.5 Normal World Health Organization criteria for BMD impression classify patients as: Normal (T-score at or above -1.0), Osteopenia (T-score between -1.0 and -2.5), or Osteoporosis (T-score at or below -2.5). 10-year Fracture Risk: FRAX not reported because: Treated for osteoporosis Previous Exams: Region Exam Age BMD T-score BMD Change BMD Change Date g/cm2 vs Baseline vs Previous Total Hip(Left) 05/17/2025 75 0.920 -0.2 -0.018 (-1.9%) -0.018 (-1.9%) 02/25/2023 72 0.938 0.0 Total Hip(Right) 05/17/2025 75 0.864 -0.6 -0.006 (-0.7%) -0.006 (-0.7%) 02/25/2023 72 0.870 -0.6 *Denotes significance at 95% confidence level, LSC for Total Hip = 0.027 g/cm2 # Denotes dissimilar scan types or analysis methods Clinical Information Provided by Patient: Is being treated for osteoporosis Has used the following medications: Prolia (i.e. denosumab), Calcium Has the following medical conditions: Cancer Patient maximum height was 65.0 Menopause Age: 51 No regular weight bearing exercise Drinks caffeinated beverages Onset of menses at age 12 Number of children 2 Impression: The patient has low bone mass, based on the Left Femoral Neck T-score. No significant bone loss was observed. Discussion: PATIENT UNDER TREATMENT WITH NO SIGNIFICANT BMD LOSS SINCE LAST EXAM. In an untreated patient, BMD typically declines with age. A lack of decline or gain is usually a sign that treatment is efficacious and fracture risk is reduced. It is important to ask patients whether they are taking their medications and to encourage continued and appropriate compliance with their osteoporosis therapies to reduce fracture risk. It is also important to review their risk factors and encourage appropriate calcium and vitamin D intakes, exercise, fall prevention and other lifestyle measures. Follow-Up: Consider a repeat BMD and Vertebral Fracture Assessment (VFA) exam in 2 years or sooner if medically necessary, to reassess this patient's status. Reported by: BRENTON on 05/17/2025 11:44:00 AM. Reviewed, dictated and finalized at location A.
--- OUTSIDE RECORDS SUMMARY | 2025-05-17 11:10 | XMS_ITS | Clinical Summary ---
Author Organization [facility] Address [address] [place] [address] Care Team Providers Care Pantograph I Engraver Name Role Phone Kalyan Knutson DO Primary Care Provider [phone] Sandor Emmanuel MD Unavailable [phone] Source Comments [facility],non-owned Affiliates and Associated Physician Practices is amultiple site organization consisting of ambulatory clinics and hospital sitesin [place], [place]. This disclosure is being madepursuant to the Care Everywhere program and may not contain all information available regarding this patient. Last updated 18.[facility] Allergies No known active [...] fluticasone propionate (FLONASE) 50 MCG/ACT nasal spray [place] 2 Sprays into each nostril once daily Active triamcinolone (NASACORT ALLERGY 24HR) 55 MCG/ACT nasal inhaler Augusta 1 Augusta into each nostril once daily Active diclofenac [...] complete this topic Insurance [facility] MANAGED MEDICARE ADV Care Teams Pantograph I Engraver Relationship Specialty Start Date End Date Kalyan Knutson DO [address] [facility] [address] [place], [place] [phone] PCP - General Internal Medicine 07/06/15 [place] [address] [address] Orthopedic Surgery 07/06/15
--- OUTSIDE RECORDS SUMMARY | 2025-05-17 11:10 | XMS_ITS | Clinical Summary ---
Author Organization [facility] Address [address] [place] [address] Care Team Providers Care Neuropsychology Service Director Name Role Phone Ricky Nevarez DO Primary [...] Comments Blood Pressure 133/77 12/19/2024 11:26 AM LABELS MOLDER Pulse 66 12/19/2024 11:23 AM LABELS MOLDER Temperature 36.1 C (96.9 F) 12/19/2024 11:23 AM LABELS MOLDER Respiratory Rate 16 12/19/2024 11:23 AM LABELS MOLDER Oxygen Saturation 96% 12/19/2024 11:23 AM LABELS MOLDER Inhaled Oxygen Concentration - - Weight 60.6 kg (133 lb 9.6 oz) 12/19/2024 11:23 AM LABELS MOLDER Height 160 cm (5' 3) 07/07/2022 2:58 PM CDT Body Mass Index 23.67 07/07/2022 2:58 PM CDT Plan of Treatment Upcoming Encounters Date Type Department Care Team (Late st Contact Info) Description 06/22/2025 11:00 AM CDT Office Visit [facility] Oncology and Hematology - [place] [address] [address] [facility] [address] [place] [address] Samir Brito MD [address] [facility] [address] [place] [address] Health Maintenance Due Date Last Done Comments DTAP/TDAP/TD VACCINES (1 - Tdap) 1967 PNEUMOCOCCAL VACCINE 50+ YEA RS (1 of 1 - PCV) 1998 ZOSTER VACCINE (1 of 2) 1998 RSV VACCINE (60+ or ) (1 - 1-dose 75+ series) 2023 Medicare Advantage ([place]) Prev entative Visit/Annual Wellness Visit 11/09/2024 INFLUENZA VACCINE (#1) 2025 OSTEOPOROSIS SCREENING 02/22/2026 [...] Most Recently Relevant to Health Maintenance Insurance [facility] [id number] Care Teams Neuropsychology Service Director Relationship Specialty Start Date End Date Ricky Nevarez DO [address] [facility] [address] [place] [address] PCP - General Internal Medicine 12/19/24
--- OUTSIDE RECORDS SUMMARY | 2025-05-17 11:11 | XMS_ITS | Clinical Summary ---
Author Organization [facility] Address [address] [place] [address] Care Team Providers Care Director Food And Beverage Name Role Phone Ricky Nevarez DO Primary Care Provider [phone] Allergies Active Allergy Reactions Criticality Noted Date [...] Type Department Care Team Description 05/08/2025 Telephone [facility] Surgery [address] [place] [address] Medical Office Building [address] [place] [address] Mis Steen RN 05/01/2025 Orders Only [facility] Surgery [address] [facility] Medical Office Building [address] [place] [address] Andres Oliver MD Colonic diverticular abscess (Primary Dx) 04/28/2025 12:30 AM CDT - 05/01/2025 6:29 PM CDT Hospital Encounter [facility] [address] [place] [address] Jacey Arroyo MD Silviera, Matthew Leon, MD [...] on file 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 Gender Identity Not on file Sexual Orientation [...] Fraire MD Authorized by: Joesph Fraire MD [place] Protocol: RN Notified of Procedure: yes Informed consent: Risks, benefits, alternatives discussed and patient/brewery representative/guardian agrees and accepts Patient's stated name/ [...] and matched to patient identification: n/a Responsible libertarian for transporting specimen(s) to lab determined: n/a [...] LAB BLOOD ORDERABLES Fi nal Result [facility] [address] [facility] Department [place] [address] * (ABNORMAL) CBC without differential (04/30/2025 11:15 PM CDT) WBC 8.11 3.80 - 9.90 K/cumm Hgb 8.7(L) 11.9 - 15.5 g/dL [facility] Hct 27.2(L) 35.6 - 45.5 % [facility] Plt 420(H) 150 - 400 K/cumm [facility] MPV 8.8(L) 9.1 - 12.3 fL [facility] RBC 3.25(L) 3.90 - 5.20 M/cumm [facility] MCV 83.7 81.3 - 96.4 fL [facility] MCH 26.8(L) 27.1 - 33.3 pg [facility] MCHC 32.0(L) 32.3 - 35.7 g/dL [facility] RDW CV 16.7(H) 11.1 - 14.9 % [facility] RDW SD 50.4(H) 35.7 - 48.1 fL [facility] NRBC abs 0.00 0.00 - 0.01 K/cumm [facility] Blood 04/30/2025 11:1 5 PM CDT 05/01/2025 12:22 AM CDT Andres Oliver MD LAB BLOOD ORDERABLES Fi nal Result Performing Organization Address [facility] [place] Co de Phone Number [facility] Department of [place] [address] * Phosphorus (04/30/2025 11:15 PM CDT) Pathologist [facility] Phosphorus, pl 2.5 2.3 - 4.5 mg/dL Blood 04/30/2025 11:1 5 PM CDT 05/01/2025 12:22 AM CDT Andres Oliver MD LAB BLOOD ORDERABLES Fi nal Result Performing Organization Address City[facility] Co de Phone Number [facility] Department [place] [address] * Magnesium (04/30/2025 11:15 PM CDT) Pathologist [facility] Magnesium 2.1 1.4 - 2.5 mg/dL Blood 04/30/2025 11:1 5 PM CDT 05/01/2025 12:22 AM CDT Andres Oliver MD LAB BLOOD ORDERABLES Fi nal Result [facility] [address] [facility] Department [place] [address] * (ABNORMAL) Basic metabolic panel (04/30/2025 11:15 PM CDT) [facility] Sodium 140 135 - 145 mmol/L Potassium, pl 3.6 3.3 - 4.9 mmol/L [facility] Chloride 104 97 - 110 mmol/L [facility] CO2 28 22 - 32 mmol/L [facility] Anion gap 8 2 - 15 mmol/L [facility] BUN 7 6 - 25 mg/dL [facility] Creatinine 0.44(L) 0.60 - 1.10 mg/dL [facility] Glucose 109 70 - 199 mg/dL [facility] Comment: Interpretive Data Fasting glucose >/= 126 [...] 2022. Calcium 8.0(L) 8.5 - 10.3 mg/dL [facility] Blood 04/30/2025 11:1 5 PM CDT 05/01/2025 12:22 AM CDT Andres Oliver MD LAB BLOOD ORDERABLES Fi nal Result Performing Organization Address [facility] [place] Co de Phone Number [facility] [place] [address] * (ABNORMAL) CBC without differential (04/29/2025 9:35 PM CDT) [facility] WBC 6.25 3.80 - 9.90 K/cumm Hgb 8.3(L) 11.9 - 15.5 g/dL [facility] Hct 25.7(L) 35.6 - 45.5 % [facility] Plt 349 150 - 400 K/cumm [facility] MPV 8.7(L) 9.1 - 12.3 fL [facility] RBC 3.06(L) 3.90 - 5.20 M/cumm [facility] MCV 84.0 81.3 - 96.4 fL [facility] MCH 27.1 27.1 - 33.3 pg [facility] MCHC 32.3 32.3 - 35.7 g/dL [facility] RDW CV 16.9(H) 11.1 - 14.9 % [facility] RDW SD 50.7(H) 35.7 - 48.1 fL [facility] NRBC abs 0.00 0.00 - 0.01 K/cumm [facility] Blood 04/29/2025 9:35 PM CDT 04/29/2025 10:03 PM CDT Andres Oliver MD LAB BLOOD ORDERABLES Fi nal Result Performing Organization Address [facility]/ZIP Co de Phone Number [facility] Department [place] [address] * eGFR (04/29/2025 9:34 PM CDT) [facility] eGFR >90 >=60 mL/min/1. 73 m2 [...] ORDERABLES Fi nal Result Performing Organization Address [facility]/ZIP Co de Phone Number [facility] Department [place] [address] * Phosphorus (04/29/2025 9:34 PM CDT) Phosphorus, pl 2.6 2.3 - 4.5 mg/dL Blood 04/29/2025 9:34 PM CDT 04/29/2025 10:03 PM CDT Andres Oliver MD LAB BLOOD ORDERABLES Fi nal Result [facility] Department [place] [address] * Magnesium (04/29/2025 9:34 PM CDT) Magnesium 1.6 1.4 - 2.5 mg/dL Blood 04/29/2025 9:34 PM CDT 04/29/2025 10:03 PM CDT Andres Oliver MD LAB BLOOD ORDERABLES Fi nal Result [facility] Department [place] [address] * (ABNORMAL) Basic metabolic panel (04/29/2025 9:34 PM CDT) Pathologist [facility] Sodium 139 135 - 145 mmol/L Potassium, pl 3.1(L) 3.3 - 4.9 mmol/L [facility] Chloride 104 97 - 110 mmol/L [facility] CO2 28 22 - 32 mmol/L [facility] Anion gap 7 2 - 15 mmol/L [facility] BUN 5(L) 6 - 25 mg/dL [facility] Creatinine 0.41(L) 0.60 - 1.10 mg/dL [facility] Glucose 122 70 - 199 mg/dL [facility] Comment: Interpretive Data Fasting glucose >/= 126 [...] 2022. Calcium 8.2(L) 8.5 - 10.3 mg/dL [facility] Blood 04/29/2025 9:34 PM CDT 04/29/2025 10:03 PM CDT Andres Oliver MD LAB BLOOD ORDERABLES Fi nal Result [facility] Department [place] [address] * eGFR (04/28/2025 10:18 PM CDT) Pathologist [facility] eGFR >90 >=60 mL/min/1. 73 m2 [...] NP LAB BLOOD ORDERABLES Lexis l Result [facility] Department [place] [address] * (ABNORMAL) CBC without differential (04/28/2025 10:18 PM CDT) WBC 6.30 3.80 - 9.90 K/cumm Hgb 8.7(L) 11.9 - 15.5 g/dL [facility] Hct 26.6(L) 35.6 - 45.5 % [facility] Plt 378 150 - 400 K/cumm [facility] MPV 8.9(L) 9.1 - 12.3 fL [facility] RBC 3.20(L) 3.90 - 5.20 M/cumm [facility] MCV 83.1 81.3 - 96.4 fL [facility] MCH 27.2 27.1 - 33.3 pg [facility] MCHC 32.7 32.3 - 35.7 g/dL [facility] RDW CV 16.6(H) 11.1 - 14.9 % [facility] RDW SD 49.1(H) 35.7 - 48.1 fL [facility] NRBC abs 0.00 0.00 - 0.01 K/cumm [facility] Blood 04/28/2025 10:1 8 PM CDT 04/28/2025 10:53 PM CDT Lisa Humphreys NP LAB BLOOD ORDERABLES Lexis l Result [facility] Department [place] [address] * (ABNORMAL) Basic metabolic panel (04/28/2025 10:18 PM CDT) Sodium 140 135 - 145 mmol/L Potassium, pl 3.0(L) 3.3 - 4.9 mmol/L [facility] Chloride 104 97 - 110 mmol/L [facility] CO2 28 22 - 32 mmol/L [facility] Anion gap 8 2 - 15 mmol/L [facility] BUN 3(L) 6 - 25 mg/dL [facility] Creatinine 0.39(L) 0.60 - 1.10 mg/dL [facility] Glucose 99 70 - 199 mg/dL [facility] Comment: Interpretive Data Fasting glucose >/= 126 [...] 2022. Calcium 8.1(L) 8.5 - 10.3 mg/dL [facility] Blood 04/28/2025 10:1 8 PM CDT 04/28/2025 11:17 PM CDT us Lisa Humphreys NP LAB BLOOD ORDERABLES Lexis l Result Performing Organization Address [facility]/ZIP Co de Phone Number [facility] Department [place] [address] * Check Sample (04/28/2025 2:33 AM CDT) ABO Rh O Negative [facility] HCLL OTHER 04/28/2025 2:33 AM CDT 04/28/2025 3:18 AM CDT Jacey Arroyo MD LAB BLOOD ORDERABLES Final R esult Performing Organization Address [facility] [place] Co de Phone Number [facility] [place] [address] [facility] * eGFR (04/28/2025 1:39 AM CDT) eGFR [...] Cast MD LAB BLOOD ORDERABLES Final Result [facility] Department [place] [address] * (ABNORMAL) Differential, auto (04/28/2025 1:39 AM CDT) Neutrophil abs 3.64 1.50 - 6.50 K/cumm Imm gran abs 0.06 0.00 - 0.10 K/cumm [facility] Lymphocyte abs 2.17 0.80 - 3.30 K/cumm [facility] Monocyte abs 1.18(H) 0.20 - 0.80 K/cumm [facility] Eosinophil abs 0.10 0.00 - 0.50 K/cumm [facility] Basophil abs 0.04 0.00 - 0.10 K[facility]cumm [facility] Neutrophil pct 50.6 % [facility] Comment: Interpretive Data Percent cell count reference ranges are not reported, since discordance with absolute values may lead to misinterpretation of CBC data. Current Interpretive Data was last revised on 2018. Imm gran pct 0.8 % [facility] Comment: Interpretive Data Percent cell count reference ranges are not reported, since discordance with absolute values may lead to misinterpretation of CBC data. Current Interpretive Data was last revised on 2018. Lymphocyte pct 30.2 % [facility] Comment: Interpretive Data Percent cell count reference ranges are not reported, since discordance with absolute values may lead to misinterpretation of CBC data. Current Interpretive Data was last revised on 2018. Monocyte pct 16.4 % [facility] Comment: Interpretive Data Percent cell count reference ranges are not reported, since discordance with absolute values may lead to misinterpretation of CBC data. Current Interpretive Data was last revised on 2018. Eosinophil pct 1.4 % [facility] Comment: Interpretive Data Percent cell count reference ranges are not reported, since discordance with absolute values may lead to misinterpretation of CBC data. Current Interpretive Data was last revised on 2018. Basophil pct 0.6 % [facility] Comment: Interpretive Data Percent cell count reference ranges are not reported, since discordance with absolute values may lead to misinterpretation of CBC data. Current Interpretive Data was last revised on 2018. Blood 04/28/2025 1:39 AM CDT 04/28/2025 2:11 AM CDT Krishna Cast MD LAB BLOOD ORDERABLES Final Result Performing Organization Address [facility] [place] Co de Phone Number [facility] [place] [address] * (ABNORMAL) CBC with auto differential (04/28/2025 1:39 AM CDT) WBC 7.19 3.80 - 9.90 K/cumm Hgb 8.5(L) 11.9 - 15.5 g/dL [facility] Hct 27.6(L) 35.6 - 45.5 % [facility] Plt 376 150 - 400 K/cumm [facility] MPV 8.9(L) 9.1 - 12.3 fL [facility] RBC 3.20(L) 3.90 - 5.20 M/cumm [facility] MCV 86.3 81.3 - 96.4 fL [facility] MCH 26.6(L) 27.1 - 33.3 pg [facility] MCHC 30.8(L) 32.3 - 35.7 g/dL [facility] RDW CV 16.7(H) 11.1 - 14.9 % [facility] RDW SD 51.3(H) 35.7 - 48.1 fL [facility] NRBC abs 0.00 0.00 - 0.01 K/cumm [facility] Blood 04/28/2025 1:39 AM CDT 04/28/2025 2:11 AM CDT Krishna Cast MD LAB BLOOD ORDERABLES Final Result Performing Organization Address [facility]/ZIP Co de Phone Number [facility] Department of [place] [address] * aPTT (04/28/2025 1:39 AM CDT) aPTT [...] BLOOD ORDERABLES Final Result Performing Organization Address [facility] [place] Co de Phone Number [facility] [place] [address] * Protime-INR (04/28/2025 1:39 AM CDT) Pathologist [facility] PT 12.8 9.7 - 13.0 sec INR 1.18 0.90 - 1.20 [facility] Comment: Interpretive data Oral anticoagulant therapeutic ranges: Venous thromboembolism prophylaxis or treatment: 2.0-3.0 CARDIOLOGY Standard range: 2.0-3.0 High-intensity range: 2.5-3.5 Refer to indication-specific guidelines for appropriate target ranges for prosthetic heart valve replacement. Current interpretive data was last revised on 2019. Blood 04/28/2025 1:39 AM CDT 04/28/2025 2:13 AM CDT Krishna Cast MD LAB BLOOD ORDERABLES Final Result Performing Organization Address [facility] Co de Phone Number [facility] [place] [address] * Type and screen (04/28/2025 1:39 AM CDT) ABO Rh O Negative Nikhil, indirect Negative [facility] Blood 04/28/2025 1:39 AM CDT 04/28/2025 2:11 AM CDT Narrative [facility] - 04/28/2025 2:58 AM CDT Has the patient had Daratumumab or Isatuximab in the past 6 months?->Unknown Krishna Cast MD LAB BLOOD BANK TEST O RDERABLES Final Result Performing Organization Address [facility] Co de Phone Number [facility] [place] [address] * (ABNORMAL) Phosphorus (04/28/2025 1:39 AM CDT) Pathologist [facility] Phosphorus, pl 1.8(L) 2.3 - 4.5 mg/dL Blood 04/28/2025 1:39 AM CDT 04/28/2025 2:11 AM CDT Krishna Cast MD LAB BLOOD ORDERABLES Final Result Performing Organization Address [facility] [place] Co de Phone Number [facility] [place] [address] * Magnesium (04/28/2025 1:39 AM CDT) Pathologist [facility] Magnesium 2.0 1.4 - 2.5 mg/dL Blood 04/28/2025 1:39 AM CDT 04/28/2025 2:11 AM CDT Krishna Cast MD LAB BLOOD ORDERABLES Final Result Performing Organization Address [facility] [place] [address] * (ABNORMAL) Basic metabolic panel (04/28/2025 1:39 AM CDT) Sodium 139 135 - 145 mmol/L Potassium, pl 3.5 3.3 - 4.9 mmol/L [facility] Chloride 105 97 - 110 mmol/L [facility] CO2 25 22 - 32 mmol/L [facility] Anion gap 9 2 - 15 mmol/L [facility] BUN 7 6 - 25 mg/dL [facility] Creatinine 0.43(L) 0.60 - 1.10 mg/dL [facility] Glucose 100 70 - 199 mg/dL [facility] Comment: Interpretive Data Fasting glucose >/= 126 [...] 2022. Calcium 8.2(L) 8.5 - 10.3 mg/dL [facility] Blood 04/28/2025 1:39 AM CDT 04/28/2025 2:11 AM CDT us Krishna Cast MD LAB BLOOD ORDERABLES Final Result [facility] Department [place] [address] * CT Body Outside Consult (04/28/2025 1:21 [...] images may or may not represent the [place] source data set and thus may contain changes that may lower the accuracy of this second-opinion interpretation. Electronically signed by: Ramana Becker M.D. Narrative 04/28/2025 7:45 AM CDT EXAMINATION: RADIOLOGY CONSULTATION ON OUTSIDE IMAGING STUDY STUDY INITIALLY PERFORMED: 04/25/2025 at [facility]. TYPE OF STUDY: Multiple CT images of [...] no consolidation, pleural effusion, pneumothorax within the [id number]. The imaged heart is normal in size without pericardial effusion within the klrhy-ca-mdas. There is minimal intrahepatic biliary duct dilation [...] IMAGING STUDY STUDY INITIALLY PERFORMED: 04/25/2025 at [facility]. TYPE OF STUDY: Multiple CT images of [...] no consolidation, pleural effusion, pneumothorax within the [id number]-sm-[id number]. The imaged heart is normal in size without pericardial effusion within the tbrvs-vy-ojwl. There is minimal intrahepatic biliary duct dilation [...] images may or may not represent the [place] source data set and thus may contain changes that may lower the accuracy of this second-opinion interpretation. Electronically signed by: Ramana Becker M.D. Jacey Arroyo MD IMG CT PROCEDURES Final Resu lt from Last 3 Months Insurance [employer] MEDICARE ADVANTAGE Member Subscriber Plan / Payer (Ef fective 2024-Present) Name:Dayan Salud Relation to Subscriber:Self Name:Salud Hanley Payer ID:[id number] (NAIC) Type:[facility] MEDICARE Address: [place] [id number] UHC MEDICARE ADVANTAGE Advance Directives For more information, please contact: [phone] * Full Code (Latest Code Status on File) Date Activated Date Inactivated Comments 04/28/2025 12:57 AM 05/01/2025 10:29 PM Care Teams Director Food And Beverage Relationship Specialty Start Date End Date Ricky Nevarez DO [address] [facility] [address] [place] [address] PCP - General Internal Medicine 04/28/25
--- OUTSIDE RECORDS SUMMARY | 2025-05-17 11:11 | XMS_ITS | Continuity of Care Document ---
Author Organization [facility] Address [address] [place] [address] [address] [place] [address] Phone Care Team Providers Care Kiln Feeder Name Role Phone Jarred Alvarado Unavailable Unavailable Procedures Procedure Date Eye Exam & Treatment Refraction Progressive Lens, Hi Index Anti-reflective Coating Frames Deluxe Tax - Medical Eye Exam & Treatment Refraction Eye Exam & Treatment Refraction Advance Directives Directive Yes / No Effective Date File Name No Information Encounters Encounter Description Practice Location Reason(s) For Visit Diagnoses Date Provider Providers Copied on Encounter [facility], [address] [place] [address] [facility] [address], [place], [place], [id number], [place] tel:[phone] [facility] No Information 0-201 0 Jenny Stern. [address] , [address], [place], [address], [place]. tel:[phone] [facility], [address] [place] [address] [facility] [address], [place], [place], [id number], [place] tel:[phone] [facility] No Information Oct-0 3-200 8 [facility] . [address] [place] [address], [address], [place], [place], [id number], [place]. tel:[phone] Referring Provider: Jarred Pizarro [address], [place], [address]. tel:[phone] aceves Provider: Kelley Horvath, [address] [place], [place], [facility]. tel:[phone] [facility], [address], [place], [place], [id number], tel:[phone] [facility] No Information Oct-2 7-200 8 Doi Edtd. [address] [facility] , [address], [place], [place], [facility], . tel:[phone] [facility], [address], [place], [place], [id number], tel:[phone] [facility] No Information Apr-2 0-200 7 Doikeshia Stern. [address] [facility] , [address], [place], [place], [facility], . tel:[phone] Family History Family Member Type Diagnosis Age [...]
--- OUTSIDE RECORDS SUMMARY | 2025-05-17 11:11 | XMS_ITS | Referral Summary ---
Author Organization [facility] Address [address] [place] [address] Care Team Providers Care Vacuum Spindle Sander Name Role Phone Ricky Nevarez DO Primary Care Provider [phone] Encounters Date Type Department Care Team Description 05/08/2025 Telephone [facility] Surgery [address] [place] [address] Office [address] [place] [phone] Mis Steen RN 05/01/2025 Orders Only [facility] Surgery [address] [place] [address] Office [address] [place] [phone] Andres Oliver MD Colonic diverticular abscess (Primary Dx) 04/28/2025 12:30 AM CDT - 05/01/2025 6:29 PM CDT Hospital Encounter [facility] [address] [place] [address] Jacey Arroyo MD Silviera, Matthew [...] on file Legal 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 73 m2 [...] Oliver MD LAB BLOOD ORDERABLES nal Result [facility] [place] [address] * (ABNORMAL) CBC without differential (04/30/2025 11:15 PM CDT) [facility] WBC 8.11 3.80 - 9.90 K/cumm Hgb 8.7(L) 11.9 - 15.5 g/dL [facility] Hct 27.2(L) 35.6 - 45.5 % [facility] Plt 420(H) 150 - 400 K/cumm [facility] MPV 8.8(L) 9.1 - 12.3 fL [facility] RBC 3.25(L) 3.90 - 5.20 M/cumm [facility] MCV 83.7 81.3 - 96.4 fL [facility] MCH 26.8(L) 27.1 - 33.3 pg [facility] MCHC 32.0(L) 32.3 - 35.7 g/dL [facility] RDW CV 16.7(H) 11.1 - 14.9 % [facility] RDW SD 50.4(H) 35.7 - 48.1 fL [facility] NRBC abs 0.00 0.00 - 0.01 K/cumm [facility] Blood 04/30/2025 11:1 5 PM CDT 05/01/2025 12:22 AM CDT Andres Oliver MD LAB BLOOD ORDERABLES Fi nal Result Performing Organization Address City/[facility] Co de Phone Number [facility] Department [place] [address] * Phosphorus (04/30/2025 11:15 PM CDT) Phosphorus, pl 2.5 2.3 - 4.5 mg/dL Blood 04/30/2025 11:1 5 PM CDT 05/01/2025 12:22 AM CDT Result [facility] Andres Oliver MD LAB BLOOD ORDERABLES Fi nal Result Performing Organization Address City/[facility] Co de Phone Number [facility] [place] [address] * Magnesium (04/30/2025 11:15 PM CDT) Magnesium 2.1 1.4 - 2.5 mg/dL Blood 04/30/2025 11:1 5 PM CDT 05/01/2025 12:22 AM CDT Result [facility] Andres Oliver MD LAB BLOOD ORDERABLES Fi nal Result Performing Organization Address City/[facility] Co de Phone Number [facility] Department [place] [address] * (ABNORMAL) Basic metabolic panel (04/30/2025 11:15 PM CDT) [facility] Sodium 140 135 - 145 mmol/L Potassium, pl 3.6 3.3 - 4.9 mmol/L [facility] Chloride 104 97 - 110 mmol/L [facility] CO2 28 22 - 32 mmol/L [facility] Anion gap 8 2 - 15 mmol/L [facility] BUN 7 6 - 25 mg/dL [facility] Creatinine 0.44(L) 0.60 - 1.10 mg/dL [facility] Glucose 109 70 - 199 mg/dL [facility] Comment: Interpretive Data Fasting glucose >/= 126 [...] 2022. Calcium 8.0(L) 8.5 - 10.3 mg/dL [facility] Blood 04/30/2025 11:1 5 PM CDT 05/01/2025 12:22 AM CDT us Andres Oliver MD LAB BLOOD ORDERABLES Fi nal Result [facility] Department [place] [address] * (ABNORMAL) CBC without differential (04/29/2025 9:35 PM CDT) [facility] WBC 6.25 3.80 - 9.90 K/cumm Hgb 8.3(L) 11.9 - 15.5 g/dL [facility] Hct 25.7(L) 35.6 - 45.5 % [facility] Plt 349 150 - 400 K/cumm [facility] MPV 8.7(L) 9.1 - 12.3 fL [facility] RBC 3.06(L) 3.90 - 5.20 M/cumm [facility] MCV 84.0 81.3 - 96.4 fL [facility] MCH 27.1 27.1 - 33.3 pg [facility] MCHC 32.3 32.3 - 35.7 g/dL [facility] RDW CV 16.9(H) 11.1 - 14.9 % [facility] RDW SD 50.7(H) 35.7 - 48.1 fL [facility] NRBC abs 0.00 0.00 - 0.01 K/cumm [facility] Blood 04/29/2025 9:35 PM CDT 04/29/2025 10:03 PM CDT Andres Oliver MD LAB BLOOD ORDERABLES nal Result [facility] Department [place] [address] * eGFR (04/29/2025 9:34 PM CDT) eGFR [...] ORDERABLES Fi nal Result Performing Organization Address [facility] Co de Phone Number [facility] [place] [address] * Phosphorus (04/29/2025 9:34 PM CDT) [facility] Phosphorus, pl 2.6 2.3 - 4.5 mg/dL Blood 04/29/2025 9:34 PM CDT 04/29/2025 10:03 PM CDT Andres Oliver MD LAB BLOOD ORDERABLES Fi nal Result Performing Organization Address [facility] Co de Phone Number [facility] [place] [address] * Magnesium (04/29/2025 9:34 PM CDT) [facility] Magnesium 1.6 1.4 - 2.5 mg/dL Blood 04/29/2025 9:34 PM CDT 04/29/2025 10:03 PM CDT Andres Oliver MD LAB BLOOD ORDERABLES Fi nal Result Performing Organization Address [facility] Co de Phone Number [facility] [place] [address] * (ABNORMAL) Basic metabolic panel (04/29/2025 9:34 PM CDT) [facility] Sodium 139 135 - 145 mmol/L Potassium, pl 3.1(L) 3.3 - 4.9 mmol/L [facility] Chloride 104 97 - 110 mmol/L [facility] CO2 28 22 - 32 mmol/L [facility] Anion gap 7 2 - 15 mmol/L [facility] BUN 5(L) 6 - 25 mg/dL [facility] Creatinine 0.41(L) 0.60 - 1.10 mg/dL [facility] Glucose 122 70 - 199 mg/dL [facility] Comment: Interpretive Data Fasting glucose >/= 126 [...] 2022. Calcium 8.2(L) 8.5 - 10.3 mg/dL [facility] Blood 04/29/2025 9:34 PM CDT 04/29/2025 10:03 PM CDT us Andres Oliver MD LAB BLOOD ORDERABLES Fi nal Result [facility] Department [place] [address] * eGFR (04/28/2025 10:18 PM CDT) eGFR [...] CDT 04/28/2025 11:17 PM CDT Lisa Humphreys REVENUE RESEARCH ANALYST LAB BLOOD ORDERABLES Lexis l Result Performing Organization Address City/[facility]/ZIP Co de Phone Number [facility] Department [place] [address] * (ABNORMAL) CBC without differential (04/28/2025 10:18 PM CDT) WBC 6.30 3.80 - 9.90 K/cumm Hgb 8.7(L) 11.9 - 15.5 g/dL [facility] Hct 26.6(L) 35.6 - 45.5 % [facility] Plt 378 150 - 400 K/cumm [facility] MPV 8.9(L) 9.1 - 12.3 fL [facility] RBC 3.20(L) 3.90 - 5.20 M/cumm [facility] MCV 83.1 81.3 - 96.4 fL [facility] MCH 27.2 27.1 - 33.3 pg [facility] MCHC 32.7 32.3 - 35.7 g/dL [facility] RDW CV 16.6(H) 11.1 - 14.9 % [facility] RDW SD 49.1(H) 35.7 - 48.1 fL [facility] NRBC abs 0.00 0.00 - 0.01 K/cumm [facility] Blood 04/28/2025 10:1 8 PM CDT 04/28/2025 10:53 PM CDT Lisa Humphreys REVENUE RESEARCH ANALYST LAB BLOOD ORDERABLES Lexis l Result Performing Organization Address City/[facility]/ZIP Co de Phone Number [facility] Department [place] [address] * (ABNORMAL) Basic metabolic panel (04/28/2025 10:18 PM CDT) Pathologist [facility] Sodium 140 135 - 145 mmol/L Potassium, pl 3.0(L) 3.3 - 4.9 mmol/L [facility] Chloride 104 97 - 110 mmol/L [facility] CO2 28 22 - 32 mmol/L [facility] Anion gap 8 2 - 15 mmol/L [facility] BUN 3(L) 6 - 25 mg/dL [facility] Creatinine 0.39(L) 0.60 - 1.10 mg/dL [facility] Glucose 99 70 - 199 mg/dL [facility] Comment: Interpretive Data Fasting glucose >/= 126 [...] 2022. Calcium 8.1(L) 8.5 - 10.3 mg/dL [facility] Blood 04/28/2025 10:1 8 PM CDT 04/28/2025 11:17 PM CDT Lisa Humphreys NP LAB BLOOD ORDERABLES Lexis l Result [facility] Department [place] [address] * Check Sample (04/28/2025 2:33 AM CDT) Pathologist [facility] ABO Rh O Negative [facility] OTHER 04/28/2025 2:33 AM CDT 04/28/2025 3:18 AM CDT us Jacey Arroyo MD LAB BLOOD ORDERABLES Final R esult Performing Organization Address City/[facility] Co de Phone Number [facility] Department [place] [address] [facility] * eGFR (04/28/2025 1:39 AM CDT) Pathologist [facility] eGFR >90 >=60 mL/min/1. 73 m2 Comment: [...] MD LAB BLOOD ORDERABLES Final Result [facility] Department [place] [address] * (ABNORMAL) Differential, auto (04/28/2025 1:39 AM CDT) Pathologist [facility] Neutrophil abs 3.64 1.50 - 6.50 K/cumm Imm gran abs 0.06 0.00 - 0.10 K/cumm [facility] Lymphocyte abs 2.17 0.80 - 3.30 K/cumm [facility] Monocyte abs 1.18(H) 0.20 - 0.80 K/cumm [facility] Eosinophil abs 0.10 0.00 - 0.50 K/cumm [facility] Basophil abs 0.04 0.00 - 0.10 K/cumm [facility] Neutrophil pct 50.6 % [facility] Comment: Interpretive Data Percent cell count reference ranges are not reported, since discordance with absolute values may lead to misinterpretation of CBC data. Current Interpretive Data was last revised on 2018. Imm gran pct 0.8 % [facility] Comment: Interpretive Data Percent cell count reference ranges are not reported, since discordance with absolute values may lead to misinterpretation of CBC data. Current Interpretive Data was last revised on 2018. Lymphocyte pct 30.2 % [facility] Comment: Interpretive Data Percent cell count reference ranges are not reported, since discordance with absolute values may lead to misinterpretation of CBC data. Current Interpretive Data was last revised on 2018. Monocyte pct 16.4 % [facility] Comment: Interpretive Data Percent cell count reference ranges are not reported, since discordance with absolute values may lead to misinterpretation of CBC data. Current Interpretive Data was last revised on 2018. Eosinophil pct 1.4 % [facility] Comment: Interpretive Data Percent cell count reference ranges are not reported, since discordance with absolute values may lead to misinterpretation of CBC data. Current Interpretive Data was last revised on 2018. Basophil pct 0.6 % [facility] Comment: Interpretive Data Percent cell count reference ranges are not reported, since discordance with absolute values may lead to misinterpretation of CBC data. Current Interpretive Data was last revised on 2018. Blood 04/28/2025 1:39 AM CDT 04/28/2025 2:11 AM CDT us Krishna Cast MD LAB BLOOD ORDERABLES Final Result [facility] [place] [address] * (ABNORMAL) CBC with auto differential (04/28/2025 1:39 AM CDT) [facility] WBC 7.19 3.80 - 9.90 K/cumm Hgb 8.5(L) 11.9 - 15.5 g/dL [facility] Hct 27.6(L) 35.6 - 45.5 % [facility] Plt 376 150 - 400 K/cumm [facility] MPV 8.9(L) 9.1 - 12.3 fL [facility] RBC 3.20(L) 3.90 - 5.20 M/cumm [facility] MCV 86.3 81.3 - 96.4 fL [facility] MCH 26.6(L) 27.1 - 33.3 pg [facility] MCHC 30.8(L) 32.3 - 35.7 g/dL [facility] RDW CV 16.7(H) 11.1 - 14.9 % [facility] RDW SD 51.3(H) 35.7 - 48.1 fL [facility] NRBC abs 0.00 0.00 - 0.01 K/cumm [facility] Blood 04/28/2025 1:39 AM CDT 04/28/2025 2:11 AM CDT Krishna Cast MD LAB BLOOD ORDERABLES Final Result [facility] Department [place] [address] * aPTT (04/28/2025 1:39 AM CDT) Pathologist [facility] aPTT 31 28 - 38 sec Comment: Interpretive Data Heparin therapeutic range: 66.0 - 100.0 seconds. Range based on correlation with therapeutic heparin activity range of 0.3 - 0.7 Units/mL. Current interpretive data was last revised on 2023. Blood 04/28/2025 1:39 AM CDT 04/28/2025 2:13 AM CDT Krishna Cast MD LAB BLOOD ORDERABLES Final Result Performing Organization Address [facility] Co de Phone Number [facility] [place] [address] * Protime-INR (04/28/2025 1:39 AM CDT) PT 12.8 9.7 - 13.0 sec INR 1.18 0.90 - 1.20 [facility] Comment: Interpretive data Oral anticoagulant therapeutic ranges: Venous thromboembolism prophylaxis or treatment: 2.0-3.0 CARDIOLOGY Standard range: 2.0-3.0 High-intensity range: 2.5-3.5 Refer to indication-specific guidelines for appropriate target ranges for prosthetic heart valve replacement. Current interpretive data was last revised on 2019. Blood 04/28/2025 1:39 AM CDT 04/28/2025 2:13 AM CDT Krishna Cast MD LAB BLOOD ORDERABLES Final Result Performing Organization Address [facility] [place] [address] * Type and screen (04/28/2025 1:39 AM CDT) ABO Rh O Negative Nikhil, indirect Negative [facility] Blood 04/28/2025 1:39 AM CDT 04/28/2025 2:11 AM CDT Narrative [facility] - 04/28/2025 2:58 AM CDT Has the patient had Daratumumab or Isatuximab in the past 6 months?->Unknown Krishna Cast MD LAB BLOOD BANK TEST O RDERABLES Final Result Performing Organization Address [facility] Co de Phone Number [facility] [place] [address] * (ABNORMAL) Phosphorus (04/28/2025 1:39 AM CDT) [facility] Phosphorus, pl 1.8(L) 2.3 - 4.5 mg/dL Blood 04/28/2025 1:39 AM CDT 04/28/2025 2:11 AM CDT Krishna Cast MD LAB BLOOD ORDERABLES Final Result Performing Organization Address City/[facility] Co de Phone Number [facility] [place] [address] * Magnesium (04/28/2025 1:39 AM CDT) [facility] Magnesium 2.0 1.4 - 2.5 mg/dL Blood 04/28/2025 1:39 AM CDT 04/28/2025 2:11 AM CDT Krishna Cast MD LAB BLOOD ORDERABLES Final Result Performing Organization Address [facility] de Phone Number [facility] [place] [address] * (ABNORMAL) Basic metabolic panel (04/28/2025 1:39 AM CDT) [facility] Sodium 139 135 - 145 mmol/L Potassium, pl 3.5 3.3 - 4.9 mmol/L [facility] Chloride 105 97 - 110 mmol/L [facility] CO2 25 22 - 32 mmol/L [facility] Anion gap 9 2 - 15 mmol/L [facility] BUN 7 6 - 25 mg/dL [facility] Creatinine 0.43(L) 0.60 - 1.10 mg/dL [facility] Glucose 100 70 - 199 mg/dL [facility] Comment: Interpretive Data Fasting glucose >/= 126 [...] BLOOD ORDERABLES Final Result [facility] [place] [address] * CT Body Outside Consult (04/28/2025 1:21 [...] images may or may not represent the [place] source data set and thus may contain changes that may lower the accuracy of this second-opinion interpretation. Electronically signed by: Ramana Becker M.D. Narrative 04/28/2025 7:45 AM CDT EXAMINATION: RADIOLOGY CONSULTATION ON OUTSIDE IMAGING STUDY STUDY INITIALLY PERFORMED: [facility] TYPE OF STUDY: Multiple CT images of [...] no consolidation, pleural effusion, pneumothorax within the etrje-ye-jagj. The imaged heart is normal in size without pericardial effusion within the [id number]-vx-[id number]. There is minimal intrahepatic biliary duct dilation [...] IMAGING STUDY STUDY INITIALLY PERFORMED: 04/25/2025 at [facility]. TYPE OF STUDY: Multiple CT images of [...] no consolidation, pleural effusion, pneumothorax within the [id number]-ge-[id number]. The imaged heart is normal in size without pericardial effusion within the cyzob-ch-eiab. There is minimal intrahepatic biliary duct dilation [...] images may or may not represent the [place] source data set and thus may contain changes that may lower the accuracy of this second-opinion interpretation. Electronically signed by: Ramana Becker M.D. Jacey Arroyo MD IMG CT PROCEDURES Final Resu lt from Last 3 Months Insurance [employer] MEDICARE ADVANTAGE Member Subscriber Plan / Payer (Ef fective 2024-Present) Name:Salud Hanley Relation to Subscriber:Self Name:Salud Hanley Payer ID:[id number] (NAIC) Type:[facility] Address: [place] [phone] Advance Directives For more information, please contact: [phone] * Full Code (Latest Code Status on File) Date Activated Date Inactivated Comments 04/28/2025 12:57 AM 05/01/2025 10:29 PM Care Teams Vacuum Spindle Sander Relationship Specialty Start Date End Date Ricky Nevarez DO [address] [place] [address] PCP - General Internal Medicine 04/28/25
--- OUTSIDE RECORDS SUMMARY | 2025-05-17 11:11 | XMS_ITS | Encounter Summary ---
Author Organization [facility] Address [address] [place] [address] Care Team Providers Care Elastic Yarn Twister Helper Name Role Phone Ricky Nevarez DO Primary Care Provider [phone] Encounter Details Date Type Department Care Team (Late Contact Info) Description 01/13/2017 Chart Note [facility] Radiation Therapy [address] [place] [address] [place] [address] [place] [address] Social History Tobacco Use Types [...] 06/22/2025 11:00 AM CDT Office Visit [facility] Oncology and Hematology - [place] [address] [facility] [address] [place] [address] Samir Brito MD [address] [place] [address] documented as of this encounter Visit Diagnoses Not on filedocumented in this encounter Care Teams Elastic Yarn Twister Helper Relationship Specialty Start Date End Date Ricky Nevarez DO [address] [facility] [address] [facility] [address] [place] [address] PCP - General Internal Medicine 12/19/24 documented as of this encounter
== END 2025-05-17 11:06 | disposition home or self-care (01) ==
LOC: ANHIMG 11:08
PROVIDERS: PCP Internal Medicine; Visit Provider Internal Medicine Hematology & Oncology
DX: M85.852 Other specified disorders of bone density and structure, left thigh (principal)
CPT/HCPCS: 77080

== ENCOUNTER 2025-05-19 10:00 | Outpatient (CLI) | payer MEDICARE, SELFPAY ==
--- NOTE | ~2025-05-19 | CT_ITS ---
CLINICAL INDICATION: Diverticular abscess follow-up COMPARISON: 04/25/2025. TECHNIQUE: Multiple contiguous axial images of the abdomen and pelvis were performed following the ad ministration of with 100 mL Omnipaque-350 intravenous contrast The dose-length product (DLP) was 240.26 mGy-cm. Automated exposure control and iterative reconstruction technique were employed. FINDINGS/OBSERVATIONS: Visualized lower thorax: The bilateral lung bases are clear. The heart is of normal size, without pericardial effusion. Liver: Multiple well-circumscribed foci of fluid attenuation within the liver, unchanged from prior a nd statistically cysts. The remainder of the liver demonstrates otherwise homogeneous enhancement and is not enlarged . Gallbladder and biliary system: The gallbladder is only minimally distended, and otherwise unremarkable. Pancreas: The pancreas enhances homogeneously without ductal dilatation. Spleen: The spleen enhances homogeneously and is not enlarged. Kidneys: Multiple well-circumscribed foci of are redemonstrated within the bilateral kidneys, consist ent with simple cysts, unchanged from prior. The remainder of the bilateral kidneys otherwise enhance symmetrically without hydronephrosis or maynor l calculi. Adrenal glands: Unremarkable. Gastrointestinal tract: Redemonstration of a feculent abscess cavity within the pelvis, originating within a loop of sigmoid colon, which demonstrates mural thickening and extensive diverticulosis. The connection between the sigmoid colon and this cavity measures 19.5 mm in anterior to posterior di mension and is best identified on sagittal series, images 63 through 83. The entirety of this cavity measures 7.8 x 6.0 x 8.7 cm (anterior to posterior x medial to lateral x cranial to caudal dimension). Appendix: The appendix is not definitively visualized. However, no pericecal inflammatory change is identified suggest the presence of acute appendicitis. Vasculature: Calcified atherosclerotic disease. Lymph nodes: No pathologically enlarged or morphologically suspicious lymph nodes within the retroperitoneum or at the root of the mesentery. Pelvic structures: The bladder is decompressed, with mass effect from the abscess cavity limiting distention at its base . The uterus is markedly atrophic and is situated anterior to the abscess cavity. 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 IMPRESSION: Redemonstration of a feculent abscess cavity within the pelvis originating within a loop of sigmoid c olon, as detailed above. Reviewed, dictated and finalized at location A. IMPRESSION: Redemonstration of a feculent abscess cavity within the pelvis originating with in a loop of sigmoid colon, as detailed above.
--- OUTSIDE RECORDS SUMMARY | 2025-05-19 10:10 | XMS_ITS | Encounter Summary ---
Author Organization [facility] Address [address] [place] [address] Phone Care Team Providers Care Soft Hat Binder Name Role Phone Ricky Nevarez DO Primary Care Provider [phone] Andres Oliver MD Unavailable [phone] Reason for Referral * MRI/CAT/PET Scan (Routine) - Pending Review Specialty Diagnoses / Procedures Referred By Jay patel Referred To Contact Radiology Diagnoses Colonic diverticular abscess Procedures CT abdomen pelvis with contrast Andres Oliver MD [address] [facility] [id number] [place] [address] Phone: tel: fax: External Order Referral ID Status Reason Start Date Expiration Date V isits Requested Visits Authorized [id number] Pending Review 05/18/2025 06/17/2026 1 1 Encounter Details Date Type Department Care Team (Late st Contact Info) Description 05/18/2025 Orders Only [facility] Surgery [address] [place] [address] Medical Office Building 4 [address] [place] [address] Andres Oliver MD [address] [facility] [id number] [place] [address] Colonic diverticular abscess (Primary Dx) Social History Tobacco Use Types Packs/Day Years Used Date Smoking Tobacco: Former Cigarettes Q uit: 04/08/1992 Smokeless Tobacco: Never AUDIT-C Answer Date Recorded Q1: How often do you have a drink containing alc ohol? Monthly or less 05/18/2025 Q2: How many drinks containi ng alcohol do you have on a typical day when you are drinking? 1 or 2 05/18/2025 Q3: How often do you have si x or more drinks on one occasion? Never 05/18/2025 Personal Safety Answer Date Recorded Have you ever been in or are you currently in a harmful physical or emotional relationship or is someone making you feel afraid or unsafe? Denies 04/28/2025 Comments No Sex and Gender Information Value Date Recorded Sex Assigned at Not on file Legal Sex Female 4:16 AM WOODWORKING SHOP HAND Gender Identity Not on file Sexual Orientation Not on file documented as of this encounter Functional Status * Audit-C Score Answer Date of Assessment Author 1 05/18/2025 2:58 PM Rachna Mancuso MA * Question Answer Date of Assessment Author Q1: How often do you have a drink containing alcohol? Monthly or less 05/18/2025 2:58 PM Natalie Mancuso MA Q2: How many drinks containing alcohol do you have on a typical day when you are drinking? 1 or 2 05/18/2025 2:58 PM Amberly Mancuso M A Q3: How often do you have six or more drinks on one occasion? Never 05/18/2025 2:58 PM Amberly Mancuso M A documented as of this encounter Plan of Treatment Scheduled Orders Name Type Priority Associated Diagnoses Orde r Schedule CT abdomen pelvis with contrast Imaging Schedule Routine, Read Routine (OP Routine) Colonic diverticular abscess Expected: 05/18/2025, Expires: 05/18/2026 documented as of this encounter Visit Diagnoses Diagnosis Colonic diverticular abscess- Primary documented in this encounter Discontinued Medications Medication Sig Discontinue Reason Start Date End Da te acetaminophen 500 mg capsule Take 2 capsules (1,000 mg total) by mouth every 6 (six) hours as needed for pain Patient Reported 05/01/2025 05/18/2025 documented as of this encounter Care Teams Soft Hat Binder Relationship Specialty Start Date End Date Ricky Nevarez DO [address] [facility] [address] [place] [address] PCP - General Internal Medicine 04/28/25 Andres Oliver MD [address] [id number] [place] [address] Surgeon Colon and Rectal Surgery 05/18/25 documented as of this encounter
--- OUTSIDE RECORDS SUMMARY | 2025-05-19 10:10 | XMS_ITS | Referral Summary ---
Author Organization [facility] Address [address] [place] [address] Care Team Providers Care Tree Pruner Name Role Phone Ricky Nevarez DO Primary Care Provider [phone] nAdres Oliver MD Unavailable [phone] Encounters Date Type Department Care Team Description 05/18/2025 Orders Only [facility] Surgery [address] [place] [address] Office [address] [place] [phone] Andres Oliver MD Colonic diverticular abscess (Primary Dx) 05/18/2025 4:00 PM CDT Office Visit [facility] Surgery [address] [place] [address] Office [address] [place] [phone] Andres Oliver MD 05/08/2025 Telephone [facility] Surgery [address] [place] [address] Medical Office Building [address] [place] [phone] Mis Steen RN 05/01/2025 Orders Only [facility] Surgery [address] [place] [address] Office Building [address] [address] Andres Oliver MD Colonic diverticular abscess (Primary Dx) 04/28/2025 12:30 AM CDT - 05/01/2025 6:29 PM CDT Hospital Encounter [facility] [address] [place] [address] Jacey Arroyo MD Silviera, Andres Mcdonough MD Gluteal abscess (Primary Dx) Discharge Disposition: Discharge to home or self care from Last 3 Months Allergies Active Allergy Reactions Criticality Noted Date Comments Monosodium Glutamate Diarrhea,Headache Low 08/26/20 16 Medications lisinopriL (PRINIVIL,ZEST RIL) 10 mg tablet Take 1 tablet (10 mg total) by mouth daily Active calcium carbonate-arsh min D3 (CALTRATE 600 + D) 1500 mg (600 mg elemental) -400 units per tablet Take 1 tablet by mouth daily Active fexofenadine (CHRISTEN) 60 mg tablet Take 1 tablet (60 mg total) by mouth 2 (two) times a day Active triamcinolone (NASACORT) 55 mcg nasal inhaler Administer 1 spray into affected nostril(s) daily Active multivitamin tablet Take 1 tablet by mouth daily Active fluticasone propionate (FLONASE) 50 mcg/actuation nasal spray Administer 2 sprays into affected nostril(s) daily Active oxyCODONE-acet aminophen (PERCOCET) 5-325 mg per tabletIndicati ons:Pain Take 1 tablet by mouth every 6 (six) hours as needed for pain 15 tablet 5 Active acetaminophen 500 mg capsule Take 2 capsules (1,000 mg total) by mouth every 6 (six) hours as needed for pain 5 05/18/20 25 Discontinu ed(Patient Reported) ciprofloxacin (CIPRO) 500 mg tabletIndicati ons:Abdominal/ Pelvic Infection Take 1 tablet (500 mg total) by mouth 2 (two) times a day for 21 doses 21 tablet 5 05/12/20 25 metroNIDAZOLE (FLAGYL) 500 mg tabletIndicati ons:Abdominal/ Pelvic Infection Take 1 tablet (500 mg total) by mouth 3 (three) times a day for 32 doses 32 tablet 5 05/12/20 25 Active Problems Problem Noted Date Diagnosed Date Colonic diverticular abscess 04/28/2025 Social History Tobacco Use Types Packs/Day Years Used Date Smoking Tobacco: Former Cigarettes Q uit: 04/08/1992 Smokeless Tobacco: Never Tobacco Cessation:Counseling Given: Not Answered AUDIT-C Answer Date Recorded Q1: How often [...] on file 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 Gender Identity Not on file Sexual Orientation Not on file Last Filed Vital Signs Vital Sign Reading Time Taken Comments Blood Pressure 172/84 05/18/2025 2:53 PM CDT Pulse 96 05/18/2025 2:53 PM CDT Temperature 38.4 C (101.1 F) 05/18/2025 2:53 PM CDT Respiratory Rate 18 05/01/2025 11:47 AM CDT Oxygen Saturation 99% 05/18/2025 2:53 PM CDT Inhaled Oxygen Concentration - - Weight 55.9 kg (123 lb 3.2 oz) 05/18/2025 2:53 P M CDT Height 160 cm (5' 3) 05/18/2025 2:53 PM CDT Body Mass Index 21.82 05/18/2025 2:53 PM CDT Plan of Treatment Not on file [...] Fraire MD Authorized by: Joesph Fraire MD Crane Protocol: RN Notified of Procedure: yes Informed consent: Risks, benefits, alternatives discussed and 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 and accepts Patient's stated name/ [...] MD LAB BLOOD ORDERABLES Fi nal Result [facility] Department [place] [address] * (ABNORMAL) CBC without differential (04/30/2025 11:15 PM CDT) WBC 8.11 3.80 - 9.90 K/cumm Hgb 8.7(L) 11.9 - 15.5 g/dL [facility] Hct 27.2(L) 35.6 - 45.5 % [facility] Plt 420(H) 150 - 400 K/cumm [facility] MPV 8.8(L) 9.1 - 12.3 fL [facility] RBC 3.25(L) 3.90 - 5.20 M/cumm [facility] MCV 83.7 81.3 - 96.4 fL [facility] MCH 26.8(L) 27.1 - 33.3 pg [facility] MCHC 32.0(L) 32.3 - 35.7 g/dL [facility] RDW CV 16.7(H) 11.1 - 14.9 % [facility] RDW SD 50.4(H) 35.7 - 48.1 fL [facility] NRBC abs 0.00 0.00 - 0.01 K/cumm [facility] Blood 04/30/2025 11:1 5 PM CDT 05/01/2025 12:22 AM CDT Andres Oliver MD LAB BLOOD ORDERABLES Fi nal Result Performing Organization Address City/[facility] Co de Phone Number [facility] [place] [address] * Phosphorus (04/30/2025 11:15 PM CDT) [facility] Phosphorus, pl 2.5 2.3 - 4.5 mg/dL Blood 04/30/2025 11:1 5 PM CDT 05/01/2025 12:22 AM CDT Andres Oliver MD LAB BLOOD ORDERABLES Fi nal Result Performing Organization Address [facility] de Phone Number [facility] [place] [address] * Magnesium (04/30/2025 11:15 PM CDT) [facility] Magnesium 2.1 1.4 - 2.5 mg/dL Blood 04/30/2025 11:1 5 PM CDT 05/01/2025 12:22 AM CDT Result [facility] Andres Oliver MD LAB BLOOD ORDERABLES Fi nal Result Performing Organization Address [facility] [place] [address] * (ABNORMAL) Basic metabolic panel (04/30/2025 11:15 PM CDT) [facility] Sodium 140 135 - 145 mmol/L Potassium, pl 3.6 3.3 - 4.9 mmol/L [facility] Chloride 104 97 - 110 mmol/L [facility] CO2 28 22 - 32 mmol/L [facility] Anion gap 8 2 - 15 mmol/L [facility] BUN 7 6 - 25 mg/dL [facility] Creatinine 0.44(L) 0.60 - 1.10 mg/dL [facility] Glucose 109 70 - 199 mg/dL [facility] Comment: Interpretive Data Fasting glucose >/= [...] 2022. Calcium 8.0(L) 8.5 - 10.3 mg/dL [facility] Blood 04/30/2025 11:1 5 PM CDT 05/01/2025 12:22 AM CDT us Andres Oliver MD LAB BLOOD ORDERABLES nal Result [facility] Department [place] [address] * (ABNORMAL) CBC without differential (04/29/2025 9:35 PM CDT) WBC 6.25 3.80 - 9.90 K/cumm Hgb 8.3(L) 11.9 - 15.5 g/dL [facility] Hct 25.7(L) 35.6 - 45.5 % [facility] Plt 349 150 - 400 K/cumm [facility] MPV 8.7(L) 9.1 - 12.3 fL [facility] RBC 3.06(L) 3.90 - 5.20 M/cumm [facility] MCV 84.0 81.3 - 96.4 fL [facility] MCH 27.1 27.1 - 33.3 pg [facility] MCHC 32.3 32.3 - 35.7 g/dL [facility] RDW CV 16.9(H) 11.1 - 14.9 % [facility] RDW SD 50.7(H) 35.7 - 48.1 fL [facility] NRBC abs 0.00 0.00 - 0.01 K/cumm [facility] Blood 04/29/2025 9:35 PM CDT 04/29/2025 10:03 PM CDT Andres Oliver MD LAB BLOOD ORDERABLES Fi nal Result [facility] [place] [address] * eGFR (04/29/2025 9:34 PM CDT) eGFR [...] ORDERABLES Fi nal Result Performing Organization Address City/[facility]/ZIP Co de Phone Number [facility] Department [place] [address] * Phosphorus (04/29/2025 9:34 PM CDT) [facility] Phosphorus, pl 2.6 2.3 - 4.5 mg/dL Blood 04/29/2025 9:34 PM CDT 04/29/2025 10:03 PM CDT Andres Oliver MD LAB BLOOD [place] [address] * Magnesium (04/29/2025 9:34 PM CDT) [facility] Magnesium 1.6 1.4 - 2.5 mg/dL Blood 04/29/2025 9:3 4 PM CDT 04/29/2025 10:03 PM CDT Andres Oliver MD LAB BLOOD ORDERABLES Fi nal Result Performing Organization Address City/[facility] [place] [address] * (ABNORMAL) Basic metabolic panel (04/29/2025 9:34 PM CDT) [facility] Sodium 139 135 - 145 mmol/L Potassium, pl 3.1(L) 3.3 - 4.9 mmol/L [facility] Chloride 104 97 - 110 mmol/L [facility] CO2 28 22 - 32 mmol/L [facility] Anion gap 7 2 - 15 mmol/L [facility] BUN 5(L) 6 - 25 mg/dL [facility] Creatinine 0.41(L) 0.60 - 1.10 mg/dL [facility] Glucose 122 70 - 199 mg/dL [facility] Comment: Interpretive Data Fasting glucose >/= [...] Calcium 8.2(L) 8.5 - 10.3 mg/dL [facility] Blood 04/29/2025 9:34 PM CDT 04/29/2025 10:03 PM CDT us Andres Oliver MD LAB BLOOD ORDERABLES Fi nal Result [facility] Department [place] [address] * eGFR (04/28/2025 10:18 PM CDT) eGFR [...] 04/28/2025 11:17 PM CDT us Lisa Humphreys ASSISTANT PASSENGER LOCOMOTIVE ENGINEER LAB BLOOD ORDERABLES Lexis l Result Performing Organization Address [facility]/ZIP Co de Phone Number [facility] Department [place] [address] * (ABNORMAL) CBC without differential (04/28/2025 10:18 PM CDT) Pathologist [facility] WBC 6.30 3.80 - 9.90 K/cumm Hgb 8.7(L) 11.9 - 15.5 g/dL [facility] Hct 26.6(L) 35.6 - 45.5 % [facility] Plt 378 150 - 400 K/cumm [facility] MPV 8.9(L) 9.1 - 12.3 fL [facility] RBC 3.20(L) 3.90 - 5.20 M/cumm [facility] MCV 83.1 81.3 - 96.4 fL [facility] MCH 27.2 27.1 - 33.3 pg [facility] MCHC 32.7 32.3 - 35.7 g/dL [facility] RDW CV 16.6(H) 11.1 - 14.9 % [facility] RDW SD 49.1(H) 35.7 - 48.1 fL [facility] NRBC abs 0.00 0.00 - 0.01 K/cumm [facility] Blood 04/28/2025 10:1 8 PM CDT 04/28/2025 10:53 PM CDT Lisa Humphreys ASSISTANT PASSENGER LOCOMOTIVE ENGINEER LAB BLOOD ORDERABLES Lexis l Result Performing Organization Address City/[facility]/ZIP Co de Phone Number [facility] Department [place] [address] * (ABNORMAL) Basic metabolic panel (04/28/2025 10:18 PM CDT) Pathologist [facility] Sodium 140 135 - 145 mmol/L Potassium, pl 3.0(L) 3.3 - 4.9 mmol/L [facility] Chloride 104 97 - 110 mmol/L [facility] CO2 28 22 - 32 mmol/L [facility] Anion gap 8 2 - 15 mmol/L [facility] BUN 3(L) 6 - 25 mg/dL [facility] Creatinine 0.39(L) 0.60 - 1.10 mg/dL [facility] Glucose 99 70 - 199 mg/dL [facility] Comment: Interpretive Data Fasting glucose >/= [...] 2022. Calcium 8.1(L) 8.5 - 10.3 mg/dL [facility] Blood 04/28/2025 10:1 8 PM CDT 04/28/2025 11:17 PM CDT us Lisa Humphreys NP LAB BLOOD ORDERABLES Lexis l Result Performing Organization Address City/[facility]/ZIP Co de Phone Number [facility] Department [place] [address] * Check Sample (04/28/2025 2:33 AM CDT) ABO Rh O Negative [facility] HCLL OTHER 04/28/2025 2:33 AM CDT 04/28/2025 3:18 AM CDT us Jacey Arroyo MD LAB BLOOD ORDERABLES Final R esult Performing Organization Address City/[facility]/ZIP Co de Phone Number [facility] Department [place] [address] [facility] * eGFR (04/28/2025 1:39 AM CDT) [...] Cast MD LAB BLOOD ORDERABLES Final Result [facility] Department [place] [address] * (ABNORMAL) Differential, auto (04/28/2025 1:39 AM CDT) Pathologist [facility] Neutrophil abs 3.64 1.50 - 6.50 K/cumm Imm gran abs 0.06 0.00 - 0.10 K/cumm [facility] Lymphocyte abs 2.17 0.80 - 3.30 K/cumm [facility] Monocyte abs 1.18(H) 0.20 - 0.80 K/cumm [facility] Eosinophil abs 0.10 0.00 - 0.50 K/cumm [facility] Basophil abs 0.04 0.00 - 0.10 K/cumm [facility] Neutrophil pct 50.6 % [facility] Comment: Interpretive Data Percent cell count reference ranges are not reported, since discordance with absolute values may lead to misinterpretation of CBC data. Current Interpretive Data was last revised on 2018. Imm gran pct 0.8 % [facility] Comment: Interpretive Data Percent cell count reference ranges are not reported, since discordance with absolute values may lead to misinterpretation of CBC data. Current Interpretive Data was last revised on 2018. Lymphocyte pct 30.2 % [facility] Comment: Interpretive Data Percent cell count reference ranges are not reported, since discordance with absolute values may lead to misinterpretation of CBC data. Current Interpretive Data was last revised on 2018. Monocyte pct 16.4 % [facility] Comment: Interpretive Data Percent cell count reference ranges are not reported, since discordance with absolute values may lead to misinterpretation of CBC data. Current Interpretive Data was last revised on 2018. Eosinophil pct 1.4 % [facility] Comment: Interpretive Data Percent cell count reference ranges are not reported, since discordance with absolute values may lead to misinterpretation of CBC data. Current Interpretive Data was last revised on 2018. Basophil pct 0.6 % [facility] Comment: Interpretive Data Percent cell count reference ranges are not reported, since discordance with absolute values may lead to misinterpretation of CBC data. Current Interpretive Data was last revised on 2018. Blood 04/28/2025 1:39 AM CDT 04/28/2025 2:11 AM CDT us Krishna Cast MD LAB BLOOD ORDERABLES Final Result [facility] Department [place] [address] * (ABNORMAL) CBC with auto differential (04/28/2025 1:39 AM CDT) WBC 7.19 3.80 - 9.90 K/cumm Hgb 8.5(L) 11.9 - 15.5 g/dL [facility] Hct 27.6(L) 35.6 - 45.5 % [facility] Plt 376 150 - 400 K/cumm [facility] MPV 8.9(L) 9.1 - 12.3 fL [facility] RBC 3.20(L) 3.90 - 5.20 M/cumm [facility] MCV 86.3 81.3 - 96.4 fL [facility] MCH 26.6(L) 27.1 - 33.3 pg [facility] MCHC 30.8(L) 32.3 - 35.7 g/dL [facility] RDW CV 16.7(H) 11.1 - 14.9 % [facility] RDW SD 51.3(H) 35.7 - 48.1 fL [facility] NRBC abs 0.00 0.00 - 0.01 K/cumm [facility] Blood 04/28/2025 1:39 AM CDT 04/28/2025 2:11 AM CDT Krishna Cast MD LAB BLOOD ORDERABLES Final Result Performing Organization Address City/[facility] Co de Phone Number [facility] Department [place] [address] * aPTT (04/28/2025 1:39 AM CDT) Pathologist [facility] aPTT 31 28 - 38 sec Comment: Interpretive Data Heparin therapeutic range: 66.0 - 100.0 seconds. Range based on correlation with therapeutic heparin activity range of 0.3 - 0.7 Units/mL. Current interpretive data was last revised on 2023. Blood 04/28/2025 1:39 AM CDT 04/28/2025 2:13 AM CDT Krishna Cast MD LAB BLOOD ORDERABLES Final Result Performing Organization Address City/[facility]/ZIP Co de Phone Number [facility] Department [place] [address] * Protime-INR (04/28/2025 1:39 AM CDT) Pathologist [facility] PT 12.8 9.7 - 13.0 sec INR 1.18 0.90 - 1.20 [facility] Comment: Interpretive data Oral anticoagulant therapeutic ranges: Venous thromboembolism prophylaxis or treatment: 2.0-3.0 CARDIOLOGY Standard range: 2.0-3.0 High-intensity range: 2.5-3.5 Refer to indication-specific guidelines for appropriate target ranges for prosthetic heart valve replacement. Current interpretive data was last revised on 2019. Blood 04/28/2025 1:39 AM CDT 04/28/2025 2:13 AM CDT Krishna Cast MD LAB BLOOD ORDERABLES Final Result Performing Organization Address [facility] de Phone Number [facility] Department [place] [address] * Type and screen (04/28/2025 1:39 AM CDT) ABO Rh O Negative Nikhil, indirect Negative [facility] Blood 04/28/2025 1:39 AM CDT 04/28/2025 2:11 AM CDT Narrative [facility] - 04/28/2025 2:58 AM CDT Has the patient had Daratumumab or Isatuximab in the past 6 months?->Unknown Krishna Cast MD LAB BLOOD BANK TEST O RDERABLES Final Result Performing Organization Address [facility] de Phone Number [facility] Department [place] [address] * (ABNORMAL) Phosphorus (04/28/2025 1:39 AM CDT) Phosphorus, pl 1.8(L) 2.3 - 4.5 mg/dL Blood 04/28/2025 1:39 AM CDT 04/28/2025 2:11 AM CDT Krishna Cast MD LAB BLOOD ORDERABLES Final Result [facility] Department [place] [address] * Magnesium (04/28/2025 1:39 AM CDT) [facility] Magnesium 2.0 1.4 - 2.5 mg/dL Blood 04/28/2025 1:39 AM CDT 04/28/2025 2:11 AM CDT Krishna Cast MD LAB BLOOD ORDERABLES Final Result Performing Organization Address [facility] Co de Phone Number [facility] [place] [address] * (ABNORMAL) Basic metabolic panel (04/28/2025 1:39 AM CDT) [facility] Sodium 139 135 - 145 mmol/L Potassium, pl 3.5 3.3 - 4.9 mmol/L [facility] Chloride 105 97 - 110 mmol/L [facility] CO2 25 22 - 32 mmol/L [facility] Anion gap 9 2 - 15 mmol/L [facility] BUN 7 6 - 25 mg/dL [facility] Creatinine 0.43(L) 0.60 - 1.10 mg/dL [facility] Glucose 100 70 - 199 mg/dL [facility] Comment: Interpretive Data Fasting glucose >/= [...] 2022. Calcium 8.2(L) 8.5 - 10.3 mg/dL [facility] Blood 04/28/2025 1:39 AM CDT 04/28/2025 2:11 AM CDT us Krishna Cast MD LAB BLOOD ORDERABLES Final Result [facility] Department [place] [address] * CT Body Outside Consult (04/28/2025 1:21 [...] images may or may not represent the eagle source data set and thus may contain changes that may lower the accuracy of this second-opinion interpretation. Electronically signed by: Ramana Becker M.D. Narrative 04/28/2025 7:45 AM CDT EXAMINATION: RADIOLOGY CONSULTATION ON OUTSIDE IMAGING STUDY STUDY INITIALLY PERFORMED: 04/25/2025 at [facility]. TYPE OF STUDY: Multiple CT images of [...] no consolidation, pleural effusion, pneumothorax within the [id number]. The imaged heart is normal in size without pericardial effusion within the [id number]. There is minimal intrahepatic biliary duct dilation [...] IMAGING STUDY STUDY INITIALLY PERFORMED: 04/25/2025 at [facility] [place]. TYPE OF STUDY: Multiple CT images of [...] no consolidation, pleural effusion, pneumothorax within the [id number]. The imaged heart is normal in size without pericardial effusion within the [id number]. There is minimal intrahepatic biliary duct dilation [...] images may or may not represent the eagle source data set and thus may contain changes that may lower the accuracy of this second-opinion interpretation. Electronically signed by: Ramana Becker M.D. Jacey Arroyo MD IMG CT PROCEDURES Final Resu lt from Last 3 Months Insurance [facility] MEDICARE ADVANTAGE [facility] Address: [address] [address] [place] [address] MEDICARE ADVANTAGE [facility] Address: [address] [address] [place] [address] Advance Directives For more information, please contact: [phone] * Full Code (Latest Code Status on File) Date Activated Date Inactivated Comments 04/28/2025 12:57 AM 05/01/2025 10:29 PM Care Teams Tree Pruner Relationship Specialty Start Date End Date Ricky Nevarez DO [address] [place] [address] PCP - General Internal Medicine 04/28/25 Andres Oliver MD [phone] [place] [address] Surgeon Colon and Rectal Surgery 05/18/25
--- OUTSIDE RECORDS SUMMARY | 2025-05-19 10:10 | XMS_ITS | Encounter Summary ---
Author Organization [facility] Address [address] [facility] [address] [place] [address] Phone Care Team Providers Care Hydration Plant Operator Name Role Phone Ricky Nevarez DO Primary Care Provider [phone] Andres Oliver MD Unavailable [phone] Reason for Visit * Reason Comments Abscess Encounter Details Date Type Department Care Team (Late st Contact Info) Description 05/18/2025 4:00 PM CDT Office Visit [facility] Surgery [address] [place] [address] Medical Office Building 4 [address] [place] [address] Andres Oliver MD [address] [facility] [phone] [place] [address] Social History Tobacco Use Types Packs/Day Years [...] on file 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 Gender Identity Not on file Sexual Orientation Not on file documented as of this encounter Last Filed Vital Signs Vital Sign Reading Time Taken Comments Blood Pressure 172/84 05/18/2025 2:53 PM CDT Pulse 96 05/18/2025 2:53 PM CDT Temperature 38.4 C (101.1 F) 05/18/2025 2:53 PM CDT Respiratory Rate - - Oxygen Saturation 99% 05/18/2025 2:53 PM CDT Inhaled Oxygen Concentration - - Weight 55.9 kg (123 lb 3.2 oz) 05/18/2025 2:53 P M CDT Height 160 cm (5' 3) 05/18/2025 2:53 PM CDT Body Mass Index 21.82 05/18/2025 2:53 PM CDT documented in this encounter Functional Status * Audit-C Score Answer Date of Assessment Author 1 05/18/2025 2:58 PM CDT Rachna Larson MA * Question Answer Date of Assessment Author Q1: How often do you have a drink containing alcohol? Monthly or less 05/18/2025 2:58 PM CDT Natalie Larson MA Q2: How many drinks containing alcohol do you have on a typical day when you are drinking? 1 or 2 05/18/2025 2:58 PM CDT Amberly Larson M A Q3: How often do you have six or more drinks on one occasion? Never 05/18/2025 2:58 PM CASANDRAT Amberly Larson M A documented as of this encounter Plan of Treatment Not on file documented as of this encounter Visit Diagnoses Not on filedocumented in this encounter Historical Medications * This list may reflect changes made after this encounter. fluticasone propionate (FLONASE) 50 mcg/actuation nasal spray Administer 2 sprays into affected nostril(s) daily multivitamin tablet Take 1 tablet by mouth daily triamcinolone (NASACORT) 55 mcg nasal inhaler Administer 1 spray into affected nostril(s) daily fexofenadine (CHRISTEN) 60 mg tablet Take 1 tablet (60 mg total) by mouth 2 (two) times a day calcium carbonate-vitami n D3 (CALTRATE 600 + D) 1500 mg (600 mg elemental) -400 units per tablet Take 1 tablet by mouth daily added in this encounter Care Teams Hydration Plant Operator Relationship Specialty Start Date End Date Ricky Nevarez DO [address] [facility] [address] [place], [place] [id number] PCP - General Internal Medicine 04/28/25 Andres Oliver MD [address] [facility] [phone] [place] [address] Surgeon Colon and Rectal Surgery 05/18/25 documented as of this encounter
--- OUTSIDE RECORDS SUMMARY | 2025-05-19 10:10 | XMS_ITS | Clinical Summary ---
Author Organization [facility] Address [address] [place] [address] Care Team Providers Care Surface To Air Weapons Officer Name Role Phone RoqueRicky brannon Primary Care Provider [phone] Andres Oliver MD Unavailable [phone] Allergies Active Allergy Reactions Criticality Noted Date [...] Date Type Department Care Team Description 05/18/2025 4:00 PM CDT Office Visit [facility] Surgery [address] [place] [address] Medical Office Building [address] [place] [phone] Andres Oliver MD 05/18/2025 Orders Only [facility] Surgery [address] [place] [address] [address] Andres Oliver MD Colonic diverticular abscess (Primary Dx) 05/08/2025 Telephone [facility] Surgery [address] [place] [address] Office [facility] [address] [address] Mis Steen RN 05/01/2025 Orders Only [facility] Surgery [address] [place] [address] [phone] Andres Oliver MD Colonic diverticular abscess (Primary Dx) 04/28/2025 12:30 AM CDT - 05/01/2025 6:29 PM CDT Hospital Encounter [address] [address] Jacey Arroyo MD Silviera, Matthew Leon, MD Gluteal abscess (Primary Dx) Discharge Disposition: Discharge to home or self care from Last 3 Months Surgical History Surgery Date Site/Laterality Comments APPENDECTOMY 11/09/1957 - 11/08/1958 COLONOSCOPY 11/09/2019 - 11/08/2020 Medical History Medical History Date Comments HTN (hypertension) Arthritis Family History Medical History Relation Name Comments No Known Problems Father No Known Problems Mother Relation Name Status Comments Father Mother Social History Tobacco Use Types Packs/Day Years [...] on file 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 Gender Identity Not on file Sexual Orientation [...] 05/18/2025 2:53 PM CDT Plan of Treatment Health Maintenance Due [...] Performed by: Joesph Fraire MD Authorized by: Joeshp Fraire MD [place] Protocol: RN Notified of Procedure: yes Informed consent: Risks, benefits, alternatives discussed and patient/sales representative printing paper/guardian agrees and accepts Patient's stated name/ matches [...] LAB BLOOD ORDERABLES Fi nal Result [facility] Department [place] [address] * (ABNORMAL) CBC without differential (04/30/2025 11:15 PM CDT) WBC 8.11 3.80 - 9.90 K/cumm Hgb 8.7(L) 11.9 - 15.5 g/dL [facility] Hct 27.2(L) 35.6 - 45.5 % [facility] Plt 420(H) 150 - 400 K/cumm [facility] MPV 8.8(L) 9.1 - 12.3 fL [facility] RBC 3.25(L) 3.90 - 5.20 M/cumm [facility] MCV 83.7 81.3 - 96.4 fL [facility] MCH 26.8(L) 27.1 - 33.3 pg [facility] MCHC 32.0(L) 32.3 - 35.7 g/dL [facility] RDW CV 16.7(H) 11.1 - 14.9 % [facility] RDW SD 50.4(H) 35.7 - 48.1 fL [facility] NRBC abs 0.00 0.00 - 0.01 K/cumm [facility] Blood 04/30/2025 11:1 5 PM CDT 05/01/2025 12:22 AM CDT Andres Oliver MD LAB BLOOD ORDERABLES Fi nal Result Performing Organization Address City/[facility]/ZIP Co de Phone Number [facility] Department [place] [employer] [place] [address] * Phosphorus (04/30/2025 11:15 PM CDT) [facility] Phosphorus, pl 2.5 2.3 - 4.5 mg/dL Blood 04/30/2025 11:1 5 PM CDT 05/01/2025 12:22 AM CDT Andres Oliver MD LAB BLOOD ORDERABLES Fi nal Result [facility] [place] [address] * Magnesium (04/30/2025 11:15 PM CDT) [facility] Magnesium 2.1 1.4 - 2.5 mg/dL Blood 04/30/2025 11:1 5 PM CDT 05/01/2025 12:22 AM CDT Andres Oliver MD LAB BLOOD ORDERABLES Fi nal Result [facility] Department [place] [address] * (ABNORMAL) Basic metabolic panel (04/30/2025 11:15 PM CDT) [facility] Sodium 140 135 - 145 mmol/L Potassium, pl 3.6 3.3 - 4.9 mmol/L [facility] Chloride 104 97 - 110 mmol/L [facility] CO2 28 22 - 32 mmol/L [facility] Anion gap 8 2 - 15 mmol/L [facility] BUN 7 6 - 25 mg/dL [facility] Creatinine 0.44(L) 0.60 - 1.10 mg/dL [facility] Glucose 109 70 - 199 mg/dL [facility] Comment: Interpretive Data Fasting glucose [...] 2022. Calcium 8.0(L) 8.5 - 10.3 mg/dL [facility] Blood 04/30/2025 11:1 5 PM CDT 05/01/2025 12:22 AM CDT Andres Oliver MD LAB BLOOD ORDERABLES Fi nal Result Performing Organization Address City/[facility]/ZIP Co de Phone Number [facility] Department [place] [address] * (ABNORMAL) CBC without differential (04/29/2025 9:35 PM CDT) [facility] WBC 6.25 3.80 - 9.90 K/cumm Hgb 8.3(L) 11.9 - 15.5 g/dL [facility] Hct 25.7(L) 35.6 - 45.5 % [facility] Plt 349 150 - 400 K/cumm [facility] MPV 8.7(L) 9.1 - 12.3 fL [facility] RBC 3.06(L) 3.90 - 5.20 M/cumm [facility] MCV 84.0 81.3 - 96.4 fL [facility] MCH 27.1 27.1 - 33.3 pg [facility] MCHC 32.3 32.3 - 35.7 g/dL [facility] RDW CV 16.9(H) 11.1 - 14.9 % [facility] RDW SD 50.7(H) 35.7 - 48.1 fL [facility] NRBC abs 0.00 0.00 - 0.01 K/cumm [facility] Blood 04/29/2025 9:35 PM CDT 04/29/2025 10:03 PM CDT us Andres Oliver MD LAB BLOOD ORDERABLES Fi nal Result [facility] Department [place] [address] * eGFR (04/29/2025 9:34 PM CDT) [facility] eGFR >90 >=60 mL/min/1. 73 m2 [...] ORDERABLES Fi nal Result Performing Organization Address City/[facility] Co de Phone Number [facility] Department [place] [address] * Phosphorus (04/29/2025 9:34 PM CDT) Phosphorus, pl 2.6 2.3 - 4.5 mg/dL Blood 04/29/2025 9:34 PM CDT 04/29/2025 10:03 PM CDT Andres Oliver MD LAB BLOOD ORDERABLES Fi nal Result Performing Organization Address City/[facility] Co de Phone Number [facility] Department [place] [address] * Magnesium (04/29/2025 9:34 PM CDT) Magnesium 1.6 1.4 - 2.5 mg/dL Blood 04/29/2025 9:34 PM CDT 04/29/2025 10:03 PM CDT Andres Oliver MD LAB BLOOD ORDERABLES Fi nal Result Performing Organization Address City/[facility] Co de Phone Number [facility] Department [place] [address] * (ABNORMAL) Basic metabolic panel (04/29/2025 9:34 PM CDT) [facility] Sodium 139 135 - 145 mmol/L Potassium, pl 3.1(L) 3.3 - 4.9 mmol/L [facility] Chloride 104 97 - 110 mmol/L [facility] CO2 28 22 - 32 mmol/L [facility] Anion gap 7 2 - 15 mmol/L [facility] BUN 5(L) 6 - 25 mg/dL [facility] Creatinine 0.41(L) 0.60 - 1.10 mg/dL [facility] Glucose 122 70 - 199 mg/dL [facility] Comment: Interpretive Data Fasting glucose [...] 2022. Calcium 8.2(L) 8.5 - 10.3 mg/dL [facility] Blood 04/29/2025 9:34 PM CDT 04/29/2025 10:03 PM CDT us Andres Oliver MD LAB BLOOD ORDERABLES Fi nal Result [facility] Department [place] [address] * eGFR (04/28/2025 10:18 PM CDT) [facility] eGFR >90 >=60 mL/min/1. 73 m2 [...] Lisa Humphreys NP LAB BLOOD ORDERABLES Lexis bartlett Result [facility] Department [place] [address] * (ABNORMAL) CBC without differential (04/28/2025 10:18 PM CDT) WBC 6.30 3.80 - 9.90 K/cumm Hgb 8.7(L) 11.9 - 15.5 g/dL [facility] Hct 26.6(L) 35.6 - 45.5 % [facility] Plt 378 150 - 400 K/cumm [facility] MPV 8.9(L) 9.1 - 12.3 fL [facility] RBC 3.20(L) 3.90 - 5.20 M/cumm [facility] MCV 83.1 81.3 - 96.4 fL [facility] MCH 27.2 27.1 - 33.3 pg [facility] MCHC 32.7 32.3 - 35.7 g/dL [facility] RDW CV 16.6(H) 11.1 - 14.9 % [facility] RDW SD 49.1(H) 35.7 - 48.1 fL [facility] NRBC abs 0.00 0.00 - 0.01 K/cumm [facility] Blood 04/28/2025 10:1 8 PM CDT 04/28/2025 10:53 PM CDT Lisa Humphreys CUSTOMER CARE REPRESENTATIVE LAB BLOOD ORDERABLES Lexis l Result Performing Organization Address [facility]/ZIP Co de Phone Number [facility] Department [place] [address] * (ABNORMAL) Basic metabolic panel (04/28/2025 10:18 PM CDT) Sodium 140 135 - 145 mmol/L Potassium, pl 3.0(L) 3.3 - 4.9 mmol/L [facility] Chloride 104 97 - 110 mmol/L [facility] CO2 28 22 - 32 mmol/L [facility] Anion gap 8 2 - 15 mmol/L [facility] BUN 3(L) 6 - 25 mg/dL [facility] Creatinine 0.39(L) 0.60 - 1.10 mg/dL [facility] Glucose 99 70 - 199 mg/dL [facility] Comment: Interpretive Data Fasting glucose [...] 2022. Calcium 8.1(L) 8.5 - 10.3 mg/dL [facility] Blood 04/28/2025 10:1 8 PM CDT 04/28/2025 11:17 PM CDT Lisa Humphreys CUSTOMER CARE REPRESENTATIVE LAB BLOOD ORDERABLES Lexis l Result Performing Organization Address [facility] Co de Phone Number [facility] Department [place] [address] * Check Sample (04/28/2025 2:33 AM CDT) ABO Rh O Negative [facility] HCLL OTHER 04/28/2025 2:33 AM CDT 04/28/2025 3:18 AM CDT us Jacey Arroyo MD LAB BLOOD ORDERABLES Final R esult Performing Organization Address [facility] de Phone Number [facility] [place] [address] [facility] * eGFR (04/28/2025 1:39 AM CDT) eGFR [...] BLOOD ORDERABLES Final Result Performing Organization Address City/[facility]/ZIP Co de Phone Number [facility] Department [place] [address] * (ABNORMAL) Differential, auto (04/28/2025 1:39 AM CDT) Neutrophil abs 3.64 1.50 - 6.50 K/cumm Imm gran abs 0.06 0.00 - 0.10 K/cumm [facility] Lymphocyte abs 2.17 0.80 - 3.30 K/cumm [facility] Monocyte abs 1.18(H) 0.20 - 0.80 K/cumm [facility] Eosinophil abs 0.10 0.00 - 0.50 K/cumm [facility] Basophil abs 0.04 0.00 - 0.10 K/cumm [facility] Neutrophil pct 50.6 % [facility] Comment: Interpretive Data Percent cell count reference ranges are not reported, since discordance with absolute values may lead to misinterpretation of CBC data. Current Interpretive Data was last revised on 2018. Imm gran pct 0.8 % [facility] Comment: Interpretive Data Percent cell count reference ranges are not reported, since discordance with absolute values may lead to misinterpretation of CBC data. Current Interpretive Data was last revised on 2018. Lymphocyte pct 30.2 % [facility] Comment: Interpretive Data Percent cell count reference ranges are not reported, since discordance with absolute values may lead to misinterpretation of CBC data. Current Interpretive Data was last revised on 2018. Monocyte pct 16.4 % [facility] Comment: Interpretive Data Percent cell count reference ranges are not reported, since discordance with absolute values may lead to misinterpretation of CBC data. Current Interpretive Data was last revised on 2018. Eosinophil pct 1.4 % [facility] Comment: Interpretive Data Percent cell count reference ranges are not reported, since discordance with absolute values may lead to misinterpretation of CBC data. Current Interpretive Data was last revised on 2018. Basophil pct 0.6 % [facility] Comment: Interpretive Data Percent cell count reference ranges are not reported, since discordance with absolute values may lead to misinterpretation of CBC data. Current Interpretive Data was last revised on 2018. Blood 04/28/2025 1:39 AM CDT 04/28/2025 2:11 AM CDT Krishna Cast MD LAB BLOOD ORDERABLES Final Result Performing Organization Address [facility] Co de Phone Number [facility] Department [place] [address] * (ABNORMAL) CBC with auto differential (04/28/2025 1:39 AM CDT) [facility] WBC 7.19 3.80 - 9.90 K/cumm Hgb 8.5(L) 11.9 - 15.5 g/dL [facility] Hct 27.6(L) 35.6 - 45.5 % [facility] Plt 376 150 - 400 K/cumm [facility] MPV 8.9(L) 9.1 - 12.3 fL [facility] RBC 3.20(L) 3.90 - 5.20 M/cumm [facility] MCV 86.3 81.3 - 96.4 fL [facility] MCH 26.6(L) 27.1 - 33.3 pg [facility] MCHC 30.8(L) 32.3 - 35.7 g/dL [facility] RDW CV 16.7(H) 11.1 - 14.9 % [facility] RDW SD 51.3(H) 35.7 - 48.1 fL [facility] NRBC abs 0.00 0.00 - 0.01 K/cumm [facility] Blood 04/28/2025 1:39 AM CDT 04/28/2025 2:11 AM CDT Krishna Cast MD LAB BLOOD ORDERABLES Final Result Performing Organization Address City/[facility]/ZIP Co de Phone Number [facility] Department [place] [address] * aPTT (04/28/2025 1:39 AM CDT) aPTT [...] BLOOD ORDERABLES Final Result Performing Organization Address [facility] de Phone Number [facility] [place] [address] * Protime-INR (04/28/2025 1:39 AM CDT) PT 12.8 9.7 - 13.0 sec INR 1.18 0.90 - 1.20 [facility] Comment: Interpretive data Oral anticoagulant therapeutic ranges: Venous thromboembolism prophylaxis or treatment: 2.0-3.0 CARDIOLOGY Standard range: 2.0-3.0 High-intensity range: 2.5-3.5 Refer to indication-specific guidelines for appropriate target ranges for prosthetic heart valve replacement. Current interpretive data was last revised on 2019. Blood 04/28/2025 1:39 AM CDT 04/28/2025 2:13 AM CDT Krishna Cast MD LAB BLOOD ORDERABLES Final Result Performing Organization Address [facility] de Phone Number [facility] [place] [address] * Type and screen (04/28/2025 1:39 AM CDT) ABO Rh O Negative Nikhil, indirect Negative [facility] Blood 04/28/2025 1:39 AM CDT 04/28/2025 2:11 AM CDT Narrative [facility] - 04/28/2025 2:58 AM CDT Has the patient had Daratumumab or Isatuximab in the past 6 months?->Unknown Krishna Cast MD LAB BLOOD BANK TEST O RDERABLES Final Result Performing Organization Address [facility] Co de Phone Number [facility] [place] [address] * (ABNORMAL) Phosphorus (04/28/2025 1:39 AM CDT) [facility] Phosphorus, pl 1.8(L) 2.3 - 4.5 mg/dL Blood 04/28/2025 1:39 AM CDT 04/28/2025 2:11 AM CDT Krishna Cast MD LAB BLOOD ORDERABLES Final Result Performing Organization Address [facility] de Phone Number [facility] [place] [address] * Magnesium (04/28/2025 1:39 AM CDT) [facility] Magnesium 2.0 1.4 - 2.5 mg/dL Blood 04/28/2025 1:39 AM CDT 04/28/2025 2:11 AM CDT Krishna Cast MD LAB BLOOD ORDERABLES Final Result Performing Organization Address [facility] [place] [address] * (ABNORMAL) Basic metabolic panel (04/28/2025 1:39 AM CDT) [facility] Sodium 139 135 - 145 mmol/L Potassium, pl 3.5 3.3 - 4.9 mmol/L [facility] Chloride 105 97 - 110 mmol/L [facility] CO2 25 22 - 32 mmol/L [facility] Anion gap 9 2 - 15 mmol/L [facility] BUN 7 6 - 25 mg/dL [facility] Creatinine 0.43(L) 0.60 - 1.10 mg/dL [facility] Glucose 100 70 - 199 mg/dL [facility] Comment: Interpretive Data Fasting glucose [...] 2022. Calcium 8.2(L) 8.5 - 10.3 mg/dL [facility] Blood 04/28/2025 1:39 AM CDT 04/28/2025 2:11 AM CDT Krishna Cast MD LAB BLOOD ORDERABLES Final Result [facility] [place] [address] * CT Body Outside Consult (04/28/2025 1:21 [...] images may or may not represent the [employer] source data set and thus may contain changes that may lower the accuracy of this second-opinion interpretation. Electronically signed by: Ramana Becker M.D. Narrative 04/28/2025 7:45 AM CDT EXAMINATION: RADIOLOGY CONSULTATION ON OUTSIDE IMAGING STUDY STUDY INITIALLY PERFORMED: 04/25/2025 at [facility]. TYPE OF STUDY: Multiple CT [...] no consolidation, pleural effusion, pneumothorax within the [id number]. The imaged heart is normal in size without pericardial effusion within the [id number]. There is minimal intrahepatic biliary duct dilation [...] IMAGING STUDY STUDY INITIALLY PERFORMED: 04/25/2025 at [facility]. TYPE OF STUDY: Multiple CT [...] no consolidation, pleural effusion, pneumothorax within the [id number]. The imaged heart is normal in size without pericardial effusion within the [id number]-[id number]. There is minimal intrahepatic biliary duct dilation [...] images may or may not represent the [employer] source data set and thus may contain changes that may lower the accuracy of this second-opinion interpretation. Electronically signed by: Ramana Becker M.D. us Jacey Arroyo MD IMG CT PROCEDURES Final Resu lt from Last 3 Months Insurance MEDICARE ADVANTAGE [facility] Address: [address] [address] [employer] MEDICARE ADVANTAGE [facility] Address: [place] [phone] Advance Directives For more information, please contact: [phone] * Full Code (Latest Code Status on File) Date Activated Date Inactivated Comments 04/28/2025 12:57 AM 05/01/2025 10:29 PM Care Teams Surface To Air Weapons Officer Relationship Specialty Start Date End Date Ricky Nevarez DO [address] [facility] [address] [place], [place] [id number] PCP - General Internal Medicine 04/28/25 Andres Oliver MD [phone] [place] [address] Surgeon Colon and Rectal Surgery 05/18/25
--- OUTSIDE RECORDS SUMMARY | 2025-05-19 10:10 | XMS_ITS | Continuity of Care Document ---
Author Organization [facility] Address [address] [place] [address] [address] [place] [address] Phone Care Team Providers Care Pattern Technician Name Role Phone Jarred Alvarado Unavailable Unavailable Procedures Procedure Date Eye Exam & Treatment Refraction Progressive Lens, Hi Index Anti-reflective Coating Frames Deluxe Tax - Medical Eye Exam & Treatment Refraction Eye Exam & Treatment Refraction Advance Directives Directive Yes / No Effective Date File Name No Information Encounters Encounter Description Practice Location Reason(s) For Visit Diagnoses Date Provider Providers Copied on Encounter [facility], [address] [place] [address] [facility] [address], [place], [place], [id number], [place] tel:[phone] [facility] No Information 0-201 [address] Stern[address] [facility] , [address], [place], [address], [place]. tel:[phone] [facility], [address] [place] [address] [facility] [address], [place], [place], [id number], [place] tel:[phone] [facility] No Information Oct-0 3-200 8 [facility] . [address] [place] [address], [address], [place], [place], [id number], [place]. tel:[phone] Referring Provider: Jarred Pizarro [address] [facility] [address], [place], [address]. tel:[phone] aceves Provider: Kelley Horvath, [address] [place], [place], [facility]. tel:[phone] [facility], [address], [place], [place], [id number], tel:[phone] [facility] No Information Oct-2 7-200 8 [employer]. [address] [facility] , [address], [place], [place], [facility], . tel:[phone] [facility], [address], [place], [place], [address], tel:[phone] [facility] No Information Apr-2 0-200 7 Doikeshia Stern. [address] [facility] , [address], [place], [address], . tel:[phone] Family History Family Member Type Diagnosis Age [...]
--- OUTSIDE RECORDS SUMMARY | 2025-05-19 10:10 | XMS_ITS | Clinical Summary ---
Author Organization [facility] Address [address] [facility] [place] [address] Care Team Providers Care Jump Iron Machine Presser Name Role Phone Ricky Nevarez DO Primary [...] Comments Blood Pressure 133/77 12/19/2024 11:26 AM WINDING INSPECTOR AND TESTER Pulse 66 12/19/2024 11:23 AM WINDING INSPECTOR AND TESTER Temperature 36.1 C (96.9 F) 12/19/2024 11:23 AM WINDING INSPECTOR AND TESTER Respiratory Rate 16 12/19/2024 11:23 AM WINDING INSPECTOR AND TESTER Oxygen Saturation 96% 12/19/2024 11:23 AM WINDING INSPECTOR AND TESTER Inhaled Oxygen Concentration - - Weight 60.6 kg (133 lb 9.6 oz) 12/19/2024 11:23 AM WINDING INSPECTOR AND TESTER Height 160 cm (5' 3) 07/07/2022 2:58 PM CDT Body Mass Index 23.67 07/07/2022 2:58 PM CDT Plan of Treatment Upcoming Encounters Date Type Department Care Team (Late st Contact Info) Description 06/22/2025 11:00 AM CDT Office Visit [facility] - [place] [address] [facility] [address] [place] [address] Samir Brito MD [address] [facility] [address] [place] [address] Health Maintenance Due Date Last [...] Most Recently Relevant to Health Maintenance Insurance [facility] [id number] Care Teams Jump Iron Machine Presser Relationship Specialty Start Date End Date Ricky Nevarez DO [address] [facility] [address] [place] [address] PCP - General Internal Medicine 12/19/24
--- OUTSIDE RECORDS SUMMARY | 2025-05-19 10:10 | XMS_ITS | Clinical Summary ---
Author Organization [facility] Address [address] [facility] [place] [address] Care Team Providers Care Semiconductor Wafers Saw Operator Name Role Phone Kalyan Knutson DO Primary Care Provider [phone] Sandor Emmanuel MD Unavailable [phone] Source Comments [facility],non-owned Affiliates and Associated Physician Practices is amultiple site organization consisting of ambulatory clinics and hospital sitesin [place], [place], [place] and [place]. This disclosure is being madepursuant to the Care Everywhere program and may not contain all information available regarding this patient. Last updated 18.[facility] Allergies No known active allergies Medications * Be aware that medications may not be up to date on this document. Alwaysverify current medications with the patient. lisinopril (PRINIVIL; ZESTRIL) 10 MG tablet Take 10 mg by mouth once daily Active fexofenadine (CHRISTEN ALLERGY) 180 MG tablet Take 180 mg by mouth once daily Active fluticasone propionate (FLONASE) 50 MCG/ACT nasal spray [place] 2 Sprays into each nostril once daily Active triamcinolone (NASACORT ALLERGY 24HR) 55 MCG/ACT nasal inhaler [place] 1 [place] into each nostril once daily Active diclofenac [...] season) 2024 DEPRESSION SCREENING 11/09/2024 INFLUENZA VACCINE (#1) 2025 HEPATITIS B VACCINE Aged Out No [...] patient's age to complete this topic Insurance [place] [employer] ADV Care Teams Semiconductor Wafers Saw Operator Relationship Specialty Start Date End Date Kalyan Knutson DO [address] [facility] [address] [place], [place] [id number] PCP - General Internal Medicine 07/06/15 [place] [address] [address] Orthopedic Surgery 07/06/15
--- OUTSIDE RECORDS SUMMARY | 2025-05-19 10:10 | XMS_ITS | Encounter Summary ---
Author Organization [facility] Address [address] [place] [address] Care Team Providers Care Medical Library Assistant Name Role Phone Ricky Nevarez DO Primary Care Provider [phone] Encounter Details Date Type Department Care Team (Late Contact Info) Description 01/13/2017 Chart Note [facility] Radiation Therapy [address] [place] [address] [place] [address] [place] [address] Social History Tobacco Use Types [...] Description 06/22/2025 11:00 AM CDT Office Visit [facility] Oncology and Hematology - [place] [address] [facility] [address] [place] [address] Samir Brito MD [address] [facility] [address] [place] [address] documented as of this encounter Visit Diagnoses Not on filedocumented in this encounter Care Teams Medical Library Assistant Relationship Specialty Start Date End Date Ricky Nevarez DO [address] [facility] [address] [facility] [address] [place] [address] PCP - General Internal Medicine 12/19/24 documented as of this encounter
== END 2025-05-19 10:01 | disposition home or self-care (01) ==
LOC: ANHIMG 10:05
PROVIDERS: PCP Internal Medicine
DX: K57.20 Diverticulitis of large intestine with perforation and abscess without bleeding (principal); K40.90 Unilateral inguinal hernia, without obstruction or gangrene, not specified as recurrent; M51.379 Other intervertebral disc degeneration, lumbosacral region without mention of lumbar back pain or lower extremity pain
CPT/HCPCS: 74177; Q9967